=== PATIENT | female | born 1945 | race Caucasian/White ===

== ENCOUNTER 2016-08-25 12:07 | Emergency (ER) | payer OTHER ==
--- NOTE | 2016-08-25 13:03 | EDPHY ---
H & P Time Seen by Provider: 08/25/16 12:57 HPI/ROS: Chief complaint. Nausea, vomiting HPI. 71-year-old female presents emergency department with complaint of nausea for 2 weeks. Decreased appetite. She vomited once this morning and once 4 days ago. No diarrhea. No abdominal pain. Denies chest discomfort, shortness of breath, fever, urinary symptoms. No recent travel or known exposures. She is giving a steroid medication to her dog which says wash her hands after administering the medication. She has been washing her hands after administration but is concerned that this may be a cause. She has not had similar symptoms previously ROS Constitutional. no fever/chills, no weakness Eyes. no problems with vision ENT. no sore throat, no nasal drainage Cardiovascular. no chest pain Respiratory. no shortness of breath, no cough Abdominal. Nausea and vomiting . no problems urinating MS. no calf pain/swelling, no neck/back pain, no joint pain Skin. no rash Lymph. no swollen glands Neuro. no headache, no dizziness, no difficulty walking or with speech Past Medical/Surgical History: Depression and asthma Social History: , nonsmoker, no alcohol Smoking Status: Never smoked Physical Exam: General Appearance: Alert pleasant well-developed female mild distress vital signs are stable Eyes: Pupils equal and round no pallor or injection. ENT, Mouth: Mucous membranes are moist. Respiratory: There are no retractions, lungs are clear to auscultation. Cardiovascular: Regular rate and rhythm. Gastrointestinal: Abdomen is soft and nontender, no masses, bowel sounds normal. Neurological: Awake and alert, sensory and motor exams grossly normal. Skin: Warm and dry, no rashes. Musculoskeletal: Neck is supple nontender. Extremities symmetrical, full range of motion. Psychiatric: Patient is oriented X 3, there is no agitation. Constitutional: Initial Vital Signs Temperature (C) 36.9 C 08/25/16 12:11 Heart Rate 73 08/25/16 12:11 Respiratory Rate 14 08/25/16 12:11 Blood Pressure 129/66 H 08/25/16 12:11 O2 Sat (%) 96 08/25/16 12:11 O2 Delivery Mode Room Air Allergies/Adverse Reactions: Sulfa (Sulfonamide Antibiotics) Allergy (Unverified 08/25/16 12:09) Home Medications: Medication Instructions Recorded Aspirin 08/25/16 Clobetasol 0.05% 08/25/16 Clonazepam 08/25/16 Ondansetron Odt [Zofran Odt] 4 mg PO Q4PRN PRN #7 tab 08/25/16 Zoloft 50mg (*) 08/25/16 Medical Decision Making Procedures: IV normal saline. Zofran IV. ED Course/Re-evaluation: Re-evaluation 2:50 p.m.--patient feeling much better. She no longer has any nausea. She does have abdominal pain. She is taking oral fluids. The patient and I discussed laboratory evaluation, treatment plan, criteria for return importance of follow-up and further evaluation. She expresses understanding and agreement Differential Diagnosis: Chronic nausea with normal workup. This could be stress and anxiety, gastroenteritis. I considered appendicitis, diverticulitis, pancreatitis, hepatitis as well as urinary tract infection - Data Points Laboratory Results: Laboratory Results 08/25/16 12:22 08/25/16 12:22 08/25/16 08/25/16 08/25/16 14:10 12:22 12:22 WBC 5.36 10^3/uL 10^3/uL (3.80-9.50) RBC 4.80 10^6/uL 10^6/uL (4.18-5.33) Hgb 14.9 g/dL g/dL (12.6-16.3) Hct 43.8 % % (38.0-47.0) MCV 91.3 fL fL (81.5-99.8) MCH 31.0 pg pg (27.9-34.1) MCHC 34.0 g/dL g/dL (32.4-36.7) RDW 12.5 % % (11.5-15.2) Plt Count 210 10^3/uL 10^3/uL (150-400) MPV 9.7 fL fL (8.7-11.7) Neut % (Auto) 69.6 % % (39.3-74.2) Lymph % (Auto) 19.0 % % (15.0-45.0) Pepin % (Auto) 7.3 % % (4.5-13.0) Eos % (Auto) 3.0 % % (0.6-7.6) Baso % (Auto) 0.7 % % (0.3-1.7) Nucleat RBC Rel Count 0.0 % % (0.0-0.2) Absolute Neuts (auto) 3.73 10^3/uL 10^3/uL (1.70-6.50) Absolute Lymphs (auto) 1.02 10^3/uL 10^3/uL (1.00-3.00) Absolute Monos (auto) 0.39 10^3/uL 10^3/uL (0.30-0.80) Absolute Eos (auto) 0.16 10^3/uL 10^3/uL (0.03-0.40) Absolute Basos (auto) 0.04 10^3/uL 10^3/uL (0.02-0.10) Absolute Nucleated RBC 0.00 10^3/uL 10^3/uL (0-0.01) Immature Gran % 0.4 % % (0.0-1.1) Immature Gran # 0.02 10^3/uL 10^3/uL (0.00-0.10) Sodium 144 mEq/L mEq/L (134-144) Potassium 4.1 mEq/L mEq/L (3.5-5.2) Chloride 109 mEq/L mEq/L (97-110) Carbon Dioxide 24 mEq/l mEq/l (22-31) Anion Gap 11 mEq/L mEq/L (8-16) BUN 19 mg/dL mg/dL (7-23) Creatinine 0.9 mg/dL mg/dL (0.6-1.0) Estimated GFR > 60 Glucose 90 mg/dL mg/dL (70-100) Calcium 9.6 mg/dL mg/dL (8.5-10.4) Total Bilirubin 0.7 mg/dL mg/dL (0.1-1.4) Conjugated Bilirubin 0.3 mg/dL mg/dL (0.0-0.5) Unconjugated Bilirubin 0.4 mg/dL mg/dL (0.0-1.1) AST 22 IU/L IU/L (14-46) ALT 26 IU/L IU/L (9-52) Alkaline Phosphatase 70 IU/L IU/L (38-126) Total Protein 6.9 g/dL g/dL (6.3-8.2) Albumin 4.2 g/dL g/dL (3.5-5.0) Lipase 62.0 IU/L IU/L (23-300) Urine Color YELLOW Urine Appearance CLEAR Urine pH 6.0 (5.0-7.5) Ur Specific [place] 1.021 (1.002-1.030) Urine Protein NEGATIVE (NEGATIVE) Urine Ketones 1+ H (NEGATIVE) Urine Blood NEGATIVE (NEGATIVE) Urine Nitrate NEGATIVE (NEGATIVE) Urine Bilirubin NEGATIVE (NEGATIVE) Urine Urobilinogen NEGATIVE EU EU (0.2-1.0) Ur Leukocyte Esterase NEGATIVE (NEGATIVE) Urine RBC NONE SEEN /hpf /hpf (0-3) Urine WBC 1-3 /hpf /hpf (0-3) Ur Epithelial Cells NONE SEEN /lpf /lpf (NONE-1+) Urine Mucus 1+ /lpf /lpf (NONE-1+) Urine Glucose NEGATIVE (NEGATIVE) Medications Given: Discontinued Medications Sodium Chloride (Ns) 1,000 mls @ 0 mls/hr IV EDNOW ONE; Wide Open PRN Reason: Protocol Stop: 08/25/16 13:12 Last Admin: 08/25/16 13:18 Dose: 1,000 mls Ondansetron HCl (Zofran) 4 mg IVP EDNOW ONE Stop: 08/25/16 13:12 Last Admin: 08/25/16 13:18 Dose: 4 mg Departure - Departure Disposition: Home, Routine, Self-Care Clinical Impression: Nausea & vomiting Qualifiers: Vomiting type: unspecified Vomiting Intractability: non-intractable Qualified Code(s): R11.2 - Nausea with vomiting, unspecified Condition: Good Instructions: Acute Nausea and Vomiting (ED) Additional Instructions: Zofran every 4 hours as needed for nausea. While nauseated, take frequent, small sips fluids. Gradual diet advancement. Return for worsening symptoms. Keep follow-up appointment with Dr. Chen. Referrals: Radha Chen MD [Primary Care Provider] - As per Instructions Prescriptions: Ondansetron Odt [Zofran Odt] 4 mg PO Q4PRN PRN #7 tab PRN Reason: Nausea/Vomiting, Use 1st
[2016-08-25] MEDS ORDERED: NS 1,000 ML IV ONE (13:11)
[2016-08-25] MEDS ORDERED: ONDANSETRON 4 MG/2 ML VIAL IVP ONE (13:11)
[2016-08-25 13:17] LABS: % IMMATURE GRANULYOCYTES 0.4 % (0.0-1.1); ABSOLUTE IMMATURE GRANULOCYTES 0.02 10^3/uL (0.00-0.10); ADD DIFF? NO; ADD MORPH? NO; ADD SCAN? NO; ATYPICAL LYMPHOCYTE FLAG 0 (0-99); FRAGMENT RBC FLAG 0 (0-99); HEMATOCRIT 43.8 % (38.0-47.0); HEMOGLOBIN 14.9 g/dL (12.6-16.3); LEFT SHIFT FLG 0 (0-99); LIPEMIA HEMOLYSIS FLAG 90 (0-99); MEAN CELL VOLUME 91.3 fL (81.5-99.8); MEAN PLATELET VOLUME 9.7 fL (8.7-11.7); PLATELET CLUMPS FLAG 0 (0-99); PLATELET COUNT 210 10^3/uL (150-400); RED CELL DISTRIBUTION WIDTH 12.5 % (11.5-15.2)
[2016-08-25 13:24] LABS: ALANINE AMINOTRANSFERASE 26 IU/L (9-52); ALBUMIN 4.2 g/dL (3.5-5.0); ALKALINE PHOSPHATASE 70 IU/L (38-126); ANION GAP 11 mEq/L (8-16); ASPARTATE AMINOTRANSFERASE 22 IU/L (14-46); BILIRUBIN,TOTAL 0.7 mg/dL (0.1-1.4); BILIRUBIN-CONJUGATED 0.3 mg/dL (0.0-0.5); BILIRUBIN-UNCONJUGATED 0.4 mg/dL (0.0-1.1); CALCIUM 9.6 mg/dL (8.5-10.4); CARBON DIOXIDE 24 mEq/l (22-31); CHLORIDE 109 mEq/L (97-110); CREATININE 0.9 mg/dL (0.6-1.0); GLOMERULAR FILTRATION RATE > 60; GLUCOSE 90 mg/dL (70-100); POTASSIUM 4.1 mEq/L (3.5-5.2); SODIUM 144 mEq/L (134-144); TOTAL PROTEIN 6.9 g/dL (6.3-8.2)
[2016-08-25 14:28] LABS: COLOR YELLOW; LEUKOCYTE ESTERASE,URINE NEGATIVE (NEGATIVE); NITRITE,URINE NEGATIVE (NEGATIVE)
[2016-08-25 14:36] LABS: MUCUS 1+ /lpf (NONE-1+)
[2016-08-25 14:39] LABS: RBC,URINE NONE SEEN /hpf (0-3)
[2016-08-25 15:11] VITALS: BP 127/64; PULSE 71; RESP 18; TEMP 98.1; O2SAT 95
== END 2016-08-25 15:11 | disposition home or self-care (01) ==
DX: R11.2 Nausea with vomiting, unspecified (principal); E86.9 Volume depletion, unspecified; J45.909 Unspecified asthma, uncomplicated; Z79.82 Long term (current) use of aspirin
CPT/HCPCS: 96361; 96374; 99284; J2405

== ENCOUNTER → 2016-08-30 | Outpatient (CLI) | payer OTHER | LOC: CIMAGING 10:40 | PROVIDERS: ATTEND Family Medicine | DX: R11.2 Nausea with vomiting, unspecified (principal) | CPT/HCPCS: 74022-PO ==

== ENCOUNTER 2016-09-02 14:27 | Inpatient (IN) | payer OTHER ==
[2016-09-02] MEDS ORDERED: NS 1,000 ML IV ONE (17:20)
[2016-09-02 17:38] LABS: % IMMATURE GRANULYOCYTES 0.5 % (0.0-1.1); ABSOLUTE IMMATURE GRANULOCYTES 0.03 10^3/uL (0.00-0.10); ADD DIFF? NO; ADD MORPH? NO; ADD SCAN? NO; ATYPICAL LYMPHOCYTE FLAG 10 (0-99); FRAGMENT RBC FLAG 0 (0-99); HEMATOCRIT 46.2 % (38.0-47.0); HEMOGLOBIN 15.8 g/dL (12.6-16.3); LEFT SHIFT FLG 0 (0-99); LIPEMIA HEMOLYSIS FLAG 90 (0-99); MEAN CELL HEMOGLOBIN 30.9 pg (27.9-34.1); MEAN CELL HEMOGLOBIN CONCENTR. 34.2 g/dL (32.4-36.7); MEAN CELL VOLUME 90.4 fL (81.5-99.8); MEAN PLATELET VOLUME 9.5 fL (8.7-11.7); PLATELET CLUMPS FLAG 0 (0-99); PLATELET COUNT 229 10^3/uL (150-400); RED BLOOD CELL COUNT 5.11 10^6/uL (4.18-5.33); RED CELL DISTRIBUTION WIDTH 12.5 % (11.5-15.2)
[2016-09-02] MEDS ORDERED: IOPAMIDOL (ISOVUE-300) 100 ML BTL ONE (17:46)
[2016-09-02 18:02] LABS: ANION GAP 12 mEq/L (8-16); CALCIUM 9.5 mg/dL (8.5-10.4); CARBON DIOXIDE 24 mEq/l (22-31); CHLORIDE 104 mEq/L (97-110); CREATININE 0.9 mg/dL (0.6-1.0); GLOMERULAR FILTRATION RATE > 60; GLUCOSE 83 mg/dL (70-100); POTASSIUM 3.8 mEq/L (3.5-5.2); SODIUM 140 mEq/L (134-144)
[2016-09-02] MEDS ORDERED: ONDANSETRON 4 MG/2 ML VIAL IVP ONE (18:35)
--- NOTE | 2016-09-02 18:35 | EDPHY ---
H & P Time Seen by Provider: 09/02/16 17:12 HPI/ROS: CHIEF COMPLAINT: Nausea and abdominal pain HISTORY OF PRESENT ILLNESS: Patient was seen in our emergency department on August 25 last week and discharged after IV therapy in the emergency department. She continues to have nausea which is worse with oral intake. She had vomiting on Monday and has abdominal pain and burping with any oral intake. She has not had anything to eat or drink in the last 24 hours. No bowel movement. Patient's symptoms still remains severe. REVIEW OF SYSTEMS: Eye: no change in vision ENT: no sore throat Cardiac: no chest pain or syncope Pulmonary: no cough or SOB Abdomen: HPI Musculoskeletal: no back pain Skin: no rash Neuro: no headache Constitutional: no fever : no urinary symptoms A comprehensive 10 point review of systems is otherwise negative aside from elements mentioned in the history of present illness. PAST MEDICAL HISTORY: asthma, depression, breast reduction Social history: no alcohol General Appearance: Alert and conversant, cooperative. Eyes: No scleral icterus. ENT, Mouth: Normal mucous membranes. Respiratory: Normal respiratory effort, breath sounds equal, lungs are clear to auscultation. Cardiovascular: Regular rate and rhythm. Gastrointestinal: Abdomen is soft and non tender. No rebound or guarding, not distended, bowel sounds decreased. Neurological: Alert and oriented x3. Normally conversant. Face symmetric, normal movement and sensation in all extremities. Skin: Warm and dry, no rashes. Musculoskeletal: No peripheral edema and no joint swelling. Psychiatric: Not agitated. Emergency Department course/MDM: 1830: Patient has normal CT per Ajith Ellis. Plan for admission hospital for GI consultation further evaluation as the patient has persistent nausea and inability to tolerate oral despite outpatient treatment. Ondansetron 4 mg IV. Discussed with Ambar Nunes, will consult. Smoking Status: Never smoked Constitutional: Initial Vital Signs Temperature (C) 36.5 C 09/02/16 14:31 Heart Rate 88 09/02/16 14:31 Respiratory Rate 18 09/02/16 14:31 Blood Pressure 106/85 H 09/02/16 14:31 O2 Sat (%) 99 09/02/16 14:31 O2 Delivery Mode Room Air Allergies/Adverse Reactions: Sulfa (Sulfonamide Antibiotics) Allergy (Unverified 08/25/16 12:09) Home Medications: Medication Instructions Recorded Acetamn/Diphenhydramine 500/25 1 each PO HS PRN 09/02/16 [Tylenol PM (*)] Albuterol [Proventil Inhaler HFA 1 - 2 puffs IH Q4H PRN 09/02/16 (*)] Aspirin [Aspirin 81mg (*)] 81 mg PO DAILY 09/02/16 Calcium Carbonate [Oyster Shell 500 mg PO DAILY 09/02/16 Calcium 500 mg (*)] Cholecalciferol Vit D3 [Vitamin D3 1,000 units PO DAILY 09/02/16 (*)] Clobetasol 0.05% [Temovate 1 raymond TP BID PRN 09/02/16 Ointment] Docusate Sodium [Colace 100 MG (*)] 100 mg PO DAILY 09/02/16 Estradiol [Estrace Vaginal (*)] 1 gm VAG HS PRN 09/02/16 Sertraline HCl [Zoloft 100mg (*)] 100 mg PO DAILY 09/02/16 clonazePAM [Klonopin (*)] 0.25 mg PO HS PRN 09/02/16 Medical Decision Making - Diagnostics EKG Interpretation: 12-lead EKG interpreted by me; official reading is in trace master. My interpretation is sinus rhythm rate 70 no ischemic changes. Imaging Results: Imaging Impressions Abdomen CT 09/02/16 17:37 Impression: No source for symptoms identified. General information for patients regarding this examination can be found at [email or web address]. If you have questions or comments about this report, please contact me at (hospital) or [phone] (cell). Differential Diagnosis: Differential considered including but not limited to UTI, cardiac disease, depression, bowel obstruction, metabolic. - Data Points Laboratory Results: Laboratory Results 09/02/16 17:25 09/02/16 17:25 09/02/16 09/02/16 09/02/16 17:25 17:25 17:23 WBC 6.22 10^3/uL 10^3/uL (3.80-9.50) RBC 5.11 10^6/uL 10^6/uL (4.18-5.33) Hgb 15.8 g/dL g/dL (12.6-16.3) POC Hgb 16.0 gm/dL gm/dL (12.6-16.3) Hct 46.2 % % (38.0-47.0) POC Hct 47 % % (38-47) MCV 90.4 fL fL (81.5-99.8) MCH 30.9 pg pg (27.9-34.1) MCHC 34.2 g/dL g/dL (32.4-36.7) RDW 12.5 % % (11.5-15.2) Plt Count 229 10^3/uL 10^3/uL (150-400) MPV 9.5 fL fL (8.7-11.7) Neut % (Auto) 64.1 % % (39.3-74.2) Lymph % (Auto) 21.7 % % (15.0-45.0) [place] % (Auto) 8.8 % % (4.5-13.0) Eos % (Auto) 3.9 % % (0.6-7.6) Baso % (Auto) 1.0 % % (0.3-1.7) Nucleat RBC Rel Count 0.0 % % (0.0-0.2) Absolute Neuts (auto) 3.99 10^3/uL 10^3/uL (1.70-6.50) Absolute Lymphs (auto) 1.35 10^3/uL 10^3/uL (1.00-3.00) Absolute Monos (auto) 0.55 10^3/uL 10^3/uL (0.30-0.80) Absolute Eos (auto) 0.24 10^3/uL 10^3/uL (0.03-0.40) Absolute Basos (auto) 0.06 10^3/uL 10^3/uL (0.02-0.10) Absolute Nucleated RBC 0.00 10^3/uL 10^3/uL (0-0.01) Immature Gran % 0.5 % % (0.0-1.1) Immature Gran # 0.03 10^3/uL 10^3/uL (0.00-0.10) POC Sodium 141 mEq/L mEq/L (134-144) Sodium 140 mEq/L mEq/L (134-144) POC Potassium 3.6 mEq/L mEq/L (3.3-5.0) Potassium 3.8 mEq/L mEq/L (3.5-5.2) POC Chloride 102 mEq/L mEq/L (97-110) Chloride 104 mEq/L mEq/L (97-110) Carbon Dioxide 24 mEq/l mEq/l (22-31) Anion Gap 12 mEq/L mEq/L (8-16) POC BUN 11 mg/dL mg/dL (7-23) BUN 11 mg/dL mg/dL (7-23) Creatinine 0.9 mg/dL mg/dL (0.6-1.0) POC Creatinine 0.9 mg/dL mg/dL (0.6-1.0) Estimated GFR > 60 Glucose 83 mg/dL mg/dL (70-100) POC Glucose 87 mg/dL mg/dL (70-100) Calcium 9.5 mg/dL mg/dL (8.5-10.4) Medications Given: Discontinued Medications Sodium Chloride (Ns) 1,000 mls @ 0 mls/hr IV EDNOW ONE; Wide Open PRN Reason: Protocol Stop: 09/02/16 17:21 Last Admin: 09/02/16 17:36 Dose: 1,000 mls Ondansetron HCl (Zofran) 4 mg IVP EDNOW ONE Stop: 09/02/16 18:36 Last Admin: 09/02/16 18:42 Dose: 4 mg Point of Care Test Results: 09/02/16 17:23 POC Sodium 141 POC Potassium 3.6 POC Chloride 102 POC BUN 11 POC Creatinine 0.9 POC Glucose 87 Departure - Departure Disposition: [facility] Inpatient Acute Clinical Impression: Nausea Condition: Good
--- NOTE | 2016-09-02 18:48 | CPEKG ---
Heart Rate: 70 RR Interval: 857 P-R Interval: 140 QRSD Interval: 84 QT Interval: 408 QTC Interval: 441 P [place]: 55 QRS [place]: 49 T Wave [place]: 5 EKG Severity - NORMAL ECG - EKG Impression: SINUS RHYTHM Electronically Signed By: Subhash Ortiz 02-Sep-2016 18:49:53
[2016-09-02] MEDS ORDERED: ONDANSETRON DISINTEGRATING 4 MG TAB PO PRN (20:41)
[2016-09-02] MEDS ORDERED: ACETAMINOPHEN 325 MG TAB PO PRN (20:41)
[2016-09-02] MEDS ORDERED: oxyCODONE IR 5 MG TAB PO PRN (20:41)
[2016-09-02] MEDS ORDERED: HYDROmorphONE/DILAUDID 1 MG/ML SYR IVP PRN (20:41)
[2016-09-02] MEDS ORDERED: LORazepam 2 MG/ML INJ IVP PRN (20:41)
[2016-09-02] MEDS ORDERED: ONDANSETRON 4 MG/2 ML VIAL IVP PRN (20:41)
[2016-09-02] MEDS ORDERED: PROMETHAZINE HCL 25 MG/ML INJ IVP PRN (20:41)
[2016-09-02] MEDS ORDERED: CLOBETASOL 0.05% 15 GM OINT TUBE TP PRN (20:43)
[2016-09-02] MEDS ORDERED: ESTRADIOL 42.5 GM CRTUBE VG PRN (20:43)
[2016-09-02] MEDS ORDERED: ACETAMN/DIPHENHYDRAMINE 500/25MG TAB PO PRN (20:43)
[2016-09-02] MEDS ORDERED: ALBUTEROL 200 PUFFS/18 GM MDI IH PRN (20:43)
[2016-09-02] MEDS ORDERED: clonazePAM 0.5 MG TAB PO PRN (21:27)
[2016-09-02] MEDS ORDERED: POLYETHYLENE GLYCOL 3350 17 GM PKT PO PRN (23:09)
[2016-09-02] MEDS ORDERED: LACTULOSE 20 GM/30 ML UDCUP PO PRN (23:09)
[2016-09-02] MEDS ORDERED: BISACODYL 10 MG SUPP PR PRN (23:09)
[2016-09-02] MEDS ORDERED: MAGNESIUM HYDROXIDE 30 ML UDCUP PO PRN (23:09)
[2016-09-02 23:14] LABS: COLOR PALE YELLOW; LEUKOCYTE ESTERASE,URINE 1+ (NEGATIVE); NITRITE,URINE NEGATIVE (NEGATIVE)
--- NOTE | 2016-09-03 00:22 | GHP ---
[f rep st] HISTORY AND PHYSICAL DATE OF ADMISSION: 09/02/2016 CHIEF COMPLAINT: Nausea, vomiting. HISTORY: This is a 71-year-old female with past medical history that includes mild asthma and depre ssion, who presents with 3 weeks' of fairly persistent nausea and vomiting. The patient notes this has led to her to be hardly able to take anything by mouth. She has had no bowel movement for 10 da ys. She notes that the nausea and vomiting does not seem to have any clear trigger, although she do es vomit mostly when she is up walking but this also tends to follow when she has eaten breakfast. She has lost about 5 pounds in the last couple of weeks. She denies any abdominal pain. She has carey d no fevers or chills. She did take medication for constipation and this did not really lead to any improvement and no real significant bowel movement. She has never had similar symptoms in the past . PAST MEDICAL HISTORY: 1. Depression, well controlled. 2. Asthma. PAST SURGICAL HISTORY: 1. Breast reduction 20+ years ago. 2. Right shoulder surgery. SOCIAL HISTORY: Patient denies any tobacco use. She drinks alcohol occasionally. She is . FAMILY HISTORY: Mother is alive and well at age 94. Father was healthy as far she knows. Sister h as recently been diagnosed with an autoimmune condition. REVIEW OF SYSTEMS: A 10-point Review of Systems obtained, negative except as per HPI. HOME MEDICATIONS: 1. Klonopin. 2. Sertraline. 3. Estradiol vaginal cream. 4. Docusate. 5. Clobetasol cream. 6. Cholecalciferol. 7. Calcium carbonate. 8. Aspirin. 9. Albuterol. 10. Tylenol PM. ALLERGIES: Sulfa. PHYSICAL EXAM: VITAL SIGNS: BP 112/85, heart rate 76, respiratory rate 18, O2 sats 94% on room air . Temperature is 36.8. GENERAL APPEARANCE: This is a well-developed/well-nourished female. She i s awake and alert. She is in mild distress. HEENT: Eyes: Anicteric. Oropharynx clear. CARDIOVA SCULAR: Regular rate and rhythm. No murmurs, rubs, or gallops. PULMONARY: CTA bilaterally. Norm al work of breathing. ABDOMEN: Soft, bowel sounds are decreased. No rebound or guarding. EXTREMI TIES: No clubbing, cyanosis, or edema. SKIN: Warm dry well perfused. NEURO/PSYCH: Oriented, raymond ropriate, pleasant. CLINICAL DATA: Labs reviewed. White blood cell count of 6.2, hematocrit of 46.2, platelets of 229. Chemistry is unremarkable. She has had recent LFTs, which were unremarkable. Recent lipase of 62 . Abdomen/pelvic CT: Personally reviewed and interpreted, shows no acute abnormalities. EKG: Personally reviewed and interpreted, shows sinus rhythm without any ischemic changes. ASSESSMENT AND PLAN: This is a 71-year-old female, past medical history of depression and asthma pr esenting with several weeks of persistent nausea, vomiting, and inability to tolerate p.o. 1. Nausea, vomiting. This has been persistent and severe. Imaging is unremarkable. It is associa colt with decreased bowel sounds and constipation that she states has been present for at least 10 da ys. GI has been consulted and suspect she probably will need upper endoscopy for further evaluation . Considerations would include some sort of gastric outlet obstruction versus gastroparesis given h er description of her symptoms. We will keep n.p.o. after midnight and provide p.r.n. antiemetics a s needed. 2. Constipation. Per patient, no bowel movement in [address] scan did not show significant cons tipation, however. We will start bowel protocol. Again, GI has been consulted. 3. Anorexia. The patient notes approximately 5-pound weight loss and inability to tolerate p.o. in the setting of persistent nausea. We will continue IV fluids while she is n.p.o. and can workup he r nausea and vomiting further as per above. 4. Depression. Per patient, has been well controlled. She does appear euthymic. We will continue her sertraline. 5. Restless legs syndrome. The patient takes Klonopin p.r.n. at h.s. Will continue. 6. Disposition. Observation status. Suspect she will need less than 48-hour stay for evaluation a nd management of above. 7. Patient is new to my care. Old records reviewed, summarized as per HPI and Past Medical History . Care plan reviewed with ER physician, including plans for GI consultation. /[id number]/MODL
[2016-09-03 05:14] LABS: % IMMATURE GRANULYOCYTES 0.2 % (0.0-1.1); ABSOLUTE IMMATURE GRANULOCYTES 0.01 10^3/uL (0.00-0.10); ADD DIFF? NO; ADD MORPH? NO; ADD SCAN? NO; ATYPICAL LYMPHOCYTE FLAG 10 (0-99); FRAGMENT RBC FLAG 0 (0-99); HEMATOCRIT 41.1 % (38.0-47.0); HEMOGLOBIN 13.7 g/dL (12.6-16.3); LEFT SHIFT FLG 0 (0-99); LIPEMIA HEMOLYSIS FLAG 80 (0-99); MEAN CELL HEMOGLOBIN 30.6 pg (27.9-34.1); MEAN CELL HEMOGLOBIN CONCENTR. 33.3 g/dL (32.4-36.7); MEAN CELL VOLUME 91.9 fL (81.5-99.8); MEAN PLATELET VOLUME 9.7 fL (8.7-11.7); PLATELET CLUMPS FLAG 20 (0-99); PLATELET COUNT 201 10^3/uL (150-400); RED BLOOD CELL COUNT 4.47 10^6/uL (4.18-5.33); RED CELL DISTRIBUTION WIDTH 12.5 % (11.5-15.2)
[2016-09-03 05:40] LABS: ANION GAP 10 mEq/L (8-16); CALCIUM 9.1 mg/dL (8.5-10.4); CARBON DIOXIDE 23 mEq/l (22-31); CHLORIDE 110 mEq/L (97-110); CREATININE 1.1 mg/dL (0.6-1.0); GLOMERULAR FILTRATION RATE 49; GLUCOSE 79 mg/dL (70-100); POTASSIUM 4.8 mEq/L (3.5-5.2); SODIUM 143 mEq/L (134-144)
--- NOTE | 2016-09-03 09:32 | PDANEPAE ---
ANE History of Present Illness emesis ANE Past Medical History - Cardiovascular History Hx Hypertension: No Hx Arrhythmias: No Hx Chest Pain: No Hx Coronary Artery / Peripheral Vascular Disease: No Hx CHF / Valvular Disease: No Hx Palpitations: No - Pulmonary History Hx Asthma/Reactive Airway Disease: Yes Hx Oxygen in Use at Home: No Hx Sleep Apnea: No Sleep Apnea Screening Result - Last Documented: Negative - Endocrine History Hx Diabetes: No - Renal History Hx Renal Disorders: No - Liver History Hx Hepatic Disorders: No ANE Review of Systems - Exercise capacity METS (RN): 4 METS ANE Patient History - Allergies Allergies/Adverse Reactions: Sulfa (Sulfonamide Antibiotics) Allergy (Unverified 08/25/16 12:09) - Home Medications Home Medications: Acetamn/Diphenhydramine 500/25 [Tylenol PM (*)] 1 each PO HS PRN 09/02/16 [Last Taken Unknown] Albuterol [Proventil Inhaler HFA (*)] 1 - 2 puffs IH Q4H PRN 09/02/16 [Last Taken 09/01/16] Aspirin [Aspirin 81mg (*)] 81 mg PO DAILY 09/02/16 [Last Taken 08/31/16] Calcium Carbonate [Oyster Shell Calcium 500 mg (*)] 500 mg PO DAILY 09/02/16 [ Last Taken 09/01/16] Cholecalciferol Vit D3 [Vitamin D3 (*)] 1,000 units PO DAILY 09/02/16 [Last Taken 09/01/16] Clobetasol 0.05% [Temovate Ointment] 1 raymond TP BID PRN 09/02/16 [Last Taken Unknown] Docusate Sodium [Colace 100 MG (*)] 100 mg PO DAILY 09/02/16 [Last Taken ] Estradiol [Estrace Vaginal (*)] 1 gm VAG HS PRN 09/02/16 [Last Taken Unknown] Sertraline HCl [Zoloft 100mg (*)] 100 mg PO DAILY 09/02/16 [Last Taken 08/31/16] clonazePAM [Klonopin (*)] 0.25 mg PO HS PRN 09/02/16 [Last Taken Unknown] - NPO status NPO Since - Liquids (Date): 09/03/16 NPO Since - Liquids (Time): 04:00 NPO Since - Solids (Date): 09/02/16 NPO Since - Solids (Time): 17:00 - Anes Hx Anes Hx: no prior problems - Smoking Hx Smoking Status: Never smoked ANE Labs/Vital Signs - Labs Result Diagrams: 09/03/16 04:47 09/03/16 04:47 - Vital Signs Blood Pressure: 102/69 Heart Rate: 67 Respiratory Rate: 16 O2 Sat (%): 95 Height: 157.48 cm Weight: 60.328 kg ANE Physical Exam - Airway Mallampati Score: Class 2 Mouth exam: normal dental/mouth exam - Pulmonary Pulmonary: no respiratory distress - Cardiovascular Cardiovascular: regular rate and rhythym - ASA Status ASA Status: II ANE Anesthesia Plan Anesthesia Plan: GA with mask
[2016-09-03] MEDS ORDERED: PROPOFOL/EMULSION 500 MG/50 ML BOTTLE IV ONE (09:34)
[2016-09-03] MEDS ORDERED: MIDAZOLAM 2 MG/2 ML VIAL ONE (09:34)
[2016-09-03] MEDS ORDERED: LIDOCAINE 2% 5 ML SDV ONE (09:34)
--- NOTE | 2016-09-03 09:56 | POSTANESTH ---
Post Anesthetic Evaluation Cardiovascular Status: Normal, Stable Respiratory Status: Normal, Stable Level of Consciousness/Mental Status: Can Participate in Eval Pain Control: Adequate, Prn Tx Ordered Nausea/Vomiting Control: Adequate, Prn Tx Ordered Complications Possibly Related to Anesthesia: None Noted
--- NOTE | 2016-09-03 10:02 | POSTOPPROG ---
Post Op Note Date of Operation: 09/03/16 Surgeon: Justice Villalta Anesthesia: IV Sedation Pre-op Diagnosis: nausea Post-op Diagnosis: gastritis Indication: nausea Procedure: EGD with bx Findings: gastritis Inf/Abcess present in the surg proc area at time of surgery?: No EBL: Minimal Specimen(s): gastritis, celiac sprue
--- NOTE | 2016-09-03 10:04 | PDGENHP ---
History & Physical Chief Complaint: nausea History of Present Illness: 71 year old female presents for evaluation of nausea x 3 weeks. Intermitent vomiting. + constipation Pertinent Past, Social, Family History: PMHx: anxiety Relevant Physical Exam: HEENT: anicteric. CV: RRR + s1s2. Lungs: CTAB. Abd: soft, nt, + BS. Cardiorespiratory Assessment: ASA 2. Mall: 2
--- NOTE | 2016-09-03 12:48 | GPN ---
[f rep st] PROCEDURE NOTE DATE OF PROCEDURE: 09/03/2016 PROCEDURE: Esophagogastroduodenoscopy with biopsy. INDICATION: The patient is a 71-year-old female who presents for evaluation of nausea and vomiting. CONSENT: Risks, benefits, and alternatives of the procedure were discussed in great detail of the patient. Risks of infection, bleeding, perforation, and sedation were discussed. All questions answered, and informed consent was obtained. MEDICATIONS: Propofol. Please see Anesthesia records for details. ESTIMATED BLOOD LOSS: Insignificant. ESOPHAGOGASTROSCOPY EXAMINATION: The Olympus upper endoscope was inserted into the mouth and advanced to the esophagus. The proximal, mid, and distal esophagus were normal in appearance. The stomach was entered and closely examined, including retroflexed views of the angularis, cardia and fundus. A small hiatal hernia was noted on retroflexion. The mucosa of the antrum and the body of the stomach was erythematous in a patchy distribution, and biopsies were taken. The duodenal bulb and second portion of the duodenum were normal in appearance. Biopsies were taken to rule out celiac sprue. IMPRESSION: 1. Small hiatal hernia. 2. Gastritis, status post biopsy. 3. Biopsy taken to rule out celiac sprue. 4. No obvious cause of her symptoms seen. Will await biopsy results. Would consider PPI therapy as well as a trial of Carafate. RECOMMENDATIONS: 1. Follow up on biopsy results. 2. Carafate and PPI therapy. 3. Restart diet. /[id number]/MODL MTDD
[2016-09-03] MEDS: SUCRALFATE 1 GM/10 ML UDCUP PO SCH ×3 (12:55→21:53)
[2016-09-03] MEDS: DOCUSATE SODIUM 100 MG CAP PO SCH (13:03)
[2016-09-03] MEDS: ASPIRIN 81 MG CHEWABLE TAB PO SCH (13:03)
[2016-09-03] MEDS: ENOXAPARIN 40 MG/0.4 ML SYR SC SCH (13:03)
[2016-09-03] MEDS: SENNOSIDES/DOCUSATE SODIUM TAB PO SCH ×2 (13:04→21:58)
[2016-09-03] MEDS: SERTRALINE HCL 100 MG TAB PO SCH (13:04)
--- NOTE | 2016-09-03 14:29 | GCON ---
[f rep st] CONSULTATION DATE OF CONSULTATION: 09/03/2016 DATE OF CONSULTATION: Isa Andrade MD REASON FOR CONSULTATION: Nausea. HISTORY OF PRESENT ILLNESS: The patient is a 71-year-old female with a history of depression, asthma, who presents to [facility] with complaints of nausea and vomiting. The patient states that for the last 3 weeks she has had persistent nausea, which occurs throughout the day. This occurs on a daily basis and is exacerbated by any oral intake. She feels her symptoms are worse with solid foods. She does have complaints of intermittent vomiting. She has lost approximately 5 pounds in the last several weeks. She also has complaints of constipation and has multiple days without a bowel movement. She denies any abdominal pain, dysphagia, odynophagia, or acid reflux. I am being asked by Dr. Andrade to evaluate the patient in consultation regarding her significant nausea. PAST MEDICAL HISTORY: 1. Depression. 2. Asthma. PAST SURGICAL HISTORY: 1. Breast reduction. 2. Right shoulder surgery. MEDICATIONS: Klonopin, sertraline, Estradiol, docusate, clobetasol, calcium carbonate, aspirin, Tylenol, albuterol. ALLERGIES: Sulfa. SOCIAL HISTORY: No significant tobacco use. Social alcohol. FAMILY HISTORY: No history of colon cancer. REVIEW OF SYSTEMS: A 14-point comprehensive review of systems is as per pertinent positives and negatives in HPI. PHYSICAL EXAM: VITAL SIGNS: Blood pressure 102/69, pulse is 67, respiratory rate 16, temperature 36.7. GENERAL: Awake, alert, oriented x3, in no distress. HEENT: Anicteric sclerae. Moist mucosa. NECK: No JVD. CARDIOVASCULAR: Regular rate and rhythm. Positive S1, S2. No gallops appreciated. LUNGS: Clear to auscultation bilaterally. No wheezes, rales, rhonchi. ABDOMEN: Soft, nontender, nondistended. Positive bowel sounds. No guarding. No rebound. EXTREMITIES: No clubbing, cyanosis, or edema. NEUROLOGIC: 2 through 12 grossly intact. PSYCH: Normal affect. SKIN: Nonicteric warm. MUSCULOSKELETAL: No obvious joint effusions. LABORATORY DATA: Blood work: WBC is 5.53, hemoglobin 13.7, hematocrit 41.1, platelets 201. Sodium 142, chloride 110, bicarb 22, BUN 12, creatinine 1.1. CT scan 09/02/16- no evidence of bowel obstruction. ASSESSMENT AND PLAN: 1. Nausea-with vomiting. Three weeks history. Etiology? Peptic ulcer disease versus multifactorial versus med induced versus other? She has had inability to tolerate significant oral intake. I would recommend to proceed with upper endoscopy to rule out ulcer disease versus other? The risks, benefits, and alternatives of the procedure were discussed in great detail with the patient. Due to her asthma with inhaler use, she is at increased risk of sedation, and will recommend anesthesiology support. 2. Asthma. 3. Depression. Thank you very much for this consultation. /[id number]/MODL MTDD
--- NOTE | 2016-09-03 15:50 | HOSPPROG ---
Hospitalist Progress Note Assessment/Plan: * nausea vomiting * uncertain cause * EGD with gastritis only * there were times where she did not have flatus or bowel movements for almost a week * wonder if there is component of gastroparesis - will empirically try Reglan today * also will check H pylori breath test tomorrow morning * consider brain imaging * will also try to get GI pathogen panel * depression * asthma Subjective: nausea vomiting not so bad this afternoon. No abdominal pain Objective: Vital Signs Temp Pulse Resp BP Pulse Ox 36.7 C 74 18 118/73 97 09/03/16 10:37 09/03/16 12:11 09/03/16 12:11 09/03/16 12:11 09/03/16 12:11 Laboratory Results 09/03/16 04:47 09/03/16 04:47 09/02/16 09/03/16 09/04/16 05:59 05:59 05:59 Intake Total 1000 Output Total 300 Balance 700 EGD results noted - Physical Exam Constitutional: no apparent distress, appears nourished, not in pain Eyes: anicteric sclera, EOMI Ears, Nose, Mouth, Throat: moist mucous membranes, hearing normal Cardiovascular: regular rate and rhythym, no murmur, rub, or gallop Respiratory: no respiratory distress, no rales or rhonchi, clear to auscultation Gastrointestinal: normoactive bowel sounds, soft, non-tender abdomen, no palpable masses Skin: warm Neurologic: AAOx3 Psychiatric: interacting appropriately, not anxious, not encephalopathic, thought process linear ICD10 Worksheet Patient Problems: Problems Problem Status Onset Nausea Acute
[2016-09-03] MEDS: METOCLOPRAMIDE 10 MG/2 ML VIAL IVP SCH ×2 (16:50→21:50)
[2016-09-03] MEDS: NS 1,000 ML IV SCH (20:53)
[2016-09-03] MEDS ORDERED: PANTOPRAZOLE SODIUM 40 MG TAB PO SCH (21:00)
[2016-09-04] MEDS: SUCRALFATE 1 GM/10 ML UDCUP PO SCH (06:38)
[2016-09-04] MEDS: NS 1,000 ML IV SCH (06:38)
[2016-09-04 10:02] VITALS: BP 126/68; PULSE 74; RESP 16; TEMP 97.9; O2SAT 98
[2016-09-04] MEDS: SERTRALINE HCL 100 MG TAB PO SCH (10:04)
[2016-09-04] MEDS: ASPIRIN 81 MG CHEWABLE TAB PO SCH (10:04)
[2016-09-04] MEDS: DOCUSATE SODIUM 100 MG CAP PO SCH (10:04)
[2016-09-04] MEDS: SENNOSIDES/DOCUSATE SODIUM TAB PO SCH (10:04)
[2016-09-04] MEDS: METOCLOPRAMIDE 10 MG/2 ML VIAL IVP SCH (10:04)
[2016-09-04] MEDS: ENOXAPARIN 40 MG/0.4 ML SYR SC SCH (10:05)
--- NOTE | 2016-09-04 16:27 | GDS ---
[f rep st] DISCHARGE SUMMARY DISCHARGE DIAGNOSES: 1. Nausea, vomiting of uncertain etiology. 2. Mild gastritis. HISTORY: This is a 71-year-old female, who presented with 3 weeks of nausea and vomiting. She is n ot having any abdominal pain. HOSPITAL COURSE: The patient was admitted. An EGD was done. It showed some mild gastritis. She a lso had a CT scan, which was negative. She is not having any abdominal pain, or tenderness, or elev ation of her LFTs, which would suggest gallbladder pathology. She did not improve with Reglan. She is getting H pylori breath test today. She is wanting to go home and continue workup as outpatient . She was discharged home with a prescription for Protonix to see if that might help. She is instr ucted to follow up with her primary care doctor this week and with Gastroenterology. /[id number]/MODL
--- NOTE | 2016-09-04 17:58 | SOAPPROG ---
SOAP Progress Note Assessment/Plan: Assessment: Plan: 09/04/16 17:55 A/P 1. Nausea- with vomiting. S/p EGD with no obvious cause. Feeling better than yesterday. Recommend to await biopsies for H. pylori. Also recommend trial of PPI versus Carafate. I did discuss that she needs to f/u in our office. She is anxious to go home today. Subjective: cc: Nausea Feeling better Objective: Vital Signs Temp Pulse Resp BP Pulse Ox 36.6 C 74 16 126/68 H 98 09/04/16 10:01 09/04/16 10:01 09/04/16 10:01 09/04/16 10:01 09/04/16 10:01 09/03/16 09/04/16 09/05/16 05:59 05:59 05:59 Intake Total 1386 Balance 1386 Physical Exam - Physical Exam General Appearance: alert, no apparent distress EENT: No scleral icterus (R), No scleral icterus (L) Respiratory: lungs clear, normal breath sounds Cardiac/Chest: regular rate, rhythm Abdomen: non-tender, soft, No distended, No guarding, No rebound Skin: normal color Neuro/Psych: normal mood/affect, oriented x 3, No abnormal coil maker II-XII ICD10 Worksheet Patient Problems: Problems Problem Status Onset Nausea Acute
== END 2016-09-04 11:27 | disposition home or self-care (01) | DRG 392 ==
LOC: F1N 20:04 → OBSVTOIN 09-03 16:08
PROVIDERS: ADMIT Internal Medicine; ATTEND Internal Medicine
DX: K29.70 Gastritis, unspecified, without bleeding (principal); J45.909 Unspecified asthma, uncomplicated; F32.9 Major depressive disorder, single episode, unspecified; K59.00 Constipation, unspecified; R63.0 Anorexia; G25.81 Restless legs syndrome; K46.9 Unspecified abdominal hernia without obstruction or gangrene
CPT/HCPCS: 82947-QW; 96374; G0378; J2250; J2405; J2704; J2765; Q9967

== ENCOUNTER 2016-09-15 10:49 | Emergency (ER) | payer OTHER ==
[2016-09-15 11:02] VITALS: RESP 18; TEMP 98.4
[2016-09-15] MEDS ORDERED: NS 1,000 ML IV ONE (11:03)
[2016-09-15] MEDS ORDERED: ONDANSETRON 4 MG/2 ML VIAL IVP ONE (11:03)
--- NOTE | 2016-09-15 11:10 | EDPHY ---
H & P Time Seen by Provider: 09/15/16 11:09 HPI/ROS: 71-year-old female with history of asthma, depression, gastritis presents for her 3rd ER visit over the last 2 months for intractable nausea and vomiting. She was admiited at [facility] September 02, discharged with diagnosis of mild gastritis. She has had a CT abdomen that was unremarkable, EGD which showed gastritis mild , right upper quadrant ultrasound with a few gallbladder polyps otherwise normal. Her blood work to date has been within normal limits. She also had a negative H pylori breath test. Review of systems As per [facility] General no fever no chills no weakness HEENT no eye pain no eye discharge. No eye redness, no sore throat Respiratory no cough, no shortness of breath Cardiac no chest pain, no peripheral edema GI no abdominal pain, no diarrhea, no constipation, positive nausea positive vomiting no flank pain, no hematuria, no dysuria Musculoskeletal no myalgias, no joint pain Heme no easy bruising, no easy bleeding Endo no polyuria, no polydipsia Skin no rashes, no pruritus Neuro no syncope, no dizziness, no headaches Psych is no suicidal ideation, no homicidal ideation Past Medical/Surgical History: Asthma Depression Social History: Denies alcohol or drug use Smoking Status: Never smoked Physical Exam: 71-year-old female alert oriented appears slightly pale, no acute distress nontoxic appearance afebrile HEENT atraumatic normocephalic, extraocular muscles intact, anicteric Oropharynx negative for erythema negative exudate, tolerating her own secretions Neck supple no meningismus Lungs clear to auscultation bilaterally Heart regular rate and rhythm without murmur rub or gallop Abdomen nondistended normoactive bowel sounds soft nontender Back no CVA tenderness, no step-offs, no spinal tenderness Extremities no cyanosis clubbing or edema Neuro alert and oriented, no focal deficits Constitutional: Initial Vital Signs Temperature (C) 36.9 C 09/15/16 11:00 Heart Rate 80 09/15/16 11:00 Respiratory Rate 18 09/15/16 11:00 Blood Pressure 153/80 H 09/15/16 11:00 O2 Sat (%) 99 09/15/16 11:00 O2 Delivery Mode Room Air Allergies/Adverse Reactions: Sulfa (Sulfonamide Antibiotics) Allergy (Intermediate, Verified 09/15/16 11:00) Other-Enter Comments Home Medications: Medication Instructions Recorded Acetamn/Diphenhydramine 500/25 1 each PO HS PRN 09/02/16 [Tylenol PM (*)] Albuterol [Proventil Inhaler HFA 1 - 2 puffs IH Q4H PRN 09/02/16 (*)] Aspirin [Aspirin 81mg (*)] 81 mg PO DAILY 09/02/16 Calcium Carbonate [Oyster Shell 500 mg PO DAILY 09/02/16 Calcium 500 mg (*)] Cholecalciferol Vit D3 [Vitamin D3 1,000 units PO DAILY 09/02/16 (*)] Clobetasol 0.05% [Temovate 1 raymond TP BID PRN 09/02/16 Ointment] Docusate Sodium [Colace 100 MG (*)] 100 mg PO DAILY 09/02/16 Estradiol [Estrace Vaginal (*)] 1 gm VAG HS PRN 09/02/16 Sertraline HCl [Zoloft 100mg (*)] 100 mg PO DAILY 09/02/16 clonazePAM [Klonopin (*)] 0.25 mg PO HS PRN 09/02/16 Pantoprazole Sodium [Protonix] 40 mg PO DAILY #30 tablet. 09/04/16 Medical Decision Making - Diagnostics Imaging Results: Imaging Impressions Head CT 09/15/16 12:13 Impression: Normal. Results called and discussed with Yesenia Mcgill MD at 09/15/2016 12:41. ED Course/Re-evaluation: Patient seen and evaluated for nausea and vomiting. See HPI Differential diagnosis considered Metabolic abnormality, toxicologic manifestation, gastritis, pancreatitis, cholecystitis Gastroparesis, CRITICAL CARE PARAMEDIC origin Labs CBC, CMP, lipase all within normal limits Lactate negative Patient given IV normal saline 1 L, ondansetron 4 mg IV push, Reglan 10 mg IV push, diphenhydramine 25 mg IV push Marked relief of nausea CT brain negative Labs, imaging, physical exam do not support any of the considerations of the differential diagnosis Impression Intractable nausea and vomiting unknown etiology Plan Home Continue current medicine regimen Follow-up PCP - Data Points Laboratory Results: Laboratory Results 09/15/16 11:00 09/15/16 11:00 09/15/16 09/15/16 09/15/16 11:30 11:00 11:00 WBC 7.23 10^3/uL 10^3/uL (3.80-9.50) RBC 4.81 10^6/uL 10^6/uL (4.18-5.33) Hgb 14.7 g/dL g/dL (12.6-16.3) Hct 42.5 % % (38.0-47.0) MCV 88.4 fL fL (81.5-99.8) MCH 30.6 pg pg (27.9-34.1) MCHC 34.6 g/dL g/dL (32.4-36.7) RDW 12.1 % % (11.5-15.2) Plt Count 226 10^3/uL 10^3/uL (150-400) MPV 9.3 fL fL (8.7-11.7) Neut % (Auto) 79.8 % H % (39.3-74.2) Lymph % (Auto) 10.2 % L % (15.0-45.0) [place] % (Auto) 5.8 % % (4.5-13.0) Eos % (Auto) 3.3 % % (0.6-7.6) Baso % (Auto) 0.6 % % (0.3-1.7) Nucleat RBC Rel Count 0.0 % % (0.0-0.2) Absolute Neuts (auto) 5.77 10^3/uL 10^3/uL (1.70-6.50) Absolute Lymphs (auto) 0.74 10^3/uL L 10^3/uL (1.00-3.00) Absolute Monos (auto) 0.42 10^3/uL 10^3/uL (0.30-0.80) Absolute Eos (auto) 0.24 10^3/uL 10^3/uL (0.03-0.40) Absolute Basos (auto) 0.04 10^3/uL 10^3/uL (0.02-0.10) Absolute Nucleated RBC 0.00 10^3/uL 10^3/uL (0-0.01) Immature Gran % 0.3 % % (0.0-1.1) Immature Gran # 0.02 10^3/uL 10^3/uL (0.00-0.10) ESR 8 MM/HR MM/HR (0-30) VBG Lactic Acid 1.2 mmol/L mmol/L (0.7-2.1) Sodium 140 mEq/L mEq/L (134-144) Potassium 4.5 mEq/L mEq/L (3.5-5.2) Chloride 104 mEq/L mEq/L (97-110) Carbon Dioxide 24 mEq/l mEq/l (22-31) Anion Gap 12 mEq/L mEq/L (8-16) BUN 12 mg/dL mg/dL (7-23) Creatinine 0.9 mg/dL mg/dL (0.6-1.0) Estimated GFR > 60 Glucose 103 mg/dL H mg/dL (70-100) Calcium 9.5 mg/dL mg/dL (8.5-10.4) Total Bilirubin 0.9 mg/dL mg/dL (0.1-1.4) AST 22 IU/L IU/L (14-46) ALT 25 IU/L IU/L (9-52) Alkaline Phosphatase 65 IU/L IU/L (38-126) Total Protein 6.5 g/dL g/dL (6.3-8.2) Albumin 3.9 g/dL g/dL (3.5-5.0) Lipase 65.0 IU/L IU/L (23-300) Medications Given: Discontinued Medications Diphenhydramine HCl (Benadryl Injection) 25 mg IVP EDNOW ONE Stop: 09/15/16 12:16 Last Admin: 09/15/16 12:19 Dose: 25 mg Sodium Chloride (Ns) 1,000 mls @ 0 mls/hr IV ONCE ONE PRN Reason: Wide Open Stop: 09/15/16 11:04 Last Admin: 09/15/16 11:11 Dose: 1,000 mls Metoclopramide HCl (Reglan Injection) 10 mg IVP EDNOW ONE Stop: 09/15/16 12:15 Last Admin: 09/15/16 12:19 Dose: 10 mg Ondansetron HCl (Zofran) 4 mg IVP EDNOW ONE Stop: 09/15/16 11:04 Last Admin: 09/15/16 11:12 Dose: 4 mg Departure - Departure Disposition: Home, Routine, Self-Care Clinical Impression: Intractable nausea and vomiting Condition: Good Instructions: Acute Nausea and Vomiting (ED) Referrals: Radha Chen MD [Primary Care Provider] - As per Instructions
[2016-09-15 11:29] LABS: % IMMATURE GRANULYOCYTES 0.3 % (0.0-1.1); ABSOLUTE IMMATURE GRANULOCYTES 0.02 10^3/uL (0.00-0.10); ADD DIFF? NO; ADD MORPH? NO; ADD SCAN? NO; ATYPICAL LYMPHOCYTE FLAG 10 (0-99); FRAGMENT RBC FLAG 0 (0-99); HEMATOCRIT 42.5 % (38.0-47.0); HEMOGLOBIN 14.7 g/dL (12.6-16.3); LEFT SHIFT FLG 0 (0-99); LIPEMIA HEMOLYSIS FLAG 90 (0-99); MEAN CELL HEMOGLOBIN 30.6 pg (27.9-34.1); MEAN CELL HEMOGLOBIN CONCENTR. 34.6 g/dL (32.4-36.7); MEAN CELL VOLUME 88.4 fL (81.5-99.8); MEAN PLATELET VOLUME 9.3 fL (8.7-11.7); PLATELET CLUMPS FLAG 30 (0-99); PLATELET COUNT 226 10^3/uL (150-400); RED BLOOD CELL COUNT 4.81 10^6/uL (4.18-5.33); RED CELL DISTRIBUTION WIDTH 12.1 % (11.5-15.2)
[2016-09-15 11:45] LABS: ALANINE AMINOTRANSFERASE 25 IU/L (9-52); ALBUMIN 3.9 g/dL (3.5-5.0); ALKALINE PHOSPHATASE 65 IU/L (38-126); ANION GAP 12 mEq/L (8-16); ASPARTATE AMINOTRANSFERASE 22 IU/L (14-46); BILIRUBIN,TOTAL 0.9 mg/dL (0.1-1.4); CALCIUM 9.5 mg/dL (8.5-10.4); CARBON DIOXIDE 24 mEq/l (22-31); CHLORIDE 104 mEq/L (97-110); CREATININE 0.9 mg/dL (0.6-1.0); GLOMERULAR FILTRATION RATE > 60; GLUCOSE 103 mg/dL (70-100); POTASSIUM 4.5 mEq/L (3.5-5.2); SEDIMENTATION RATE 8 MM/HR (0-30); SODIUM 140 mEq/L (134-144); TOTAL PROTEIN 6.5 g/dL (6.3-8.2)
[2016-09-15] MEDS ORDERED: METOCLOPRAMIDE 10 MG/2 ML VIAL IVP ONE (12:14)
[2016-09-15 13:22] VITALS: BP 115/78; PULSE 82; O2SAT 97
== END 2016-09-15 13:21 | disposition home or self-care (01) ==
LOC: CED 10:49
DX: R11.2 Nausea with vomiting, unspecified (principal); J45.909 Unspecified asthma, uncomplicated; Z79.82 Long term (current) use of aspirin
CPT/HCPCS: 70450; 96361; 96374; 96375; 99285; J1200; J2405; J2765; 76705-PO; 80053-PO; 83605-PO; 83690-PO; 85025-PO; 85652-PO

== ENCOUNTER → 2016-09-15 | Outpatient (CLI) | payer OTHER | LOC: CIMAGING 10:08 | PROVIDERS: ATTEND Physician Assistant | DX: R11.0 Nausea (principal); R10.9 Unspecified abdominal pain | CPT/HCPCS: 76705-PO ==

== ENCOUNTER 2016-09-19 08:58 | Emergency (ER) | payer OTHER ==
[2016-09-19 09:03] VITALS: O2SAT 98
[2016-09-19] MEDS ORDERED: METOCLOPRAMIDE 10 MG/2 ML VIAL IVP ONE (09:23)
[2016-09-19] MEDS ORDERED: LORazepam 2 MG/ML INJ IVP PRN (09:23)
[2016-09-19] MEDS ORDERED: ONDANSETRON 4 MG/2 ML VIAL IVP ONE (09:23)
[2016-09-19] MEDS ORDERED: ONDANSETRON 4 MG/2 ML VIAL IVP PRN (09:23)
[2016-09-19] MEDS ORDERED: NS 1,000 ML IV ONE (09:23)
[2016-09-19] MEDS ORDERED: PANTOPRAZOLE SODIUM 40 MG in NS 100 ML IV ONE (09:25)
[2016-09-19 09:31] LABS: % IMMATURE GRANULYOCYTES 0.1 % (0.0-1.1); ABSOLUTE IMMATURE GRANULOCYTES 0.01 10^3/uL (0.00-0.10); ADD DIFF? NO; ADD MORPH? NO; ADD SCAN? NO; ATYPICAL LYMPHOCYTE FLAG 0 (0-99); FRAGMENT RBC FLAG 0 (0-99); HEMATOCRIT 45.1 % (38.0-47.0); HEMOGLOBIN 15.7 g/dL (12.6-16.3); LEFT SHIFT FLG 0 (0-99); LIPEMIA HEMOLYSIS FLAG 90 (0-99); MEAN CELL HEMOGLOBIN 30.8 pg (27.9-34.1); MEAN CELL HEMOGLOBIN CONCENTR. 34.8 g/dL (32.4-36.7); MEAN CELL VOLUME 88.6 fL (81.5-99.8); MEAN PLATELET VOLUME 9.4 fL (8.7-11.7); PLATELET CLUMPS FLAG 0 (0-99); PLATELET COUNT 251 10^3/uL (150-400); RED BLOOD CELL COUNT 5.09 10^6/uL (4.18-5.33); RED CELL DISTRIBUTION WIDTH 12.1 % (11.5-15.2)
[2016-09-19 09:46] LABS: ALANINE AMINOTRANSFERASE 28 IU/L (9-52); ALBUMIN 4.7 g/dL (3.5-5.0); ALKALINE PHOSPHATASE 75 IU/L (38-126); ANION GAP 18 mEq/L (8-16); ASPARTATE AMINOTRANSFERASE 24 IU/L (14-46); BILIRUBIN,TOTAL 1.1 mg/dL (0.1-1.4); BILIRUBIN-CONJUGATED 0.3 mg/dL (0.0-0.5); BILIRUBIN-UNCONJUGATED 0.8 mg/dL (0.0-1.1); CALCIUM 10.1 mg/dL (8.5-10.4); CARBON DIOXIDE 20 mEq/l (22-31); CHLORIDE 101 mEq/L (97-110); CREATININE 0.9 mg/dL (0.6-1.0); GLOMERULAR FILTRATION RATE > 60; GLUCOSE 112 mg/dL (70-100); POTASSIUM 3.8 mEq/L (3.5-5.2); SODIUM 139 mEq/L (134-144); TOTAL PROTEIN 7.7 g/dL (6.3-8.2)
[2016-09-19] MEDS ORDERED: IOPAMIDOL (ISOVUE-300) 100 ML BTL ONE (09:57)
--- NOTE | 2016-09-19 09:59 | EDPHY ---
H & P Smoking Status: Never smoked Time Seen by Provider: 09/19/16 09:56 HPI/ROS: HPI: Ms. Fan is a 71 yrs, female who presents with Chief Complaint: Nausea and vomiting Location: Abdomen Quality: Nausea and vomiting Duration: 6 weeks Signs and Symptoms: Positive nausea, positive vomiting greater than 10 times per day, denies hemoptysis, denies blood in stool, denies abdominal pain, denies constipation, denies diarrhea, denies urinary symptoms, denies fever Timing: Worse today Severity: 11/15 Context: Patient reports that she has had 6 weeks now of nausea and vomiting greater than 10 times per day not associated with abdominal pain. She was seen in this ED on 09/03/2016 at which time the patient was admitted in EGD was done showing some mild gastritis. At that time she had a CT scan which was negative this was reviewed. She was discharged home with Protonix the patient states she is unable to take due to continue nausea and vomiting. She was seen by Dr. Harper's PA which is a GI specialist recently and is scheduled to have a HIDA scan outpatient next week. Patient is not taking her Compazine or Reglan as directed as "it makes me feel funny." Patient reports decreased appetite but no dysphagia. Denies regular marijuana use or any marijuana use at all. Modifying Factors: Did not call primary care provider follow up with GI as recommended Comment: ROS: Eyes: No blurred vision Respiratory: No shortness of breath, no cough Cardiovascular: No chest pain Gastrointestinal: + nausea, + vomiting no diarrhea Genitourinary: No dysuria Extremities: No myalgias Neurologic: No weakness, no numbness Skin: No rashes Hematologic: No bruising, no bleeding MEDICAL/SURGICAL HISTORY: Generally healthy. Reports no abdominal surgeries. (Otilia Medrano) Physical Exam: CONSTITUTIONAL: Anxious white elderly female, holding an emesis basin but not actively retching, accompanied by , awake and alert, moderate distress distress HEENT: Atraumatic and normocephalic, PERRL, EOMI. Tympanic membranes clear. Oropharynx clear, no exudate and moist pink mucosa. Airway patent. No lymphadenopathy. No meningismus. Cardiovascular: Normal S1/S2, tachycardia, regular rhythm, without murmur rub or gallop. PULMONARY/CHEST: Symmetrical and nontender. Clear to auscultation bilaterally Good air movement. No accessory muscle usage. ABDOMEN: Soft, nondistended, mild generalized nonfocal tenderness, no rebound, no guarding, no peritoneal signs, no masses or organomegaly. No CVAT. Bowel sounds heard. EXTREMITIES: 2/2 pulses, no deformities, no clubbing, no cyanosis or edema. NEUROLOGICAL: no focal neuro deficits. GCS 15. SKIN: Warm and dry, no erythema. no rash. Good capillary refill. (Otilia Medrano) Constitutional: Initial Vital Signs Temperature (C) 36.9 C 09/19/16 09:01 Heart Rate 100 09/19/16 09:01 Respiratory Rate 20 09/19/16 09:01 Blood Pressure 106/79 09/19/16 09:01 O2 Sat (%) 98 09/19/16 09:01 O2 Delivery Mode Room Air Allergies/Adverse Reactions: Sulfa (Sulfonamide Antibiotics) Allergy (Intermediate, Verified 09/20/16 12:30) Other-Enter Comments Home Medications: Medication Instructions Recorded Acetamn/Diphenhydramine 500/25 1 each PO HS PRN 09/20/16 [Tylenol PM (*)] Albuterol [Proventil Inhaler HFA 1 - 2 puffs IH Q4H PRN 09/20/16 (*)] Aspirin [Aspirin 81mg (*)] 81 mg PO DAILY 09/20/16 Calcium Carbonate [Oyster Shell 500 mg PO DAILY 09/20/16 Calcium 500 mg (*)] Cholecalciferol Vit D3 [Vitamin D3 1,000 units PO DAILY 09/20/16 (*)] Clobetasol Propionate/Emoll 1 raymond TP DAILY PRN 09/20/16 [Clobetasol Emollient 0.05% Crm] Docusate Sodium [Colace 100 MG (*)] 100 mg PO DAILY 09/20/16 Estradiol [Estrace Vaginal (*)] 1 raymond VG HS PRN 09/20/16 Ondansetron Odt [Zofran Odt 4 mg 4 mg PO Q4HRS PRN 09/20/16 (*)] Pantoprazole Sodium [Protonix 40mg 40 mg PO DAILY 09/20/16 (*)] Promethazine HCl [Phenadoz] 25 mg RC Q6-8PRN PRN 09/20/16 Sertraline HCl [Zoloft 100mg (*)] 100 mg PO DAILY 09/20/16 clonazePAM [Klonopin (*)] 0.25 mg PO HS PRN 09/20/16 Medical Decision Making ED Course/Re-evaluation: EKG, labs, urinalysis, IV fluids, IV medications, CT abdominal pelvis scan with contrast 940: Patient given 1 L normal saline, IV Ativan, IV Reglan, IV Protonix, IV Zofran 1040: Reassessed the patient states she feels better no nausea or vomiting wants to try a p.o. trial of liquid. Lactic acidosis 2.6 noted. Afebrile no systemic signs. CT scan shows no acute intra-abdominal pathology Offered admission to patient but she refused, passed p.o. trial requests antinausea Phenergan suppositories and wants to follow up outpatient as planned with GI which is he is reasonable No signs of acute kidney injury, electrolyte imbalance, leukocytosis, pancreatitis, cholecystitis, colitis (Otilia Medrano) Differential Diagnosis: Abdominal pain including but not limited to appendicitis, cholecystitis, gastritis and urinary tract infection. (Otilia Medrano) Other Provider: The patient wasevaluatedand managed by themidlevel provider. My co- signature indicates that Steph reviewed this chart and I agree with the findings and plan of care asdocumented. I am the secondary supervising physician. 71 year old with persistant nausea and vomiting. Labs suggest dehydration as patient has anion gap of 18, slightly low bicarbonate, and lactic acid of 2.6. Received fluid resucitation as well as anti-emetics. Recommended admission to hospital for ongoing care, however patient declined. Taking pos at time of discharge. No evidence of infection. Will dc with close followup. Patient understands need for close follow up and that she can return for worsening symptoms, persistant vomiting, other concerns. (Tami Hall) - Data Points Laboratory Results: Laboratory Results 09/19/16 09:19 09/19/16 09:19 Medications Given: Discontinued Medications Sodium Chloride (Ns) 1,000 mls @ 0 mls/hr IV EDNOW ONE; Wide Open PRN Reason: Protocol Stop: 09/19/16 09:24 Last Admin: 09/19/16 09:37 Dose: 1,000 mls Pantoprazole Sodium 40 mg/ (Sodium Chloride) 100 mls @ 200 mls/hr IV EDNOW ONE Stop: 09/19/16 09:54 Last Admin: 09/19/16 09:38 Dose: 100 mls Lorazepam (Ativan Injection) 1 mg IVP Q2H PRN PRN Reason: Anxiety, Unable to Take PO Stop: 09/19/16 13:24 Last Admin: 09/19/16 09:37 Dose: 1 mg Metoclopramide HCl (Reglan Injection) 10 mg IVP EDNOW ONE Stop: 09/19/16 09:24 Last Admin: 09/19/16 09:41 Dose: 10 mg Ondansetron HCl (Zofran) 4 mg IVP EDNOW ONE Stop: 09/19/16 09:24 Last Admin: 09/19/16 09:41 Dose: 4 mg Departure - Departure Disposition: Home, Routine, Self-Care Clinical Impression: Non-intractable cyclical vomiting with nausea Condition: Fair Instructions: Acute Nausea and Vomiting (ED) Additional Instructions: Follow up without fail with your GI specialist. Return to ED if you have persistant nausea or vomiting. Referrals: Patient,NotPresent [Primary Care Provider] - As per Instructions Mattie Harper, PAC [Physician [employer]] - 2-3 days, call for appt.
[2016-09-19 11:52] VITALS: BP 135/45; PULSE 85; RESP 16; TEMP 97.7
[2016-09-20] MEDS ORDERED: PANTOPRAZOLE SODIUM 40 MG in NS 100 ML IV SCH (09:00)
== END 2016-09-19 11:51 | disposition home or self-care (01) ==
DX: G43.A0 Cyclical vomiting, in migraine, not intractable (principal); E86.9 Volume depletion, unspecified; Z79.82 Long term (current) use of aspirin
CPT/HCPCS: 74177; 96365; 96375; 99285; J2060; J2405; J2765; Q9967

== ENCOUNTER 2016-09-20 12:27 | Inpatient (IN) | payer OTHER ==
[2016-09-20] MEDS ORDERED: NS 1,000 ML IV ONE (13:10)
[2016-09-20] MEDS ORDERED: PROMETHAZINE HCL 25 MG/ML INJ IVP ONE (13:10)
--- NOTE | 2016-09-20 13:15 | EDPHY ---
H & P Stated Complaint: 3rd visit for n/v needs hida scan andxrays but can't make it till then Time Seen by Provider: 09/20/16 12:58 HPI/ROS: CHIEF COMPLAINT: Vomiting HISTORY OF PRESENT ILLNESS: The patient is a 71-year-old female who comes to the emergency department complaining of 6 weeks nausea vomiting and inability keep food down. She states that she has lost 10 lb. She was seen here yesterday for the same and has been seen multiple times in our ER another emergency department. She was admitted on September 03 and had a EGD done as well as a CT scan that was negative. She is discharged with mild gastritis and nausea vomiting uncertain etiology. She was then seen by GI of the [facility] and they recommended a HIDA scan and GI follow-through. She has been unable to complete these test because she has to be without anti nausea medicine before taking them. She was seen here in the emergency department yesterday and had a negative CT scan and unremarkable lab work. She was then seen by Dr. Chen in her office this morning. Dr. Chen called and recommended she come here and be admitted to have these these tests completed and further GI consultation. She has not had a fever. No diarrhea. No chest pain or shortness of breath. REVIEW OF SYSTEMS: Constitutional: denies: chills, fever, recent illness, recent injury EENTM: denies: blurred vision, double vision, nose congestion Respiratory: denies: cough, shortness of breath Cardiac: denies: chest pain, irregular heart rate, lightheadedness, palpitations Gastrointestinal/Abdominal: See HPI Genitourinary: denies: dysuria, frequency, hematuria, pain Musculoskeletal: denies: joint pain, muscle pain Skin: denies: lesions, rash, jaundice, bruising Neurological: denies: headache, numbness, paresthesia, tingling, dizziness, weakness Hematologic/Lymphatic: denies: blood clots, easy bleeding, easy bruising Immunologic/allergic: denies: HIV/AIDS, transplant EXAM: GENERAL: Well-appearing, well-nourished and in no acute distress. HEAD: Atraumatic, normocephalic. EYES: Pupils equal round and reactive to light, extraocular movements intact, sclera anicteric, conjunctiva are normal. ENT: TMs normal, nares patent, oropharynx clear without exudates. Moist mucous membranes. NECK: Normal range of motion, supple without lymphadenopathy or JVD. LUNGS: Breath sounds clear to auscultation bilaterally and equal. No wheezes rales or rhonchi. HEART: Regular rate and rhythm without murmurs, rubs or gallops. ABDOMEN: Soft, nontender, normoactive bowel sounds. No guarding, no rebound. No masses appreciated. BACK: No CVA tenderness, no spinal tenderness, step-offs or deformities EXTREMITIES: Normal range of motion, no pitting or edema. No clubbing or cyanosis. NEUROLOGICAL: Cranial nerves II through XII grossly intact. Normal speech, normal gait. 5/5 strength, normal movement in all extremities, normal sensation PSYCH: Normal mood, normal affect. SKIN: Warm, dry, normal turgor, no visible rashes or lesions. Source: Patient Exam Limitations: No limitations - Personal History Current Tetanus/Diphtheria Vaccine: Yes - Medical/Surgical History Hx Asthma: Yes Hx Chronic Respiratory Disease: No Hx Diabetes: No Hx Cardiac Disease: No Hx Renal Disease: No Hx Cirrhosis: No Hx Alcoholism: No Hx HIV/AIDS: No Hx Splenectomy or Spleen Trauma: No Other PMH: asthma, depression, BREAST REDUCTION SURGERY - Family History Significant Family History: No pertinent family hx - Social History Smoking Status: Never smoked Alcohol Use: Sober Drug Use: None Constitutional: Initial Vital Signs Temperature (C) 36.9 C 09/20/16 12:31 Heart Rate 88 09/20/16 12:31 Respiratory Rate 18 09/20/16 12:31 Blood Pressure 106/84 H 09/20/16 12:31 O2 Sat (%) 99 09/20/16 12:31 O2 Delivery Mode Room Air Allergies/Adverse Reactions: Sulfa (Sulfonamide Antibiotics) Allergy (Intermediate, Verified 09/20/16 12:30) Other-Enter Comments Home Medications: Medication Instructions Recorded Acetamn/Diphenhydramine 500/25 1 each PO HS PRN 09/20/16 [Tylenol PM (*)] Albuterol [Proventil Inhaler HFA 1 - 2 puffs IH Q4H PRN 09/20/16 (*)] Aspirin [Aspirin 81mg (*)] 81 mg PO DAILY 09/20/16 Calcium Carbonate [Oyster Shell 500 mg PO DAILY 09/20/16 Calcium 500 mg (*)] Cholecalciferol Vit D3 [Vitamin D3 1,000 units PO DAILY 09/20/16 (*)] Clobetasol Propionate/Emoll 1 raymond TP DAILY PRN 09/20/16 [Clobetasol Emollient 0.05% Crm] Docusate Sodium [Colace 100 MG (*)] 100 mg PO DAILY 09/20/16 Estradiol [Estrace Vaginal (*)] 1 raymond VG HS PRN 09/20/16 Ondansetron Odt [Zofran Odt 4 mg 4 mg PO Q4HRS PRN 09/20/16 (*)] Pantoprazole Sodium [Protonix 40mg 40 mg PO DAILY 09/20/16 (*)] Promethazine HCl [Phenadoz] 25 mg RC Q6-8PRN PRN 09/20/16 Sertraline HCl [Zoloft 100mg (*)] 100 mg PO DAILY 09/20/16 clonazePAM [Klonopin (*)] 0.25 mg PO HS PRN 09/20/16 Medical Decision Making ED Course/Re-evaluation: 1:45 p.m. the patient's lab work is unremarkable. I spoke with Rosa who accepted for Dr. Delarosa. The patient is failing home treatment again, keep down food or fluids and is losing weight. Abdominal exam is benign. Differential Diagnosis: Partial list of the Differential diagnosis considered include but were not limited to; gastritis, food poisoning, dehydration, cyclic vomiting, medication reaction and although unlikely based on the history and physical exam , I also considered head injury, seizure. - Data Points Laboratory Results: Laboratory Results 09/20/16 13:00 09/20/16 13:05 Medications Given: Discontinued Medications Aspirin (Aspirin) 81 mg PO DAILY CORTNEY Stop: 03/20/17 08:59 Last Admin: 09/21/16 11:34 Dose: Not Given Clonazepam (Klonopin) 0.5 mg PO ONCE ONE Stop: 09/20/16 18:31 Last Admin: 09/20/16 20:15 Dose: 0.5 mg Haloperidol Lactate (Haldol Injection) 2.5 mg IVP ONCE ONE Stop: 09/20/16 14:15 Last Admin: 09/20/16 14:40 Dose: 2.5 mg Sodium Chloride (Ns) 1,000 mls @ 0 mls/hr IV EDNOW ONE; Wide Open PRN Reason: Protocol Stop: 09/20/16 13:11 Last Admin: 09/20/16 13:17 Dose: 1,000 mls Potassium Chloride/Dextrose/Sod Cl (D5w 1/2 Ns W/ 20 Kcl/L) 1,000 mls @ 75 mls/ hr IV CONT CORTNEY Stop: 03/19/17 14:59 Last Admin: 09/21/16 07:01 Dose: 1,000 mls Pantoprazole Sodium (Protonix) 40 mg PO DAILY CORTNEY Stop: 03/20/17 08:59 Last Admin: 09/21/16 11:34 Dose: Not Given Promethazine HCl (Phenergan) 12.5 mg IVP EDNOW ONE Stop: 09/20/16 13:11 Last Admin: 09/20/16 13:17 Dose: 12.5 mg Promethazine HCl (Phenergan) 6.25 - 12.5 mg IVP Q6HRS PRN PRN Reason: Nausea/Vomiting, Use 2nd Stop: 03/19/17 14:53 Last Admin: 09/21/16 08:05 Dose: 12.5 mg Sertraline HCl (Zoloft) 100 mg PO DAILY CORTNEY Stop: 03/20/17 08:59 Last Admin: 09/21/16 11:34 Dose: Not Given Departure - Departure Disposition: [facility] Acute Clinical Impression: Vomiting Qualifiers: Vomiting type: unspecified Vomiting Intractability: intractable Nausea presence : with nausea Qualified Code(s): R11.2 - Nausea with vomiting, unspecified Condition: Fair
[2016-09-20 13:17] LABS: % IMMATURE GRANULYOCYTES 0.1 % (0.0-1.1); ABSOLUTE IMMATURE GRANULOCYTES 0.01 10^3/uL (0.00-0.10); ADD DIFF? NO; ADD MORPH? NO; ADD SCAN? NO; ATYPICAL LYMPHOCYTE FLAG 0 (0-99); FRAGMENT RBC FLAG 0 (0-99); HEMATOCRIT 42.2 % (38.0-47.0); HEMOGLOBIN 14.6 g/dL (12.6-16.3); LEFT SHIFT FLG 0 (0-99); LIPEMIA HEMOLYSIS FLAG 90 (0-99); MEAN CELL HEMOGLOBIN 30.7 pg (27.9-34.1); MEAN CELL HEMOGLOBIN CONCENTR. 34.6 g/dL (32.4-36.7); MEAN CELL VOLUME 88.8 fL (81.5-99.8); MEAN PLATELET VOLUME 9.4 fL (8.7-11.7); PLATELET CLUMPS FLAG 0 (0-99); PLATELET COUNT 235 10^3/uL (150-400); RED BLOOD CELL COUNT 4.75 10^6/uL (4.18-5.33); RED CELL DISTRIBUTION WIDTH 12.2 % (11.5-15.2)
[2016-09-20 13:25] LABS: ALANINE AMINOTRANSFERASE 17 IU/L (9-52); ALBUMIN 4.4 g/dL (3.5-5.0); ALKALINE PHOSPHATASE 72 IU/L (38-126); ANION GAP 17 mEq/L (8-16); ASPARTATE AMINOTRANSFERASE 26 IU/L (14-46); BILIRUBIN-CONJUGATED 0.4 mg/dL (0.0-0.5); BILIRUBIN-UNCONJUGATED 0.6 mg/dL (0.0-1.1); CALCIUM 9.4 mg/dL (8.5-10.4); CARBON DIOXIDE 20 mEq/l (22-31); CHLORIDE 103 mEq/L (97-110); CREATININE 0.9 mg/dL (0.6-1.0); GLOMERULAR FILTRATION RATE > 60; GLUCOSE 83 mg/dL (70-100); POTASSIUM 3.7 mEq/L (3.5-5.2); SODIUM 140 mEq/L (134-144)
[2016-09-20] MEDS ORDERED: HALOPERIDOL LACT 5 MG/ML INJ IVP ONE (14:14)
[2016-09-20] MEDS ORDERED: ONDANSETRON DISINTEGRATING 4 MG TAB PO PRN (14:54)
[2016-09-20] MEDS ORDERED: PROMETHAZINE HCL 25 MG/ML INJ IVP PRN (14:54)
[2016-09-20] MEDS ORDERED: ONDANSETRON 4 MG/2 ML VIAL IVP PRN (14:54)
[2016-09-20] MEDS ORDERED: ACETAMINOPHEN 325 MG TAB PO PRN (14:54)
[2016-09-20] MEDS ORDERED: ALBUTEROL 60 PUFFS/8 GM MDI IH PRN (14:55)
[2016-09-20] MEDS ORDERED: clonazePAM 0.5 MG TAB PO PRN (14:55)
[2016-09-20] MEDS ORDERED: ESTRADIOL 42.5 GM CRTUBE VG PRN (14:55)
--- NOTE | 2016-09-20 15:43 | GHP ---
[f rep st] HISTORY AND PHYSICAL DATE OF ADMISSION: 09/20/2016 CHIEF COMPLAINT: Nausea and vomiting. HISTORY OF PRESENT ILLNESS: This is a 71-year-old female, who presents now with 6 weeks' worth of n ausea and vomiting that has been fairly persistent. It started with some nausea about 6 weeks ago a nd then progressed to vomiting that seemed to occur when she was walking in the morning. She was ad mitted in late August and had an EGD, which showed some mild gastritis. She had an H pylori test whic h was negative. She has had an ultrasound of her gallbladder which was essentially negative. She h as also had CAT scans which were negative. Nausea and vomiting have been persistent since then. Evie ochoa was scheduled for a gastric emptying study today, but she was unable to complete it because of vom iting. She is also scheduled for a HIDA scan. She had a CT scan of her head, which was negative. She denies any neurological symptoms. No diarrhea. She does not have any abdominal pain. No fever s or chills. REVIEW OF SYSTEMS: A 10-point review of systems was obtained and, other than stated in the history of present illness, was negative. PAST MEDICAL HISTORY: 1. Depression. 2. Mild asthma. MEDICATIONS: Reviewed. SOCIAL HISTORY: No smoking or alcohol. She is . 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 FAMILY HISTORY: Mother is 94. PHYSICAL EXAM: VITAL SIGNS: Afebrile, blood pressure is 115/75, heart rate 76, oxygen saturation i s 98% on room air. GENERAL: The patient is well developed, in no apparent distress. HEENT: Nonic teric sclerae. Extraocular movements intact. Moist mucous membranes. NECK: Supple. No thyromega ly. LUNGS: Good effort. Clear to auscultation bilaterally. CARDIOVASCULAR: Regular rate and rhy thm. No murmurs or gallops. ABDOMEN: Positive bowel sounds. Soft. Mild right upper quadrant ten derness, which was not there on previous exams. EXTREMITIES: No clubbing, cyanosis, or edema. SKI N: Without rash. Warm, dry, intact. NEUROLOGIC: Alert and oriented x3. Moving all 4 extremities equally. PSYCH: Normal mood and affect. LABORATORY DATA: CBC is normal. ASSESSMENT: This is a 71-year-old female presenting with persistent nausea and vomiting for about 6 weeks. PLAN: Nausea and vomiting, still unclear etiology. I think evaluation of the gallbladder is indica colt, especially with now some mild right upper quadrant tenderness. We will get a HIDA scan. I thi nk we should probably still rule out intracranial causes and we will get an MRI of her brain. The n ext step would be a gastric emptying study. We will give IV fluids as well and antiemetics. /[id number]/MODL
[2016-09-20] MEDS: D5W 1/2 NS W/ 20 KCl/L 1,000 ML IV SCH (17:09)
[2016-09-20] MEDS ORDERED: clonazePAM 0.5 MG TAB PO ONE (18:30)
[2016-09-20] MEDS ORDERED: ALBUTEROL 200 PUFFS/18 GM MDI IH PRN (20:22)
[2016-09-21] MEDS: D5W 1/2 NS W/ 20 KCl/L 1,000 ML IV SCH (07:01)
[2016-09-21] MEDS ORDERED: SINCALIDE 5 MCG VIAL IJ ONE (08:28)
[2016-09-21] MEDS ORDERED: ASPIRIN 81 MG CHEWABLE TAB PO SCH (09:00)
[2016-09-21] MEDS ORDERED: PANTOPRAZOLE SODIUM 40 MG TAB PO SCH (09:00)
[2016-09-21] MEDS ORDERED: SERTRALINE HCL 100 MG TAB PO SCH (09:00)
[2016-09-21 15:27] VITALS: BP 118/68; PULSE 78; RESP 16; TEMP 98.4; O2SAT 95
--- NOTE | 2016-09-21 15:57 | GDS ---
[f rep st] DISCHARGE SUMMARY DISCHARGE DIAGNOSES: Intractable nausea and vomiting of uncertain etiology. HISTORY: This is a 71-year-old female who has had 6 weeks now of intractable nausea and vomiting. She has not had any abdominal pain. She has been admitted once before. She had an EGD that showed only some mild gastritis. She has had CT scans of her abdomen and pelvis which were negative. HOSPITAL COURSE: Patient was admitted and had a HIDA scan, which did show a slightly low EF, but wa s otherwise normal. She also had a MRI of her brain, which was negative for any intracranial lesion s. We are trying to get a gastric emptying study; although, she is unable to eat the eggs which the radiotracer is on. She was able to get appointment with Gastroenterology tomorrow. She is comfort able being discharged home today and will follow up with Gastroenterology tomorrow. /[id number]/MODL
[2016-09-21 16:14] LABS: HEMATOCRIT 38.3 % (38.0-47.0)
[2016-09-23 11:38] LABS: ARSENIC BLOOD <1 ng/mL (0-12); CADMIUM BLOOD 0.3 ng/mL (0.0-4.9); HMSB ETHNICITY White; HMSBR VENOUS/CAPILLARY Venous; LEAD BLOOD 1.4 mcg/dL (0.0-4.9); MERCURY BLOOD <1 ng/mL (0-9)
== END 2016-09-21 17:23 | disposition home or self-care (01) | DRG 392 ==
LOC: OBSVTOIN 14:54 → F1N 15:53
PROVIDERS: ADMIT Internal Medicine; ATTEND Internal Medicine
DX: R11.2 Nausea with vomiting, unspecified (principal); K82.8 Other specified diseases of gallbladder; J45.909 Unspecified asthma, uncomplicated; F32.9 Major depressive disorder, single episode, unspecified
CPT/HCPCS: 83018-90; 96365; 96374; A9537; J2060; J2405; J2550; J2765; Q9967

== ENCOUNTER 2016-09-26 08:00 | Day surgery (SDC) | payer OTHER ==
--- NOTE | 2016-09-26 06:35 | PDGENHP ---
History and Physical - Chief Complaint Intractable nausea - History of Present Illness 71yo referred from GI, Has had extensive workup for her GB, US neg, HIDA shows lowered EF. Has intractable nausea, some occasional RUQ pain. History Information - Allergies/Home Medication List Allergies/Adverse Reactions: Sulfa (Sulfonamide Antibiotics) Allergy (Intermediate, Verified 09/20/16 12:30) Other-Enter Comments Home Medications: Acetamn/Diphenhydramine 500/25 [Tylenol PM (*)] 1 each PO HS PRN 09/20/16 [Last Taken Unknown] Albuterol [Proventil Inhaler HFA (*)] 1 - 2 puffs IH Q4H PRN 09/20/16 [Last Taken 09/25/16 20:00] Aspirin [Aspirin 81mg (*)] 81 mg PO DAILY 09/20/16 [Last Taken 09/12/16] Calcium Carbonate [Oyster Shell Calcium 500 mg (*)] 500 mg PO DAILY 09/20/16 [ Last Taken 09/12/16] Cholecalciferol Vit D3 [Vitamin D3 (*)] 1,000 units PO DAILY 09/20/16 [Last Taken 09/12/16] Clobetasol Propionate/Emoll [Clobetasol Emollient 0.05% Crm] 1 raymond TP DAILY PRN 09/20/16 [Last Taken 08/29/16] Docusate Sodium [Colace 100 MG (*)] 100 mg PO DAILY 09/20/16 [Last Taken ] Estradiol [Estrace Vaginal (*)] 1 raymond VG HS PRN 09/20/16 [Last Taken 08/29/16] Promethazine HCl [Phenadoz] 25 mg RC Q6-8PRN PRN 09/20/16 [Last Taken 09/25/16] Sertraline HCl [Zoloft 100mg (*)] 100 mg PO DAILY 09/20/16 [Last Taken 09/12/16] clonazePAM [Klonopin (*)] 0.25 mg PO HS PRN 09/20/16 [Last Taken 09/25/16] Phenergan 12.5mg supp (*) 09/23/16 [Last Taken Unknown] Prevacid 09/23/16 [Last Taken 09/25/16] I have personally reviewed and updated: family history - Past Medical History no pertinent PMH - Surgical History Reports: no pertinent surgical hx - Social History Smoking Status: Never smoked Review of Systems ROS: 10pt was reviewed & negative except for what was stated in HPI & below Physical Exam Constitutional: no apparent distress, appears nourished, not in pain Eyes: PERRL, anicteric sclera, EOMI Ears, Nose, Mouth, Throat: moist mucous membranes, hearing normal, ears appear normal, no oral mucosal ulcers Cardiovascular: regular rate and rhythym, no murmur, rub, or gallop, No edema Respiratory: no respiratory distress, no rales or rhonchi, clear to auscultation Lab Data & Imaging Review Visualized and Interpreted imaging results: Yes Assessment & Plan Assessment: 71yo with reduced EF, intractable nausea Plan: Plan OR for lap mainor. RBA discussed.
--- NOTE | 2016-09-26 06:57 | PDANEPAE ---
ANE History of Present Illness n/v x6 weeks ANE Past Medical History - Cardiovascular History Hx Hypertension: No Hx Arrhythmias: No Hx Chest Pain: No Hx Coronary Artery / Peripheral Vascular Disease: No Hx CHF / Valvular Disease: No Hx Palpitations: No - Pulmonary History Hx COPD: No Hx Asthma/Reactive Airway Disease: Yes Hx Recent Upper Respiratory Infection: No Hx Oxygen in Use at Home: No Hx Sleep Apnea: No Sleep Apnea Screening Result - Last Documented: Negative - Neurologic History Hx Cerebrovascular Accident: No Hx Seizures: No Hx Dementia: No - Endocrine History Hx Diabetes: No - Renal History Hx Renal Disorders: No - Liver History Hx Hepatic Disorders: No - Neurological & Psychiatric Hx Hx Neurological and Psychiatric Disorders: No - Cancer History Hx Cancer: No - Congenital Disorder History Hx Congenital Disorders: No - GI History Hx Gastrointestinal Disorders: Yes Gastrointestinal History Comment: NAUSEA/VOMITING X PAST MONTH - Other Health History Other Health History: NEG - Chronic Pain History Chronic Pain: No - Surgical History Prior Surgeries: R SHOULDER IMPINGEMENT. BREAST REDUCTION ANE Review of Systems - Exercise capacity Exercise capacity: >=4 METS METS (RN): 4 METS - Systems Constitutional: Reports: malaise EENMT: Reports: no symptoms Cardiac: Reports: no symptoms Gastrointestinal: Reports: no symptoms Muscolosketal: Reports: no symptoms ANE Patient History - Allergies Allergies/Adverse Reactions: Sulfa (Sulfonamide Antibiotics) Allergy (Intermediate, Verified 09/20/16 12:30) Other-Enter Comments - Home Medications Home medications: home medication list seen and reviewed Home Medications: Acetamn/Diphenhydramine 500/25 [Tylenol PM (*)] 1 each PO HS PRN 09/20/16 [Last Taken Unknown] Albuterol [Proventil Inhaler HFA (*)] 1 - 2 puffs IH Q4H PRN 09/20/16 [Last Taken 09/25/16 20:00] Aspirin [Aspirin 81mg (*)] 81 mg PO DAILY 09/20/16 [Last Taken 09/12/16] Calcium Carbonate [Oyster Shell Calcium 500 mg (*)] 500 mg PO DAILY 09/20/16 [ Last Taken 09/12/16] Cholecalciferol Vit D3 [Vitamin D3 (*)] 1,000 units PO DAILY 09/20/16 [Last Taken 09/12/16] Clobetasol Propionate/Emoll [Clobetasol Emollient 0.05% Crm] 1 raymond TP DAILY PRN 09/20/16 [Last Taken 08/29/16] Docusate Sodium [Colace 100 MG (*)] 100 mg PO DAILY 09/20/16 [Last Taken ] Estradiol [Estrace Vaginal (*)] 1 raymond VG HS PRN 09/20/16 [Last Taken 08/29/16] Promethazine HCl [Phenadoz] 25 mg RC Q6-8PRN PRN 09/20/16 [Last Taken 09/25/16] Sertraline HCl [Zoloft 100mg (*)] 100 mg PO DAILY 09/20/16 [Last Taken 09/12/16] clonazePAM [Klonopin (*)] 0.25 mg PO HS PRN 09/20/16 [Last Taken 09/25/16] Phenergan 12.5mg supp (*) 09/23/16 [Last Taken Unknown] Prevacid 09/23/16 [Last Taken 09/25/16] - NPO status NPO Status: no food or drink >8 hours NPO Since - Liquids (Date): 09/25/16 NPO Since - Liquids (Time): 20:00 NPO Since - Solids (Date): 09/25/16 NPO Since - Solids (Time): 19:00 - Anes Hx Anes Hx: no prior problems - Smoking Hx Smoking Status: Never smoked - Alcohol Use Alcohol Use: None - Family Anes Hx Family Hx Anesthesia Complications: NEG ANE Labs/Vital Signs - Vital Signs Blood Pressure: 106/65 Heart Rate: 76 Respiratory Rate: 16 O2 Sat (%): 93 Height: 157.48 cm Weight: 54.885 kg ANE Physical Exam - Airway Neck exam: FROM Mallampati Score: Class 2 Mouth exam: normal dental/mouth exam - Pulmonary Pulmonary: no respiratory distress - Cardiovascular Cardiovascular: regular rate and rhythym - ASA Status ASA Status: II ANE Anesthesia Plan Anesthesia Plan: general endotracheal anesthesia
[~2016-09-26 08:00] MED LIST: BUPIVACAINE/EPI 0.25% 30 ML SDV ONE; DEXAMETHASONE 4 MG/ML VIAL ONE; GLYCOPYRROLATE 0.2 MG/1 ML VIAL ONE; KETOROLAC 30 MG/1 ML SDV ONE; LIDOCAINE 1% 2 ML INJ ID PRN; LIDOCAINE 2% 5 ML SDV ONE; LR 1,000 ML IV ONE; MIDAZOLAM 2 MG/2 ML VIAL IVP ONE; MIDAZOLAM 2 MG/2 ML VIAL ONE; ONDANSETRON 4 MG/2 ML VIAL ONE; PROPOFOL 200 MG/20 ML VIAL ONE; ROCURONIUM 50 MG/5 ML VIAL ONE; SUGAMMADEX SODIUM 200 MG/2 ML VIAL IVP ONE; ceFAZolin 2 GM/DEXTROSE 100 ML IV ONE; fentaNYL 100 MCG/2 ML INJ ONE
--- NOTE | 2016-09-26 08:17 | POSTOPPROG ---
Post Op Note Date of Operation: 09/26/16 Surgeon: Benedict Mesa Cloth Picker: [email or web address] Barajas Anesthesiologist: Coleman Anesthesia: GET(General Endotracheal) Pre-op Diagnosis: biliary dyskinesia Post-op Diagnosis: same Procedure: lap mainor Findings: critical view, essentially normal appearing GB Inf/Abcess present in the surg proc area at time of surgery?: No EBL: Minimal Specimen(s): GB
--- NOTE | 2016-09-26 08:27 | POSTANESTH ---
Post Anesthetic Evaluation Cardiovascular Status: Normal, Stable Respiratory Status: Normal, Stable Level of Consciousness/Mental Status: Mildly Sleepy, Arousable Pain Control: Adequate, Prn Tx Ordered Nausea/Vomiting Control: Adequate, Prn Tx Ordered Complications Possibly Related to Anesthesia: None Noted
[2016-09-26] MEDS ORDERED: ALBUTEROL 3 ML DEYVIAL IH PRN (08:32)
[2016-09-26] MEDS ORDERED: HYDROCODONE/APAP 5/325 TAB PO PRN (08:32)
[2016-09-26] MEDS ORDERED: fentaNYL 100 MCG/2 ML INJ IVP PRN ×2 (08:32)
[2016-09-26] MEDS ORDERED: HYDROmorphONE/DILAUDID 1 MG/ML SYR IVP PRN ×2 (08:32)
[2016-09-26] MEDS ORDERED: NALOXONE HCL 0.4 MG/ML INJ IVP PRN (08:32)
[2016-09-26] MEDS ORDERED: PROMETHAZINE HCL 25 MG/ML INJ IVP PRN (08:32)
[2016-09-26] MEDS ORDERED: ACETAMINOPHEN 500 MG TAB PO PRN (08:32)
[2016-09-26] MEDS ORDERED: OXYCODONE/APAP 5/325 TAB PO PRN (08:32)
[2016-09-26] MEDS ORDERED: ONDANSETRON 4 MG/2 ML VIAL IVP PRN (08:32)
[2016-09-26] MEDS ORDERED: fentaNYL 100 MCG/2 ML INJ ONE (08:35)
[2016-09-26 09:04] VITALS: PULSE 82; TEMP 97.9
[2016-09-26 09:36] VITALS: RESP 18
[2016-09-26 10:43] VITALS: BP 93/56; O2SAT 94
--- NOTE | 2016-09-26 10:59 | GOP ---
[f rep st] OPERATIVE REPORT DATE OF OPERATION: 09/26/2016 SURGEON: Benedict Mesa MD PREPRESS STRIPPER: Kaylin Morelos PA-C. ANESTHESIA: General endotracheal, provided by Dr. Cee. PREOPERATIVE DIAGNOSIS: Biliary dyskinesia. POSTOPERATIVE DIAGNOSIS: Biliary dyskinesia. PROCEDURE PERFORMED: Laparoscopic cholecystectomy. FINDINGS: Critical view obtained. Relatively normal-appearing gallbladder with minimal adhesions. SPECIMENS: Gallbladder. ESTIMATED BLOOD LOSS: 5 cc. DESCRIPTION OF PROCEDURE: The patient was greeted in the preoperative suite. Once again, risks, be nefits, and alternatives were discussed. Consent was then signed. She was then brought back to the operative suite, placed on the OR table in a supine position. After all anesthesia machines, inclu ding SCDs, were on and functioning, [facility] time-out was performed. Antibiotics w ere given on-call to the operating room. After successful induction of general anesthesia, the patrica ent's abdomen was widely prepped and draped in the typical sterile fashion. I commenced the procedu re by making a vertical inferior umbilical incision, through which I passed a Veress needle. I achi eved pneumoperitoneum to 15 mmHg, which was well tolerated by the patient, after which I used a 12 m m Visiport to enter the infraumbilical incision. I then placed 3 additional 5 mm ports, one in the subxiphoid, two in the right upper quadrant, all under direct visualization. I then grasped the gal lbladder and successfully retracted it over the liver edge. I dissected out the infundibulum using a combination of electrocautery and blunt dissection. I identified 2 structures going to the gallbl adder with no other structures at the cystic plate. I clipped them and divided them, first the francy ry, then the duct. I then took the gallbladder off the liver bed using electrocautery. It was harris naya with an EndoCatch bag. I then inspected my clips, which were in place and hemostatic. I irriga colt the right upper quadrant with 500 cc normal saline, noting clear effluent in the suction caniste r. I instilled local anesthesia into all port sites, which were then removed under direct visualiza tion. I then desufflated my pneumoperitoneum. I closed my inferior umbilical incision with an inte rrupted 0 Vicryl stitch, noting excellent fascial reapproximation. The skin was then closed with ru nning 4-0 Monocryl, over which Dermabond was placed. The patient was then extubated in the operativ e suite and taken to the postanesthesia unit in satisfactory condition. DRAINS: None. COUNTS: All counts reported as correct x2. /[id number]/MODL
== END 2016-09-26 10:49 | disposition home or self-care (01) ==
LOC: FSGY 08:00 → UNDODISOB 10:49
PROVIDERS: ATTEND Surgery
PROC: 0FT44ZZ Resection of Gallbladder, Percutaneous Endoscopic Approach (ICD-10-PCS; principal; 2016-09-26 07:15)
DX: K82.8 Other specified diseases of gallbladder (principal); Z88.2 Allergy status to sulfonamides
CPT/HCPCS: J0690; J1100; J1885; J2250; J2405; J2704; J3010

== ENCOUNTER 2016-10-16 12:19 | Inpatient (IN) | payer OTHER ==
[2016-10-16] MEDS ORDERED: ONDANSETRON 4 MG/2 ML VIAL IVP ONE (13:03)
[2016-10-16] MEDS ORDERED: NS 1,000 ML IV ONE (13:03)
[2016-10-16 13:16] LABS: % IMMATURE GRANULYOCYTES 0.1 % (0.0-1.1); ABSOLUTE IMMATURE GRANULOCYTES 0.01 10^3/uL (0.00-0.10); ADD DIFF? NO; ADD MORPH? NO; ADD SCAN? NO; ATYPICAL LYMPHOCYTE FLAG 0 (0-99); FRAGMENT RBC FLAG 0 (0-99); HEMATOCRIT 44.3 % (38.0-47.0); HEMOGLOBIN 15.1 g/dL (12.6-16.3); LEFT SHIFT FLG 0 (0-99); LIPEMIA HEMOLYSIS FLAG 90 (0-99); MEAN CELL HEMOGLOBIN 30.5 pg (27.9-34.1); MEAN CELL HEMOGLOBIN CONCENTR. 34.1 g/dL (32.4-36.7); MEAN CELL VOLUME 89.5 fL (81.5-99.8); MEAN PLATELET VOLUME 9.8 fL (8.7-11.7); PLATELET CLUMPS FLAG 0 (0-99); PLATELET COUNT 231 10^3/uL (150-400); RED BLOOD CELL COUNT 4.95 10^6/uL (4.18-5.33); RED CELL DISTRIBUTION WIDTH 12.6 % (11.5-15.2)
--- NOTE | 2016-10-16 13:16 | EDPHY ---
H & P Time Seen by Provider: 10/16/16 13:03 HPI/ROS: CHIEF COMPLAINT: Nausea and vomiting HISTORY OF PRESENT ILLNESS: Patient is had a long history of recurrent nausea and vomiting and most recently had a cholecystectomy by Dr. Benedict patel on 09/26 of this year. Her symptoms recurred the next day on September 27 she has had multiple episodes of nausea vomiting since including all night last night and all day today. Symptoms are severe, not associated with hematemesis or coffee-ground emesis or abdominal pain. Air associated with being dizzy when she stands up. A little bit of stool but no abdominal pain. REVIEW OF SYSTEMS: Eye: Which she describes as a typical ocular migraine for her today with seeing "shapes on the right side "of her face ENT: no sore throat Cardiac: no chest pain or syncope Pulmonary: no cough or SOB Abdomen: HPI Musculoskeletal: no back pain Skin: no rash Neuro: no headache Constitutional: no fever : no urinary symptoms A comprehensive 10 point review of systems is otherwise negative aside from elements mentioned in the history of present illness. PAST MEDICAL HISTORY: Ocular migraines, reflux, cholecystectomy, asthma, depression, breast reduction surgery. Social history: , no alcohol General Appearance: Alert and conversant, cooperative. Eyes: No scleral icterus. ENT, Mouth: Dry mucous membranes Respiratory: Normal respiratory effort, breath sounds equal, lungs are clear to auscultation. Cardiovascular: Regular rate and rhythm. Gastrointestinal: Abdomen is soft and non tender. No rebound or guarding, not distended. Neurological: Alert and oriented x3. Normally conversant. Face symmetric, normal movement and sensation in all extremities. Skin: Warm and dry, no rashes. Musculoskeletal: No peripheral edema and no joint swelling. Psychiatric: Not agitated. Appears frustrated Emergency Department course/MDM: Zofran 4 mg IV, Benadryl 50 mg IV. Labs to include electrolytes. Clearly requires readmission for intractable vomiting despite home Zofran and clinical dehydration. Smoking Status: Never smoked Constitutional: Initial Vital Signs Temperature (C) 36.4 C 10/16/16 12:21 Heart Rate 116 H 10/16/16 12:21 Respiratory Rate 16 10/16/16 12:21 Blood Pressure 113/79 10/16/16 12:21 O2 Sat (%) 98 10/16/16 12:21 O2 Delivery Mode Room Air Allergies/Adverse Reactions: Sulfa (Sulfonamide Antibiotics) Allergy (Intermediate, Verified 09/20/16 12:30) Other-Enter Comments Home Medications: Medication Instructions Recorded Acetamn/Diphenhydramine 500/25 1 each PO HS PRN 09/20/16 [Tylenol PM (*)] Albuterol [Proventil Inhaler HFA 1 - 2 puffs IH Q4H PRN 09/20/16 (*)] Aspirin [Aspirin 81mg (*)] 81 mg PO DAILY 09/20/16 Calcium Carbonate [Oyster Shell 500 mg PO DAILY 09/20/16 Calcium 500 mg (*)] Cholecalciferol Vit D3 [Vitamin D3 1,000 units PO DAILY 09/20/16 (*)] Clobetasol Propionate/Emoll 1 raymond TP DAILY PRN 09/20/16 [Clobetasol Emollient 0.05% Crm] Docusate Sodium [Colace 100 MG (*)] 100 mg PO DAILY 09/20/16 Estradiol [Estrace Vaginal (*)] 1 raymond VG HS PRN 09/20/16 Promethazine HCl [Phenadoz] 25 mg RC Q6-8PRN PRN 09/20/16 Sertraline HCl [Zoloft 100mg (*)] 100 mg PO DAILY 09/20/16 clonazePAM [Klonopin (*)] 0.25 mg PO HS PRN 09/20/16 Phenergan 12.5mg supp (*) 09/23/16 Prevacid 09/23/16 oxyCODONE/APAP 5/325 [Percocet 1 - 2 tab PO Q4H PRN #10 tab 09/26/16 5/325 (*)] Medical Decision Making Differential Diagnosis: Differential considered including but not limited to constipation, bowel obstruction, recurrent nausea vomiting, electrolyte disturbance, gastroenteritis. Consult/Admit Bed Type: [place] [id number] - Data Points Laboratory Results: Laboratory Results 10/16/16 13:01 10/16/16 13:01 10/16/16 10/16/16 13:01 13:01 WBC 6.95 10^3/uL 10^3/uL (3.80-9.50) RBC 4.95 10^6/uL 10^6/uL (4.18-5.33) Hgb 15.1 g/dL g/dL (12.6-16.3) Hct 44.3 % % (38.0-47.0) MCV 89.5 fL fL (81.5-99.8) MCH 30.5 pg pg (27.9-34.1) MCHC 34.1 g/dL g/dL (32.4-36.7) RDW 12.6 % % (11.5-15.2) Plt Count 231 10^3/uL 10^3/uL (150-400) MPV 9.8 fL fL (8.7-11.7) Neut % (Auto) 79.9 % H % (39.3-74.2) Lymph % (Auto) 10.9 % L % (15.0-45.0) [place] % (Auto) 7.3 % % (4.5-13.0) Eos % (Auto) 1.4 % % (0.6-7.6) Baso % (Auto) 0.4 % % (0.3-1.7) Nucleat RBC Rel Count 0.0 % % (0.0-0.2) Absolute Neuts (auto) 5.54 10^3/uL 10^3/uL (1.70-6.50) Absolute Lymphs (auto) 0.76 10^3/uL L 10^3/uL (1.00-3.00) Absolute Monos (auto) 0.51 10^3/uL 10^3/uL (0.30-0.80) Absolute Eos (auto) 0.10 10^3/uL 10^3/uL (0.03-0.40) Absolute Basos (auto) 0.03 10^3/uL 10^3/uL (0.02-0.10) Absolute Nucleated RBC 0.00 10^3/uL 10^3/uL (0-0.01) Immature Gran % 0.1 % % (0.0-1.1) Immature Gran # 0.01 10^3/uL 10^3/uL (0.00-0.10) Sodium 139 mEq/L mEq/L (134-144) Potassium 4.1 mEq/L mEq/L (3.5-5.2) Chloride 103 mEq/L mEq/L (97-110) Carbon Dioxide 19 mEq/l L mEq/l (22-31) Anion Gap 17 mEq/L H mEq/L (8-16) BUN 17 mg/dL mg/dL (7-23) Creatinine 0.9 mg/dL mg/dL (0.6-1.0) Estimated GFR > 60 Glucose 113 mg/dL H mg/dL (70-100) Calcium 9.9 mg/dL mg/dL (8.5-10.4) Total Bilirubin 1.2 mg/dL mg/dL (0.1-1.4) Conjugated Bilirubin 0.3 mg/dL mg/dL (0.0-0.5) Unconjugated Bilirubin 0.9 mg/dL mg/dL (0.0-1.1) AST 36 IU/L IU/L (14-46) ALT 31 IU/L IU/L (9-52) Alkaline Phosphatase 77 IU/L IU/L (38-126) Total Protein 7.2 g/dL g/dL (6.3-8.2) Albumin 4.5 g/dL g/dL (3.5-5.0) Lipase 53 IU/L IU/L (23-300) Medications Given: Discontinued Medications Diphenhydramine HCl (Benadryl Injection) 50 mg IVP EDNOW ONE Stop: 10/16/16 13:15 Last Admin: 10/16/16 13:21 Dose: 50 mg Sodium Chloride (Ns) 1,000 mls @ 0 mls/hr IV ONCE ONE PRN Reason: Wide Open Stop: 10/16/16 13:04 Last Admin: 10/16/16 13:08 Dose: 1,000 mls Ondansetron HCl (Zofran) 4 mg IVP EDNOW ONE Stop: 10/16/16 13:04 Last Admin: 10/16/16 13:08 Dose: 4 mg Departure - Departure Disposition: [facility] Inpatient Acute Clinical Impression: Dehydration Nausea with vomiting Qualifiers: Vomiting type: unspecified Vomiting Intractability: intractable Qualified Code( s): R11.2 - Nausea with vomiting, unspecified Condition: Good Referrals: Radha Chen MD [Primary Care Provider] - As per Instructions
[2016-10-16 13:36] LABS: ALANINE AMINOTRANSFERASE 31 IU/L (9-52); ALBUMIN 4.5 g/dL (3.5-5.0); ALKALINE PHOSPHATASE 77 IU/L (38-126); ANION GAP 17 mEq/L (8-16); ASPARTATE AMINOTRANSFERASE 36 IU/L (14-46); BILIRUBIN,TOTAL 1.2 mg/dL (0.1-1.4); BILIRUBIN-CONJUGATED 0.3 mg/dL (0.0-0.5); BILIRUBIN-UNCONJUGATED 0.9 mg/dL (0.0-1.1); CALCIUM 9.9 mg/dL (8.5-10.4); CARBON DIOXIDE 19 mEq/l (22-31); CHLORIDE 103 mEq/L (97-110); CREATININE 0.9 mg/dL (0.6-1.0); GLOMERULAR FILTRATION RATE > 60; GLUCOSE 113 mg/dL (70-100); POTASSIUM 4.1 mEq/L (3.5-5.2); SODIUM 139 mEq/L (134-144); TOTAL PROTEIN 7.2 g/dL (6.3-8.2)
[2016-10-16] MEDS ORDERED: ACETAMINOPHEN 325 MG TAB PO PRN (14:47)
[2016-10-16] MEDS ORDERED: ONDANSETRON 4 MG/2 ML VIAL IVP PRN (14:47)
--- NOTE | 2016-10-16 15:07 | GHP ---
[f rep st] HISTORY AND PHYSICAL DATE OF ADMISSION: 10/16/2016 CHIEF COMPLAINT: Nausea, vomiting and weakness. HISTORY OF PRESENT ILLNESS: This is a 71-year-old female who has been struggling with chronic nausea and vomiting since August of this year. It appears that she has been hospitalized 3 times for this pr oblem. She underwent an upper endoscopy on September 03, 2016, by Dr. Villalta, where she was found to have g astritis, a small hiatal hernia, and biopsies to rule out sprue. There were no obvious causes for he r symptoms. A HIDA scan was done on 09/21/2016, which showed gallbladder dyskinesia with a diminishe d ejection fraction of 19%. Subsequently, she underwent cholecystectomy by Dr. Mesa on 017. Other workup included a brain MRI done on 09/20/2016 and was read as normal, without signs of m ass. Since her surgery, she has been vomiting on a daily basis. She forces herself to eat. She has been taking oral Zofran with minimal improvement, but she is still having daily bouts of vomiting. Over t he past 2 days, she has been vomiting more frequently. She tells me she was up all night with vomiti ng, and this morning was so weak she could barely move. PAST MEDICAL HISTORY: 1. Depression. 2. Asthma. PAST SURGICAL HISTORY: Recent cholecystectomy. HOME MEDICATIONS: Reviewed. Refer to [facility] for details. ALLERGIES: Sulfa. SOCIAL HISTORY: She denies any alcohol, tobacco or illicit drug use. FAMILY HISTORY: Reviewed and noncontributory. REVIEW OF SYSTEMS: Comprehensive 10-point review of systems was done and is negative, except for as mentioned in the HPI. PHYSICAL EXAM: VITAL SIGNS: Blood pressure 117/84, pulse of 86, respiratory rate 16, O2 saturation 93% on room air. Temperature afebrile. GENERAL: No acute distress. HEAD: Normocephalic, atraumat ic. EYES: PERRLA. Sclerae anicteric. MOUTH: Dry oral mucosa. NECK: Supple. No lymphadenopathy . CARDIOVASCULAR: S1 and S2. No JVD. No lower extremity edema. PULMONARY: Lungs are clear. No wheezes, rales or rhonchi. ABDOMEN: Soft. Normoactive bowel sounds. No guarding or rebound tender ness. EXTREMITIES: No clubbing or cyanosis. NEURO: Cranial nerves 2 through 12 grossly intact. N o focal motor or sensory deficits. DIAGNOSTICS: WBC 6.9, hemoglobin 15.1, hematocrit 44.3, platelets 231. Sodium 139, potassium 4.1, c hloride 103, CO2 19, anion gap 17, BUN 17, creatinine 0.9, glucose 113. LFTs unremarkable. Brain MRI done 09/20/[address] done 09/19/2016 was reviewed. Op note from her upper endoscopy done by Dr. Villalta on 09/03/2016 was reviewed. Gastric mucosal biopsy done during her EGD showed chronic inflammation, described as mild, with no Helicobacter pylori orga nisms. Duodenal biopsies had no pathologic features. ASSESSMENT AND PLAN: This is a 71-year-old female presenting with acute on chronic nausea and vomiti ng with signs of lactic acidosis and weakness. PLAN: The patient will be admitted to the medical-surgical floor, where we will start IV hydration a nd treat her symptoms supportively with IV antiemetics. I will ask my colleagues to consult GI luis alfredo short if she is not improving. We will also obtain a.m. cortisol; however, adrenal insufficiency seems unlikely given her lack of electrolyte abnormalities and normal blood pressure. /[id number]/MODL
[2016-10-16] MEDS: D5W 1/2 NS W/ 20 KCl/L 1,000 ML IV SCH (15:38)
[2016-10-16] MEDS ORDERED: ACETAMN/DIPHENHYDRAMINE 500/25MG TAB PO PRN (16:45)
[2016-10-16] MEDS ORDERED: clonazePAM 0.5 MG TAB PO PRN (16:45)
[2016-10-16] MEDS ORDERED: ESTRADIOL 42.5 GM CRTUBE VG PRN ×2 (16:45→16:56)
[2016-10-16] MEDS ORDERED: CLOBETASOL 0.05% 15 GM CRTUBE TP PRN (16:45)
[2016-10-16] MEDS ORDERED: ALBUTEROL 60 PUFFS/8 GM MDI IH PRN (16:45)
[2016-10-16] MEDS ORDERED: ALBUTEROL 200 PUFFS/18 GM MDI IH PRN (16:53)
[2016-10-16] MEDS: PROMETHAZINE HCL 25 MG/ML INJ IVP PRN (17:39)
[2016-10-17] MEDS: D5W 1/2 NS W/ 20 KCl/L 1,000 ML IV SCH ×3 (00:12→16:42)
[2016-10-17 06:38] LABS: ANION GAP 8 mEq/L (8-16); CALCIUM 8.8 mg/dL (8.5-10.4); CARBON DIOXIDE 24 mEq/l (22-31); CHLORIDE 106 mEq/L (97-110); CREATININE 0.8 mg/dL (0.6-1.0); GLOMERULAR FILTRATION RATE > 60; GLUCOSE 107 mg/dL (70-100); POTASSIUM 4.2 mEq/L (3.5-5.2); SODIUM 138 mEq/L (134-144)
[2016-10-17 07:08] LABS: CORTISOL-AM 14.7 ug/dL (4.5-22.7)
[2016-10-17] MEDS: ASPIRIN 81 MG CHEWABLE TAB PO SCH (09:00)
[2016-10-17] MEDS: SERTRALINE HCL 100 MG TAB PO SCH (09:00)
[2016-10-17] MEDS: DOCUSATE SODIUM 100 MG CAP PO SCH (09:00)
[2016-10-17] MEDS: CALCIUM CARBONATE 500 MG TAB PO SCH (09:00)
[2016-10-17] MEDS: CHOLECALCIFEROL VIT D3 1,000 UNITS TAB PO SCH (09:00)
[2016-10-17] MEDS: PROMETHAZINE HCL 25 MG/ML INJ IVP PRN ×2 (12:27→20:35)
--- NOTE | 2016-10-17 13:42 | HOSPPROG ---
Hospitalist Progress Note Assessment/Plan: 71 y/o female s.p mainor with persistent chronic nausea and vomiting of unclear etiology -cortisol level normal, mri brain neg, egd reviewed plan: -consult gi and general surgery -trial reglan will change to inpatient status given that she continues to have nausea and vomiting and is not better Subjective: continues to have nausea. no appetite. not feeling better Objective: Vital Signs Temp Pulse Resp BP Pulse Ox 36.3 C 70 17 131/70 H 96 10/17/16 12:46 10/17/16 12:46 10/17/16 12:46 10/17/16 12:46 10/17/16 12:46 Laboratory Results 10/17/16 05:27 10/16/16 10/17/16 10/18/16 05:59 05:59 05:59 Intake Total 2906 Output Total 400 Balance 2506 gen nad cv rrr pulm clear abd soft hypoactive bowel sounds no guard or rebound ext no edema ICD10 Worksheet Patient Problems: Problems Problem Status Onset Nausea Acute Vomiting Acute Nausea with vomiting Acute Dehydration Acute
[2016-10-17] MEDS: METOCLOPRAMIDE 10 MG TAB PO SCH (15:25)
[2016-10-17] MEDS: METOCLOPRAMIDE 10 MG/2 ML VIAL IVP SCH (16:44)
--- NOTE | 2016-10-17 17:31 | GCON ---
[f rep st] CONSULTATION CHIEF COMPLAINT: A 71-year-old woman complained of nausea and constipation. HISTORY OF PRESENT ILLNESS: I have been asked to see this patient in consultation from Dr. Gonzalez for symptoms of nausea and constipation. This 71-year-old woman has been extensively worked up by gastr oenterology for symptoms of nausea. She has a history of depression and asthma. She had presented t [facility] with complaints of nausea, vomiting. She has had symptoms since last August . Symptoms seem to be getting worse. She started having previous problems with increased constipati on as well. She has been followed by Dr. Rosen as an outpatient. Has also been seen by Dr. Villalta. Evie ochoa has had a normal CT scan of the abdomen and pelvis. She has had a normal right upper quadrant ultr asound. She has had a normal upper endoscopy. She had a HIDA scan that showed an ejection fraction of 19%. She had a normal head CT. Normal MRI. It was felt as though her symptoms may have been rel ated to biliary dyskinesia. She did have cholecystectomy without improvement in her symptoms. She c ontinues to have problems with constipation with infrequent small bowel movements about once a week. She has been tried on fiber supplement in the past which did seem to help for a period of time. She has also recently tried MiraLAX which has not helped significantly. The patient presented to the em ergency department again with nausea, asked to see patient for further evaluation. PAST MEDICAL HISTORY: Remarkable for depression and asthma. PAST SURGICAL HISTORY: Remarkable for cholecystectomy. ALLERGIES: Sulfa. SOCIAL HISTORY: Nonsmoker. Nondrinker. FAMILY HISTORY: Negative. REVIEW OF SYSTEMS: Negative x10 systems other than mentioned in HPI. MEDICATIONS: Acetaminophen, albuterol, aspirin, calcium, vitamin D, Klonopin, Colace, Zofran, Phener fabian, Zoloft. PHYSICAL EXAM: VITAL SIGNS: 117/84, pulse 86, respiratory rate 16, 93% sat on room air. GENERAL: A very pleasant woman in no acute distress. Seeming somewhat uncomfortable. HEENT: Normocephalic, atraumatic. EOMI. NECK: Supple. No cervical adenopathy. No thyromegaly. Mucous membranes moist. LUNGS: Clear. CARDIAC: Normal S1, S2 without murmur. ABDOMEN: Benign, soft, nontender. EXTREM ITIES: Unremarkable without clubbing, cyanosis, edema. NEURO: Nonfocal. SKIN: Warm, dry, intact. PSYCH: Alert and oriented x3 with normal affect. MUSCULOSKELETAL: Normal range of motion without muscle tenderness. LABORATORY DATA: Hemoglobin 15.1, hematocrit 44.3. Serum chemistries: Serum sodium 138, potassium 4.2, chloride 106, CO2 24, BUN 11, creatinine 0.8, blood sugar 107. IMPRESSION: A 71-year-old woman with nausea and chronic constipation. Question whether constipation is contributing to symptoms. RECOMMENDATIONS: 1. Supportive care, IV fluids, IV antiemetics. Abdominal x-ray to evaluate for any significant obst ipation/constipation. 2. I would also recommend gastric emptying study to rule out significant gastroparesis. We will fol low with you. /[id number]/MODL
--- NOTE | 2016-10-17 18:55 | GCON ---
[f rep st] CONSULTATION DATE OF CONSULTATION: 10/17/2016 CHIEF COMPLAINT: Intractable nausea with vomiting. HISTORY OF PRESENT ILLNESS: This is a 71-year-old female admitted to the medicine service yesterday with chronic nausea and vomiting. She is well known to me, as I originally saw her in the clinic on the 23 of September for similar issues. At that point in time, however, she did have some right upper quadrant pain and it was the suspicion of her director commercial sales that an element of biliary dyskinesia and/or cholecystitis was contributing. At any rate, I took the patient to the operating room on the 26 of September where she underwent uneventful laparoscopic cholecystectomy. This was performed as an outpatient procedure and she subsequently went home. When I saw her for her postoperative visit on the 06 of October, she stated that she was feeling well. Oral intake had improved. Although she did still have some nausea, she was feeling better and the abdominal pain that she experienced previously had completely resolved. In addition, at the time her pathology did confirm chronic cholecystitis, so I do agree that more than likely she had some low level basal cholecystitis contributing. At any rate, she presented yesterday to the emergency department with nausea, vomiting, and weakness. At that point in time, she complained of worsening vomiting over the last 48 hours, stating that the night previous she was up all night vomiting and that she was so weak that she could barely move. Since her hospitalization and on my examination this afternoon, she complains of persistent nausea, although the vomiting appears to have improved somewhat. She denies having abdominal pain and is barely even able to open her eyes while being examined in her medical bed. Other than the weakness and the nausea, she has no complaints and does state that ever since I saw her for her postoperative visit on the she has been nauseated consistently and vomiting daily. She denies having any fevers or chills, and other than the nausea and vomiting she has no complaints. PAST MEDICAL HISTORY: Atypical chest pain, colonic polyps, depression, exercise -induced asthma, osteopenia, restless legs, and cholecystitis along with chronic nausea. PAST SURGICAL HISTORY: Breast reduction surgery, shoulder surgery, and cholecystectomy performed last month. ALLERGIES: Sulfa. CURRENT MEDICATIONS: Reviewed within [facility]. FAMILY HISTORY: Noncontributory. 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 PHYSICAL EXAM: VITAL SIGNS: Blood pressure 131/70, heart rate 70, respirations 17, and she is 96% on room air with a temperature of 36.3. CONSTITUTIONAL: She appears tired and disheveled in no apparent distress. HEENT: Eyes: Pupils are equal, round, and reactive to light and anicteric with normal extraocular movements. Ears, nose, mouth, throat: Dry mucous membranes. Normal hearing. CV: Regular rate and rhythm without any murmurs. RESPIRATORY: No rales, rhonchi, and she is otherwise clear. GI: She has normoactive bowel sounds. ABDOMEN: Soft, nondistended, nontender. Her laparoscopic cholecystectomy incision sites appear to be healing normally. SKIN : Warm. Normal color. No rashes. MUSCULOSKELETAL: She appears weak. She is nontender and has normal joint range of motion. NEUROLOGIC: She is alert and oriented x3. Her cranial nerves 2 through 12 appear intact. She is weak but denies having any numbness. Her weakness appears to be generalized and nonfocal. PSYCH: She is interacting appropriately. Again, she appears tired and less interactive than previous but she is not anxious. LYMPH/IMMUNOLOGIC: She has no appreciable lymphadenopathy in the cervical or groin region. LABORATORY DATA: White count normal at 6. No left shift. H and H stable at 15 and 44. Chemistries include a BMP and liver functions. Her liver function enzymes are completely within normal limits with a normal lipase at 53. IMAGING: Includes an abdominal x-ray, the images of which were personally reviewed by me which do show some mild prominence of the small bowel in the left upper quadrant but really is otherwise underwhelming without any intraabdominal free air or any other concerning findings. ASSESSMENT AND PLAN: 71-year-old female with chronic nausea with vomiting. On my examination and review of her chart today, I am reassured by her soft abdomen and her normal liver function tests. It is unclear to me how much of a role her gallbladder originally played in this although the pathology did reveal cholecystitis, so I do feel that it had some role. I have talked with her medicine physician, Dr. Gonzalez, and do feel that a trial of promotilics like Reglan would be at least beneficial to see if it has any benefit with her but I do not see any acute surgical needs at this time. I will continue to follow along with you. . /[id number]/MODL MTDD
[2016-10-18] MEDS: D5W 1/2 NS W/ 20 KCl/L 1,000 ML IV SCH ×3 (00:03→21:40)
[2016-10-18] MEDS: METOCLOPRAMIDE 10 MG/2 ML VIAL IVP SCH ×4 (00:03→18:27)
[2016-10-18] MEDS: PROMETHAZINE HCL 25 MG/ML INJ IVP PRN (08:57)
[2016-10-18] MEDS: SERTRALINE HCL 100 MG TAB PO SCH (13:38)
[2016-10-18] MEDS: DOCUSATE SODIUM 100 MG CAP PO SCH (13:38)
[2016-10-18] MEDS: ASPIRIN 81 MG CHEWABLE TAB PO SCH (13:39)
[2016-10-18] MEDS: CALCIUM CARBONATE 500 MG TAB PO SCH (13:39)
[2016-10-18] MEDS: CHOLECALCIFEROL VIT D3 1,000 UNITS TAB PO SCH (13:39)
--- NOTE | 2016-10-18 14:21 | SOAPPROG ---
SOAP Progress Note Assessment/Plan: Assessment: Patient still with nausea. S/p GES. Plan: Clear liquid diet Check GES Continue supportive care 10/18/16 14:19 Subjective: CC: N/V Had GES (gastric Emptying Study today) Still with some nausea, she thinks reglan may have helped this afternoon Objective: Vital Signs Temp Pulse Resp BP Pulse Ox 36.6 C 67 16 113/48 L 94 10/18/16 11:58 10/18/16 11:58 10/18/16 11:58 10/18/16 11:58 10/18/16 11:58 10/17/16 10/18/16 10/19/16 05:59 05:59 05:59 Intake Total 150 Output Total 1700 Balance -1550 Generic Name Dose Route Start Last Admin Trade Name Freq PRN Reason Stop Dose Admin Acetaminophen 650 mg 10/16/16 14:47 Tylenol PO 04/14/17 14:46 Q6 PRN Pain, Mild/Fever, Can Take PO Acetaminophen/Diphenhydramine HCl 1 each 10/16/16 16:45 Tylenol Pm PO 04/14/17 16:44 HS PRN Sleep/Insomnia Albuterol 2 puffs 10/16/16 16:53 Ventolin Hfa Inhaler IH 04/14/17 16:52 Q4H PRN Short of Breath/Dyspnea Aspirin 81 mg 10/17/16 09:00 10/18/16 13:39 Aspirin PO 04/15/17 08:59 Not Given DAILY CORTNEY Calcium Carbonate 500 mg 10/17/16 09:00 10/18/16 13:39 Oyster Shell Calcium PO 04/15/17 08:59 Not Given DAILY CORTNEY Cholecalciferol 1,000 units 10/17/16 09:00 10/18/16 13:39 Vitamin D PO 04/15/17 08:59 Not Given DAILY CORTNEY Clobetasol Propionate 1 raymond 10/16/16 16:45 Temovate Cream TP 04/14/17 16:44 DAILY PRN Rash Clonazepam 0.25 mg 10/16/16 16:45 10/16/16 18:34 Klonopin PO 04/14/17 16:44 0.25 mg HS PRN Administration restless leg syndrome Docusate Sodium 100 mg 10/17/16 09:00 10/18/16 13:38 Colace PO 04/15/17 08:59 100 mg DAILY CORTNEY Administration Estradiol 1 gm 10/16/16 16:56 Estrace Vaginal VG 04/14/17 16:55 WESA PRN Vaginal Atrophy Potassium Chloride/Dextrose/Sod Cl 1,000 mls @ 125 mls/hr 10/16/16 15:00 01/22 13:38 D5w 1/2 Ns W/ 20 Kcl/L IV 04/14/17 14:59 1,000 mls CONT CORTNEY Administration Metoclopramide HCl 10 mg 10/17/16 18:00 10/18/16 13:37 Reglan Injection IVP 04/15/17 17:59 10 mg Q6 CORTNEY Administration Ondansetron HCl 4 mg 10/16/16 14:47 10/17/16 09:33 Zofran IVP 04/14/17 14:46 4 mg Q4 PRN Administration Nausea/Vomiting, Can't Take PO Promethazine HCl 12.5 mg 10/16/16 14:47 10/18/16 08:57 Phenergan IVP 04/14/17 14:46 12.5 mg Q6 PRN Administration Nausea/Vomiting, Can't Take PO Sertraline HCl 100 mg 10/17/16 09:00 10/18/16 13:38 Zoloft PO 04/15/17 08:59 100 mg DAILY CORTNEY Administration Discontinued Medications Generic Name Dose Route Start Last Admin Trade Name Freq PRN Reason Stop Dose Admin Albuterol 2 puffs 10/16/16 16:45 Proventil Inhaler IH 04/14/17 16:44 Q4H PRN Short of Breath/Dyspnea Diphenhydramine HCl 50 mg 10/16/16 13:14 10/16/16 13:21 Benadryl Injection IVP 10/16/16 13:15 50 mg EDNOW ONE Administration Sodium Chloride 1,000 mls @ 0 mls/hr 10/16/16 13:03 10/16/16 13:08 Ns IV 10/16/16 13:04 1,000 mls ONCE ONE Administration Wide Open Metoclopramide HCl 10 mg 10/17/16 11:45 10/17/16 15:25 Reglan PO 04/15/17 11:44 Not Given QID CORTNEY Ondansetron HCl 4 mg 10/16/16 13:03 10/16/16 13:08 Zofran IVP 10/16/16 13:04 4 mg EDNOW ONE Administration Physical Exam - Physical Exam General Appearance: alert, no apparent distress Respiratory: lungs clear, normal breath sounds Cardiac/Chest: regular rate, rhythm Abdomen: normal bowel sounds, non-tender, soft Skin: normal color, warm/dry Extremities: non-tender Neuro/Psych: alert, normal mood/affect, oriented x 3 ICD10 Worksheet Patient Problems: Problems Problem Status Onset Dehydration Acute Nausea with vomiting Acute Nausea Acute Vomiting Acute
--- NOTE | 2016-10-18 14:40 | HOSPPROG ---
Hospitalist Progress Note Assessment/Plan: 71 y/o female s.p mainor with persistent chronic nausea and vomiting of unclear etiology seems to be improving with metoclopramide. Chest x-rays consistent with ileus -cortisol level normal, mri brain neg, egd reviewed - gastric emptying study is pending plan: -gi and general surgery consultations were reviewed and appreciated - continue reglan disposition: Will continue inpatient care given the patient is still very nauseous and not tolerating solids Subjective: continues to have nausea. She thinks she is somewhat better with metoclopramide. She denies any fevers or chills. She is passing flatus. She continues to be constipated. She is not eating. Objective: Vital Signs Temp Pulse Resp BP Pulse Ox 36.6 C 67 16 113/48 L 94 10/18/16 11:58 10/18/16 11:58 10/18/16 11:58 10/18/16 11:58 10/18/16 11:58 10/17/16 10/18/16 10/19/16 05:59 05:59 05:59 Intake Total 150 Output Total 1700 Balance -1550 - Physical Exam Constitutional: no apparent distress, appears nourished, not in pain Cardiovascular: regular rate and rhythym, no murmur, rub, or gallop Respiratory: no respiratory distress, no rales or rhonchi, clear to auscultation Gastrointestinal: normoactive bowel sounds, soft, non-tender abdomen, no palpable masses, No guarding, No rebound ICD10 Worksheet Patient Problems: Problems Problem Status Onset Nausea Acute Vomiting Acute Nausea with vomiting Acute Dehydration Acute
[2016-10-19] MEDS: METOCLOPRAMIDE 10 MG/2 ML VIAL IVP SCH ×2 (00:28→06:02)
[2016-10-19] MEDS: D5W 1/2 NS W/ 20 KCl/L 1,000 ML IV SCH (06:02)
[2016-10-19 07:56] VITALS: RESP 18; TEMP 98.4
[2016-10-19 09:04] VITALS: BP 113/70; PULSE 69; O2SAT 95
[2016-10-19] MEDS: PROMETHAZINE HCL 25 MG/ML INJ IVP PRN (09:15)
[2016-10-19] MEDS: CHOLECALCIFEROL VIT D3 1,000 UNITS TAB PO SCH (09:17)
[2016-10-19] MEDS: DOCUSATE SODIUM 100 MG CAP PO SCH (09:17)
[2016-10-19] MEDS: SERTRALINE HCL 100 MG TAB PO SCH (09:17)
[2016-10-19] MEDS: ASPIRIN 81 MG CHEWABLE TAB PO SCH (09:17)
[2016-10-19] MEDS: CALCIUM CARBONATE 500 MG TAB PO SCH (09:17)
--- NOTE | 2016-10-19 10:01 | SOAPPROG ---
SOAP Progress Note Assessment/Plan: Assessment: 71 year old women with persistent nausea symptoms since August. She has had extensive work up to exclude organic/pathologic causes for her symptoms. She has carey EGD with bx (no reflux, no evidence of eosinophilic gastroenteritis, no celiac disease), Negative RUQ U/S, Negative CT Scan of the Abdomen, Abnormal HIDA (with low EF but without pain), normal CT Scan of the head, normal MRI of the head. Normal calcium levels, normal TSH. No evidence of gastroparesis with Normal gastric emptying study. She does have a history of depression, has been on a stable dose of Zoloft (100 mg) for many years. 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 History of RLS takes Clonazepam infrequently. No specific organic, metabolic or pathologic disorders to explain symptoms of nausea. 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 Plan: 1. Continue supportive care with diet as tolerated 2. Antiemetics, Zofran, Phenergan, Compazine, PO or MT 3. Recommend follow up with her therapist to explore any other potential psychological causes and consider tapering off of Zoloft or down to a lower dose. If taper off of Zoloft may want to consider reintroducing another low dose antidepressant. 4. We have exhausted any GI evaluation. No additional recommendations at this time. Will sign off. Please call with further questions. 10/19/16 09:42 Subjective: CC: Nausea Still with nausea today. Extensive GI work up has been negative. Normal GES. Objective: Vital Signs Temp Pulse Resp BP Pulse Ox 36.9 C 69 18 113/70 95 10/19/16 07:54 10/19/16 09:03 10/19/16 09:03 10/19/16 09:03 10/19/16 09:03 10/18/16 10/19/16 10/20/16 05:59 05:59 05:59 Intake Total 844 918 6930 Output Total 1700 1100 Balance -1550 -264 1350 Generic Name Dose Route Start Last Admin Trade Name Freq PRN Reason Stop Dose Admin Acetaminophen 650 mg 10/16/16 14:47 Tylenol PO 04/14/17 14:46 Q6 PRN Pain, Mild/Fever, Can Take PO Acetaminophen/Diphenhydramine HCl 1 each 10/16/16 16:45 Tylenol Pm PO 04/14/17 16:44 HS PRN Sleep/Insomnia Albuterol 2 puffs 10/16/16 16:53 Ventolin Hfa Inhaler IH 04/14/17 16:52 Q4H PRN Short of Breath/Dyspnea Aspirin 81 mg 10/17/16 09:00 10/19/16 09:17 Aspirin PO 04/15/17 08:59 81 mg DAILY CORTNEY Administration Calcium Carbonate 500 mg 10/17/16 09:00 10/19/16 09:17 Oyster Shell Calcium PO 04/15/17 08:59 500 mg DAILY CORTNEY Administration Cholecalciferol 1,000 units 10/17/16 09:00 10/19/16 09:17 Vitamin D PO 04/15/17 08:59 1,000 units DAILY CORTNEY Administration Clobetasol Propionate 1 raymond 10/16/16 16:45 Temovate Cream TP 04/14/17 16:44 DAILY PRN Rash Clonazepam 0.25 mg 10/16/16 16:45 10/16/16 18:34 Klonopin PO 04/14/17 16:44 0.25 mg HS PRN Administration restless leg syndrome Docusate Sodium 100 mg 10/17/16 09:00 10/19/16 09:17 Colace PO 04/15/17 08:59 100 mg DAILY CORTNEY Administration Estradiol 1 gm 10/16/16 16:56 Estrace Vaginal VG 04/14/17 16:55 WESA PRN Vaginal Atrophy Potassium Chloride/Dextrose/Sod Cl 1,000 mls @ 125 mls/hr 10/16/16 15:00 06:02 D5w 1/2 Ns W/ 20 Kcl/L IV 04/14/17 14:59 1,000 mls CONT CORTNEY Administration Metoclopramide HCl 10 mg 10/17/16 18:00 10/19/16 06:02 Reglan Injection IVP 04/15/17 17:59 10 mg Q6 CORTNEY Administration Ondansetron HCl 4 mg 10/16/16 14:47 10/17/16 09:33 Zofran IVP 04/14/17 14:46 4 mg Q4 PRN Administration Nausea/Vomiting, Can't Take PO Promethazine HCl 12.5 mg 10/16/16 14:47 09/13/17 09:15 Phenergan IVP 04/14/17 14:46 12.5 mg Q6 PRN Administration Nausea/Vomiting, Can't Take PO Sertraline HCl 100 mg 10/17/16 09:00 10/19/16 09:17 Zoloft PO 04/15/17 08:59 100 mg DAILY CORTNEY Administration Discontinued Medications Generic Name Dose Route Start Last Admin Trade Name Javon PRN Reason Stop Dose Admin Albuterol 2 puffs 10/16/16 16:45 Proventil Inhaler IH 04/14/17 16:44 Q4H PRN Short of Breath/Dyspnea Diphenhydramine HCl 50 mg 10/16/16 13:14 10/16/16 13:21 Benadryl Injection IVP 10/16/16 13:15 50 mg EDNOW ONE Administration Sodium Chloride 1,000 mls @ 0 mls/hr 10/16/16 13:03 10/16/16 13:08 Ns IV 10/16/16 13:04 1,000 mls ONCE ONE Administration Wide Open Metoclopramide HCl 10 mg 10/17/16 11:45 10/17/16 15:25 Reglan PO 04/15/17 11:44 Not Given QID CORTNEY Ondansetron HCl 4 mg 10/16/16 13:03 10/16/16 13:08 Zofran IVP 10/16/16 13:04 4 mg EDNOW ONE Administration Physical Exam - Physical Exam General Appearance: alert, no apparent distress Respiratory: lungs clear, normal breath sounds Cardiac/Chest: regular rate, rhythm Abdomen: normal bowel sounds, non-tender, soft Skin: normal color, warm/dry Extremities: non-tender Neuro/Psych: alert, oriented x 3 ICD10 Worksheet Patient Problems: Problems Problem Status Onset Dehydration Acute Nausea with vomiting Acute Nausea Acute Vomiting Acute
--- NOTE | 2016-10-19 13:41 | GDS ---
[f rep st] DISCHARGE SUMMARY DISCHARGE DIAGNOSES: 1. Chronic nausea with improved vomiting of unclear etiology. 2. Resolved anion gap lactic acidosis. CONSULTANTS: 1. Lc Alan MD of GI [facility]. 2. Benedict Mesa MD, General Surgery. HOSPITAL COURSE: By problem: 1. Chronic nausea with improved vomiting: The patient was admitted to the hospital due to worsening acute on chronic nausea with vomiting. She was given IV metoclopramide with some relief. During th is hospital stay, we checked a.m. cortisol level that was within normal range. She also had a gastri c emptying study that did not reveal any gastroparesis. 2. On the day of discharge, she is tolerating some foods and is feeling better. She was cautioned o n the use of metoclopramide and its black box warning regarding tardive dyskinesias. The patient und erstands the risks and benefits of using this medication. GI and General surgery consultants were no t able to come up with an obvious cause for her problems either and think that her nausea and vomitin g are likely functional in etiology. It was recommended that we decrease the Zoloft to see if that h elps. PHYSICAL EXAM: VITAL SIGNS: On day of discharge, blood pressure 138/70, pulse of 69, respiratory ra te 18, O2 saturation 95% on room air. GENERAL: No acute distress. ABDOMEN: Soft, nontender, nondi stended. No guarding or rebound tenderness. Normoactive bowel sounds. EXTREMITIES: No clubbing or cyanosis. NEURO: Cranial nerves 2 through 12 grossly intact. No focal motor or sensory deficits. DISCHARGE MEDICATIONS: Please refer to discharge medication reconciliation in [facility] for details _ preliminary list. Medications that have been changed. 1. Zoloft was decreased from 100 mg daily to 50 mg daily. 2. Metoclopramide 5 mg p.o. four times daily p.r.n. nausea and vomiting was E prescribed to the gama crane. All other medications were continued at her usual home dosages. DISCHARGE INSTRUCTIONS: 1. The patient will be discharged from the hospital where she should follow up with her Primary Care Provider in the next week or so. 2. I recommended that she could possibly see a therapist to see if they have any recommendations on further helping her with her chronic nausea. /[id number]/MODL
--- NOTE | 2016-10-19 16:21 | ASDISCHSUM ---
Discharge Information Plan Status:Home with No Needs Medically Cleared to Leave:10/19/2016 Discharge Date:10/19/2016 01:05 PM CM D/C Disposition:Home, Routine, Self-Care ADT D/C Disposition:Home, Routine, Self-Care Projected Discharge Date:10/21/2016 12:00 AM Transportation at D/C:Family Discharge Delay Reason: Follow-Up Date:10/21/2016 12:00 AM Discharge Slot: Final Diagnosis: Placement Information Patient Contact Information Contact Name:LOUIS Relationship: Address:[address] City:[place] Alternate Phone: State/Zip Code:[place] [address] Email: Financial Information Financial Class: Primary Plan Desc:MEDICARE INPATIENT Primary Plan Number:[id number] Secondary Plan Desc:ALAN Quintero [facility] Secondary Plan Number:[id number] Assessment Information [facility] CM Progress Note CM Note CM Note Notes: Pt was admitted with chronic nausea/vomiting. She is s/p EGD with bx on 09/03/16 and cholecystectomy 09/26/16, with n/v since. Hx depression, currently on Zoloft. Pt is discharging home today with no CM needs. Date Signed: 10/19/2016 04:20 PM Electronically Signed By:SHORTY Pearce Intervention Information Intervention Type:*ROXANA-Signed Date of Service:10/17/2016 09:24 AM Patient Type:Observation Staff Member:Jayda Hyde Hours: Discipline: Severity: Comment: Intervention Type:*RACHELLE-Signed Date of Service:10/19/2016 12:41 PM Patient Type:Inpatient Staff Member:Jayda Hyde Hours: Discipline: Severity: Comment:
== END 2016-10-19 13:05 | disposition home or self-care (01) | DRG 392 ==
LOC: F1N 15:09 → OBSVTOIN 10-17 16:25
PROVIDERS: ADMIT Family Medicine; ATTEND Family Medicine
DX: K31.89 Other diseases of stomach and duodenum (principal); E87.2 Acidosis; F32.9 Major depressive disorder, single episode, unspecified; J45.909 Unspecified asthma, uncomplicated; Z90.49 Acquired absence of other specified parts of digestive tract; Z86.010 Personal history of colon polyps
CPT/HCPCS: 96374; A9541; G0378; J1200; J2405; J2550; J2765

== ENCOUNTER 2016-10-23 12:26 | Observation (INO) | payer OTHER ==
--- NOTE | 2016-10-23 14:17 | EDPHY ---
H & P Time Seen by Provider: 10/23/16 14:16 HPI/ROS: CHIEF COMPLAINT: Vomiting HISTORY OF PRESENT ILLNESS: The patient is a 71-year-old female with history of chronic nausea and vomiting of unknown etiology presents with persistent vomiting. The patient has had chronic nausea and vomiting since August. She had a cholecystectomy but has continued to have persistent emesis. The patient was was admitted 10/17-10/19 with the same complaints. During that time the patient had a gastric emptying study performed that did not reveal any gastroparesis. GI and General surgery were consulted and unable to find a cause for the nausea and vomiting. Last night, the patient was vomiting every 30 minutes. She is unable to keep down the Phenergan. She called the microelectronics engineer nurse asking for Phenergan suppositories, but was told to come to the ED. The patient has not been able to keep down anything for the past 24 hours. She states IV Phenergan and Reglan usually help. She denies lightheadedness or syncope. REVIEW OF SYSTEMS: A comprehensive 10 point review of systems is otherwise negative aside from elements mentioned in the history of present illness. Past Medical/Surgical History: Chronic nausea and vomiting of unknown etiology. Depression. Asthma. PSH: Cholecystectomy Social History: . No alcohol. Nonsmoker. Smoking Status: Never smoked Physical Exam: General Appearance: Alert, pale, appears uncomfortable Eyes: Pupils equal and round, no conjunctival pallor or injection ENT, Mouth: Mucous membranes moist Neck: Normal inspection Respiratory: Lungs are clear to auscultation Cardiovascular: Regular rate and rhythm Gastrointestinal: Abdomen is soft, epigastric tenderness Neurological: A&O, nonfocal exam Skin: Warm and dry, no rash Extremities: Nontender, no pedal edema Psychiatric: Mood and affect normal Constitutional: Initial Vital Signs Temperature (C) 36.7 C 10/23/16 12:29 Heart Rate 112 H 10/23/16 12:29 Respiratory Rate 18 10/23/16 12:29 Blood Pressure 118/77 10/23/16 12:29 O2 Sat (%) 97 10/23/16 12:29 O2 Delivery Mode Room Air Allergies/Adverse Reactions: Sulfa (Sulfonamide Antibiotics) Allergy (Intermediate, Verified 10/23/16 12:27) Other-Enter Comments Home Medications: Medication Instructions Recorded Acetamn/Diphenhydramine 500/25 1 each PO HS PRN 09/20/16 [Tylenol PM (*)] Albuterol [Proventil Inhaler HFA 1 - 2 puffs IH Q4H PRN 09/20/16 (*)] Aspirin [Aspirin 81mg (*)] 81 mg PO DAILY 09/20/16 Calcium Carbonate [Oyster Shell 500 mg PO DAILY 09/20/16 Calcium 500 mg (*)] Cholecalciferol Vit D3 [Vitamin D3 1,000 units PO DAILY 09/20/16 (*)] Clobetasol Propionate/Emoll 1 raymond TP DAILY PRN 09/20/16 [Clobetasol Emollient 0.05% Crm] Docusate Sodium [Colace 100 MG (*)] 100 mg PO DAILY 09/20/16 Estradiol [Estrace Vaginal (*)] 1 raymond VG WESA PRN 09/20/16 clonazePAM [Klonopin (*)] 0.25 mg PO HS PRN 09/20/16 Ondansetron Odt [Zofran Odt 4 mg 4 mg PO Q4 PRN 10/16/16 (*)] Promethazine HCl [Phenergan 25mg 25 mg PO Q6 PRN 10/16/16 (*)] Metoclopramide [Reglan 5 mg (*)] 5 mg PO ACHS #30 tab 10/19/16 Sertraline HCl [Zoloft 50mg (*)] 50 mg PO DAILY #30 tab 10/19/16 Medical Decision Making ED Course/Re-evaluation: The patient has a history of chronic nausea and vomiting of unknown etiology who presents with persistent emesis and dehydration. The patient was vomiting every 30 minutes last night. She was unable to keep down oral meds. The patient has dry heaves now. IV was established, patient is received IV fluids and Reglan. I ordered lab work including liver enzymes, lipase, and BMP. The patient has not been able to keep down any food or fluids. She feels weak and sore from persistent emesis. The pt and her ask for admission in order to control patient's emesis. I spoke to the hospitalist, Dr. Morton, who accepts the patient for admission. Differential Diagnosis: Differential diagnosis includes though it is not limited to appendicitis, cholecystitis, diverticulitis, pyelonephritis, bowel perforation, small bowel obstruction. - Data Points Laboratory Results: Laboratory Results 10/23/16 14:20 10/23/16 14:20 10/23/16 10/23/16 14:20 14:20 WBC 7.53 10^3/uL 10^3/uL (3.80-9.50) RBC 5.04 10^6/uL 10^6/uL (4.18-5.33) Hgb 15.3 g/dL g/dL (12.6-16.3) Hct 44.9 % % (38.0-47.0) MCV 89.1 fL fL (81.5-99.8) MCH 30.4 pg pg (27.9-34.1) MCHC 34.1 g/dL g/dL (32.4-36.7) RDW 12.7 % % (11.5-15.2) Plt Count 216 10^3/uL 10^3/uL (150-400) MPV 9.7 fL fL (8.7-11.7) Neut % (Auto) 83.1 % H % (39.3-74.2) Lymph % (Auto) 8.5 % L % (15.0-45.0) [place] % (Auto) 7.0 % % (4.5-13.0) Eos % (Auto) 0.5 % L % (0.6-7.6) Baso % (Auto) 0.4 % % (0.3-1.7) Nucleat RBC Rel Count 0.0 % % (0.0-0.2) Absolute Neuts (auto) 6.25 10^3/uL 10^3/uL (1.70-6.50) Absolute Lymphs (auto) 0.64 10^3/uL L 10^3/uL (1.00-3.00) Absolute Monos (auto) 0.53 10^3/uL 10^3/uL (0.30-0.80) Absolute Eos (auto) 0.04 10^3/uL 10^3/uL (0.03-0.40) Absolute Basos (auto) 0.03 10^3/uL 10^3/uL (0.02-0.10) Absolute Nucleated RBC 0.00 10^3/uL 10^3/uL (0-0.01) Immature Gran % 0.5 % % (0.0-1.1) Immature Gran # 0.04 10^3/uL 10^3/uL (0.00-0.10) Sodium 139 mEq/L mEq/L (134-144) Potassium 3.9 mEq/L mEq/L (3.5-5.2) Chloride 100 mEq/L mEq/L (97-110) Carbon Dioxide 19 mEq/l L mEq/l (22-31) Anion Gap 20 mEq/L H mEq/L (8-16) BUN 18 mg/dL mg/dL (7-23) Creatinine 0.9 mg/dL mg/dL (0.6-1.0) Estimated GFR > 60 Glucose 98 mg/dL mg/dL (70-100) Calcium 9.9 mg/dL mg/dL (8.5-10.4) Total Bilirubin 1.2 mg/dL mg/dL (0.1-1.4) Conjugated Bilirubin 0.4 mg/dL mg/dL (0.0-0.5) Unconjugated Bilirubin 0.8 mg/dL mg/dL (0.0-1.1) AST 23 IU/L IU/L (14-46) ALT 32 IU/L IU/L (9-52) Alkaline Phosphatase 73 IU/L IU/L (38-126) Total Protein 7.5 g/dL g/dL (6.3-8.2) Albumin 4.6 g/dL g/dL (3.5-5.0) Lipase 44 IU/L IU/L (23-300) Medications Given: Discontinued Medications Sodium Chloride (Ns) 1,000 mls @ 0 mls/hr IV EDNOW ONE; Wide Open PRN Reason: Protocol Stop: 10/23/16 14:27 Last Admin: 10/23/16 14:30 Dose: 1,000 mls Metoclopramide HCl (Reglan Injection) 10 mg IVP EDNOW ONE Stop: 10/23/16 14:27 Last Admin: 10/23/16 14:44 Dose: 10 mg Departure - Departure Disposition: [facility] Inpatient Acute Clinical Impression: Vomiting Qualifiers: Vomiting type: unspecified Vomiting Intractability: intractable Nausea presence : with nausea Qualified Code(s): R11.2 - Nausea with vomiting, unspecified Condition: Fair Report Scribed for: Ashley S Silvio Report Scribed by: Cindi Olguin Date of Report: 10/23/16 Time of Report: 14:17 Physician Review and Approval Statement: 10/23/16 14:17 Portions of this note were transcribed by a medical research associate. I personally performed the history, physical exam, and medical decision-making; and confirmed the accuracy of the information in the transcribed note.
[2016-10-23] MEDS ORDERED: NS 1,000 ML IV ONE (14:26)
[2016-10-23] MEDS ORDERED: METOCLOPRAMIDE 10 MG/2 ML VIAL IVP ONE (14:26)
[2016-10-23 14:33] LABS: % IMMATURE GRANULYOCYTES 0.5 % (0.0-1.1); ABSOLUTE IMMATURE GRANULOCYTES 0.04 10^3/uL (0.00-0.10); ADD DIFF? NO; ADD MORPH? NO; ADD SCAN? NO; ATYPICAL LYMPHOCYTE FLAG 0 (0-99); FRAGMENT RBC FLAG 0 (0-99); HEMATOCRIT 44.9 % (38.0-47.0); HEMOGLOBIN 15.3 g/dL (12.6-16.3); LEFT SHIFT FLG 0 (0-99); LIPEMIA HEMOLYSIS FLAG 90 (0-99); MEAN CELL HEMOGLOBIN 30.4 pg (27.9-34.1); MEAN CELL HEMOGLOBIN CONCENTR. 34.1 g/dL (32.4-36.7); MEAN CELL VOLUME 89.1 fL (81.5-99.8); MEAN PLATELET VOLUME 9.7 fL (8.7-11.7); PLATELET CLUMPS FLAG 0 (0-99); PLATELET COUNT 216 10^3/uL (150-400); RED BLOOD CELL COUNT 5.04 10^6/uL (4.18-5.33); RED CELL DISTRIBUTION WIDTH 12.7 % (11.5-15.2)
[2016-10-23 14:47] LABS: ALANINE AMINOTRANSFERASE 32 IU/L (9-52); ALBUMIN 4.6 g/dL (3.5-5.0); ALKALINE PHOSPHATASE 73 IU/L (38-126); ANION GAP 20 mEq/L (8-16); ASPARTATE AMINOTRANSFERASE 23 IU/L (14-46); BILIRUBIN,TOTAL 1.2 mg/dL (0.1-1.4); BILIRUBIN-CONJUGATED 0.4 mg/dL (0.0-0.5); BILIRUBIN-UNCONJUGATED 0.8 mg/dL (0.0-1.1); CALCIUM 9.9 mg/dL (8.5-10.4); CARBON DIOXIDE 19 mEq/l (22-31); CHLORIDE 100 mEq/L (97-110); CREATININE 0.9 mg/dL (0.6-1.0); GLOMERULAR FILTRATION RATE > 60; GLUCOSE 98 mg/dL (70-100); POTASSIUM 3.9 mEq/L (3.5-5.2); SODIUM 139 mEq/L (134-144); TOTAL PROTEIN 7.5 g/dL (6.3-8.2)
[2016-10-23] MEDS ORDERED: PANTOPRAZOLE SODIUM 40 MG in NS 100 ML IV ONE (14:48)
[2016-10-23] MEDS ORDERED: PROMETHAZINE HCL 25 MG/ML INJ IVP ONE (14:52)
--- NOTE | 2016-10-23 15:13 | PDGENHP ---
History and Physical - Chief Complaint Acute nausea and vomiting - History of Present Illness PCP: Dr. Chen Primary GI: Dr. Duggan HPI: 71 yo F p/w acute nausea and vomiting characterized as non-bloody emesis and dry heaving w/ onset 4 days ago, duration constant, associated w/ oliguria and inability to tolerate oral intake. The N/V are exacerbated by PO intake, and patient has been unable to tolerate any oral Rx, with the exception of PRN zofran which has been ineffective. Patient has been unable to see any medical providers since discharge on 10/19/16. She is feeling very weak. She reports that the symptoms have been present and pervasive since August 2016. History Information - Allergies/Home Medication List Allergies/Adverse Reactions: Sulfa (Sulfonamide Antibiotics) Allergy (Intermediate, Verified 10/23/16 12:27) Other-Enter Comments Home Medications: Acetamn/Diphenhydramine 500/25 [Tylenol PM (*)] 1 each PO HS PRN 09/20/16 [Last Taken 10/02/16] Albuterol [Proventil Inhaler HFA (*)] 1 - 2 puffs IH Q4H PRN 09/20/16 [Last Taken 09/25/16 20:00] Aspirin [Aspirin 81mg (*)] 81 mg PO DAILY 09/20/16 [Last Taken 09/12/16] Calcium Carbonate [Oyster Shell Calcium 500 mg (*)] 500 mg PO DAILY 09/20/16 [ Last Taken 10/02/16] Cholecalciferol Vit D3 [Vitamin D3 (*)] 1,000 units PO DAILY 09/20/16 [Last Taken 10/02/16] Clobetasol Propionate/Emoll [Clobetasol Emollient 0.05% Crm] 1 raymond TP DAILY PRN 09/20/16 [Last Taken 08/29/16] Docusate Sodium [Colace 100 MG (*)] 100 mg PO DAILY 09/20/16 [Last Taken ] Estradiol [Estrace Vaginal (*)] 1 raymond VG WESA PRN 09/20/16 [Last Taken 08/29/16] clonazePAM [Klonopin (*)] 0.25 mg PO HS PRN 09/20/16 [Last Taken 09/25/16] Ondansetron Odt [Zofran Odt 4 mg (*)] 4 mg PO Q4 PRN 10/16/16 [Last Taken Unknown] Promethazine HCl [Phenergan 25mg (*)] 25 mg PO Q6 PRN 10/16/16 [Last Taken Unknown] I have personally reviewed and updated: family history, medical history, social history, surgical history - Past Medical History Additional medical history: Chronic nausea and vomiting, suspected functional bowel disorder. Depression. Asthma - Surgical History Additional surgical history: CCY by Dr. Mesa on 09/26/16. R shoulder surgery. 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 [employer] Review of Systems Review of Systems: ROS: 10pt was reviewed & negative except for what was stated in HPI & below Gastrointestinal: Reports: vomitting, nausea Physical Exam Physical Exam: Temp Pulse Resp BP Pulse Ox 36.7 C 74 19 123/80 H 100 10/23/16 12:29 10/23/16 15:05 10/23/16 15:05 10/23/16 15:05 10/23/16 15:05 Constitutional: not in pain, chronically ill appearing, uncomfortable, other ( tremulous) Eyes: PERRL, anicteric sclera, EOMI Ears, Nose, Mouth, Throat: moist mucous membranes, hearing normal, ears appear normal, no oral mucosal ulcers Cardiovascular: regular rate and rhythym, no murmur, rub, or gallop, No irregularly irregular, No edema Respiratory: no respiratory distress, no rales or rhonchi, clear to auscultation Gastrointestinal: normoactive bowel sounds, soft, non-tender abdomen, no palpable masses, No guarding, No distension Genitourinary: no bladder fullness, no bladder tenderness Skin: warm, normal color, no rashes or abrasions, no fluctuance, no induration, No mottled Neurologic: AAOx3, sensation intact bilaterally, No weakness (motor 5/5 bilat LE ) Psychiatric: not encephalopathic, thought process linear, anxious, No agitated Lab Data & Imaging Review 10/23/16 14:20 10/23/16 14:20 WBC 7.53 10^3/uL (3.80-9.50) 10/23/16 14:20 RBC 5.04 10^6/uL (4.18-5.33) 10/23/16 14:20 Hgb 15.3 g/dL (12.6-16.3) 10/23/16 14:20 Hct 44.9 % (38.0-47.0) 10/23/16 14:20 MCV 89.1 fL (81.5-99.8) 10/23/16 14:20 MCH 30.4 pg (27.9-34.1) 10/23/16 14:20 MCHC 34.1 g/dL (32.4-36.7) 10/23/16 14:20 RDW 12.7 % (11.5-15.2) 10/23/16 14:20 Plt Count 216 10^3/uL (150-400) 10/23/16 14:20 MPV 9.7 fL (8.7-11.7) 10/23/16 14:20 Neut % (Auto) 83.1 % (39.3-74.2) H 10/23/16 14:20 Lymph % (Auto) 8.5 % (15.0-45.0) L 10/23/16 14:20 [place] % (Auto) 7.0 % (4.5-13.0) 10/23/16 14:20 Eos % (Auto) 0.5 % (0.6-7.6) L 10/23/16 14:20 Baso % (Auto) 0.4 % (0.3-1.7) 10/23/16 14:20 Nucleat RBC Rel Count 0.0 % (0.0-0.2) 10/23/16 14:20 Absolute Neuts (auto) 6.25 10^3/uL (1.70-6.50) 10/23/16 14:20 Absolute Lymphs (auto) 0.64 10^3/uL (1.00-3.00) L 10/23/16 14:20 Absolute Monos (auto) 0.53 10^3/uL (0.30-0.80) 10/23/16 14:20 Absolute Eos (auto) 0.04 10^3/uL (0.03-0.40) 10/23/16 14:20 Absolute Basos (auto) 0.03 10^3/uL (0.02-0.10) 10/23/16 14:20 Absolute Nucleated RBC 0.00 10^3/uL (0-0.01) 10/23/16 14:20 Immature Gran % 0.5 % (0.0-1.1) 10/23/16 14:20 Immature Gran # 0.04 10^3/uL (0.00-0.10) 10/23/16 14:20 Sodium 139 mEq/L (134-144) 10/23/16 14:20 Potassium 3.9 mEq/L (3.5-5.2) 10/23/16 14:20 Chloride 100 mEq/L (97-110) 10/23/16 14:20 Carbon Dioxide 19 mEq/l (22-31) L 10/23/16 14:20 Anion Gap 20 mEq/L (8-16) H 10/23/16 14:20 BUN 18 mg/dL (7-23) 10/23/16 14:20 Creatinine 0.9 mg/dL (0.6-1.0) 10/23/16 14:20 Estimated GFR > 60 10/23/16 14:20 Glucose 98 mg/dL (70-100) 10/23/16 14:20 Calcium 9.9 mg/dL (8.5-10.4) 10/23/16 14:20 Total Bilirubin 1.2 mg/dL (0.1-1.4) 10/23/16 14:20 Conjugated Bilirubin 0.4 mg/dL (0.0-0.5) 10/23/16 14:20 Unconjugated Bilirubin 0.8 mg/dL (0.0-1.1) 10/23/16 14:20 AST 23 IU/L (14-46) 10/23/16 14:20 ALT 32 IU/L (9-52) 10/23/16 14:20 Alkaline Phosphatase 73 IU/L (38-126) 10/23/16 14:20 Total Protein 7.5 g/dL (6.3-8.2) 10/23/16 14:20 Albumin 4.6 g/dL (3.5-5.0) 10/23/16 14:20 Lipase 44 IU/L (23-300) 10/23/16 14:20 Assessment & Plan Assessment: 71 yo F p/w acute on chronic nausea and vomiting in the setting of suspected functional bowel disorder Plan: 1. Nausea and vomiting. Acute on chronic, unable to tolerate oral intake, further w/u indicated to r/o significant electrolyte disturbance - reviewed outside records including DC Summary by Dr. Gonzalez on 10/19/16 and progress note by Dr. Alan 10/19/16, indicate normal EGD, normal CT, normal MRI , normal emptying study, normal cortisol level, tolerating PO on 10/19/16 when discharged, suspect this is a functional bowel disorder and recommend supportive care - high risk of electrolyte abnl with poor PO intake x 4 days, check CMP - unable to tolerate PO, supportive care w/ IVF and IV anti-emetics - introduce zyprexa, as patient is off her zoloft (due to inability to shawna PO) and gauge effect - monitor UOP, advance diet from clears tomorrow AM if hungry 2. Depression. Has been unable to shawna Zoloft, will reintroduce 50mg when able Diet. Clears PPx. High risk, hep SC Code. Full Dispo. ADD 10/24/16, pending improvement/stability of above. Discussed with Dr. Anguiano, we both agree that patient is unable to tolerate PO intake at this time and is unsafe to DC home, requiring electrolyte eval and tx.
[2016-10-23] MEDS ORDERED: METOCLOPRAMIDE 10 MG TAB PO PRN (15:19)
[2016-10-23] MEDS ORDERED: ACETAMINOPHEN 325 MG TAB PO PRN (15:19)
[2016-10-23] MEDS ORDERED: PROMETHAZINE HCL 25 MG TAB PO PRN (15:19)
[2016-10-23] MEDS ORDERED: PROMETHAZINE HCL 25 MG/ML INJ IVP PRN (15:19)
[2016-10-23] MEDS ORDERED: ONDANSETRON DISINTEGRATING 4 MG TAB PO PRN (15:19)
[2016-10-23] MEDS ORDERED: METOCLOPRAMIDE 10 MG/2 ML VIAL IVP PRN (15:19)
[2016-10-23] MEDS ORDERED: ONDANSETRON 4 MG/2 ML VIAL IVP PRN (15:19)
[2016-10-23] MEDS ORDERED: PROCHLORPERAZINE MALEATE 25 MG SUPPR PR PRN (15:23)
[2016-10-23] MEDS ORDERED: PROCHLORPERAZINE MALEATE 10 MG TAB PO PRN (15:23)
[2016-10-23] MEDS ORDERED: OLANZapine DISINTEGR 5 MG TAB PO SCH ×2 (15:30→21:00)
[2016-10-23] MEDS: NS 1,000 ML IV SCH ×2 (16:12→22:24)
[2016-10-23] MEDS ORDERED: OLANZapine DISINTEGR 5 MG TAB PO ONE (17:45)
[2016-10-23] MEDS: OLANZapine DISINTEGR 5 MG TAB PO ONE ×2 (18:01→18:16)
[2016-10-23] MEDS ORDERED: ACETAMN/DIPHENHYDRAMINE 500/25MG TAB PO PRN (19:39)
[2016-10-23] MEDS ORDERED: CLOBETASOL 0.05% 15 GM CRTUBE TP PRN (19:39)
[2016-10-23] MEDS ORDERED: clonazePAM 0.5 MG TAB PO PRN (19:39)
[2016-10-23] MEDS ORDERED: ALBUTEROL 60 PUFFS/8 GM MDI IH PRN (19:39)
[2016-10-23] MEDS ORDERED: ALBUTEROL 200 PUFFS/18 GM MDI IH PRN (20:30)
[2016-10-23] MEDS: HEPARIN 5,000 UNIT/0.5 ML SYR SC SCH (21:23)
[2016-10-23 23:22] VITALS: RESP 16
[2016-10-23 23:47] LABS: COLOR YELLOW; LEUKOCYTE ESTERASE,URINE 1+ (NEGATIVE); NITRITE,URINE NEGATIVE (NEGATIVE)
[2016-10-23 23:56] LABS: MUCUS 1+ /lpf (NONE-1+); WBC,URINE 25-50 /hpf (0-3)
[2016-10-24] MEDS: NS 1,000 ML IV SCH (05:03)
[2016-10-24] MEDS: HEPARIN 5,000 UNIT/0.5 ML SYR SC SCH (05:03)
[2016-10-24 05:26] LABS: % IMMATURE GRANULYOCYTES 0.2 % (0.0-1.1); ABSOLUTE IMMATURE GRANULOCYTES 0.01 10^3/uL (0.00-0.10); ADD DIFF? NO; ADD MORPH? NO; ADD SCAN? NO; ATYPICAL LYMPHOCYTE FLAG 10 (0-99); FRAGMENT RBC FLAG 0 (0-99); HEMATOCRIT 33.7 % (38.0-47.0); HEMOGLOBIN 11.2 g/dL (12.6-16.3); LEFT SHIFT FLG 0 (0-99); LIPEMIA HEMOLYSIS FLAG 80 (0-99); MEAN CELL HEMOGLOBIN 30.5 pg (27.9-34.1); MEAN CELL HEMOGLOBIN CONCENTR. 33.2 g/dL (32.4-36.7); MEAN CELL VOLUME 91.8 fL (81.5-99.8); PLATELET CLUMPS FLAG 0 (0-99); PLATELET COUNT 154 10^3/uL (150-400); RED BLOOD CELL COUNT 3.67 10^6/uL (4.18-5.33); RED CELL DISTRIBUTION WIDTH 12.6 % (11.5-15.2)
[2016-10-24 05:33] LABS: ALANINE AMINOTRANSFERASE 27 IU/L (9-52); ALBUMIN 2.7 g/dL (3.5-5.0); ALKALINE PHOSPHATASE 43 IU/L (38-126); ANION GAP 10 mEq/L (8-16); ASPARTATE AMINOTRANSFERASE 15 IU/L (14-46); BILIRUBIN,TOTAL 0.8 mg/dL (0.1-1.4); CALCIUM 8.4 mg/dL (8.5-10.4); CARBON DIOXIDE 20 mEq/l (22-31); CHLORIDE 110 mEq/L (97-110); CREATININE 0.7 mg/dL (0.6-1.0); GLOMERULAR FILTRATION RATE > 60; GLUCOSE 56 mg/dL (70-100); MAGNESIUM 1.9 mg/dL (1.6-2.3); POTASSIUM 3.7 mEq/L (3.5-5.2); SODIUM 140 mEq/L (134-144); TOTAL PROTEIN 4.9 g/dL (6.3-8.2)
[2016-10-24] MEDS ORDERED: D50W 25 GM/50 ML SYR IVP PRN (06:11)
[2016-10-24] MEDS ORDERED: D5W NS 1,000 ML IV SCH (06:15)
[2016-10-24] MEDS ORDERED: D10W 250 ML PRN HYPOGLYCEMIA IV (06:30)
[2016-10-24 07:31] VITALS: BP 115/50; PULSE 62; TEMP 98.5; O2SAT 94
[2016-10-24] MEDS ORDERED: SERTRALINE HCL 50 MG TAB PO SCH (09:00)
[2016-10-24] MEDS ORDERED: ASPIRIN 81 MG CHEWABLE TAB PO SCH (09:00)
[2016-10-24] MEDS ORDERED: CALCIUM CARBONATE 500 MG TAB PO SCH (09:00)
[2016-10-24] MEDS ORDERED: DOCUSATE SODIUM 100 MG CAP PO SCH (09:00)
[2016-10-24] MEDS ORDERED: CHOLECALCIFEROL VIT D3 1,000 UNITS TAB PO SCH (09:00)
--- NOTE | 2016-10-24 11:15 | ASMTCMCOM ---
CM Note CM Note Notes: Met with patient to review discharge POC when she is medically stable for dc. Previous independent at home with her who provides good support. She denies need for any home health services at this time. CM to follow should needs ena. Date Signed: 10/24/2016 11:15 AM Electronically Signed By:Josie Bernardo RN
--- NOTE | 2016-10-24 12:15 | PDDCSUM ---
Discharge Summary Discharge Summary: DISCHARGE SUMMARY FOLLOW-UP ITEMS: Refer to psychiatrist/therapist DATE OF ADMISSION: 10/23/2016 DATE OF DISCHARGE: 10/24/2016 DISCHARGE DIAGNOSES: 1. Functional bowel disorder with chronic nausea and vomiting 2. Acute metabolic acidosis CONSULTATIONS: None PROCEDURES / IMAGING: None CHIEF COMPLAINT: Acute nausea and vomiting SUBJECTIVE: Patient is feeling well at time of discharge, she is tolerating oral liquids and is attempting a light diet, she is not vomiting PHYSICAL EXAM ON DISCHARGE: Systolic blood pressure 110, heart rate 60, afebrile overnight, satting well on room air, abdomen is soft nontender nondistended, bowel sounds present, pain level 0/10 LABS ON DISCHARGE: Serum bicarb 20, liver panel unremarkable HOSPITAL COURSE BY PROBLEM: 1. Functional bowel disorder with chronic nausea and vomiting. Patient has undergone an extensive workup in the past for chronic nausea and vomiting persisting for the past several months. She presented to [facility] with acute worsening and inability to tolerate oral intake. This resulted in metabolic acidosis. The patient had been unable to tolerate her oral antiemetics at home. She received supportive care with IV fluids, as needed nausea medications. These were administered intravenously. We also introduced orally disintegrating Zyprexa, given that it may provide her with some anti depressive affect in the setting of her not being able to consistently take her Zoloft secondary to nausea and vomiting. She received substantial benefit from taking 2 doses of 5 mg Zyprexa, and her nausea has abated. The patient is tolerating oral liquids at this time and I have advised her to slowly introduce solid foods, beginning with a bland diet. Extensive counseling was provided to the patient and her regarding the diagnosis of functional bowel disorder and recommend strategy of symptomatic supportive care. I recommended that the patient attempted to take in antiemetic medication when she is feeling well, prior to her nausea escalating, and this could consist of Compazine 10 mg. Once her condition worsens and she requires antiemetic non orally, she can either use orally disintegrating Zyprexa or Phenergan suppository. I have also recommended that she establish with a local psychiatrist she can begin weaning down her Zoloft, as some of her nausea may be a medication side effect. Also strongly recommended that the patient establish care with a therapist, as the emotional stress of this diagnosis can be overwhelming. The patient and her demonstrates good insight into the situation and currently not seeking further diagnostic workup. They will contact [facility] this week an attempt to be seen by the 1st available provider, so they are able to continue to discuss symptom management and oral tolerance of solids and liquids with a provider, hopefully on a weekly basis, while patient also begins working with her primary care provider and receives outpatient psychiatry and therapy referrals. 2. Acute metabolic acidosis. Anion gap, secondary to vomiting, receive supportive care with IV fluids, normalized at discharge. DISCHARGE MEDICATIONS: Please see official discharge medication reconciliation sheet in chart , Zyprexa 5 mg twice daily as needed, Phenergan 25 mg suppository twice daily as needed, Compazine 10 mg as needed. DISCHARGE INSTRUCTIONS: Please contact [facility] for immediate outpatient appointment, then follow up with primary care provider next week as scheduled.
--- NOTE | 2016-10-24 16:56 | ASDISCHSUM ---
Discharge Information Plan Status:Home with No Needs Medically Cleared to Leave: Discharge Date:10/24/2016 01:08 PM CM D/C Disposition:Home, Routine, Self-Care ADT D/C Disposition:Home, Routine, Self-Care Projected Discharge Date:10/24/2016 01:08 PM Transportation at D/C:Family Discharge Delay Reason: Follow-Up Date:10/24/2016 01:08 PM Discharge Slot: Final Diagnosis: Placement Information Patient Contact Information Contact Name:LOUIS Relationship: Address:[address] City:[place] Alternate Phone: [facility]/Zip Code:[place] [address] Email: Financial Information Financial Class: Primary Plan Desc:MEDICARE OUTPATIENT Primary Plan Number:[id number] Secondary Plan Desc:[facility] Secondary Plan Number:[id number] Assessment Information [facility] CM Progress Note CM Note CM Note Notes: Met with patient to review discharge POC when she is medically stable for dc. Previous independent at home with her who provides good support. She denies need for any home health services at this time. CM to follow should needs ena. Date Signed: 10/24/2016 11:15 AM Electronically Signed By:Josie Bernardo RN Intervention Information Intervention Type:*ROXANA-Signed Date of Service:10/24/2016 09:03 AM Patient Type:Observation Staff Member:Jayda Hyde Hours: Discipline: Severity: Comment:
== END 2016-10-24 13:08 | disposition home or self-care (01) ==
LOC: F3E 15:18
PROVIDERS: ADMIT Internal Medicine; ATTEND Internal Medicine
DX: K59.9 Functional intestinal disorder, unspecified (principal); E87.2 Acidosis
CPT/HCPCS: 97161; G0378; G8978; G8979; J2550; J2765; 96374

== ENCOUNTER 2016-11-11 17:41 | Emergency (ER) | payer OTHER ==
[2016-11-11 17:53] VITALS: RESP 16
--- NOTE | 2016-11-11 19:48 | EDPHY ---
H & P Stated Complaint: NAUSEA AND VOMITING, SENT BY ADAM BROWN HPI/ROS: CHIEF COMPLAINT: Nausea and vomited HISTORY OF PRESENT ILLNESS: The patient is a 71 y/o female with a history of a gallbladder removal in September complaining of persistent nausea and vomiting. After the gallbladder surgery she experienced some relief of symptoms but after a few weeks the nausea and vomiting returned. She has been seen several times for dehydration and nausea. Today she was able to get in touch with her GI doctor, Dr. Borden, who directed her to come in today. She reports confusion, diffuse weakness, and stability issues which have worsened over the past two weeks. She denies headache, incontinence, wide based gait, or other associated factors. She last vomited yesterday and was able to keep down a small amount of water and some grapes today. No fever. REVIEW OF SYSTEMS: A ten point review of systems was performed and is negative with the exception of the items mentioned in the HPI. 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 Vital signs reviewed. Heart rate 110 at triage. Eyes: Pupils equal and round, no conjunctival injection, no discharge. Anicteric. ENT, Mouth: Mucous membranes are moist, no oropharyngeal erythema or edema. Neck: No lymphadenopathy, supple. Respiratory: Lungs are clear to auscultation; no wheezes, rales, or rhonchi. Cardiovascular: Tachycardic; no murmur, rub, or gallop. Gastrointestinal: Abdomen is soft and nontender, no masses or organomegaly, bowel sounds normal. Skin: Warm and dry, no rashes on exposed skin, normal color. Back: Nontender to palpation over the thoracolumbar spine. No CVAT. Extremities: No lower extremity edema, no calf tenderness or swelling. Neurological: Alert and oriented. Moving all four extremities easily and equally. Slow, slightly broad based gait. Serial sevens times two. Cranial nerves II through XII are examined and are intact (visual acuity not tested). Strength is 5 over 5 bilaterally with testing of all major motor groups. Sensation is intact to light touch over all 4 extremities. Uhzczc-[id number]-etym is performed accurately. She is able to ambulate independently. Psychiatric: Flat affect. - Personal History Current Tetanus/Diphtheria Vaccine: Yes Tetanus Vaccine Date: < 10 YEARS - Medical/Surgical History Hx Asthma: Yes Hx Chronic Respiratory Disease: No Hx Diabetes: No Hx Cardiac Disease: No Hx Renal Disease: No Hx Cirrhosis: No Hx Alcoholism: No Hx HIV/AIDS: No Hx Splenectomy or Spleen Trauma: No Other PMH: GERD, mainor 2017, asthma, depression, BREAST REDUCTION SURGERY, right shoulder surgery 2011 - Social History Smoking Status: Never smoked Constitutional: Initial Vital Signs Temperature (C) 37 C 11/11/16 17:50 Heart Rate 110 H 11/11/16 17:50 Respiratory Rate 16 11/11/16 17:50 Blood Pressure 103/70 11/11/16 17:50 O2 Sat (%) 97 11/11/16 17:50 O2 Delivery Mode Room Air Allergies/Adverse Reactions: Sulfa (Sulfonamide Antibiotics) Allergy (Intermediate, Verified 11/11/16 17:53) Other-Enter Comments Home Medications: Medication Instructions Recorded Acetamn/Diphenhydramine 500/25 1 each PO HS PRN 09/20/16 [Tylenol PM (*)] Albuterol [Proventil Inhaler HFA 1 - 2 puffs IH Q4H PRN 09/20/16 (*)] Aspirin [Aspirin 81mg (*)] 81 mg PO DAILY 09/20/16 Calcium Carbonate [Oyster Shell 500 mg PO DAILY 09/20/16 Calcium 500 mg (*)] Cholecalciferol Vit D3 [Vitamin D3 1,000 units PO DAILY 09/20/16 (*)] Clobetasol Propionate/Emoll 1 raymond TP DAILY PRN 09/20/16 [Clobetasol Emollient 0.05% Crm] Docusate Sodium [Colace 100 MG (*)] 100 mg PO DAILY 09/20/16 Estradiol [Estrace Vaginal (*)] 1 raymond VG WESA PRN 09/20/16 clonazePAM [Klonopin (*)] 0.25 mg PO HS PRN 09/20/16 Ondansetron Odt [Zofran Odt 4 mg 4 mg PO Q4 PRN 10/16/16 (*)] Sertraline HCl [Zoloft 50mg (*)] 50 mg PO DAILY #30 tab 10/19/16 OLANZapine DISINTEGR [ZyPREXA 5 mg PO BID PRN #60 tab 09/18/17 ZYDIS (*)] Prochlorperazine Maleate 10 mg PO Q6HRS PRN #40 tab 10/24/16 [Compazine 10mg (*)] Promethazine HCl [Phenergan 25 mg RC BID PRN #60 suppr 10/24/16 Rectal] Medical Decision Making Procedures: MDM: The patient is a 71 y/o female complaining of persistent nausea and vomiting. This has been the case since mid summer. She had her gallbladder removed in September and experienced some relief of her symptoms. Her symptoms returned and are currently accompanied by some confusion, per her , and diffuse weakness. She got in touch with her GI specialist regarding her symptoms and was directed to come in today (likely because she reported confusion). She has not vomited today. Labs were obtained and show notes show normal electrolytes with the exception of slightly low chloride. She received 1 L normal saline and Zofran 4 mg. She felt better after this. She has a normal neurologic exam. She does not appear confused at the time of my evaluation. Normal mini mental status examination. She is able to ambulate. I do not suspect stroke. Nothing to suggest NPH (she reports balance issues that seem to be worsening). No meningeal signs or suggestion of infection. No urinary symptoms. I do not think that she is currently confused and do not find evidence of an infection (which might cause confusion). As she is not currently vomiting I feel that she can safely return home. Her GI doctor and her surgeon are aware of her continued pain and vomiting. I do not recommend any testing tonight (such as MRCP). She has been evaluated for this problem. Reportedly Dr. Duggan plans some additional testing. She will call his office on Monday to learn more about this and make arrangements for whatever evaluations he has in mind. She knows that she can return to the emergency department at any time if she is having difficulty at home. - Data Points Laboratory Results: Laboratory Results 11/11/16 20:30 11/11/16 20:30 Medications Given: Discontinued Medications Sodium Chloride (Ns) 1,000 mls @ 0 mls/hr IV EDNOW ONE; Wide Open PRN Reason: Protocol Stop: 11/11/16 20:20 Last Admin: 11/11/16 20:30 Dose: 1,000 mls Promethazine HCl (Phenergan) 12.5 mg IVP EDNOW ONE Stop: 11/11/16 20:20 Last Admin: 11/11/16 20:30 Dose: 12.5 mg Departure - Departure Disposition: Home, Routine, Self-Care Clinical Impression: Hypochloremia Vomiting Qualifiers: Vomiting type: unspecified Vomiting Intractability: non-intractable Nausea presence: with nausea Qualified Code(s): R11.2 - Nausea with vomiting, unspecified Condition: Good Instructions: Acute Nausea and Vomiting (ED) Additional Instructions: As you know, the cause of your vomiting remains unclear. Your sodium and potassium were normal tonight. Her chloride is slightly low, likely due to volume depletion. You received a L of fluid in the emergency department. I recommend that we see how things go tomorrow in terms of eating and drinking. If you develop intractable vomiting you will need to return to the emergency department. Referrals: Radha Chen MD [Primary Care Provider] - As per Instructions Rebel Duggan MD [Medical Doctor] - As per Instructions Report Scribed for: Lesia Kearns Report Scribed by: Corinna Armendariz Date of Report: 11/11/16 Time of Report: 20:21 Physician Review and Approval Statement: 11/17/16 15:25 Portions of this chart were entered by a medical office supervisor. I personally performed the HPI, PE, MDM. I have reviewed the chart and agree with the documentation.
[2016-11-11] MEDS ORDERED: PROMETHAZINE HCL 25 MG/ML INJ IVP ONE (20:19)
[2016-11-11] MEDS ORDERED: NS 1,000 ML IV ONE (20:19)
[2016-11-11 20:37] LABS: % IMMATURE GRANULYOCYTES 0.3 % (0.0-1.1); ABSOLUTE IMMATURE GRANULOCYTES 0.02 10^3/uL (0.00-0.10); ADD DIFF? NO; ADD MORPH? NO; ADD SCAN? NO; ATYPICAL LYMPHOCYTE FLAG 10 (0-99); FRAGMENT RBC FLAG 0 (0-99); HEMATOCRIT 41.5 % (38.0-47.0); HEMOGLOBIN 14.3 g/dL (12.6-16.3); LEFT SHIFT FLG 0 (0-99); LIPEMIA HEMOLYSIS FLAG 90 (0-99); MEAN CELL HEMOGLOBIN 30.5 pg (27.9-34.1); MEAN CELL HEMOGLOBIN CONCENTR. 34.5 g/dL (32.4-36.7); MEAN CELL VOLUME 88.5 fL (81.5-99.8); MEAN PLATELET VOLUME 9.2 fL (8.7-11.7); PLATELET CLUMPS FLAG 0 (0-99); PLATELET COUNT 218 10^3/uL (150-400); RED BLOOD CELL COUNT 4.69 10^6/uL (4.18-5.33); RED CELL DISTRIBUTION WIDTH 13.1 % (11.5-15.2)
[2016-11-11 21:01] LABS: ANION GAP 16 mEq/L (8-16); CALCIUM 9.9 mg/dL (8.5-10.4); CARBON DIOXIDE 18 mEq/l (22-31); CHLORIDE 101 mEq/L (97-110); CREATININE 0.7 mg/dL (0.6-1.0); GLOMERULAR FILTRATION RATE > 60; GLUCOSE 109 mg/dL (70-100); POTASSIUM 4.2 mEq/L (3.5-5.2); SODIUM 135 mEq/L (134-144)
[2016-11-11 22:00] VITALS: BP 103/74; PULSE 74; TEMP 97.5; O2SAT 95
== END 2016-11-11 22:10 | disposition home or self-care (01) ==
DX: E87.8 Other disorders of electrolyte and fluid balance, not elsewhere classified (principal); J45.909 Unspecified asthma, uncomplicated; E86.9 Volume depletion, unspecified; Z79.82 Long term (current) use of aspirin
CPT/HCPCS: 96361; 96374; 99284; J2550

== ENCOUNTER 2016-11-19 19:56 | Observation (INO) | payer OTHER ==
--- NOTE | 2016-11-19 20:10 | EDPHY ---
H & P Stated Complaint: PAIN TO THE LEFT RIB AREA WITH SOME NAUSEA . HPI/ROS: HPI CHIEF COMPLAINT: Nausea and chest pain HISTORY OF PRESENT ILLNESS: This patient is 71-year-old female poor historian, she presents emergency room by private vehicle with left-sided chest discomfort. She is very hard time describing her symptoms. However she reports to me that she has had left-sided chest discomfort for approximately 4 hours. It is now better since arriving to the emergency room. However she does report left-sided pleuritic pain. Worse when she takes a deep breath in. She has associated nausea with this but out vomiting. She denies any significant abdominal pain. She denies shortness of breath at this time. She states that she was lying on the couch when this started she went to go to bed however discomfort got great. She thinks it has been present for 4 hours now much improved. She denies having history of DVT or PE. Denies history of stroke or VT. Of note she has a very poor historian has a great deal difficulty describing her symptoms. 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 Exam Constitutional triage nursing summary reviewed, vital signs reviewed, awake/ alert. Vital signs noted tachycardia and blood pressure. Eyes normal conjunctivae and sclera, EOMI, PERRLA. HENT normal inspection, atraumatic, moist mucus membranes, no epistaxis, neck supple/ no meningismus, no raccoon eyes. Respiratory clear to auscultation bilaterally, normal breath sounds, no respiratory distress, no wheezing. Cardiovascular rate normal, regular rhythm, no murmur, no edema, distal pulses normal. Gastrointestinal soft, non-tender, no rebound, no guarding, normal bowel sounds, no distension, no pulsatile mass. Genitourinary no CVA tenderness. Musculoskeletal no midline vertebral tenderness, full range of motion, no calf swelling, no tenderness of extremities, no meningismus, good pulses, neurovascularly intact. Skin pink, warm, & dry, no rash, skin atraumatic. Neurologic awake, alert and oriented x 3, AAOx3, moves all 4 extremities equally, motor intact, sensory intact, CN II-XII intact, normal cerebellar, normal vision, normal speech. Psychiatric normal mood/affect. Heme/Lymph/Immune no lymphadenopathy. Differential diagnosis includes but is not limited to: ACS, atypical chest pain , pneumothorax, pneumonia, pulmonary embolism, aortic dissection, congestive heart failure, tumor, musculoskeletal pain, esophageal pain, GERD, peptic ulcer disease, pancreatitis Medical Decision Making: Plan for this patient IV establishment full teletypesetter monitor obtain EKG, blood work, chest x-ray to rule out pneumothorax. Will out acute coronary syndrome. Re-evaluation: EKG interpretation by me on record in [employer] system. Impression time of EKG 2011: This EKG is sinus tach [address] depression seen in V4 V5 and V6. T-wave abnormalities inferior leads to 3 AVF. This is new when I compare to her old EKG dated 09/02/2016. ED x-ray chest one view reviewed by myself. Left-sided costophrenic angle infiltrate versus mass. 2105: Patient's D-dimer is positive. 3+. Will obtain a CT angiogram chest rule out pulmonary embolism. Risk factors include immobility, positive D-dimer , tachycardia. Pulse ox at triage was 91%. Does have left-sided pleuritic pain. 2211: This patient CT scan was called me with pulmonary embolism. Bilateral. No heart strain visualized on the CT scan. D-dimer was elevated. Troponin negative. EKG noted to be sinus tach. Some ischemic changes lateral leads. No ST elevation. I have updated the patient that she has a pulmonary embolism she will need to be admitted. 1 milligram/kilogram of Lovenox as been ordered. She agrees for hospital admission and understands why. Spoke with the hospitalist service Dr. Bautista who accepts this patient. Plan will be admission to PCU. Source: Patient - Personal History Current Tetanus/Diphtheria Vaccine: Yes Current Tetanus Diphtheria and Acellular Pertussis (TDAP): Yes Tetanus Vaccine Date: < 10 YEARS - Medical/Surgical History Hx Asthma: Yes Hx Chronic Respiratory Disease: No Hx Diabetes: No Hx Cardiac Disease: No Hx Renal Disease: No Hx Cirrhosis: No Hx Alcoholism: No Hx HIV/AIDS: No Hx Splenectomy or Spleen Trauma: No Other PMH: CHOLECTOMY 10/23. GERD, mainor 2016, asthma, depression, BREAST REDUCTION SURGERY, right shoulder surgery 2011 - Social History Smoking Status: Never smoked Constitutional: Initial Vital Signs Temperature (C) 36.5 C 11/19/16 19:57 Heart Rate 112 H 11/19/16 19:57 Respiratory Rate 18 11/19/16 19:57 Blood Pressure 95/46 L 11/19/16 19:57 O2 Sat (%) 96 11/19/16 19:57 O2 Delivery Mode Room Air O2 (L/minute) 2 Allergies/Adverse Reactions: Sulfa (Sulfonamide Antibiotics) Allergy (Intermediate, Verified 11/11/16 17:53) Other-Enter Comments Home Medications: Medication Instructions Recorded Acetamn/Diphenhydramine 500/25 1 each PO HS PRN 09/20/16 [Tylenol PM (*)] Calcium Carbonate [Oyster Shell 500 mg PO DAILY 09/20/16 Calcium 500 mg (*)] Cholecalciferol Vit D3 [Vitamin D3 1,000 units PO DAILY 09/20/16 (*)] Docusate Sodium [Colace 100 MG (*)] 100 mg PO DAILY 09/20/16 Albuterol [Proventil Inhaler HFA 1 - 2 puffs IH Q4H PRN 11/19/16 (*)] OLANZapine DISINTEGR [ZyPREXA 5 mg PO BID 11/19/16 ZYDIS (*)] Sertraline HCl [Zoloft 50mg (*)] 25 mg PO DAILY 11/19/16 Rivaroxaban [Xarelto 15mg (*)] 15 mg PO BIDMEAL #42 tab 11/20/16 Medical Decision Making - Data Points Laboratory Results: Laboratory Results 11/19/16 20:13 11/19/16 20:13 Medications Given: Discontinued Medications Aspirin Buffered (Aspirin Ec) 325 mg PO EDNOW ONE Stop: 11/19/16 20:21 Last Admin: 11/19/16 20:42 Dose: 325 mg Cholecalciferol (Vitamin D) 1,000 units PO DAILY [facility] Stop: 05/19/17 08:59 Last Admin: 11/20/16 09:03 Dose: 1,000 units Enoxaparin Sodium (Lovenox) 60 mg SC EDNOW ONE Stop: 11/19/16 22:01 Last Admin: 11/19/16 22:33 Dose: 60 mg Sodium Chloride (Ns) 1,000 mls @ 0 mls/hr IV EDNOW ONE; Wide Open PRN Reason: Protocol Stop: 11/19/16 20:13 Last Admin: 11/19/16 20:40 Dose: 1,000 mls Olanzapine (Zyprexa Zydis) 5 mg PO BID [facility] Stop: 05/19/17 08:59 Last Admin: 11/20/16 09:03 Dose: 5 mg Ondansetron HCl (Zofran) 4 mg IVP EDNOW ONE Stop: 11/19/16 20:13 Last Admin: 11/19/16 22:51 Dose: Not Given Rivaroxaban (Xarelto) 15 mg PO BIDMEAL [facility] Stop: 05/19/17 07:59 Last Admin: 11/20/16 09:01 Dose: 15 mg Sertraline HCl (Zoloft) 25 mg PO DAILY [facility] Stop: 05/19/17 08:59 Last Admin: 11/20/16 09:02 Dose: 25 mg Departure - Departure Disposition: [facility] Clinical Impression: Pulmonary embolus Qualifiers: Pulmonary embolism type: other Chronicity: acute Acute cor pulmonale presence: without acute cor pulmonale Qualified Code(s): I26.99 - Other pulmonary embolism without acute cor pulmonale Condition: Fair
[2016-11-19] MEDS ORDERED: NS 1,000 ML IV ONE (20:12)
[2016-11-19] MEDS ORDERED: ONDANSETRON 4 MG/2 ML VIAL IVP ONE (20:12)
--- NOTE | 2016-11-19 20:14 | CPEKG ---
Heart Rate: 106 RR Interval: 566 P-R Interval: 116 QRSD Interval: 82 QT Interval: 328 QTC Interval: 436 P [place]: 43 QRS [place]: 51 T Wave [place]: -27 EKG Severity - BORDERLINE ECG - EKG Impression: SINUS TACHYCARDIA EKG Impression: BORDERLINE T ABNORMALITIES, INFERIOR LEADS Preliminary Awaiting MD Review
[2016-11-19] MEDS ORDERED: ASPIRIN EC 325 MG TAB PO ONE (20:20)
[2016-11-19 20:24] LABS: % IMMATURE GRANULYOCYTES 0.4 % (0.0-1.1); ABSOLUTE IMMATURE GRANULOCYTES 0.04 10^3/uL (0.00-0.10); ADD DIFF? NO; ADD MORPH? NO; ADD SCAN? NO; ATYPICAL LYMPHOCYTE FLAG 10 (0-99); FRAGMENT RBC FLAG 0 (0-99); HEMATOCRIT 35.2 % (38.0-47.0); HEMOGLOBIN 12.2 g/dL (12.6-16.3); LEFT SHIFT FLG 0 (0-99); LIPEMIA HEMOLYSIS FLAG 90 (0-99); MEAN CELL HEMOGLOBIN 31.1 pg (27.9-34.1); MEAN CELL HEMOGLOBIN CONCENTR. 34.7 g/dL (32.4-36.7); MEAN CELL VOLUME 89.8 fL (81.5-99.8); MEAN PLATELET VOLUME 9.1 fL (8.7-11.7); PLATELET CLUMPS FLAG 0 (0-99); PLATELET COUNT 232 10^3/uL (150-400); RED BLOOD CELL COUNT 3.92 10^6/uL (4.18-5.33); RED CELL DISTRIBUTION WIDTH 12.9 % (11.5-15.2)
[2016-11-19 20:30] LABS: APTT 31.6 SEC (23.0-38.0); INR 1.3 (0.83-1.16); PROTIME(PATIENT) 16.2 SEC (12.0-15.0)
[2016-11-19 20:34] LABS: ALANINE AMINOTRANSFERASE 26 IU/L (9-52); ALBUMIN 3.2 g/dL (3.5-5.0); ALKALINE PHOSPHATASE 69 IU/L (38-126); ANION GAP 9 mEq/L (8-16); ASPARTATE AMINOTRANSFERASE 18 IU/L (14-46); BILIRUBIN,TOTAL 0.6 mg/dL (0.1-1.4); BILIRUBIN-CONJUGATED 0.2 mg/dL (0.0-0.5); BILIRUBIN-UNCONJUGATED 0.4 mg/dL (0.0-1.1); CALCIUM 9.1 mg/dL (8.5-10.4); CARBON DIOXIDE 26 mEq/l (22-31); CHLORIDE 96 mEq/L (97-110); CREATININE 0.7 mg/dL (0.6-1.0); GLOMERULAR FILTRATION RATE > 60; GLUCOSE 127 mg/dL (70-100); POTASSIUM 3.6 mEq/L (3.5-5.2); SODIUM 131 mEq/L (134-144); TOTAL PROTEIN 6.1 g/dL (6.3-8.2)
[2016-11-19 20:46] LABS: TROPONIN I < 0.012 ng/mL (0.000-0.034)
[2016-11-19 21:05] LABS: CREATINE KINASE-MB FRACTION < 0.22 ng/mL (0.00-3.19)
[2016-11-19] MEDS ORDERED: IOPAMIDOL (ISOVUE 370) 100 ML BTL IV ONE (21:08)
[2016-11-19] MEDS ORDERED: ENOXAPARIN 60 MG/0.6 ML SYR SC ONE (22:00)
[2016-11-19] MEDS ORDERED: oxyCODONE IR 5 MG TAB PO PRN (22:24)
[2016-11-19] MEDS ORDERED: ACETAMINOPHEN 325 MG TAB PO PRN (22:24)
[2016-11-19] MEDS ORDERED: ONDANSETRON 4 MG/2 ML VIAL IVP PRN (22:24)
[2016-11-19] MEDS ORDERED: ONDANSETRON DISINTEGRATING 4 MG TAB PO PRN (22:24)
--- NOTE | 2016-11-19 23:52 | PDGENHP ---
History and Physical - Chief Complaint Chest pain - History of Present Illness 71 yo F w/ long hx of GI complaints presents with L sided chest pain and found to have new PE. Patient explains that she first began to feel poorly in August. She has been experiencing daily abdominal pain, nausea, and vomiting. She had some relief after a cholecystectomy in September but her symptoms soon returned. Then, on the day of admission, she noticed fatigue, shortness of breath, and L sided chest wall pain. At this point she decided to go the ED. At the time of my evaluation patient was asymptomatic aside from ongoing fatigue. She denies recent surgery, immobilization, trauma, or prior hx of clotting or bleeding. Of note, she mentioned that her sister was diagnosed with some form of vasculitis around the same age. History Information - Allergies/Home Medication List Allergies/Adverse Reactions: Sulfa (Sulfonamide Antibiotics) Allergy (Intermediate, Verified 11/11/16 17:53) Other-Enter Comments Home Medications: Acetamn/Diphenhydramine 500/25 [Tylenol PM (*)] 1 each PO HS PRN 09/20/16 [Last Taken 10/02/16] Calcium Carbonate [Oyster Shell Calcium 500 mg (*)] 500 mg PO DAILY 09/20/16 [ Last Taken 11/19/16] Cholecalciferol Vit D3 [Vitamin D3 (*)] 1,000 units PO DAILY 09/20/16 [Last Taken 11/19/16] Docusate Sodium [Colace 100 MG (*)] 100 mg PO DAILY 09/20/16 [Last Taken ] Albuterol [Proventil Inhaler HFA (*)] 1 - 2 puffs IH Q4H PRN 11/19/16 [Last Taken Unknown] Aspirin EC [Aspirin EC 81 mg (*)] 81 mg PO DAILY 11/19/16 [Last Taken 11/19/16] OLANZapine DISINTEGR [ZyPREXA ZYDIS (*)] 5 mg PO BID 11/19/16 [Last Taken ] Sertraline HCl [Zoloft 50mg (*)] 25 mg PO DAILY 11/19/16 [Last Taken 11/19/16] I have personally reviewed and updated: family history, medical history - Past Medical History Additional medical history: Chronic nausea and vomiting, suspected functional bowel disorder. Depression. Asthma - Surgical History Additional surgical history: CCY by Dr. Mesa on 09/26/16. R shoulder surgery. 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 [employer] Review of Systems Review of Systems: ROS: 10pt was reviewed & negative except for what was stated in HPI & below Physical Exam Physical Exam: Temp Pulse Resp BP Pulse Ox 36.8 C 103 H 16 106/63 94 11/19/16 23:00 11/19/16 23:00 11/19/16 23:00 11/19/16 23:00 11/19/16 23:00 O2 (L/minute) 2 Constitutional: no apparent distress, appears nourished Eyes: PERRL, EOMI Ears, Nose, Mouth, Throat: moist mucous membranes, no oral mucosal ulcers Cardiovascular: regular rate and rhythym, no murmur, rub, or gallop Respiratory: no respiratory distress, no rales or rhonchi Gastrointestinal: normoactive bowel sounds, soft, non-tender abdomen Skin: warm, normal color Musculoskeletal: full muscle strength, no muscle tenderness Neurologic: AAOx3, CN II-XII Intact Psychiatric: interacting appropriately, flat affect Lab Data & Imaging Review 11/19/16 20:13 11/19/16 20:13 WBC 9.79 10^3/uL (3.80-9.50) H 11/19/16 20:13 RBC 3.92 10^6/uL (4.18-5.33) L 11/19/16 20:13 Hgb 12.2 g/dL (12.6-16.3) L 11/19/16 20:13 Hct 35.2 % (38.0-47.0) L 11/19/16 20:13 MCV 89.8 fL (81.5-99.8) 11/19/16 20:13 MCH 31.1 pg (27.9-34.1) 11/19/16 20:13 MCHC 34.7 g/dL (32.4-36.7) 11/19/16 20:13 RDW 12.9 % (11.5-15.2) 11/19/16 20:13 Plt Count 232 10^3/uL (150-400) 11/19/16 20:13 MPV 9.1 fL (8.7-11.7) 11/19/16 20:13 Neut % (Auto) 73.9 % (39.3-74.2) 11/19/16 20:13 Lymph % (Auto) 9.1 % (15.0-45.0) L 11/19/16 20:13 Edmonson % (Auto) 8.6 % (4.5-13.0) 11/19/16 20:13 Eos % (Auto) 7.7 % (0.6-7.6) H 11/19/16 20:13 Baso % (Auto) 0.3 % (0.3-1.7) 11/19/16 20: Nucleat RBC Rel Count 0.0 % (0.0-0.2) 11/19/16 20:13 Absolute Neuts (auto) 7.24 10^3/uL (1.70-6.50) H 11/19/16 20:13 Absolute Lymphs (auto) 0.89 10^3/uL (1.00-3.00) L 11/19/16 20:13 Absolute Monos (auto) 0.84 10^3/uL (0.30-0.80) H 11/19/16 20:13 Absolute Eos (auto) 0.75 10^3/uL (0.03-0.40) H 11/19/16 20:13 Absolute Basos (auto) 0.03 10^3/uL (0.02-0.10) 11/19/16 20: Absolute Nucleated RBC 0.00 10^3/uL (0-0.01) 11/19/16 20:13 Immature Gran % 0.4 % (0.0-1.1) 11/19/16 20:13 Immature Gran # 0.04 10^3/uL (0.00-0.10) 11/19/16 20:13 PT 16.2 SEC (12.0-15.0) H 11/19/16 20:13 INR 1.30 (0.83-1.16) H 11/19/16 20:13 APTT 31.6 SEC (23.0-38.0) 11/19/16 20:13 D-Dimer 3.85 ug/mLFEU (0.00-0.50) H 11/19/16 20:13 Sodium 131 mEq/L (134-144) L 11/19/16 20:13 Potassium 3.6 mEq/L (3.5-5.2) 11/19/16 20:13 Chloride 96 mEq/L (97-110) L 11/19/16 20:13 Carbon Dioxide 26 mEq/l (22-31) 11/19/16 20:13 Anion Gap 9 mEq/L (8-16) 11/19/16 20:13 BUN 16 mg/dL (7-23) 11/19/16 20:13 Creatinine 0.7 mg/dL (0.6-1.0) 11/19/16 20:13 Estimated GFR > 60 11/19/16 20:13 Glucose 127 mg/dL (70-100) H 11/19/16 20:13 Calcium 9.1 mg/dL (8.5-10.4) 11/19/16 20:13 Magnesium 2.0 mg/dL (1.6-2.3) 11/19/16 20:13 Total Bilirubin 0.6 mg/dL (0.1-1.4) 11/19/16 20:13 Conjugated Bilirubin 0.2 mg/dL (0.0-0.5) 11/19/16 20:13 Unconjugated Bilirubin 0.4 mg/dL (0.0-1.1) 11/19/16 20:13 AST 18 IU/L (14-46) 11/19/16 20:13 ALT 26 IU/L (9-52) 11/19/16 20:13 Alkaline Phosphatase 69 IU/L (38-126) 11/19/16 20:13 Creatine Kinase 39 IU/L (0-156) 11/19/16 20:13 CK-MB (CK-2) Fraction < 0.22 ng/mL (0.00-3.19) 11/19/16 20:13 Troponin I < 0.012 ng/mL (0.000-0.034) 11/19/16 20:13 NT-Pro-B Natriuret Pep 188 pg/mL (0-125) H 11/19/16 20:13 Total Protein 6.1 g/dL (6.3-8.2) L 11/19/16 20:13 Albumin 3.2 g/dL (3.5-5.0) L 11/19/16 20:13 Lipase 37 IU/L (23-300) 11/19/16 20:13 Imaging Review: CTPE notable for bilateral PE most extensive in LLL with associated infarct. Visualized and Interpreted EKG results: Yes EKG Interpretation: Positive for: normal sinsus rhythm Assessment & Plan Assessment: 71 yo F w/ recent admission for GI complaints presents with acute onset chest wall pain found to have seemingly unprovoked PE. Plan: 1. Pulmonary embolism - Seemingly unprovoked with no signs of clinically significant R heart strain. PESI 136 (Very high risk) for HR, BP<100, and mild hypoxia, although this is likely over representing severity due to low/normal baseline BP. Patient has no prior clotting history. She does state that her sister was diagnosed with vasculitis at a similar age. - S/p Lovenox 1 mg/kg x1 in ED - Patient has Medicare with [employer] ES1 prescription coverage: rivaroxaban preferred - Rivaroxaban 15 mg PO BID x21 days followed by 20 mg qD for at least 3 months 2. AHRF - 2/2 above, mild with 88% sat on RA documented in the ED. - Wean O2 as able 3. Chronic abdominal complaints - Suspected functional bowel syndrome during recent admit. Query wether this could be related to systemic thrombotic tendency and possible mesenteric ischemia. In this case would be covered by same treatment as above regardless. 4. Depression - On sertraline and Zyprexa as outpatient. Diet - Regular Code - Full Ppx - Therapeutic AC Dispo - Admit to observation status
[2016-11-20 04:05] LABS: % IMMATURE GRANULYOCYTES 0.4 % (0.0-1.1); ABSOLUTE IMMATURE GRANULOCYTES 0.03 10^3/uL (0.00-0.10); ADD DIFF? NO; ADD MORPH? NO; ADD SCAN? NO; ATYPICAL LYMPHOCYTE FLAG 10 (0-99); FRAGMENT RBC FLAG 0 (0-99); HEMOGLOBIN 10.7 g/dL (12.6-16.3); LEFT SHIFT FLG 10 (0-99); LIPEMIA HEMOLYSIS FLAG 90 (0-99); MEAN CELL HEMOGLOBIN 30.9 pg (27.9-34.1); MEAN CELL HEMOGLOBIN CONCENTR. 34.5 g/dL (32.4-36.7); MEAN CELL VOLUME 89.6 fL (81.5-99.8); MEAN PLATELET VOLUME 9.3 fL (8.7-11.7); PLATELET CLUMPS FLAG 0 (0-99); PLATELET COUNT 203 10^3/uL (150-400); RED BLOOD CELL COUNT 3.46 10^6/uL (4.18-5.33); RED CELL DISTRIBUTION WIDTH 12.9 % (11.5-15.2)
[2016-11-20 04:28] LABS: ANION GAP 9 mEq/L (8-16); CALCIUM 8.6 mg/dL (8.5-10.4); CARBON DIOXIDE 24 mEq/l (22-31); CHLORIDE 103 mEq/L (97-110); CREATININE 0.6 mg/dL (0.6-1.0); GLOMERULAR FILTRATION RATE > 60; GLUCOSE 96 mg/dL (70-100); POTASSIUM 3.7 mEq/L (3.5-5.2); SODIUM 136 mEq/L (134-144)
[2016-11-20] MEDS ORDERED: RIVAROXABAN 15 MG TAB PO SCH (08:00)
[2016-11-20 08:31] VITALS: TEMP 97.5
--- NOTE | 2016-11-20 08:34 | HOSPPROG ---
Hospitalist Progress Note Assessment/Plan: #Acute PE: negative cancer screen. Stable on RA. No e/o RH strain. Xarelto. FU with PCP #Acute chest pain: PRN advil for brief time. Advised to stop ASA and take Pepcid #Depression #Functional bowel syndrome DC today: with home PT and walker Subjective: tired Objective: Vital Signs Temp Pulse Resp BP Pulse Ox 36.4 C 79 16 105/58 L 99 11/20/16 08:00 11/20/16 08:00 11/20/16 08:00 11/20/16 08:00 11/20/16 08:00 Laboratory Results 11/20/16 03:41 11/20/16 03:41 11/19/16 11/20/16 11/21/16 05:59 05:59 05:59 Intake Total 1300 Balance 1300 PT 16.2 SEC (12.0-15.0) H 11/19/16 20:13 INR 1.30 (0.83-1.16) H 11/19/16 20:13 - Physical Exam Constitutional: other (tired) Eyes: PERRL Ears, Nose, Mouth, Throat: moist mucous membranes, oral thrush Cardiovascular: regular rate and rhythym, no murmur, rub, or gallop, No edema Respiratory: no respiratory distress, no rales or rhonchi Gastrointestinal: normoactive bowel sounds, soft, non-tender abdomen Genitourinary: no bladder fullness Skin: warm Musculoskeletal: full muscle strength Neurologic: AAOx3, CN II-XII Intact Psychiatric: depressed, flat affect ICD10 Worksheet Patient Problems: Problems Problem Status Onset Dehydration Acute Nausea Acute Nausea with vomiting Acute Pulmonary embolus Acute Vomiting Acute
--- NOTE | 2016-11-20 08:36 | HOSPPROG ---
Hospitalist Progress Note Objective: Vital Signs Temp Pulse Resp BP Pulse Ox 36.4 C 79 16 105/58 L 99 11/20/16 08:00 11/20/16 08:00 11/20/16 08:00 11/20/16 08:00 11/20/16 08:00 Laboratory Results 11/20/16 03:41 11/20/16 03:41 11/19/16 11/20/16 11/21/16 05:59 05:59 05:59 Intake Total 1300 Balance 1300 PT 16.2 SEC (12.0-15.0) H 11/19/16 20:13 INR 1.30 (0.83-1.16) H 11/19/16 20:13 ICD10 Worksheet Patient Problems: Problems Problem Status Onset Pulmonary embolus Acute Dehydration Acute Nausea Acute Nausea with vomiting Acute Vomiting Acute
[2016-11-20] MEDS ORDERED: CHOLECALCIFEROL VIT D3 1,000 UNITS TAB PO SCH (09:00)
[2016-11-20] MEDS ORDERED: OLANZapine DISINTEGR 5 MG TAB PO SCH (09:00)
[2016-11-20] MEDS ORDERED: SERTRALINE HCL 50 MG TAB PO SCH (09:00)
[2016-11-20 12:19] VITALS: BP 102/44; PULSE 88; RESP 20
[2016-11-20 13:52] VITALS: O2SAT 92
--- NOTE | 2016-11-20 13:55 | ASMTCMCOM ---
CM Note CM Note Notes: 71 year old female came to [facility] with nausea, vomitting, dehydration, chest pain. Found to have a PE. She has a hx of bowel disorder, depression and asthma. Patient is OBS status and given a SCHMIDT letter which her , DENISE signed for her. PT recommending HC at this time. Date Signed: 11/20/2016 01:54 PM Electronically Signed By:Mayelin Barnard LCSW
--- NOTE | 2016-11-20 14:06 | PDIAF ---
- Diagnosis Diagnosis: pulmonary embolism Code Status: Full Code - Medication Management Discharge Medications: Medications to Continue on Transfer Acetamn/Diphenhydramine 500/25 [Tylenol PM (*)] 1 each PO HS PRN 09/20/16 [Last Taken 10/02/16] Calcium Carbonate [Oyster Shell Calcium 500 mg (*)] 500 mg PO DAILY 09/20/16 [ Last Taken 11/19/16] Cholecalciferol Vit D3 [Vitamin D3 (*)] 1,000 units PO DAILY 09/20/16 [Last Taken 11/19/16] Docusate Sodium [Colace 100 MG (*)] 100 mg PO DAILY 09/20/16 [Last Taken ] Albuterol [Proventil Inhaler HFA (*)] 1 - 2 puffs IH Q4H PRN 11/19/16 [Last Taken Unknown] OLANZapine DISINTEGR [ZyPREXA ZYDIS (*)] 5 mg PO BID 11/19/16 [Last Taken ] Sertraline HCl [Zoloft 50mg (*)] 25 mg PO DAILY 11/19/16 [Last Taken 11/19/16] Rivaroxaban [Xarelto 15mg (*)] 15 mg PO BIDMEAL #42 tab 11/20/16 [Last Taken Unknown] Discharge Medications: Refer to the Discharge Home Medication list for PRN reason. - Orders Services needed: Home Care, Master Supplier Engineer, Physical Therapy Home Care Face to Face: I certify that this patient was under my care and that I had the required [id number] encounter meeting the encounter requirements on the discharge day. My findings support the fact that the patient is homebound as defined in Home Care Face to Face Continued: CMS Chapter 7 Medicare Benefits Manual 30.1.1 , The condition of the patient is such that there exists a normal inability to leave home and consequently, leaving home would require a considerable and taxing effort. Diet Recommendation: no restrictions on diet Diet Texture: Regular Texture Diet - Follow Up Care Current Providers and Referrals: Radha Chen MD [Primary Care Provider] - 3-5 days (Follow up to ensure proper cancer screening completed. Check hypercoaguable screening tests)
--- NOTE | 2016-11-20 14:39 | GDS ---
[f rep st] DISCHARGE SUMMARY DISCHARGE DIAGNOSES: 1. New bilateral pulmonary embolism. 2. Acute pleuritic chest pain. 3. Chronic nausea/vomiting. 4. Functional bowel syndrome. 5. Depression. HISTORY OF PRESENT ILLNESS: A 71-year-old female with history of GI complaints. Thought to be functional bowel syndrome and depression, presenting with left-sided chest pain. CT revealed bilateral pulmonary embolism. She had been feeling poorly since August, was having some abdominal pain and nausea/ vomiting. Some of these symptoms improved after a cholecystectomy in September. Day of admission, she noticed fatigue, sudden shortness of breath, and left- sided chest wall pain, especially with deep inspiration. She denies any recent surgery, immobilization, trauma, or any history of clots in the family, however said her sister may have some sort of vasculitis. 1.New pulmonary embolism: Appears to be unprovoked. There is no evidence of right heart strain given negative troponin and minimally elevated BNP. She has been stable on room air here. Blood pressure stable. She has had a recent colonoscopy and mammogram that were negative. Her last Pap smear was negative. I recommend that she follows up with her primary care physician this week. Hypercoagulable workup. Start Xarelto 50 mg b.i.d. for 3 weeks, then transition to 20 mg daily. I provided a prescription for the 3 weeks and will need to get the 2nd from her primary care physician. 2. Acute chest pain: Pleuritic, secondary to clot. Recommend p.r.n. NSAIDs for a few days. Take with food and acid-destiny. I did advise she and her on the risk of gastric ulcers or bleeding while on both. 3. Depression: She is on sertraline and Zyprexa. In the past, she was recommended to see a therapist. I did have an extensive conversation with her and her about this again today. 4. Functional bowel syndrome: She has had a thorough evaluation in the past, including EGD, HIDA scan, and CT imaging. She was followed with GI of the [facility], who, at last admission, did not recommend further evaluation. They did recommend seeing a therapist. 5. Normocytic anemia: H/ H remained stable. 6. Hypovolemic hyponatremia: Actually improved with IV fluids. Per , she is not eating and drinking much at home. Encouraged this. Now normalized. 7. Fatigue: I suspect this is to due to her underlying depression. Follow up with her PCP for a referral to a therapist. DISPOSITION: Patient is stable for home discharge with with PT, walker. FOLLOWUP: 1. PCP, Dr. Chen, for referral for block mechanic and therapist. 2. Hypercoagulable workup for clot. 2. Obtain a therapist. She was given return precautions to the hospital. MEDICATIONS: New medication: Xarelto 50 mg b.i.d. for 3 weeks. She will need to obtain 20 mg thereafter from her PCP. Hold ASA Time spent on DC: 60 min counseling patient and on FU plan, Xarelto and coordinating DC. /[id number]/MODL MTDD
--- NOTE | 2016-11-20 14:44 | ASMTCMCOM ---
CM Note CM Note Notes: Patient has been discharged home with PT and RUG MEASURER. Patient would like to use [facility] at home. [facility] sent referral and left message. Date Signed: 11/20/2016 02:43 PM Electronically Signed By:Mayelin Barnard LCSW
--- NOTE | 2016-11-20 16:55 | ASDISCHSUM ---
Discharge Information Plan Status:Home with Home Health Medically Cleared to Leave:11/21/2016 Discharge Date:11/20/2016 03:52 PM CM D/C Disposition:Home Health Service ADT D/C Disposition:Home, Routine, Self-Care Projected Discharge Date:11/21/2016 11:00 AM Transportation at D/C:Family Discharge Delay Reason: Follow-Up Date:11/21/2016 11:00 AM Discharge Slot:1 - 8:01 am - 12:00 noon Final Diagnosis:PE Placement Information Referral Type:*Home Health Care Services Referral ID:[id number] Provider Name:[facility] Care Address 1[address] [facility] [address] Address 2: City:[place] Selection Factors: State:[place] Patient Contact Information Contact Name:LOUIS Relationship: Address:[address] City:[place] Alternate Phone: State/Zip Code:[place] [address] Email: Financial Information Financial Class: Primary Plan Desc:MEDICARE OUTPATIENT Primary Plan Number:[id number] Secondary Plan Desc:Romi Quintero [facility] Secondary Plan Number:[id number] Assessment Information [facility] CM Progress Note CM Note CM Note Notes: 71 [facility], vomitting, dehydration, chest pain. Found to have a PE. She has a hx of bowel disorder, depression and asthma. Patient is OBS status and given a SCHMIDT letter which her , DENISE signed for her. PT recommending HC at this time. Date Signed: 11/20/2016 01:54 PM Electronically Signed By:Mayelin Barnard LCSW [facility] CM Progress Note CM Note CM Note Notes: Patient has been discharged home with PT and SHIP KEEPER. Patient would like to use [facility] at home. [facility] sent referral and left message. Date Signed: 11/20/2016 02:43 PM Electronically Signed By:Mayelin Barnard LCSW Intervention Information Intervention Type:*SCHMIDT-Signed Date of Service:11/20/2016 01:54 PM Patient Type:Observation Staff Member:NGUYỄN Barnard Judith Hours:0.25 Discipline:Pastry Supervisor Severity: Comment:
== END 2016-11-20 15:52 | disposition home or self-care (01) ==
LOC: F2W 22:46
PROVIDERS: ADMIT Student in an Organized Health Care Education/Training Program; ATTEND Internal Medicine
DX: I26.99 Other pulmonary embolism without acute cor pulmonale (principal); J96.01 Acute respiratory failure with hypoxia; R07.81 Pleurodynia; R11.2 Nausea with vomiting, unspecified; K59.9 Functional intestinal disorder, unspecified; F32.9 Major depressive disorder, single episode, unspecified; D64.9 Anemia, unspecified; E87.1 Hypo-osmolality and hyponatremia; R53.83 Other fatigue
CPT/HCPCS: 71010; 71275; 93005; 97161; G0378; G8978; G8979; J1650; J2405; Q9967

== ENCOUNTER → 2017-02-09 | Outpatient (CLI) | payer OTHER | LOC: FIMAGING 09:16 | PROVIDERS: ATTEND Family Medicine | DX: R90.82 White matter disease, unspecified (principal); R41.840 Attention and concentration deficit; G21.19 Other drug induced secondary parkinsonism ==

== ENCOUNTER → 2017-02-18 | Outpatient (CLI) | payer OTHER ==
[~2017-02-18] MED LIST changes: -BUPIVACAINE/EPI 0.25% 30 ML SDV ONE; -DEXAMETHASONE 4 MG/ML VIAL ONE; +GADOBUTROL 10 ML VIAL IVP ONE; -GLYCOPYRROLATE 0.2 MG/1 ML VIAL ONE; -KETOROLAC 30 MG/1 ML SDV ONE; -LIDOCAINE 1% 2 ML INJ ID PRN; -LIDOCAINE 2% 5 ML SDV ONE; -LR 1,000 ML IV ONE; -MIDAZOLAM 2 MG/2 ML VIAL IVP ONE; -MIDAZOLAM 2 MG/2 ML VIAL ONE; -ONDANSETRON 4 MG/2 ML VIAL ONE; -PROPOFOL 200 MG/20 ML VIAL ONE; -ROCURONIUM 50 MG/5 ML VIAL ONE; -SUGAMMADEX SODIUM 200 MG/2 ML VIAL IVP ONE; -ceFAZolin 2 GM/DEXTROSE 100 ML IV ONE; -fentaNYL 100 MCG/2 ML INJ ONE
== END ==
LOC: FIMAGING 09:20
PROVIDERS: ATTEND Psychiatry & Neurology Neurology
DX: G37.9 Demyelinating disease of central nervous system, unspecified (principal)
CPT/HCPCS: 70552; A9585

== ENCOUNTER → 2017-02-21 | Outpatient (CLI) | payer OTHER | LOC: FIMAGING 12:58 | PROVIDERS: ATTEND Internal Medicine | DX: R26.9 Unspecified abnormalities of gait and mobility (principal); R29.810 Facial weakness; I63.9 Cerebral infarction, unspecified; G37.9 Demyelinating disease of central nervous system, unspecified ==

== ENCOUNTER → 2017-03-15 | Outpatient (CLI) | payer OTHER ==
[~2017-03-15] MED LIST changes: -GADOBUTROL 10 ML VIAL IVP ONE; +LIDOCAINE 1% 300 MG/30 ML SDV ONE
[2017-03-15 10:15] LABS: INR 1.12 (0.83-1.16); PROTIME(PATIENT) 14.6 SEC (12.0-15.0)
== END ==
LOC: FIMAGING 08:20
PROVIDERS: ATTEND Psychiatry & Neurology Neurology
PROC: 009U3ZX Drainage of Spinal Canal, Percutaneous Approach, Diagnostic (ICD-10-PCS; principal; 2017-03-15)
DX: G37.9 Demyelinating disease of central nervous system, unspecified (principal)
CPT/HCPCS: 82784-90; 83916-90; 85060-90; 88184-90; 88185-91

== ENCOUNTER → 2017-03-20 | Outpatient (CLI) | payer OTHER | LOC: BHFA 14:45 | PROVIDERS: ATTEND Internal Medicine | DX: I63.9 Cerebral infarction, unspecified (principal) ==

== ENCOUNTER 2017-04-05 10:57 | Inpatient (IN) | payer OTHER ==
--- NOTE | 2017-04-05 11:53 | EDPHY ---
HPI/HX/ROS/PE/MDM Narrative: CHIEF COMPLAINT: "I guess I'm dehydrated." HPI: This patient is a 72 year old female with recent diagnosis of an unknown demyelinating disease complaining of dehydration and dysphagia. In August 2016, the patient developed frequent nausea and vomiting, These symptoms were temporarily relieved following a cholecystectomy, but returned. In December, she developed difficulty walking, slurred speech, facial droop, and handwriting difficulty. Evaluation for stroke and cancer were negative. She is followed by Dr. Ochoa, neurologist, for her demyelinating disease, diagnosed by MRI. She has undergone physical, occupational, and speech therapy due to her neurologic deficits. She has had difficulty swallowing, which has worsened over the last month. Her therapists are concerned regarding the possibility of aspiration, but the patients states they are unable to obtain a swallow test until May. She presents for evaluation of her dysphagia and possible dehydration as she has not been able to eat or drink much due to this. No fever , abdominal pain, diarrhea, chest pain, difficulty breathing, or other associated symptoms. HPI obtained partially from patient's at bedside. REVIEW OF SYSTEMS: Aside from elements discussed in the HPI, a comprehensive 10-point review of systems was reviewed and is negative. 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 Ochoa, neurologist). GERD. Asthma. Depression. Functional bowel disorder. Cholecystectomy. Orthopedic surgery. SOCIAL HISTORY: . at bedside. Lives in [place]. Retired. PHYSICAL EXAM: General:Patient is alert, in no acute distress. ENT:Eyes are normal to inspection. ENT inspection normal. Neck: Normal inspection. Full range of motion. Respiratory:No respiratory distress. Breath sounds normal bilaterally. Cardiovascular: Regular rate and rhythm. Strong peripheral pulses. Normal cap refill. Abdomen:The abdomen is nontender to palpation. Skin: Normal color. No rash. Warm and dry. Extremities: Normal appearance. Full range of motion. Neuro: Oriented x3. Normal motor function. Normal sensory function. ED Course: This 72 year old female with history of unknown demyelinating disease presents due to difficulty swallowing and outpatient occupational therapist concern for aspiration. Plan to consult with Dr. Ochoa, neurologist. Plan for admission. IV established. Plan to administer 1L IV NS. 12:[address] Ochoa. He concurs with the plan for admission and will consult. 12:32 Spoke with hospitalist service. Dr. Kingsley accepts admission for dysphagia , failure to thrive. MDM: This patient presents with chronic demyelination disorder, now apparently causing dysphagia and concern for aspiration. She is unable to maintain adequate PO intake and requires admission for medical management, swallow study and further workup. I see no signs of CVA, sepsis, hyponatremia, renal failure or bowel obstruction. - Data Points Medications Given: Discontinued Medications Clonazepam (Klonopin) 0.5 mg PO EDNOW ONE Stop: 04/05/17 13:06 Last Admin: 04/05/17 13:09 Dose: 0.5 mg Sodium Chloride (Ns) 1,000 mls @ 0 mls/hr IV ONCE ONE PRN Reason: Wide Open Stop: 04/05/17 12:28 Last Admin: 04/05/17 12:30 Dose: 1,000 mls General Time Seen by Provider: 04/05/17 11:30 Initial Vital Signs: Initial Vital Signs Temperature (C) 36.8 C 04/05/17 11:02 Heart Rate 99 04/05/17 11:02 Respiratory Rate 18 04/05/17 11:02 Blood Pressure 112/76 04/05/17 11:02 O2 Sat (%) 96 04/05/17 11:02 O2 Delivery Mode Room Air Allergies/Adverse Reactions: Sulfa (Sulfonamide Antibiotics) Allergy (Intermediate, Verified 04/05/17 11:01) Other-Enter Comments Home Medications: Medication Instructions Recorded Pantoprazole Sodium [Protonix 40mg 40 mg PO DAILY@14 03/08/17 (*)] Ondansetron HCl 8 mg PO BID PRN 04/04/17 Albuterol [Proventil Inhaler HFA 1 - 2 puffs IH DAILY PRN 04/05/17 (*)] Docusate Sodium [Colace 100 MG (*)] 100 mg PO DAILY 04/05/17 Herbals/Supplements -Info Only 1 ea PO DAILY 04/05/17 Rivaroxaban [Xarelto 10mg (*)] 20 mg PO HS 04/05/17 Sertraline HCl [Zoloft 100mg (*)] 100 mg PO DAILY@14 04/05/17 clonazePAM [Klonopin (*)] 0.5 mg PO TID PRN 04/05/17 Departure - Departure Disposition: [facility] Clinical Impression: Failure to thrive in adult Dysphagia Qualifiers: Dysphagia type: unspecified Qualified Code(s): R13.10 - Dysphagia, unspecified Condition: Fair Report Scribed for: Ajith Chapman Report Scribed by: Madisyn Castaneda Date of Report: 04/05/17 Time of Report: 12:20 Physician Review and Approval Statement: Portions of this note were transcribed by an ED scribe. I personally performed the history, physical exam, and medical decision making; and confirm the accuracy of the information in the transcribed note.
[2017-04-05] MEDS ORDERED: NS 1,000 ML IV ONE (12:27)
[2017-04-05] MEDS ORDERED: clonazePAM 0.5 MG TAB PO ONE (13:05)
[2017-04-05] MEDS ORDERED: ONDANSETRON HCL 8 MG PO PRN (14:50)
[2017-04-05] MEDS ORDERED: ALBUTEROL 60 PUFFS/8 GM MDI IH PRN (14:50)
[2017-04-05 16:16] LABS: PLATELET COUNT 219 10^3/uL (150-400)
[2017-04-05] MEDS: NS 1,000 ML IV SCH (17:01)
--- NOTE | 2017-04-05 17:21 | GHP ---
[f rep st] HISTORY AND PHYSICAL DATE OF ADMISSION: 04/05/2017 CHIEF COMPLAINT: Weight loss and failure to thrive. HISTORY OF PRESENT ILLNESS: The patient is a 72-year-old female, who was recently diagnosed with a demyelinating disease and does not have a clear-cut etiology. At this time, she has been seeing Dr. Vikas Ochoa in the outpatient setting. The plan is for her to get a lumbar tap on Monday to rule out possible Whipple's disease. Per her , she has been having more difficulties with speech, balance, swallowing, memory. In addition, she has been having ongoing double vision. Her initial symptoms started last year in September where she had persistent nausea and vomiting. Subsequently, she had her gallbladder taken out and then this past October, she was admitted and treated for dehydration. At that time, she was diagnosed with bilateral PEs. Her brought her in today because she has lost approximately 20 pounds over the past 3 months. She is having more difficulty with swallowing. This occurs with swallowing water and regular food. She seems to do better with milkshakes. She has coughing with swallowing. Also, she has been having significant postnasal drip and she feels this is impacting her swallowing. She denies any fevers, chills, chest pain, or shortness of breath during my interview. Her bowel movements are infrequent, but appear to be normal. She denies any nausea or vomiting during my evaluation. Her appetite has been poor. PAST MEDICAL HISTORY: 1. Bilateral PEs diagnosed in November 2016. 2. Chronic nausea and vomiting. 3. Functional bowel syndrome. 4. Depression. 5. Asthma. PAST SURGICAL HISTORY: 1. Cholecystectomy. 2. Right shoulder surgery. 3. Breast reduction. SOCIAL HISTORY: She does not smoke. She does not drink alcohol. 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 She has been for 48 years. She has 2 sons. FAMILY HISTORY: Her mother is 94 and healthy. Her father of complications from an arterial clot and had diabetes at age 93. She has multiple family members who have autoimmune disease. Her sister has vasculitis and her brother has Sjogren's syndrome. MEDICATIONS: Include albuterol inhaler 1-2 puffs daily p.r.n., Klonopin 0.5 mg three times daily p.r.n., Xarelto 20 mg p.o. daily at bedtime, Protonix 40 mg daily at 1400, herbal supplements 1 tab daily, docusate sodium 100 mg daily, Zoloft 100 mg daily, and Zofran 8 mg p.o. twice daily p.r.n. ALLERGIES: To sulfa. She describes this as more being hallucinogenic reaction and not actually hives. REVIEW OF SYSTEMS: A 10-point review of system was performed and was negative other than pertinent positives in HPI and past medical history. PHYSICAL EXAM: GENERAL: The patient is a 72-year-old female who appears to be somewhat frail and somewhat withdrawn. VITAL SIGNS: Blood pressure is 113/76, heart rate is 80, respiratory rate is 16, O2 saturation on room air 93%, temperature 36.9 Celsius. EYES: Pupils are equal reactive. She has positive nystagmus that is stronger when she looks right and downward. Her EOMs are intact. No conjunctival injection noted. ENT: Normal ears. Hearing is intact. Normal lips. Oral airway is dry. NECK: Trachea is midline. CARDIOVASCULAR: She is in a regular rate and rhythm. No murmurs, rubs, or gallops noted. CHEST: Lungs normal respiratory effort without wheezing, rales , rhonchi. ABDOMEN: Soft, nontender. SKIN: No rashes, ulcer. MUSCULOSKELETAL: Not evaluated. It was difficult for her to get up. She has equal upper and lower extremity strength. NEUROLOGIC: Her smile is symmetrical. Tongue is midline. No pronator drift is noted. She is alert and oriented to person, place, time, and situation. PSYCHIATRIC: She appears to be somewhat depressed, but she has normal judgment and insight. LABORATORY DATA: Reviewed. A CBC shows a white blood cell count of 4.54, hemoglobin 15.3, hematocrit of 46, platelet count of 219. Chemistry shows a sodium of 141, potassium 3.8, chloride of 108, glucose is 124, AST is 18, ALT is 25, alkaline phosphatase is 59. TSH is pending. I reviewed the patient's care with Dr. Joaquin Chapman. ASSESSMENT/PLAN: 1. Swallowing difficulties that are impacting her overall health. I will ask Speech Therapy to come and evaluate her cognitively as well as her swallowing ability. For now, we will place her on a dysphasia diet. 2. Failure to thrive with significant weight loss. Will ask for the dietitian to come see her and figure out how to increase her caloric intake. 3. Recent diagnosis of demyelinating disease. I have asked for Neurology to come and further evaluate her. The plan is for her to get a lumbar tap on Monday. Please note that her anticoagulation will need to be held this Monday. 4. Bilateral pulmonary emboli. Resumed Xarelto. 5. Depression. Zoloft. 6. Asthma. No signs or symptoms of any type of asthma exacerbation. 7. Deep venous thrombosis prophylaxis on Xarelto. CODE STATUS: Do not resuscitate. LENGTH OF STAY: She will be placed in observation status. This can be re- evaluated if needed depending on her response to the therapies. /[id number]/MODL MTDD
[2017-04-05] MEDS: FLUTICASONE NASAL 120 SPRAYS/16 GM MDI EACHNARE SCH (18:27)
[2017-04-05] MEDS ORDERED: RIVAROXABAN 20 MG TAB PO SCH (21:00)
[2017-04-06] MEDS: ONDANSETRON 4 MG/2 ML VIAL IVP PRN (04:09)
[2017-04-06] MEDS: NS 1,000 ML IV SCH (08:13)
[2017-04-06] MEDS: DOCUSATE SODIUM 100 MG CAP PO SCH (08:21)
[2017-04-06] MEDS: ONDANSETRON DISINTEGRATING 4 MG TAB PO PRN (08:21)
[2017-04-06] MEDS: FLUTICASONE NASAL 120 SPRAYS/16 GM MDI EACHNARE SCH (08:21)
[2017-04-06] MEDS ORDERED: Herbals/Supplements -Info Only PO SCH (09:00)
--- NOTE | 2017-04-06 10:53 | NEUROPROG ---
Assessment: Today's visit was spent mainly in counseling and coordination of care. We visited for 40 mins today. Patient is currently under observation status and is followed in our clinic. Ms. Fan is a patient of Dr. Ochoa followed for slow progressive decline in neurologic dysfunction. She experienced ataxia, gait imbalance, binocular diplopia, nystagmus, facial weakness and is now having difficulty swallowing. Her MRI brain wow has shown speckled areas of T2 hyperintensity with enhancement in the cerebellum and leo. Her exam today does indeed show the above noted findings with the addition of ataxic dysarthria. I have reviewed the case extensively in the records, as well as discussed directly with Dr. Ochoa. Her symptoms mainly localize to the posterior fossa. Her imaging is very unique and, together with her symptoms, is concerning for chronic lymphocytic infiltrate with pontine perivascular enhancement and response to steroids (CLIPPERS). She's had blood work and CSF sampling as an outpatient which have been normal. The plan is for her to have [employer] evaluation for her dysphagia. I will also round out her lab workup by adding XIMENA/RYANNE, SSA, ANCA, SHAHNAZ, SPEP, B2 microglobulin and LDH. Differential other than CLIPPERS included autoimmunity, vasculitis, infiltration such as sarcoid, but my main other differential is lymphoma. I have discussed the case with neurosurgery as well regarding cerebellar biopsy - I think at this point given her unremarkable outpatient workup and ongoing decline this is warranted for definitive diagnosis. Neurosurgery will review MRI and determine if biopsy would be yielding. If so, will hold her anticoagulant starting tomorrow and plan for biopsy on Monday. After biopsy we can start empiric steroids. Plan was discussed with patient and . Objective: Vital Signs Temp Pulse Resp BP Pulse Ox 36.4 C 85 18 127/64 H 93 04/06/17 08:00 04/06/17 08:00 04/06/17 08:00 04/06/17 08:00 04/06/17 08:00 04/05/17 04/06/17 04/07/17 05:59 05:59 05:59 Intake Total 2350 Output Total 200 Balance 2150 Allergies/Adverse Reactions: Sulfa (Sulfonamide Antibiotics) Allergy (Intermediate, Verified 04/05/17 11:01) Other-Enter Comments
[2017-04-06] MEDS ORDERED: DIAZEPAM 5 MG TAB PO ONE ×2 (11:38→14:30)
--- NOTE | 2017-04-06 11:44 | ASMTCASEMG ---
Living Arrangements What is your living Answers: With Spouse arrangement? Who do you live with? Type Of Residence What kind of residence do Answers: House you live in? Discharge Plan Comments Coordination Status Comments Notes: Pts case discussed in morning rounds. Pt is a 72 y/o female admitted for failure to thrive and dysphagia. Therapies have been ordered and awaiting recommendations. Needs are TBD at this time. CM available for changes. Plan: TBD Date Signed: 04/06/2017 11:44 AM Electronically Signed By:CIPRIANO Arguelles
--- NOTE | 2017-04-06 13:38 | GCON ---
[f rep st] CONSULTATION NEUROSURGICAL CONSULTATION. DATE OF CONSULTATION: 04/06/2017 REASON FOR CONSULTATION: Possible brain biopsy. HISTORY OF PRESENT ILLNESS: The patient is a 72-year-old female who has been followed as an outpatient by Dr. Ochoa for a myriad of symptoms including ataxia, gait disturbances, binocular diplopia, nystagmus, facial weakness, and dysphagia. She has persistent progressive nausea, vomiting, and had a cholecystectomy several months ago. Thereafter, she developed a pulmonary emboli for which she had been on Xarelto. She had an MRI of her brain in February, which showed multiple cerebral and perivascular lesions. She was felt to have chronic lymphocytic infiltrate with pontine perivascular enhancement and response to steroids (clippers). Over the course of the last 6 weeks, she has had this progressive ataxia, dysphagia, nausea, and weakness. She was admitted by Medicine for failure to thrive. Neurology has been following the patient and requested a neurosurgical consultation for consideration of a brain biopsy. The patient currently denies any headaches. She does complain of nausea with occasional episodes of emesis. She does describe difficulties with speech, dizziness, ongoing diplopia and difficulty with memory loss. PAST MEDICAL HISTORY: 1. Bilateral pulmonary emboli. 2. Chronic nausea and vomiting. 3. Functional bowel syndrome. 4. Depression. 5. Asthma. PAST SURGICAL HISTORY: 1. Cholecystectomy. 2. Right shoulder surgery. 3. Breast reduction. MEDICATIONS: Prior to admission are albuterol, Klonopin, Xarelto, Protonix, herbal supplements, docusate, Zoloft, and Zofran. ALLERGIES: Sulfa. FAMILY HISTORY: Patient has no family history of brain lesions. SOCIAL HISTORY: Patient is with grown children. She denies smoking, drinking, or drug use. REVIEW OF SYSTEMS: Negative with the exception of a 20 pound weight loss over the course of the last several months. PHYSICAL EXAM: GENERAL: The patient is a 72-year-old female lying in bed in no apparent distress. HEAD/EYES/EARS/NOSE/THROAT: Negative to drainage. EXTREMITIES: [place], warm and dry. NEUROLOGIC: Patient is awake, alert, oriented x4. Pupils equal, round, reactive to light. Extraocular motions are intact. There is no evidence of facial droop. Tongue and uvula are midline. Her motor strength is physiologic at 5/5 in her arms and legs. Her sensation is grossly intact to light touch in her arms and legs. Deep tendon reflexes are 3+ out of 4 in the bilateral biceps, triceps, brachioradialis, 4+ out of 4 in the bilateral patellar and 3+ out of 4 in the bilateral Achilles. There is a negative Otis's, but there is 4-5 beats of clonus bilaterally. DIAGNOSTIC STUDIES: An MRI of the brain from February shows multiple petechial cerebral and cerebellar lesions on the FLAIR sequence with slight postcontrast enhancement. There is no evidence of hydrocephalus. IMPRESSION: This is a 72-year-old female with progressive ataxia, dizziness, weakness, difficulty with swallowing and speech difficulty. Neurology feels that this patient likely has chronic lymphocytic infiltrate with pontine perivascular enhancement in response to steroids. She is currently neurologically stable. PLAN: All the above discussed in detail. This patient was seen and examined with Dr. Dany meyer. At this in point time, we can certainly consider a biopsy of the brain. We would like to get a new MRI of the brain with and without contrast to determine if there has been any change or progression of these lesions given her progressive neurological decline over the course of the last several weeks. Depending on the results of this MRI, we can plan a possible biopsy on Monday. We will consider holding her Xarelto depending on what the MRI of the brain looks like. Please call with any neurological changes. We did order some Valium for her to take prior to her arrival in the hospital. /[id number]/MODL MTDD
[2017-04-06] MEDS: SERTRALINE HCL 100 MG TAB PO SCH (14:34)
[2017-04-06] MEDS: ACETAMINOPHEN 325 MG TAB PO PRN (14:34)
[2017-04-06] MEDS: PANTOPRAZOLE SODIUM 40 MG TAB PO SCH (14:35)
[2017-04-06] MEDS ORDERED: GADOBUTROL 10 ML VIAL IVP ONE (14:38)
--- NOTE | 2017-04-06 16:28 | HOSPPROG ---
Hospitalist Progress Note Assessment/Plan: 72 yo F w h/o PE and progressive neurologic illness neuro: increased number of lesions on MR reasonable to do brain biopsy as inpatient xarelto held pe: 4 months ago xarelto on hold for bx weight loss: reasonably attributed to progressive neurolgic illness proph: scd's risk: high dispo: inpt Subjective: case d/w neurosurgeryPA. MR w increased number of lesions (images reviewed/interp by me)_ Objective: Vital Signs Temp Pulse Resp BP Pulse Ox 36.6 C 89 14 126/59 H 91 L 04/06/17 13:34 04/06/17 13:34 04/06/17 13:34 04/06/17 13:34 04/06/17 13:34 04/05/17 04/06/17 04/07/17 05:59 05:59 05:59 Intake Total 2350 Output Total 200 Balance 2150 - Physical Exam Constitutional: no apparent distress, other (flat affect) Eyes: PERRL, anicteric sclera Ears, Nose, Mouth, Throat: moist mucous membranes, hearing normal Cardiovascular: regular rate and rhythym, no murmur, rub, or gallop Respiratory: no respiratory distress, no rales or rhonchi Gastrointestinal: normoactive bowel sounds, soft, non-tender abdomen Genitourinary: no bladder fullness, No quinones in urethra Skin: warm, normal color Musculoskeletal: No full muscle strength Neurologic: No AAOx3 ICD10 Worksheet Patient Problems: Problems Problem Status Onset Dysphagia Acute Failure to thrive in adult Acute Dehydration Acute Nausea Acute Nausea with vomiting Acute Pulmonary embolus Acute Vomiting Acute
--- NOTE | 2017-04-06 17:01 | PDMN ---
Medical Necessity Medical necessity: Change to IP, as of 04/06/17, per MD; los >2 mn for ongoing management of progressive neurologic illness w/ataxia, dizziness, weakness difficulty swallowing/speech & significant weight loss; admit for further monitoring/workup, Neuro consult, brain biopsy, IVFs, Dietary consult & therapies; hx PEs on AC, demyelinating disease, chronic N/V; per progress note & order 04/06/17
--- NOTE | 2017-04-06 17:22 | SOAPPROG ---
Downtime Inpatient MD Late Entry SOAP Note: Patient underwent a new brain MRI which shows progression of her multiple intracranial lesions. I spoke with Dr Stauffer of Medicine and Dr Waters of Neurology and it is felt that brain biopsy is indicated as the next step in her work-up. She has had her Xarelto held as of yesterday. We will get her scheduled for a brain biopsy in the next few days when we feel it is safe from a bleeding standpoint.
[2017-04-07] MEDS: ONDANSETRON DISINTEGRATING 4 MG TAB PO PRN ×2 (01:23→07:52)
[2017-04-07] MEDS: ONDANSETRON 4 MG/2 ML VIAL IVP PRN (06:17)
[2017-04-07] MEDS: DOCUSATE SODIUM 100 MG CAP PO SCH (07:52)
--- NOTE | 2017-04-07 08:39 | NEUROPROG ---
Assessment: Today's visit was spent mainly in counseling and coordination of care. Pt changed to inpatient status. Pt has consulted with neurosurgery for brain biopsy, which is planned to happen likely on Monday - Eliquis being held until after her biopsy. She underwent repeat MRI brain wow yesterday, which has revealed new lesions in the left occipital cortex/juxtacortical region and right frontal cortex/ juxtacortical region - these lesions demonstrate restricted diffusion. Restricted diffusion is not known to occur in CLIPPERS. Also noting dynamic changes in enhancement of her prior lesions. The pontine lesions don't seem to enhance anymore. 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 Other considerations include vasculitis. Pattern not typical of sarcoid. Autoimmune disease can present with an array of findings, but I am less suspicious of this. She does have a history of DVT, but her outpatient TTE showed no PFO. Plan today will be to obtain CTA head to assess for any vascular caliber change , which may further narrow our differential. If we do see changes, it would likely point to intravascular lymphoma or vasculitis. Will also plan on getting CT chest/abdomen/pelvis with contrast to assess for any occult tumor which may be more amenable to biopsy. Discussed with radiology - they will use a reduced contrast protocol - she has preserved renal function and is being hydrated with IVF. Will still likely need to get brain biopsy for definitive diagnosis, but the above may add some further information, especially if path would come back equivocal. SURGICAL ASSISTANT CERTIFIED has evaluated with video swallow - she is on mechanical diet and nectar thick liquids. Radiology to use thicker barium oral contrast for CT abd/pelvis. Her exam is unchanged. Plan was discussed with patient and . Case discussed with Dr. Stauffer. 40 mins in direct patient care activities on the floor. Objective: Vital Signs Temp Pulse Resp BP Pulse Ox 36.8 C 78 16 117/70 90 L 04/07/17 04:00 04/07/17 07:34 04/07/17 07:34 04/07/17 07:34 04/07/17 07:34 04/06/17 04/07/17 04/08/17 05:59 05:59 05:59 Intake Total 2340 Output Total 1350 300 Balance 990 -300 Allergies/Adverse Reactions: Sulfa (Sulfonamide Antibiotics) Allergy (Intermediate, Verified 04/05/17 11:01) Other-Enter Comments
--- NOTE | 2017-04-07 08:52 | NEUSURGPN ---
Assessment/Plan: A: 72 yo F with progressive neurological decline and brain lesions seen on MRI Plan: -New MRI completed yesterday shows progression -Neurology and IM following -Holding xarelto in anticipation of brain biopsy, scheduled now for Monday -Dr. Saenz discussed the procedure with pt and her yesterday and they wish to proceed -Pt d/w Dr Saenz -Call NS with any questions/concerns Subjective: Pt resting in bed. States she remembers discussion with Dr Saenz yesterday. Objective: AAOx3 (with exception of day - thought today was monday) NAD VSS MAEx4 Motor 5/5 BUE/BLE +LT Urinary Catheter in Place: No - Physician Discussed Patient with : Dany Neurosurgery Physical Exam - Vitals, I&O, Labs I and O 04/06/17 04/07/17 04/08/17 05:59 05:59 05:59 Intake Total 2340 Output Total 1350 300 Balance 990 -300 Weight 49.6 kg Intake: Oral (ml) 640 IV Infused (ml) 1700 Ns 1,000 ml @ 75 mls/hr 1700 IV CONT CORTNEY Rx#: [id number] Output: Urine (ml) 1350 300 Bedside Commode 300 Toilet 1350 Other: Intake Quantity Yes Sufficient Number of Voids Bedside Commode 1 Toilet 3 Vital Signs Temp Pulse Resp BP Pulse Ox 36.8 C 78 16 117/70 90 L 04/07/17 04:00 04/07/17 07:34 04/07/17 07:34 04/07/17 07:34 04/07/17 07:34 ICD10 Worksheet Patient Problems: Problems Problem Status Onset Dysphagia Acute Failure to thrive in adult Acute Dehydration Acute Nausea Acute Nausea with vomiting Acute Pulmonary embolus Acute Vomiting Acute
[2017-04-07] MEDS ORDERED: PROMETHAZINE HCL 25 MG/ML INJ IVP PRN (10:02)
[2017-04-07] MEDS ORDERED: IOPAMIDOL (ISOVUE 370) 100 ML BTL IV ONE (10:45)
--- NOTE | 2017-04-07 13:56 | ASMTCMCOM ---
CM Note CM Note Notes: Pts case discussed in tx rounds. PT is recommending home w/ 24hr supervision and outpatient rehab. Awaiting recommendation from OT. CM met w/ pt for dispo planning. CM provided list of non skilled HC. CM available for changes. Plan: Home independent w/ supervision and outpatient rehab Date Signed: 04/07/2017 01:55 PM Electronically Signed By:CIPRIANO Arguelles
--- NOTE | 2017-04-07 15:22 | HOSPPROG ---
Hospitalist Progress Note Assessment/Plan: 72 yo F w h/o PE and progressive neurologic illness ? stroke: neg imaging concern for seizures eeg ordered neuro: increased number of lesions on MR reasonable to do brain biopsy as inpatient xarelto held expanded serologic workup sent pe: 4 months ago xarelto on hold for bx weight loss: reasonably attributed to progressive neurolgic illness proph: scd's risk: high dispo: inpt 45 minutes crit care Subjective: stroke alert called for unresponsiveness this AM. more alert now. case d.w dr gregorio and juvenal as well as [facility] neurologist Objective: Vital Signs Temp Pulse Resp BP Pulse Ox 37.0 C 85 16 131/77 H 92 04/07/17 11:39 04/07/17 11:39 04/07/17 11:39 04/07/17 11:39 04/07/17 11:39 04/06/17 04/07/17 04/08/17 05:59 05:59 05:59 Intake Total 2340 Output Total 1350 500 Balance 990 -500 - Physical Exam Constitutional: no apparent distress, appears nourished Eyes: PERRL Ears, Nose, Mouth, Throat: moist mucous membranes, hearing normal Cardiovascular: regular rate and rhythym, no murmur, rub, or gallop Respiratory: no respiratory distress, no rales or rhonchi Gastrointestinal: normoactive bowel sounds, soft, non-tender abdomen Genitourinary: no bladder fullness, No quinones in urethra Skin: warm, normal color Musculoskeletal: full muscle strength, no muscle tenderness Neurologic: other (more alert now) ICD10 Worksheet Patient Problems: Problems Problem Status Onset Dysphagia Acute Failure to thrive in adult Acute Dehydration Acute Nausea Acute Nausea with vomiting Acute Pulmonary embolus Acute Vomiting Acute
[2017-04-07] MEDS: FLUTICASONE NASAL 120 SPRAYS/16 GM MDI EACHNARE SCH (16:09)
[2017-04-07] MEDS: SERTRALINE HCL 100 MG TAB PO SCH (16:30)
[2017-04-07] MEDS: PANTOPRAZOLE SODIUM 40 MG TAB PO SCH (16:30)
[2017-04-07] MEDS ORDERED: IOPAMIDOL (ISOVUE-300) 100 ML BTL ONE (16:45)
[2017-04-07] MEDS: NS 1,000 ML IV SCH (20:54)
[2017-04-07] MEDS: clonazePAM 0.5 MG TAB PO PRN (20:54)
[2017-04-08] MEDS: DOCUSATE SODIUM 100 MG CAP PO SCH (10:14)
--- NOTE | 2017-04-08 10:14 | SOAPPROG ---
SOAP Progress Note Assessment/Plan: Assessment/Plan: A: 72 yo F with progressive neurological decline and brain lesions seen on MRI. Possible seizure yesterday. Plan: -New MRI completed shows progression -Neurology and IM following. EEG completed - no report. -Holding xarelto in anticipation of brain biopsy, scheduled now for Monday at 1345 -Dr. Saenz discussed the procedure with pt and her and they wish to proceed with right sided open stereotactic brain biopsy -Pt d/w Dr Bacon today -Call NS with any questions/concerns Subjective: Pt resting in bed, present. Feeling OK today, no new neuro deficits Objective: AAOx3 NAD VSS MAEx4 difficulty with rapid movement of right thumb/index finger Motor 5/5 BUE/BLE +LT PERRLA, speech clear Objective: Vital Signs Temp Pulse Resp BP Pulse Ox 36.9 C 74 11 L 119/62 92 04/08/17 07:50 04/08/17 07:50 04/08/17 07:50 04/08/17 07:50 04/08/17 07:50 Laboratory Results 04/08/17 04:05 04/08/17 04:05 04/07/17 04/08/17 04/09/17 05:59 05:59 05:59 Intake Total 2340 1654 Output Total 1350 1525 Balance 990 129 ICD10 Worksheet Patient Problems: Problems Problem Status Onset Dysphagia Acute Failure to thrive in adult Acute Dehydration Acute Nausea Acute Nausea with vomiting Acute Pulmonary embolus Acute Vomiting Acute
[2017-04-08] MEDS: FLUTICASONE NASAL 120 SPRAYS/16 GM MDI EACHNARE SCH (10:15)
[2017-04-08] MEDS: NS 1,000 ML IV SCH (10:19)
[2017-04-08] MEDS: ACETAMINOPHEN 325 MG TAB PO PRN ×2 (10:22→21:37)
--- NOTE | 2017-04-08 12:13 | ASMTCMCOM ---
CM Note CM Note Notes: Pt to have brain bx Monday for new lesions. Stroke alert was called yesterday for unresponsiveness. Neuro following. Pt to transfer to [address] [place] [address] will continue to follow for d/c needs. Date Signed: 04/08/2017 12:12 PM Electronically Signed By:SHORTY Pearce
--- NOTE | 2017-04-08 12:56 | HOSPPROG ---
Hospitalist Progress Note Assessment/Plan: * Brain lesions - progressive -brain biopsy Monday -lymphoma vs vasculitis vs autoimmune * Possible seizure -EEG pending * PE - 4 months ago -holding Xarelto for biopsy * Dysphagia -nectar thick liquids Subjective: No new complaints Objective: Vital Signs Temp Pulse Resp BP Pulse Ox 36.9 C 74 11 L 119/62 92 04/08/17 07:50 04/08/17 07:50 04/08/17 07:50 04/08/17 07:50 04/08/17 07:50 Laboratory Results 04/08/17 04:05 04/08/17 04:05 04/07/17 04/08/17 04/09/17 05:59 05:59 05:59 Intake Total 2340 1654 Output Total 1350 1525 Balance 990 129 case d/w Dr. Garnett regarding needed studies on brain biopsy CT chest/abd/pelvis - no malignancy - Physical Exam Constitutional: no apparent distress, appears nourished, not in pain Cardiovascular: regular rate and rhythym, no murmur, rub, or gallop Respiratory: no respiratory distress, no rales or rhonchi, clear to auscultation Gastrointestinal: normoactive bowel sounds, soft, non-tender abdomen, no palpable masses Skin: no rashes or abrasions, no fluctuance, no induration Musculoskeletal: No full muscle strength Neurologic: AAOx3, sensation intact bilaterally Psychiatric: interacting appropriately, not anxious, not encephalopathic, thought process linear ICD10 Worksheet Patient Problems: Problems Problem Status Onset Dysphagia Acute Failure to thrive in adult Acute Dehydration Acute Nausea Acute Nausea with vomiting Acute Pulmonary embolus Acute Vomiting Acute
--- NOTE | 2017-04-08 13:06 | NEUROPROG ---
Assessment: Patient was not in room during rounds. No charges rendered today. Will plan on seeing patient tomorrow on rounds. CT chest/abd/pelv did not reveal any malignancy. CTA head didn't show any vascular caliber changes. Patient had an event yesterday of brief impaired awareness without any motoric activity - EEG done - no epileptiform activity. Plan will be to continue with planned brain biopsy on Monday with attention to our differential of lymphoma/neoplasm, vasculitis, autoimmunity. Objective: Vital Signs Temp Pulse Resp BP Pulse Ox 36.9 C 74 11 L 119/62 92 04/08/17 07:50 04/08/17 07:50 04/08/17 07:50 04/08/17 07:50 04/08/17 07:50 Laboratory Results 04/08/17 04:05 04/08/17 04:05 04/07/17 04/08/17 04/09/17 05:59 05:59 05:59 Intake Total 2340 1654 Output Total 1350 1525 Balance 990 129 Allergies/Adverse Reactions: Sulfa (Sulfonamide Antibiotics) Allergy (Intermediate, Verified 04/05/17 11:01) Other-Enter Comments
--- NOTE | 2017-04-08 13:12 | CPEEG ---
[f rep st] ELECTROENCEPHALOGRAM DATE OF STUDY: 04/07/2017 INTRODUCTION: This is a multichannel EEG using the standard international 10- 20 system of disc electrode placement. A single EKG channel is monitored for the duration of the study. This study was undertaken for evaluation of a spell of impaired awareness. No pertinent medications to report. The duration of the recording is 26 minutes. DESCRIPTION OF RECORDING: In the maximum alert state, the patient achieves a symmetric and continuously variable posterior dominant rhythm of 8-10 hertz alpha activity. The patient had her eyes closed during the entirety of this study. The majority of the study was contaminated by frontal myogenic artifact. No sleep cycling was observed. No activating measures were undertaken. The EKG demonstrated normal sinus rhythm. INTERPRETATION: 1. This is an unremarkable EEG, capturing likely periods of waxing and waning drowsiness given the variable frequency of background activity. CLINICAL CORRELATION: No focal or lateralizing epileptiform discharges or electrographic seizures captured. /[id number]/MODL MTDD
[2017-04-08] MEDS: SERTRALINE HCL 100 MG TAB PO SCH (14:01)
[2017-04-08] MEDS: PANTOPRAZOLE SODIUM 40 MG TAB PO SCH (14:01)
[2017-04-08] MEDS ORDERED: BISACODYL 10 MG SUPP PR PRN (16:03)
[2017-04-08] MEDS ORDERED: LACTULOSE 20 GM/30 ML UDCUP PO PRN (16:03)
[2017-04-08] MEDS ORDERED: POLYETHYLENE GLYCOL 3350 17 GM PKT PO PRN (16:03)
[2017-04-08] MEDS ORDERED: MAGNESIUM HYDROXIDE 30 ML UDCUP PO PRN (16:03)
[2017-04-08] MEDS: SENNOSIDES/DOCUSATE SODIUM TAB PO SCH (20:27)
[2017-04-09] MEDS: NS 1,000 ML IV SCH ×2 (00:29→13:38)
[2017-04-09] MEDS: ONDANSETRON 4 MG/2 ML VIAL IVP PRN (08:15)
[2017-04-09] MEDS: SENNOSIDES/DOCUSATE SODIUM TAB PO SCH ×2 (09:44→20:39)
[2017-04-09] MEDS: FLUTICASONE NASAL 120 SPRAYS/16 GM MDI EACHNARE SCH (09:51)
--- NOTE | 2017-04-09 12:26 | NEUROPROG ---
Assessment: Today's visit was spent primarily in counseling and coordination of care. We visited for 25 mins in dndg-et-noph time. Patient scheduled for brain biopsy tomorrow. Noninvasive testing has been unyielding for a specific etiology of her neurologic decline and abnormal MRI. She did have a stroke alert called on 04/07 as the RN found her to have poor axial tone, ataxia, dysarthria and confusion. However, this is basically her baseline in terms of her progressive deficits, with most referable to the posterior fossa lesions. EEG was done and was unremarkable. She has no new complaints today. Patient and family eager for biopsy. On focused exam she is disoriented to date/time, but not place, self, family. She has poor attention. She does endorse diplopia with right lateral gaze - no ocular motility defect present today. Primary gaze centered. Multidirectional nystagmus with eye movements. Subtle right nasolabial fold flattening. She has an ataxic/scanning dysarthria. She has full power in the limbs, but appendicular ataxia. She has trouble maintaining postural tone when trying to sit upright in bed. Plan on going ahead with brain biopsy tomorrow. Path will take time to return. Discussed having her followup with Dr. Ochoa after discharge to review path findings and to initiate diagnosis specific treatment. Will sign off. Recall PRN. Objective: Vital Signs Temp Pulse Resp BP Pulse Ox 36.7 C 76 16 117/67 93 04/09/17 07:25 04/09/17 11:49 04/09/17 11:49 04/09/17 11:49 04/09/17 11:49 Laboratory Results 04/08/17 04:05 04/08/17 04:05 04/08/17 04/09/17 04/10/17 05:59 05:59 05:59 Intake Total 1654 1876 Output Total 1525 395 800 Balance 129 1481 -800 Allergies/Adverse Reactions: Sulfa (Sulfonamide Antibiotics) Allergy (Intermediate, Verified 04/05/17 11:01) Other-Enter Comments
--- NOTE | 2017-04-09 13:06 | HOSPPROG ---
Hospitalist Progress Note Assessment/Plan: 72y female with weight loss and FTT. First encounter, chart reviewed. * Brain lesions - progressive -brain biopsy Monday -lymphoma vs vasculitis vs autoimmune * Possible seizure -EEG pending * PE - 4 months ago -holding Xarelto for biopsy * Dysphagia -nectar thick liquids *Dispo -unclear Subjective: Up in bathroom. Feels ok. Objective: Vital Signs Temp Pulse Resp BP Pulse Ox 36.7 C 76 16 117/67 93 04/09/17 07:25 04/09/17 11:49 04/09/17 11:49 04/09/17 11:49 04/09/17 11:49 Laboratory Results 04/08/17 04:05 04/08/17 04:05 04/08/17 04/09/17 04/10/17 05:59 05:59 05:59 Intake Total 1654 1876 Output Total 1525 395 800 Balance 129 1481 -800 - Physical Exam Constitutional: appears nourished, not in pain, chronically ill appearing Eyes: PERRL, anicteric sclera, EOMI Ears, Nose, Mouth, Throat: moist mucous membranes, hearing normal, ears appear normal Cardiovascular: No JVD, No tachycardia, No edema Respiratory: no respiratory distress, no rales or rhonchi, reduced air movement Gastrointestinal: normoactive bowel sounds, No tenderness, No ascites Skin: warm, normal color, No mottled Musculoskeletal: normal joint ROM, no joint effusions, generalized weakness Neurologic: AAOx3 Psychiatric: interacting appropriately, not anxious, not encephalopathic ICD10 Worksheet Patient Problems: Problems Problem Status Onset Nausea Acute Vomiting Acute Nausea with vomiting Acute Dehydration Acute Pulmonary embolus Acute Failure to thrive in adult Acute Dysphagia Acute
[2017-04-09] MEDS: SERTRALINE HCL 100 MG TAB PO SCH (14:18)
[2017-04-09] MEDS: PANTOPRAZOLE SODIUM 40 MG TAB PO SCH (14:18)
[2017-04-09] MEDS: clonazePAM 0.5 MG TAB PO PRN (20:39)
[2017-04-10] MEDS ORDERED: ceFAZolin 2 GM/SWFI 2 GM/20 ML SYR IVP ONE ×2 (06:00→12:30)
[2017-04-10] MEDS: ONDANSETRON 4 MG/2 ML VIAL IVP PRN (08:21)
--- NOTE | 2017-04-10 08:41 | NEUSURGPN ---
Assessment/Plan: Assessment: 72 yo F with progressive neurological decline and brain lesions seen on MRI. Possible seizure. Scheduled for right sided brain biopsy today at 1330 Plan: -Stealth MRI to be done prior to surgery today, patient needs fiducials -Neurology and IM following. EEG completed -unremarkable -Holding xarelto -NPO -Dr. Saenz discussed the procedure with patient, she wishes to proceed with right sided open stereotactic brain biopsy today -Risks/benefits were discussed with patient. She understands risks of stroke, paralysis, coma , need for any additional surgery and non-diagnostic tissue -Patient will go to ICU after biopsy today -Patient was seen by Dr Saenz this am as well -Please call neurosurgery with any questions/concerns Subjective: No new events Objective: AAOx3 MAEx4 Motor 5/5 BUE/BLE +LT PERRLA, speech clear Neuro Check Frequency: per routine Urinary Catheter in Place: No - Physician Discussed Patient with Dr.: Saenz Patient Seen by Dr.: Saenz Neurosurgery Physical Exam - Vitals, I&O, Labs I and O 04/09/17 04/10/17 04/11/17 05:59 05:59 05:59 Intake Total 1876 1350 Output Total 395 2500 Balance 1481 -1150 Weight 50.5 kg 50.2 kg Intake: Oral (ml) 220 350 IV Infused (ml) 1656 1000 Ns 1,000 ml @ 75 mls/hr 1656 1000 IV CONT CORTNEY Rx#: [id number] Output: Urine (ml) 395 2500 Catheter 395 2500 Other: Intake Quantity No: needs encourage to drink more Yes Sufficient Number of Voids Catheter 1 Number of Stools Catheter 1 Vital Signs Temp Pulse Resp BP Pulse Ox 36.5 C 78 17 130/79 H 91 L 04/10/17 07:31 04/10/17 07:31 04/10/17 07:31 04/10/17 07:31 04/10/17 07:31 Laboratory Results 04/08/17 04:05 04/08/17 04:05 ICD10 Worksheet Patient Problems: Problems Problem Status Onset Dysphagia Acute Failure to thrive in adult Acute Dehydration Acute Nausea Acute Nausea with vomiting Acute Pulmonary embolus Acute Vomiting Acute
[2017-04-10] MEDS ORDERED: GADOBUTROL 10 ML VIAL IVP ONE (09:29)
[2017-04-10] MEDS ORDERED: BACITRACIN ZINC 14.2 GM OINTTUBE TP ONE (10:05)
[2017-04-10] MEDS ORDERED: BUPIVACAINE 0.25% 30 ML SDV ONE (10:05)
[2017-04-10] MEDS ORDERED: HYDROGEN PEROXIDE 236 ML BOTTLE TP ONE (10:06)
[2017-04-10] MEDS ORDERED: POVIDONE-IODINE 30 GM OINTTUBE TP ONE (10:06)
[2017-04-10] MEDS ORDERED: AVITENE POWDER 1 GM JAR TP ONE (10:06)
[2017-04-10] MEDS ORDERED: THROMBIN (BOVINE) 20,000 UNIT VIAL TP ONE (10:06)
[2017-04-10] MEDS ORDERED: GENTAMICIN SULFATE 80 MG/2 ML VIAL ONE (10:06)
[2017-04-10] MEDS ORDERED: MANNITOL 20% 100 GM/500 ML BAG IV ONE (10:06)
[2017-04-10] MEDS ORDERED: LR 1,000 ML IV ONE (10:15)
--- NOTE | 2017-04-10 10:38 | ASMTCMCOM ---
CM Note CM Note Notes: Pt needs are TBD, pt to have brain biopsy today. Latest therapy recs: OT inpatient rehab PT home w 24/hr supervision vs. outpatient [facility] vs. inpatient rehab CM to follow pt progress after brain biopsy for d/c planning. Date Signed: 04/10/2017 10:37 AM Electronically Signed By:SHORTY Schmidt
--- NOTE | 2017-04-10 11:55 | PDANEPAE ---
ANE Past Medical History - Cardiovascular History Hx Hypertension: No Hx Arrhythmias: No Hx Chest Pain: No Hx Coronary Artery / Peripheral Vascular Disease: No Hx CHF / Valvular Disease: No Hx Palpitations: No - Pulmonary History Hx COPD: No Hx Asthma/Reactive Airway Disease: Yes Hx Recent Upper Respiratory Infection: No Hx Oxygen in Use at Home: No Hx Sleep Apnea: No Sleep Apnea Screening Result - Last Documented: Negative - Neurologic History Hx Cerebrovascular Accident: No Hx Seizures: No Hx Dementia: No - Endocrine History Hx Diabetes: No - Renal History Hx Renal Disorders: No - Liver History Hx Hepatic Disorders: No - Neurological & Psychiatric Hx Hx Neurological and Psychiatric Disorders: No - Cancer History Hx Cancer: No - Congenital Disorder History Hx Congenital Disorders: No - GI History Hx Gastrointestinal Disorders: Yes Gastrointestinal History Comment: NAUSEA/VOMITING X PAST MONTH - Other Health History Other Health History: NEG - Chronic Pain History Chronic Pain: No - Surgical History Prior Surgeries: R SHOULDER IMPINGEMENT. BREAST REDUCTION ANE Review of Systems Review of Systems: - Exercise capacity Exercise capacity: limited by disability ANE Patient History - Allergies Allergies/Adverse Reactions: Sulfa (Sulfonamide Antibiotics) Allergy (Intermediate, Verified 04/05/17 11:01) Other-Enter Comments - Home Medications Home Medications: Pantoprazole Sodium [Protonix 40mg (*)] 40 mg PO DAILY@14 03/08/17 [Last Taken 04/04/17] Ondansetron HCl 8 mg PO BID PRN 04/04/17 [Last Taken 04/05/17] Albuterol [Proventil Inhaler HFA (*)] 1 - 2 puffs IH DAILY PRN 04/05/17 [Last Taken Unknown] Docusate Sodium [Colace 100 MG (*)] 100 mg PO DAILY 04/05/17 [Last Taken Unknown ] Herbals/Supplements -Info Only 1 ea PO DAILY 04/05/17 [Last Taken Unknown] Rivaroxaban [Xarelto 10mg (*)] 20 mg PO HS 04/05/17 [Last Taken 04/04/17] Sertraline HCl [Zoloft 100mg (*)] 100 mg PO DAILY@14 04/05/17 [Last Taken ] clonazePAM [Klonopin (*)] 0.5 mg PO TID PRN 04/05/17 [Last Taken Unknown] - NPO status NPO Since - Liquids (Date): 04/10/17 NPO Since - Liquids (Time): 00:00 NPO Since - Solids (Date): 04/10/17 NPO Since - Solids (Time): 00:00 - Anes Hx Anes Hx: no prior problems - Smoking Hx Smoking Status: Never smoked - Family Anes Hx Family Hx Anesthesia Complications: NEG ANE Labs/Vital Signs - Labs Result Diagrams: 04/08/17 04:05 04/08/17 04:05 - Vital Signs Blood Pressure: 127/71 Heart Rate: 79 Respiratory Rate: 18 O2 Sat (%): 98 Height: 157.48 cm Weight: 50.2 kg ANE Physical Exam - Airway Neck exam: FROM Mouth exam: normal dental/mouth exam - Pulmonary Pulmonary: no respiratory distress, no rales or rhonchi, clear to auscultation - Cardiovascular Cardiovascular: regular rate and rhythym, no murmur, rub, or gallop, systolic murmur - ASA Status ASA Status: III ANE Anesthesia Plan Anesthesia Plan: general endotracheal anesthesia
[2017-04-10] MEDS ORDERED: ceFAZolin 2 GM/DEXTROSE 100 ML IV ONE (12:18)
[2017-04-10] MEDS ORDERED: PROPOFOL 200 MG/20 ML VIAL ONE (12:25)
[2017-04-10] MEDS ORDERED: fentaNYL 100 MCG/2 ML INJ ONE (12:25)
[2017-04-10] MEDS ORDERED: ONDANSETRON 4 MG/2 ML VIAL ONE (12:47)
[2017-04-10] MEDS ORDERED: SUGAMMADEX SODIUM 200 MG/2 ML VIAL IVP ONE (12:47)
[2017-04-10] MEDS ORDERED: LIDOCAINE 2% 5 ML SDV ONE (12:48)
[2017-04-10] MEDS ORDERED: ROCURONIUM 50 MG/5 ML VIAL ONE (12:48)
--- NOTE | 2017-04-10 13:21 | HOSPPROG ---
Hospitalist Progress Note Assessment/Plan: 72y female with weight loss and FTT. * Brain lesions - progressive -brain biopsy today -lymphoma vs vasculitis vs autoimmune * Possible seizure -EEG pending * PE - 4 months ago -holding Xarelto for biopsy * Dysphagia -nectar thick liquids *Dispo -unclear, transfer to ICU post op Subjective: Waiting surgery. Objective: Vital Signs Temp Pulse Resp BP Pulse Ox 36.6 C 79 18 127/71 H 98 04/10/17 09:01 04/10/17 11:54 04/10/17 11:54 04/10/17 11:54 04/10/17 11:54 Laboratory Results 04/08/17 04:05 04/08/17 04:05 04/09/17 04/10/17 04/11/17 05:59 05:59 05:59 Intake Total 1876 1350 Output Total 395 2500 Balance 1481 -1150 - Physical Exam Constitutional: not in pain, chronically ill appearing Eyes: PERRL, anicteric sclera Ears, Nose, Mouth, Throat: moist mucous membranes, hearing normal Cardiovascular: No JVD, No edema Respiratory: no respiratory distress, reduced air movement Gastrointestinal: No tenderness, No ascites Skin: warm, normal color Musculoskeletal: no joint effusions, generalized weakness Neurologic: AAOx3 Psychiatric: interacting appropriately, not encephalopathic, anxious ICD10 Worksheet Patient Problems: Problems Problem Status Onset Nausea Acute Vomiting Acute Nausea with vomiting Acute Dehydration Acute Pulmonary embolus Acute Failure to thrive in adult Acute Dysphagia Acute
[2017-04-10] MEDS ORDERED: ONDANSETRON 4 MG/2 ML VIAL IVP PRN (14:05)
[2017-04-10] MEDS ORDERED: NALOXONE HCL 0.4 MG/ML INJ IVP PRN (14:05)
[2017-04-10] MEDS ORDERED: DEXAMETHASONE 4 MG/ML VIAL IVP PRN (14:05)
[2017-04-10] MEDS ORDERED: LR 500 ML IV PRN (14:05)
[2017-04-10] MEDS ORDERED: LABETALOL HCL 5 MG/ML 20 ML MDV IVP PRN (14:05)
[2017-04-10] MEDS ORDERED: fentaNYL 100 MCG/2 ML INJ IVP PRN (14:05)
[2017-04-10] MEDS ORDERED: ENALAPRILAT DIHYDRATE 1.25 MG/ML VIAL IVP PRN (14:05)
[2017-04-10] MEDS ORDERED: PROMETHAZINE HCL 25 MG/ML INJ IVP PRN (14:05)
--- NOTE | 2017-04-10 14:44 | POSTANESTH ---
Post Anesthetic Evaluation Cardiovascular Status: Normal, Stable, Similar to Pre-Op Cond Respiratory Status: Normal, Stable, Similar to Pre-op Cond. Level of Consciousness/Mental Status: Can Participate in Eval, Moderately Sleepy Pain Control: Adequate, Prn Tx Ordered Nausea/Vomiting Control: Adequate, Prn Tx Ordered Complications Possibly Related to Anesthesia: None Noted
--- NOTE | 2017-04-10 14:44 | SOAPPROG ---
SOAP Progress Note Assessment/Plan: Post Op Visit S: Awake and alert. Follows commands. NAD O: AFVSS/PERRLA no droop CN 2-12 grossly intact +lt touch ИВАН x 4 CDI DSD A/P: 72 yo female that is s/p right occipital brain biopsy -orders in place -call with any questions or concerns -pt understands and agrees -q 2 hr neuro checks -SDU -SBP less than 130 04/10/17 14:40 Objective: Vital Signs Temp Pulse Resp BP Pulse Ox 36.6 C 79 18 127/71 H 98 04/10/17 09:01 04/10/17 11:54 04/10/17 11:54 04/10/17 11:54 04/10/17 11:54 Laboratory Results 04/08/17 04:05 04/08/17 04:05 04/09/17 04/10/17 04/11/17 05:59 05:59 05:59 Intake Total 1876 1350 Output Total 395 2500 Balance 1481 -1150 ICD10 Worksheet Patient Problems: Problems Problem Status Onset Dysphagia Acute Failure to thrive in adult Acute Dehydration Acute Nausea Acute Nausea with vomiting Acute Pulmonary embolus Acute Vomiting Acute
[2017-04-10] MEDS ORDERED: niCARdipine/NACL 200 ML IV PRN (14:52)
--- NOTE | 2017-04-10 15:05 | GOP ---
[f rep st] OPERATIVE REPORT DATE OF OPERATION: 04/10/2017 SURGEON: Jani Saenz MD SMEARER: Maxi Able PA-C. ANESTHESIA: General. PREOPERATIVE DIAGNOSIS: Rapidly progressive neurological disorder of unknown etiology. POSTOPERATIVE DIAGNOSIS: Rapidly progressive neurological disorder of unknown etiology. PROCEDURE PERFORMED: 1. Right-sided parietal craniotomy with exploration and open brain biopsy. 2. Use of intraoperative 3D Stealth Navigation. FINDINGS: per imaging SPECIMENS: Right-sided parietal brain tissue was sent to Pathology for permanent analysis, as well as cultures for infectious workup. ESTIMATED BLOOD LOSS: 30 mL. INDICATIONS: The patient is a 72-year-old woman who unfortunately presented to the hospital with a rapidly progressive neurological disorder. She had an outpatient workup including inpatient workup, both of which have been negative. I discussed the case with both the neurologist and the medical services, and given her onset and finding on her MRI scan, they opted for an open surgical biopsy of the lesions. The patient had several lesions to pick from; however, some of them were noted to be in eloquent portions of the brain including the motor strips. I reviewed the case with my partners, and the left-sided parietal lesions and parietal lobule were opted for the core biopsy so we could obtain a cubic centimeter of tissue for further workup and evaluation. She presents now for that surgical intervention. DESCRIPTION OF PROCEDURE: The patient was brought to the operating theater and underwent general endotracheal anesthesia without complications. She had Venodynes, PALMER hose, and appropriate lines placed by Anesthesia. Her head was placed in a Ernandez garsia device and she was turned to the left side to expose the right side of her scalp and parietal lobe. The patient's scalp was then merged with the 3D Stealth navigation system. Using 3D Stealth navigation system, we picked the lesion that would respond best to a biopsy for diagnostic purposes. This was marked on the right side of her scalp and the incision marked in a vertical incision just off the midline. The incision was then prepped and draped in the usual sterile surgical fashion. A time-out was completed per protocol. The patient received antibiotics within 1 hour of incision. The incision was infiltrated with Marcaine with epinephrine and taken down with the scalpel blade. Using monopolar, the incision was taken down through subcutaneous tissues to the level the pericranium. The tissue was reflected medial laterally and held open with a Weitlaner. Allison clips were applied to the soft tissues for hemostasis. We again confirmed the location of the lesion using the 3D Stealth navigation system. The international banker drill was utilized to make a small bur hole medially just close to the superior sagittal sinus. We then stripped the dura from the underside of the calvarium. The footplate was utilized to turn a small right parietal craniotomy bone flap, which was then passed off the field. We coagulated the dura in a cruciate manner with a bipolar and opened it with the 11 blade. We opened the leaflets of the dura and held them open with 4-0 Nurolon sutures. We again confirmed the location of the lesion with the 3D Stealth navigation system. Using microsurgical technique with the bipolars and a Higdon #1 and gentle suctioning, we then took out an approximately 1 cubic cm piece of brain tissue, incorporating the lesion. We confirmed that the lesion was located within the tissue biopsy. We also cultured the tissues and sent it to Microbiology for further analysis and then obtained hemostasis with the bipolar. The dural leaflets were then closed with 4-0 Nurolon sutures. The bone flap was secured to the overlying calvarium with the plating system. The wound was irrigated copiously with gentamicin irrigation and closed in multiple layers using Vicryl sutures for the deep layers and a running Monocryl stitch for the skin. The patient's wounds were dressed sterilely. She was then taken out of the Ernandez garsia device, which she has awakened, extubated and taken to the recovery room in stable condition. There were no complications. COMPLICATION: None. /[id number]/MODL MTDD
[2017-04-10] MEDS: NS W/ 20 KCl/L 1,000 ML IV SCH (15:44)
[2017-04-10] MEDS: FLUTICASONE NASAL 120 SPRAYS/16 GM MDI EACHNARE SCH (15:44)
[2017-04-10] MEDS: SENNOSIDES/DOCUSATE SODIUM TAB PO SCH ×2 (15:45→20:24)
[2017-04-10] MEDS: SERTRALINE HCL 100 MG TAB PO SCH (15:55)
[2017-04-10] MEDS: PANTOPRAZOLE SODIUM 40 MG TAB PO SCH (15:55)
[2017-04-10] MEDS: clonazePAM 0.5 MG TAB PO PRN (20:24)
[2017-04-11] MEDS: NS W/ 20 KCl/L 1,000 ML IV SCH (00:23)
[2017-04-11 05:42] LABS: PLATELET COUNT 139 10^3/uL (150-400)
[2017-04-11] MEDS: ONDANSETRON 4 MG/2 ML VIAL IVP PRN (07:27)
--- NOTE | 2017-04-11 07:38 | NEUSURGPN ---
Date of Surgery: 04/10/17 Post Op Day: 1 Assessment/Plan: Assessment: 72 yo female that is s/p right occipital brain biopsy POD #1 Plan: -s/p brain biopsy-dressing in place. Pt with some incisional pain-mild -PT/OT/ST pending today -orders in place -call with any questions or concerns -pt understands and agrees -q 4 hr neuro checks -SDU status at this time and ok from NS to transfer-I placed orders for transfer and RN will check with IM to see they agree -SBP less than 130 -d/w Dr Saenz -pt understands and agrees 04/10/17 14:40 Subjective: Awake and alert. NAD. Pt with some mild incisional pain. No carey/neck/chest/ abd or gu complaints. No f/c/n/v/d Objective: AAO x 3, PERRLA/EOMI with 2-3 beats of right lateral nystagmus/1-2 beats of upward gaze nystagmus no facial droop CN 2-12 grossly intact +lt touch 5/5 BUE/BLE = CDI-dressing in place Neuro Check Frequency: q4 hrs Urinary Catheter in Place: No - Physician Discussed Patient with : Dany Neurosurgery Physical Exam - Vitals, I&O, Labs I and O 04/10/17 04/11/17 04/12/17 05:59 05:59 05:59 Intake Total 1350 2414 232 Output Total 2500 1245 300 Balance -1150 1169 -68 Weight 50.2 kg 53.2 kg Intake: Oral (ml) 350 155 IV Intake (ml) 1000 IV Infused (ml) 1000 1259 232 NS W/ 20 KCl/L 1,000 ml @ 1259 182 100 mls/hr IV CONT CORTNEY Rx#:[id number] Ns 1,000 ml @ 75 mls/hr 1000 IV CONT CORTNEY Rx#: [id number] ceFAZolin 1 GM/DEXTROSE 50 50 ml @ 200 mls/hr IV Q8H CORTNEY Rx#:[id number] Output: Urine (ml) 2500 1225 300 Catheter 2500 1225 300 Estimated Blood Loss (ml) 20 Other: Intake Quantity Yes Sufficient Number of Stools Catheter 0 Microbiology 04/10/17 13:59 Gram Stain - Final Brain - Eswab Vital Signs Temp Pulse Resp BP Pulse Ox 36.9 C 64 13 111/67 94 04/11/17 04:00 04/11/17 04:00 04/11/17 04:00 04/11/17 04:00 04/11/17 04:00 Laboratory Results 04/11/17 05:20 04/11/17 05:20 ICD10 Worksheet Patient Problems: Problems Problem Status Onset Dysphagia Acute Failure to thrive in adult Acute Dehydration Acute Nausea Acute Nausea with vomiting Acute Pulmonary embolus Acute Vomiting Acute
[2017-04-11] MEDS: ACETAMINOPHEN 325 MG TAB PO PRN ×2 (08:36→14:31)
[2017-04-11] MEDS: SENNOSIDES/DOCUSATE SODIUM TAB PO SCH ×2 (08:36→22:15)
[2017-04-11] MEDS: FLUTICASONE NASAL 120 SPRAYS/16 GM MDI EACHNARE SCH ×2 (09:15→16:21)
--- NOTE | 2017-04-11 10:52 | HOSPPROG ---
Hospitalist Progress Note Assessment/Plan: 72y female with progressive neurologic illness (ataxia, dysarthria, dysphagia, cognitive deficits), weight loss and FTT. Brain biopsy yesterday. * Brain lesions - progressive, lymphoma on differential -s/p open brain biopsy 04/10, pathology pending -neurosurgery following -CT chest/abd/pelvis neg -XIMENA neg, vasculitis w/u neg, SPEP neg, outpt CSF studies neg * Possible seizure - may have been her baseline neurodeficits -EEG unremarkable per neurology * PE - diagnosed 11/2016, b/l distal main pulmonary arteries -xarelto held for brain biopsy -discussed timing of resuming xarelto with neurosurgery, ok to restart 04/15 ( 5 days post-op) * Dysphagia -speech following -nectar thick liquids *Dispo -ADD uncertain, cont inpt, transfer to med/surg today Subjective: Pt doing well post-op in ICU. Awake, alert. Pain fairly well controlled. Reports mild headache. No CP, SOB, abdominal pain, N/V. Objective: Vital Signs Temp Pulse Resp BP Pulse Ox 36.4 C 73 18 115/66 98 04/11/17 07:36 04/11/17 07:36 04/11/17 07:36 04/11/17 07:36 04/11/17 07:36 Microbiology 04/10/17 13:59 Gram Stain - Final Brain - Eswab Laboratory Results 04/11/17 05:20 04/11/17 05:20 04/10/17 04/11/17 04/12/17 05:59 05:59 05:59 Intake Total 1350 2414 232 Output Total 2500 1245 500 Balance -1150 1169 -268 - Physical Exam Constitutional: no apparent distress Eyes: PERRL Ears, Nose, Mouth, Throat: moist mucous membranes Cardiovascular: regular rate and rhythym Respiratory: no respiratory distress Gastrointestinal: normoactive bowel sounds, soft, non-tender abdomen Skin: warm Musculoskeletal: generalized weakness Neurologic: AAOx3 ICD10 Worksheet Patient Problems: Problems Problem Status Onset Dysphagia Acute Failure to thrive in adult Acute Dehydration Acute Nausea Acute Nausea with vomiting Acute Pulmonary embolus Acute Vomiting Acute
[2017-04-11] MEDS: SERTRALINE HCL 100 MG TAB PO SCH (13:33)
[2017-04-11] MEDS: PANTOPRAZOLE SODIUM 40 MG TAB PO SCH (13:33)
[2017-04-11 14:27] VITALS: RESP 16
[2017-04-12] MEDS: clonazePAM 0.5 MG TAB PO PRN ×2 (00:11→22:21)
--- NOTE | 2017-04-12 07:35 | SOAPPROG ---
SOAP Progress Note Assessment/Plan: Assessment/Plan: A: 72 yo F who presented with progressive neurological decline and brain lesions seen on MRI. POD #2 sp brain biopsy. Neuro stable, await path results Plan: -Pt/Ot/St -Q4 neuro checks -follow cultures - no growth so far. AFB smear neg, AFB cult Pending -full anticoagulation can start /10 -Call NS with any questions/concerns Neuro: AAOx3 NAD VSS MAEx4 Motor 5/5 BUE/BLE +LT PERRLA, speech clear 04/12/17 07:35 Subjective: asleep, wakes easily and is comfortable. denies new numbness tingling or weakness Objective: Vital Signs Temp Pulse Resp BP Pulse Ox 36.9 C 82 16 124/60 H 92 04/11/17 23:30 04/11/17 23:30 04/11/17 23:30 04/11/17 23:30 04/11/17 23:30 Microbiology 04/10/17 13:59 Gram Stain - Final Brain - Eswab 04/10/17 14:07 Mycobacterial Smear (MARY GRACE) - Final Brain - Tissue Laboratory Results 04/12/17 06:12 04/11/17 05:20 04/11/17 04/12/17 04/13/17 05:59 05:59 05:59 Intake Total 2414 912 Output Total 1245 1000 Balance 1169 -88 Incision: CDI. Telfa removed ICD10 Worksheet Patient Problems: Problems Problem Status Onset Dysphagia Acute Failure to thrive in adult Acute Dehydration Acute Nausea Acute Nausea with vomiting Acute Pulmonary embolus Acute Vomiting Acute
[2017-04-12] MEDS: FLUTICASONE NASAL 120 SPRAYS/16 GM MDI EACHNARE SCH (09:03)
[2017-04-12] MEDS: SENNOSIDES/DOCUSATE SODIUM TAB PO SCH ×2 (09:04→21:52)
--- NOTE | 2017-04-12 09:15 | ASMTCMCOM ---
CM Note CM Note Notes: Therapies rec inpatient rehab, order input yesterday. Spoke w pt husb (pt was sleeping), he is very interested in a d/c to [facility] inpatient rehab. CM to follow. Date Signed: 04/12/2017 09:14 AM Electronically Signed By:SHORTY Schmidt
[2017-04-12] MEDS: NS 1,000 ML IV SCH (12:00)
--- NOTE | 2017-04-12 13:49 | HOSPPROG ---
Hospitalist Progress Note Assessment/Plan: 72y female with progressive neurologic illness (ataxia, dysarthria, dysphagia, cognitive deficits), weight loss and FTT. Reviewed her care yesterday w Dr Anne Marie Maldonado who evaluated her. * Brain lesions - progressive, lymphoma on differential -s/p open brain biopsy 04/10, pathology pending -neurosurgery following -CT chest/abd/pelvis neg -XIMENA neg, vasculitis w/u neg, SPEP neg, outpt CSF studies neg * Possible seizure - may have been her baseline neuro deficits -EEG unremarkable per neurology * PE - diagnosed 11/2016, b/l distal main pulmonary arteries -xarelto held for brain biopsy -discussed timing of resuming xarelto with neurosurgery, ok to restart 04/15 ( 5 days post-op) * Dysphagia -speech following -nectar thick liquids *moderate malnutrition evidence by 28 pound weight loss over 3 months period -very poor intake during her hospital stay -will get a calorie count * somnolence -patient had been drowsy all morning -she had a CT of the head that showed mild hemorrhage in the right occipital area where biopsy was performed without mass effect -she appears back to her baseline when I admitted her *Plan: awaiting biopsy results, needs a calorie count, not eating much. Add IV fluids since she is not drinking much. Subjective: Luba has no complaints, not hungry and not drinking much. Objective: Vital Signs Temp Pulse Resp BP Pulse Ox 37.1 C 84 16 123/74 H 94 04/12/17 08:00 04/12/17 08:00 04/12/17 08:00 04/12/17 08:00 04/12/17 08:00 Microbiology 04/10/17 13:59 Gram Stain - Final Brain - Eswab 04/10/17 14:07 Mycobacterial Smear (MARY GRACE) - Final Brain - Tissue Laboratory Results 04/12/17 06:12 04/11/17 05:20 04/11/17 04/12/17 04/13/17 05:59 05:59 05:59 Intake Total 2414 912 Output Total 1245 1000 Balance 1169 -88 - Physical Exam Constitutional: not in pain, chronically ill appearing, other (thin) Eyes: PERRL Ears, Nose, Mouth, Throat: hearing normal Cardiovascular: regular rate and rhythym Respiratory: no respiratory distress Skin: warm Musculoskeletal: generalized weakness Neurologic: AAOx3, other (slow to answer questions, pauses before she responds) Psychiatric: interacting appropriately ICD10 Worksheet Patient Problems: Problems Problem Status Onset Dysphagia Acute Failure to thrive in adult Acute Dehydration Acute Nausea Acute Nausea with vomiting Acute Pulmonary embolus Acute Vomiting Acute
[2017-04-12] MEDS ORDERED: D5W NS 1,000 ML IV SCH (15:45)
[2017-04-12] MEDS: SERTRALINE HCL 100 MG TAB PO SCH (16:42)
[2017-04-12] MEDS: ACETAMINOPHEN 325 MG TAB PO PRN (16:42)
[2017-04-12] MEDS: PANTOPRAZOLE SODIUM 40 MG TAB PO SCH (16:42)
--- NOTE | 2017-04-13 07:27 | NEUSURGPN ---
Date of Surgery: 04/10/17 Post Op Day: 3 Assessment/Plan: Assessment: 72 yo female that is s/p right occipital brain biopsy POD #3 Plan: -s/p brain biopsy-dressing removed -CT reviewed that show post op changes-no mass effect -PT/OT/ST-CPM -orders in place -call with any questions or concerns -pt understands and agrees -SBP less than 130-140 -d/w Dr Saenz and ok to sign off with follow up in 2 weeks for a recheck -pt understands and agrees -pending rehab placement Subjective: Awake and alert. NAD. No carey/neck/chest/abd or gu complaints. No f/c/n/v/d. Objective: AAOx3 NAD VSS MAEx4 Motor 5/5 BUE/BLE +LT PERRLA, speech clear Neuro Check Frequency: per routine Urinary Catheter in Place: No - Physician Discussed Patient with : Dany Patient Seen by : Dany Neurosurgery Physical Exam - Vitals, I&O, Labs I and O 04/12/17 04/13/17 04/14/17 05:59 05:59 05:59 Intake Total 912 250 Output Total 1000 Balance -88 250 Weight 53.2 kg 50.2 kg 49.8 kg Intake: Oral (ml) 680 250 IV Infused (ml) 232 NS W/ 20 KCl/L 1,000 ml @ 182 100 mls/hr IV CONT CORTNEY Rx#:[id number] ceFAZolin 1 GM/DEXTROSE 50 50 ml @ 200 mls/hr IV Q8H CORTNEY Rx#:[id number] Output: Urine (ml) 1000 Bedpan 500 Catheter 300 Toilet 200 Other: Intake Quantity Yes No: 24 hr calorie count assessment Sufficient Number of Voids Bedpan 2 Catheter 3 Incontinence 1 3 Toilet 1 3 Number of Stools Incontinence 1 Toilet 1 Microbiology 04/10/17 13:59 Gram Stain - Final Brain - Eswab Vital Signs Temp Pulse Resp BP Pulse Ox 36.7 C 65 16 103/63 91 L 04/12/17 23:51 04/12/17 23:51 04/12/17 23:51 04/12/17 23:51 04/12/17 23:51 Laboratory Results 04/12/17 06:12 04/11/17 05:20 ICD10 Worksheet Patient Problems: Problems Problem Status Onset Dysphagia Acute Failure to thrive in adult Acute Dehydration Acute Nausea Acute Nausea with vomiting Acute Pulmonary embolus Acute Vomiting Acute
[2017-04-13 08:04] VITALS: BP 126/76; PULSE 68; TEMP 98; O2SAT 96
[2017-04-13] MEDS: SENNOSIDES/DOCUSATE SODIUM TAB PO SCH (08:49)
[2017-04-13] MEDS: FLUTICASONE NASAL 120 SPRAYS/16 GM MDI EACHNARE SCH (08:55)
--- NOTE | 2017-04-13 11:38 | HOSPPROG ---
Hospitalist Progress Note Assessment/Plan: 72y female with progressive neurologic illness (ataxia, dysarthria, dysphagia, cognitive deficits), weight loss and FTT. Reviewed her care yesterday w Dr Anne Marie Maldonado who evaluated her. * Brain lesions - progressive, lymphoma on differential -s/p open brain biopsy 04/10, pathology pending -neurosurgery following -CT chest/abd/pelvis neg -XIMENA neg, vasculitis w/u neg, SPEP neg, outpt CSF studies neg * Possible seizure - may have been her baseline neuro deficits -EEG unremarkable per neurology * PE - diagnosed 11/2016, b/l distal main pulmonary arteries -xarelto held for brain biopsy -discussed timing of resuming xarelto with neurosurgery, ok to restart 04/15 or 04/16 (5 days post-op) * Dysphagia -speech following -nectar thick liquids *moderate malnutrition evidence by 28 pound weight loss over 3 months period -eating better today * somnolence -patient had been drowsy all morning -she had a CT of the head that showed mild hemorrhage in the right occipital area where biopsy was performed without mass effect -she appears back to her baseline when I admitted her *Plan: awaiting biopsy results, sisters have asked for IV steroids to be given for treatment of the brain lesion. Explained to them that we need to know biopsy results. Giving steroids without knowing exactly why can "muddy" the picture. CM spoke with IP rehab and if she needs IV steroids; they can be given there. Family really wants answers of her diagnosis and have given them as much info as I know at this time. I offered them options to to go another hospital for further evaluation. They have an appt at [facility] next week for other opinions. For now, Luba is stable for discharge and will have her transferred to IP rehab. The is in agreement with this. Reviewed with the family to be sure Xarelto is held and restarted on 04/16. Nursing staff to also make IP rehab staff aware of this. Subjective: Luba said she is feeling better, appetite is better today. Objective: Vital Signs Temp Pulse Resp BP Pulse Ox 36.7 C 68 16 126/76 H 96 04/13/17 08:00 04/13/17 08:00 04/13/17 08:00 04/13/17 08:00 03/08/18 08:00 Microbiology 04/10/17 13:59 Gram Stain - Final Brain - Eswab Laboratory Results 04/12/17 06:12 04/11/17 05:20 04/12/17 04/13/17 04/14/17 05:59 05:59 05:59 Intake Total 912 250 Output Total 1000 1 Balance -88 250 -1 - Physical Exam Constitutional: no apparent distress Eyes: PERRL Ears, Nose, Mouth, Throat: hearing normal Respiratory: no respiratory distress Skin: warm Musculoskeletal: generalized weakness Neurologic: other (more interactive today, smiling. ) Psychiatric: interacting appropriately ICD10 Worksheet Patient Problems: Problems Problem Status Onset Dehydration Acute Dysphagia Acute Failure to thrive in adult Acute Nausea Acute Nausea with vomiting Acute Pulmonary embolus Acute Vomiting Acute
--- NOTE | 2017-04-13 12:06 | PDIAF ---
- Diagnosis Diagnosis: brain lesions, FTT Code Status: Do Not Resuscitate - Medication Management Discharge Medications: Medications to Continue on Transfer Pantoprazole Sodium [Protonix 40mg (*)] 40 mg PO DAILY@14 03/08/17 [Last Taken 04/04/17] Ondansetron HCl 8 mg PO BID PRN 04/04/17 [Last Taken 04/05/17] Albuterol [Proventil Inhaler HFA (*)] 1 - 2 puffs IH DAILY PRN 04/05/17 [Last Taken Unknown] Docusate Sodium [Colace 100 MG (*)] 100 mg PO DAILY 04/05/17 [Last Taken Unknown ] Herbals/Supplements -Info Only 1 ea PO DAILY 04/05/17 [Last Taken Unknown] Rivaroxaban [Xarelto 10mg (*)] 20 mg PO HS 04/05/17 [Last Taken 04/04/17] Sertraline HCl [Zoloft 100mg (*)] 100 mg PO DAILY@14 04/05/17 [Last Taken ] clonazePAM [Klonopin (*)] 0.5 mg PO TID PRN 04/05/17 [Last Taken Unknown] Fluticasone Nasal [Flonase Nasal [place]] 2 sprays EACHNARE DAILY mdi 04/13/17 [ Last Taken Unknown] Polyethylene Glycol 3350 [Miralax 17 gm (*)] 17 gm PO DAILY PRN pkt 04/13/17 [ Last Taken Unknown] Sennosides/Docusate Sodium [Senokot-S] 1 - 2 tab PO BID tab 04/13/17 [Last Taken Unknown] Discharge Medications: Refer to the Discharge Home Medication list for PRN reason. - Orders Services needed: Physical Therapy, Occupational Therapy, Speech Language Pathologist Diet Recommendation: no restrictions on diet Diet Texture: Dysphagia 2 - Mechanically Altered - Chopped, Ground, [place] Thick Liquids, Meds Whole w/Liquids, Meds Whole in Puree Additional: START XARELTO IN 04/16, DO NOT GIVE TILL THEN DUE TO RECENT BRAIN BIOPSY. RECOMMENDING A CALORIE COUNT. NO showering until POD #4. Follow up with Dr Saenz in 2-3 weeks for a recheck. No baths or swimming. Call with any questions or concerns - Follow Up Care Current Providers and Referrals: Radha Chen MD [Primary Care Provider] - As per Instructions Jani Saenz MD [Medical Doctor] - (follow up in 2-3 weeks) Vikas Ochoa MD [Medical Doctor] -
--- NOTE | 2017-04-13 13:19 | GDS ---
[f rep st] DISCHARGE SUMMARY DISCHARGE DIAGNOSES: 1. Brain lesions, progressive. 2. Possible seizure. 3. Pulmonary embolism diagnosed in 2017, bilateral, distal to the main pulmonary arteries. 4. Dysphagia. 5. Moderate malnutrition, evidenced by 28-pound weight loss over 3 months. 6. Somnolence. CONSULTATION: 1. Dr. Garnett. 2. Dr. Saenz. HISTORY: Briefly, Cecile Fan is a 72-year-old female who was brought to the emergency room with weight loss and failure to thrive. She was recently diagnosed with a demyelinating disease and does not have any type of clear-cut etiology. She has been losing weight and having trouble taking in adequate intake. She had a video swallow performed because of difficulty with swallowing. This showed moderate pharyngeal dysphagia with mild vestibular penetration aspiration, producing a cough reflex with thin liquids. Her diet has been since modified. In addition, a brain MRI was performed, which showed diffuse bilateral micronodular-enhancing lesions throughout, especially involving the brainstem, bilateral cerebellar hemispheres, and bilateral basal ganglia, suspicious for diffuse metastatic disease, with inflammatory etiologies less likely. She was seen and evaluated by Dr. Saenz, and on April 10 she had a brain biopsy performed using 3D Stealth navigation. She tolerated this well but then had some postop confusion and sleepiness. Subsequently, a CT scan was performed on 04/12/2017. She had a mild hemorrhage in the right occipital biopsy area without mass effect. I spoke today with Neurosurgery. They are okay for her to restart her Xarelto on 04/15 or 04/16. Today she will be transferred to inpatient rehabilitation. I have updated Dr. Vikas Ochoa, her neurologist, on the transfer of patient. HOSPITAL COURSE PER PROBLEM: 1. Brain lesions. This is progressive. Lymphoma is on the differential. She is status post open biopsy on 04/10. The pathology is pending. CT of the chest, abdomen, pelvis are all negative. Her XIMENA is negative. Vasculitis workup is negative, and SPEP is negative. 2. Possible seizures. EEG was unremarkable per Neurology. 3. Pulmonary embolism. This was diagnosed in November 2016. She will restart her Xarelto on 04/16. 4. Dysphagia. She is on nectar-thick liquids. 5. Moderate malnutrition. She is starting to eat better today. This has progressed over the last 3 months. 6. Somnolence, resolved. DISCHARGE CONDITION: Stable. Blood pressure is 126/76, heart rate is 68, respiratory rate is 16, O2 sats on room air 96%, temperature is 36.7 Celsius. MEDICATIONS AT DISCHARGE: Please see the EMR. DISCHARGE INSTRUCTIONS: 1. Dr. Ochoa will follow up with her in the outpatient setting. 2. To not shower for a few more days and follow up with Dr. Saenz for followup. 3. If she develops any type of worsening neurologic symptoms, return to the ER. Greater than 30 minutes talking with the patient, her sisters, and . /[id number]/MODL MTDD
[2017-04-13] MEDS: SERTRALINE HCL 100 MG TAB PO SCH (13:40)
[2017-04-13] MEDS: PANTOPRAZOLE SODIUM 40 MG TAB PO SCH (13:40)
--- NOTE | 2017-04-13 14:09 | ASMTCMCOM ---
CM Note CM Note Notes: Pt medically stable for d/c to [facility] inpatient rehab. Pt husb wants to transport, he is provided report # to call when he arrives for assistance and informed they can make no stops. Orders to be obtained via [email or web address]. LISA Castillo called report. Date Signed: 04/13/2017 02:09 PM Electronically Signed By:SHORTY Schmidt
--- NOTE | 2017-04-13 14:10 | ASDISCHSUM ---
Discharge Information Plan Status:Inpatient Rehab Medically Cleared to Leave: Discharge Date: D/C Disposition:[facility] D/C Disposition:[facility] Projected Discharge Date:04/14/2017 11:00 AM Transportation at D/C:Family Discharge Delay Reason: Follow-Up Date:04/14/2017 11:00 AM Discharge Slot: Final Diagnosis: Placement Information Referral Type:Rehabilitation Hospital Referral ID:[id number] Provider Name:[facility] Address 1:[address] Phone Number: Address 2: Fax Number: [facility]:[place] Selection Factors: State:[place] Patient Contact Information Contact Name:LOUIS Relationship: Address:[address] City:[place] Alternate Phone: State/Zip Code:[place] [address] Email: Financial Information Financial Class:Medicare Primary Plan Desc:MEDICARE INPATIENT Primary Plan Number:[id number] Secondary Plan Desc:ALAN Quintero [facility] Secondary Plan Number:[id number] Assessment Information [facility] Initial CM Assessment Living Arrangements What is your living Answers: With Spouse arrangement? Who do you live with? Type Of Residence What kind of residence do Answers: House you live in? Discharge Plan Comments Coordination Status Comments Notes: Pts case discussed in morning rounds. Pt is a 72 y/o female admitted for failure to thrive and dysphagia. Therapies have been ordered and awaiting recommendations. Needs are TBD at this time. CM available for changes. Plan: TBD Date Signed: 04/06/2017 11:44 AM Electronically Signed By:CIPRIANO Arguelles [facility] CM Progress Note CM Note CM Note Notes: Pts case discussed in tx rounds. PT is recommending home w/ 24hr supervision and outpatient rehab. Awaiting recommendation from OT. CM met w/ pt for dispo planning. CM provided list of non skilled HC. CM available for changes. Plan: Home independent w/ supervision and outpatient rehab Date Signed: 04/07/2017 01:55 PM Electronically Signed By:CIPRIANO Arguelles [facility] CM Progress Note CM Note CM Note Notes: Pt to have brain bx Monday for new lesions. Stroke alert was called yesterday for unresponsiveness. Neuro following. Pt to transfer to [facility] CM will continue to follow for d/c needs. Date Signed: 04/08/2017 12:12 PM Electronically Signed By:SHORTY Pearce [facility] CM Progress Note CM Note CM Note Notes: Pt needs are TBD, pt to have brain biopsy today. Latest therapy recs: OT inpatient rehab PT home w 24/hr supervision vs. outpatient [facility] vs. inpatient rehab CM to follow pt progress after brain biopsy for d/c planning. Date Signed: 04/10/2017 10:37 AM Electronically Signed By:SHORTY Schmidt [facility] CM Progress Note CM Note CM Note Notes: Therapies rec inpatient rehab, order input yesterday. Spoke w pt danny (pt was sleeping), he is very interested in a d/c to [facility] inpatient rehab. CM to follow. Date Signed: 04/12/2017 09:14 AM Electronically Signed By:SHORTY Schmidt [facility] CM Progress Note CM Note CM Note Notes: Pt medically stable for d/c to [facility] inpatient rehab. Pt danny wants to transport, he is provided report # to call when he arrives for assistance and informed they can make no stops. Orders to be obtained via [employer]. LISA Martínezidi called report. Date Signed: 04/13/2017 02:09 PM Electronically Signed By:SHORTY Scmhidt Intervention Information Intervention Type:*SCHMIDT-Signed Date of Service:04/06/2017 10:31 AM Patient Type:Observation Staff Member:Jayda Hyde Hours: Discipline: Severity: Comment:
[2017-04-13] MEDS: ACETAMINOPHEN 325 MG TAB PO PRN (14:26)
== END 2017-04-13 14:11 | DRG 26 ==
LOC: F2W 16:33 → OBSVTOIN 04-06 16:30 → F3N 04-08 13:05 → F2N 04-10 13:42 → F3N 04-11 14:15
PROVIDERS: ADMIT Internal Medicine; ATTEND Internal Medicine
DX: G93.9 Disorder of brain, unspecified (principal); E44.0 Moderate protein-calorie malnutrition; G37.9 Demyelinating disease of central nervous system, unspecified; R62.7 Adult failure to thrive; R56.9 Unspecified convulsions; R13.10 Dysphagia, unspecified; Z86.711 Personal history of pulmonary embolism; Z66 Do not resuscitate
CPT/HCPCS: 82164-90; 82232-90; 83516-90; 83520-90; 86235-90; 88323-90; 88342; 92507-GN; 92523-GN; 92526-GN; 92610-GN; 92611-GN; 97116-GP; 97161-GP; 97166-GO; 97168-GO; 97530-GO; 97530-GP; 97535-GO; A9585; C1713; G0378; G8978-GP-CJ; G8978-GP-CK; G8979-GP-CI; G8987-GO-CK; G8988-GO-CI; G8996-GN-CJ; G8997-GN-CI; G8997-GN-CJ; G8998-GN-CJ; G9165-GN-CJ; G9166-GN-CJ; G9167-GN-CJ; J0171; J0690; J1580; J2270; J2405; J2550; J2704; J3010; Q9967

== ENCOUNTER 2017-04-13 14:34 | Inpatient (IN) | payer OTHER ==
[2017-04-13] MEDS ORDERED: MAGNESIUM HYDROXIDE 30 ML UDCUP PO PRN (15:31)
[2017-04-13] MEDS ORDERED: ACETAMINOPHEN 325 MG TAB PO PRN (15:31)
[2017-04-13] MEDS ORDERED: MAG HYDROX/AL HYDROX/SIMETH 30 ML UDCUP PO PRN (15:31)
[2017-04-13] MEDS ORDERED: POLYETHYLENE GLYCOL 3350 17 GM PKT PO PRN (15:40)
[2017-04-13] MEDS ORDERED: ALBUTEROL 60 PUFFS/8 GM MDI IH PRN (15:40)
--- NOTE | 2017-04-13 15:48 | PDOREHIP ---
Admission [facility] - Admission - 3 Day Assessment Period Admission Date/Day 1: 04/13/17 Day 2: 04/14/17 Day 3: 04/15/17 - Active Diagnoses Comorbidities and Co-existing Conditions at Admission: [id number]. None of the Above - Skin Conditions # Stage 1 Pressure Ulcers-Admission: 0 # Stage 2 Pressure Ulcers-Admission: 0 # Stage 3 Pressure Ulcers-Admission: 0 # Stage 4 Pressure Ulcers-Admission: 0 # Unstageable Pressure Ulcers (Non-remove Dress)-Admission: 0 # Unstageable Pressure Ulcers (Slough/Eschar)-Admission: 0 # Unstageable Pressure Ulcers (Deep Tissue Injury)-Admission: 0
[2017-04-13] MEDS ORDERED: ONDANSETRON DISINTEGRATING 4 MG TAB PO PRN (15:49)
[2017-04-13] MEDS ORDERED: ALBUTEROL 200 PUFFS/18 GM MDI IH PRN (16:00)
--- NOTE | 2017-04-13 17:34 | GHP ---
[f rep st] HISTORY AND PHYSICAL DATE OF ADMISSION: 04/13/2017 TIME OF EVALUATION: 1603. REFERRING FACILITY: [facility]. REFERRING PHYSICIAN: Dr. Saenz IMPAIRMENT GROUP: 2.9, other brain. DATE OF ONSET: 04/05/2017. POST ADMISSION PHYSICIAN EVALUATION AND REHABILITATION TREATMENT PLAN CONSULTING PHYSICIAN: Neurology, Dr. Garnett. ETIOLOGIC DIAGNOSIS: CLIPPERS disease. REHAB DIAGNOSIS: Ataxia, diplopia, dysphagia. 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 The , who was present today and assisted with the history stated that her symptoms initially began as nausea and vomiting back in August of 2016, and she subsequently underwent cholecystectomy on September 25, 2016, with moderate intermittent decrease in nausea and vomiting. However, her symptoms worsened in December when she developed worsening dysarthria, ataxia, dysmetria, dysphagia, and diplopia. Just prior to discharge, she was ambulating in her house using an FWW and short distances in the community, taking walks with her , but also using the FWW. She has been receiving outpatient occupational therapy, speech therapy, and physical therapy at [facility], which she states has really helped with her gait quality. However, she does note declining upper and lower extremity strength, which she states is secondary to long periods of sitting. On her recent hospital admission at [facility], she underwent a lumbar puncture which initially was negative, negative vasculitis workup. A brain biopsy was performed on 04/10 and the pathology report is pending. Once the results of the brain biopsy are known, then Neurology may consider IV steroids to treat CLIPPERS syndrome. LABORATORY STUDIES: From 04/14, hemoglobin 12.9, hematocrit 35.4, white count 6.84. from 04/11, sodium 139, potassium 4.5, BUN 10, creatinine 0.7. She had a head CT on 04/12/2016 which showed a mild hemorrhage in the right occipital biopsy bed without mass effect, diffuse cerebral atrophy with periventricular and subcortical low attenuation consistent with chronic microvascular ischemic gliosis. MRI of the brain performed on 04/10/2017 showed diffuse 1 to 2 mm enhancing lesions throughout the bilateral cerebral hemispheres extending into the brainstem and bilateral cerebellar hemispheres. There was also involvement with the bilateral basal ganglia and cerebral hemispheres. Hyperintense lesions were noted in the brainstem and bilateral cerebellar hemispheres and thalami. No hemorrhage or mass effect. The cerebellar tonsils were normal. The impression was diffuse bilateral micronodular enhancing lesions throughout, especially involving the brainstem, bilateral cerebellar hemispheres and bilateral basal ganglia suspicious for diffuse metastatic disease with inflammatory infectious etiologies less likely. CT angiogram of the head and neck showed no acute findings. PRECAUTIONS: She is a fall risk. Aspiration precautions. ACTIVE COMORBIDITIES: Depression, dysphagia. PAST MEDICAL HISTORY: Depression. Asthma. Possible irritable bowel syndrome. PAST SURGICAL HISTORY: Breast reduction. Right shoulder surgery. Cholecystectomy. ADMISSION MEDICATIONS: 1. Protonix 40 mg daily. 2. Ondansetron HCl 8 mg b.i.d. p.r.n. 3. Proventil inhaler 1 to 2 puffs daily. 4. Colace 100 mg daily. 5. Herbal/supplements, unspecified. 6. Sertraline HCl 100 mg daily. 7. Klonopin 0.5 mg p.o. t.i.d. p.r.n. anxiety. 8. Flonase nasal spray 2 puffs each nostril daily. 9. Senokot S 1-2 tablets p.o. b.i.d. Pre-hospital medications include the above plus rivaroxaban 20 mg p.o. q.h.s., which is due to be restarted on 04/16/2017. ALLERGIES: She is allergic to sulfa. REVIEW OF SYSTEMS: HEENT: Reports dizziness. Rates current dizziness as being present 50% of the time. She reports numbness in her tongue and mandibular region. GI: Reports dysphagia. Noted to be on dysphagia 2 diet. Currently reports mild nausea. No recent vomiting. Reports continent of bowels. Denies constipation. : Denies hematuria, dysuria or flank pain. NEUROLOGIC: Reports mild right upper extremity weakness. Reports diplopia, both eyes. reports dysmetria noted when she is using feeding utensils. SKIN: Denies skin breakdown. MUSCULOSKELETAL: Denies upper or lower extremity joint pain. 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 Lives with . Previously very active in hobbies which include quilting. Enjoys exercise. Has supportive family. FAMILY HISTORY: Possible history of autoimmune disease with sisters. PHYSICAL EXAM: GENERAL: WDWN, pleasant female, appears in moderate distress, sitting in a wheelchair, which she states is secondary to dizziness and feeling fatigued. VITALS: Pending. HEENT: Extraocular muscles are intact. Tracks across all visual calderon. No nystagmus. Oral mucosa moist. Good dentition. NECK: Supple. No JVD. CARDIOVASCULAR: Regular rate and rhythm. No murmurs, rubs, or gallops. No lower extremity edema. No right or left calf tenderness. PULMONARY: Lungs clear to auscultation. ABDOMEN: Soft, nontender, nondistended. Normoactive bowel sounds all 4 quadrants. No rebound, guarding, or tenderness. NEUROLOGIC: The patient reports diplopia. Cranial nerves 2-12 intact with the exception of numbness reported in the lower jaw and tongue. Otherwise, sensation to light touch is intact both upper and lower extremities. Motor testing revealed grossly normal strength of both upper and lower extremities with the exception of mild weakness of the right anterior and lateral deltoid and biceps. Reflexes were normal and symmetric in the upper and lower extremities. Negative Evans's test. No ankle clonus. Negative Lhermitte's test. SKIN: Warm all 4 extremities. CURRENT LEVEL OF FUNCTION: Eating: She is on a dysphagia type 2 diet, nectar thick liquids. Upright with all oral intake, [id number] dysphagia. Grooming min assist. Bathing mid assist with verbal cuing. Dressing: Seated with SBA to min assist for lower body, upper body min assist with verbal cuing. Toileting required assistance. She was continent of bowel and bladder. Bed mobility min to mod assist with verbal cuing. The patient was noted to be impulsive, requiring cues to pace herself. Transfers min to mod assist with verbal cuing. Ambulation: She ambulated 60 feet with moderate to maximum assist using verbal cues with the FWW. High stepping gait pattern, festinating. Communication: Moderate impairment in attention, executive, memory, and function. Cognition: Slow processing and delay in response. Safety precautions: Falls due to inattention. Dysphagia precautions. Upper extremity range of motion and strength impaired. Upper extremity coordination left greater than right with right upper extremity weakness. IMPRESSION: A very pleasant 72-year-old female with tentative diagnosis of CLIPPERS disease, pending brain biopsy. If brain biopsy consistent with CLIPPERS disease, then Neurology most likely to start steroid treatment. She has diplopia, dysphagia, ataxia, dysarthria, and impaired mobility secondary to dizziness. She has general upper extremity weakness and deconditioning secondary to long periods of sitting. Patient will require close medical management by rehab MT secondary to risk for changes in neurological function, pain management, risk for dysphagia and risk for aspiration. The patient requires dietary consultation due to poor intake secondary to nausea. The patient will require intensive physical therapy, occupational therapy, and speech language pathology to maximize patient's functional independence and safety to allow to return home. She has risks for the following medical/ clinical complications: Aspiration, infection, dysphagia, seizure risk, nutrition, skin issues, and deep venous thrombosis/pulmonary embolus. She will also require pain control. She will benefit from physical therapy, occupational therapy, speech and language pathology for 60 minutes per day 5 to 7 days per week. Estimated length of stay is 10-14 days. PLAN: 1. 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 Awaiting brain biopsy results. If brain biopsy confirms CLIPPERS disease, then will work closely with Neurology to institute recommended steroid therapy. 2. Diplopia. Will ask Occupational Therapy to help manage with eye patch or some type of corrective lenses. 3. Dysphagia. The patient is currently on a dysphagia type 2 diet. Discussed case with Speech Therapy, who is planning on seeing patient tomorrow for full evaluation and recommendations. 4. Dizziness. Begin meclizine 25 mg b.i.d. 5. Nausea. Continue Zofran 8 mg p.o. b.i.d. p.r.n. 6. GERD. Continue Protonix. 7. Asthma. Continue Proventil inhaler 1 to 2 puffs daily p.r.n. shortness of breath. 8. Depression. Continue Zoloft 100 mg p.o. daily. 9. Ataxia. Physical and occupational therapy consult to work on upper and lower extremity strength respectively. Physical and Occupational Therapy may work in concert to address trunk strength to improve seating and standing posture as well as quality of gait. Occupational Therapy to make recommendations for assistive devices to make ADLs proficient. Address right upper extremity weakness. /[id number]/MODL MTDD
[2017-04-13] MEDS: MECLIZINE HCL 25 MG TAB PO SCH (20:39)
[2017-04-13] MEDS: SENNOSIDES/DOCUSATE SODIUM TAB PO SCH (20:39)
[2017-04-14] MEDS: MECLIZINE HCL 25 MG TAB PO SCH ×2 (08:25→20:08)
[2017-04-14] MEDS: SENNOSIDES/DOCUSATE SODIUM TAB PO SCH ×2 (08:25→20:08)
[2017-04-14 09:27] LABS: PLATELET COUNT 192 10^3/uL (150-400)
--- NOTE | 2017-04-14 11:51 | SOAPPROG ---
SOAP Progress Note Assessment/Plan: Assessment: IMPRESSION: A very pleasant 72-year-old female with tentative diagnosis of CLIPPERS disease, pending brain biopsy. If brain biopsy consistent with CLIPPERS disease, then Neurology most likely to start steroid treatment. She has diplopia, dysphagia, ataxia, dysarthria, and impaired mobility secondary to dizziness. She has general upper extremity weakness and deconditioning secondary to long periods of sitting. Patient will require close medical management by rehab MT secondary to risk for changes in neurological function, pain management, risk for dysphagia and risk for aspiration. The patient requires dietary consultation due to poor intake secondary to nausea. The patient will require intensive physical therapy, occupational therapy, and speech language pathology to maximize patient's functional independence and safety to allow to return home. She has risks for the following medical/ clinical complications: Aspiration, infection, dysphagia, seizure risk, nutrition, skin issues, and deep venous thrombosis/pulmonary embolus. She will also require pain control. She will benefit from physical therapy, occupational therapy, speech and language pathology for 60 minutes per day 5 to 7 days per week. Estimated length of stay is 10-14 days. PLAN: 1. 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 Awaiting brain biopsy results. If brain biopsy confirms CLIPPERS disease, then will work closely with Neurology to institute recommended steroid therapy. 2. Diplopia. Occupational therapy has placed an occlusion on the right lens of her glasses to address diplopia. 3. Dysphagia. The patient is currently on a dysphagia type 2 diet. Her speech therapist has indicated that she may need to be on a more restricted diet. An updated swallowing study is most likely needed. Will place order for this. 4. Dizziness. Begin meclizine 25 mg b.i.d. If this is not helpful then will increase meclizine to 50 mg twice daily. 5. Nausea. Continue Zofran 8 mg p.o. b.i.d. p.r.n. 6. GERD. Continue Protonix. 7. Asthma. Continue Proventil inhaler 1 to 2 puffs daily p.r.n. shortness of breath. 8. Depression. Continue Zoloft 100 mg p.o. daily. Patient currently denies feeling depressed. She does not wish for her Zoloft dosage to be increased. 9. Ataxia. Physical and occupational therapy consult to work on upper and lower extremity strength respectively. Physical and Occupational Therapy may work in concert to address trunk strength to improve seating and standing posture as well as quality of gait. Occupational Therapy to make recommendations for assistive devices to make ADLs proficient. Address right upper extremity weakness. 04/14/17 11:52 Subjective: She reports that she vomited up this morning. She is having intermittent dizziness but it is not as severe as noted yesterday. She reports that she is fatigued from her 1st physical therapy session earlier this morning. She currently denies being depressed. In the team meeting this morning, nursing reported that she responded affirmative to the question about wanting to end her life. She does not have a plan regarding this. She currently denies feeling depressed. Objective: Vital Signs Temp Pulse Resp BP Pulse Ox 36.8 C 79 16 129/73 H 94 04/14/17 06:46 04/14/17 06:46 04/14/17 06:46 04/14/17 06:46 04/14/17 06:46 Laboratory Results 04/14/17 06:10 04/14/17 06:10 04/13/17 04/14/17 04/15/17 05:59 05:59 05:59 Intake Total 420 Output Total 150 Balance 270 Physical Exam - Physical Exam General Appearance: WD/WN, alert, other (Depressed affect,) Respiratory: lungs clear, normal breath sounds Cardiac/Chest: regular rate, rhythm, No edema Abdomen: normal bowel sounds, non-tender, soft Extremities: No swelling, No Angeles's sign Neuro/Psych: motor weakness (Mild right upper extremity weakness. Gait evaluation not performed at this time.), speech abnormalities (Mild dysarthria) ICD10 Worksheet Patient Problems: Problems Problem Status Onset Dehydration Acute Dysphagia Acute Failure to thrive in adult Acute Nausea Acute Nausea with vomiting Acute Pulmonary embolus Acute Vomiting Acute
[2017-04-14] MEDS: PANTOPRAZOLE SODIUM 40 MG TAB PO SCH (13:42)
[2017-04-14] MEDS: SERTRALINE HCL 100 MG TAB PO SCH (13:42)
[2017-04-14] MEDS: clonazePAM 0.5 MG TAB PO PRN (21:20)
[2017-04-15] MEDS: SENNOSIDES/DOCUSATE SODIUM TAB PO SCH ×2 (07:48→19:35)
[2017-04-15] MEDS: MECLIZINE HCL 25 MG TAB PO SCH ×2 (07:48→19:28)
--- NOTE | 2017-04-15 09:41 | SOAPPROG ---
SOAP Progress Note Assessment/Plan: Assessment/Plan Ms. Fan is a 72-year-old female with tentative diagnosis of CLIPPERS disease , pending brain biopsy. If brain biopsy consistent with CLIPPERS disease, then Neurology most likely to start steroid treatment. She has diplopia, dysphagia, ataxia, dysarthria, and impaired mobility secondary to dizziness. She has general upper extremity weakness and deconditioning secondary to long periods of sitting. Patient will require close medical management by rehab MT secondary to risk for changes in neurological function, pain management, risk for dysphagia and risk for aspiration. The patient requires dietary consultation due to poor intake secondary to nausea. The patient will require intensive physical therapy, occupational therapy, and speech language pathology to maximize patient's functional independence and safety to allow to return home. She has risks for the following medical/clinical complications: Aspiration, infection, dysphagia, seizure risk, nutrition, skin issues, and deep venous thrombosis/pulmonary embolus. She will also require pain control. She will benefit from physical therapy, occupational therapy, speech and language pathology for 60 minutes per day 5 to 7 days per week. Estimated length of stay is 10-14 days. PLAN: 1. 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 Awaiting brain biopsy results. If brain biopsy confirms CLIPPERS disease, then will work closely with Neurology to institute recommended steroid therapy. 2. Diplopia. Occupational therapy has placed an occlusion on the right lens of her glasses to address diplopia. 3. Dysphagia. The patient is currently on a dysphagia type 2 diet. Her speech therapist has indicated that she may need to be on a more restricted diet. An updated swallowing study is most likely needed. Will place order for this. 4. Dizziness. Begin meclizine 25 mg b.i.d. If this is not helpful then will increase meclizine to 50 mg twice daily. 5. Nausea. Continue Zofran 8 mg p.o. b.i.d. p.r.n. 6. GERD. Continue Protonix. 7. Asthma. Continue Proventil inhaler 1 to 2 puffs daily p.r.n. shortness of breath. 8. Depression. Continue Zoloft 100 mg p.o. daily. Patient currently denies feeling depressed. She does not wish for her Zoloft dosage to be increased. 9. Ataxia. Physical and occupational therapy consult to work on upper and lower extremity strength respectively. Physical and Occupational Therapy may work in concert to address trunk strength to improve seating and standing posture as well as quality of gait. Occupational Therapy to make recommendations for assistive devices to make ADLs proficient. Address right upper extremity weakness. Today's Updates: Pt code status changed to DNR per patient request - Able to demonstrated ability to understand information regarding code status change. Placed order for VFSS for tomorrow - hopeful for an upgrade to his diet. Also adding prn Flonase 04/15/17 09:37 Subjective: Feeling pretty good this morning.She brought up wanting to change her code status - Had a good conversation regarding the difference between full code and DNR status. Pt was able to demonstrate good understanding of this decision. She also is hopeful that her swallow will be improved - hard to maintain a good appetite with current diet. NO new neurologic changes. no fevers/chills Objective: Vital Signs Temp Pulse Resp BP Pulse Ox 36.4 C 74 12 124/60 H 91 L 04/15/17 06:41 04/15/17 06:41 04/15/17 06:41 04/15/17 06:41 04/15/17 06:41 Laboratory Results 04/14/17 06:10 04/14/17 06:10 04/14/17 04/15/17 04/16/17 05:59 05:59 06:59 Intake Total 420 120 60 Output Total 150 400 Balance 270 -280 60 Physical Exam - Physical Exam General Appearance: alert, no apparent distress Respiratory: lungs clear, normal breath sounds Cardiac/Chest: regular rate, rhythm Abdomen: non-tender, soft Neuro/Psych: alert, other (slow to answer although all answers are appropriate and accurate. ) ICD10 Worksheet Patient Problems: Problems Problem Status Onset Dehydration Acute Dysphagia Acute Failure to thrive in adult Acute Nausea Acute Nausea with vomiting Acute Pulmonary embolus Acute Vomiting Acute
[2017-04-15] MEDS ORDERED: FLUTICASONE NASAL 120 SPRAYS/16 GM MDI EACHNARE PRN (09:52)
[2017-04-15] MEDS: SERTRALINE HCL 100 MG TAB PO SCH (13:02)
[2017-04-15] MEDS: PANTOPRAZOLE SODIUM 40 MG TAB PO SCH (13:02)
[2017-04-16] MEDS: clonazePAM 0.5 MG TAB PO PRN (03:40)
[2017-04-16] MEDS: MECLIZINE HCL 25 MG TAB PO SCH ×2 (08:10→19:23)
[2017-04-16] MEDS: RIVAROXABAN 20 MG TAB PO SCH (08:10)
[2017-04-16] MEDS: SENNOSIDES/DOCUSATE SODIUM TAB PO SCH ×2 (08:10→19:22)
--- NOTE | 2017-04-16 10:14 | SOAPPROG ---
SOAP Progress Note Assessment/Plan: Assessment/Plan Ms. Fan is a 72-year-old female with tentative diagnosis of CLIPPERS disease , pending brain biopsy. If brain biopsy consistent with CLIPPERS disease, then Neurology most likely to start steroid treatment. She has diplopia, dysphagia, ataxia, dysarthria, and impaired mobility secondary to dizziness. She has general upper extremity weakness and deconditioning secondary to long periods of sitting. Patient will require close medical management by rehab MT secondary to risk for changes in neurological function, pain management, risk for dysphagia and risk for aspiration. The patient requires dietary consultation due to poor intake secondary to nausea. The patient will require intensive physical therapy, occupational therapy, and speech language pathology to maximize patient's functional independence and safety to allow to return home. She has risks for the following medical/clinical complications: Aspiration, infection, dysphagia, seizure risk, nutrition, skin issues, and deep venous thrombosis/pulmonary embolus. She will also require pain control. She will benefit from physical therapy, occupational therapy, speech and language pathology for 60 minutes per day 5 to 7 days per week. Estimated length of stay is 10-14 days. PLAN: 1. 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 Awaiting brain biopsy results. If brain biopsy confirms CLIPPERS disease, then will work closely with Neurology to institute recommended steroid therapy. 2. Diplopia. Occupational therapy has placed an occlusion on the right lens of her glasses to address diplopia. 3. Dysphagia. The patient is currently on a dysphagia type 2 diet. Her speech therapist has indicated that she may need to be on a more restricted diet. An updated swallowing study is most likely needed. Will place order for this. 4. Dizziness. Begin meclizine 25 mg b.i.d. If this is not helpful then will increase meclizine to 50 mg twice daily. 5. Nausea. Continue Zofran 8 mg p.o. b.i.d. p.r.n. 6. GERD. Continue Protonix. 7. Asthma. Continue Proventil inhaler 1 to 2 puffs daily p.r.n. shortness of breath. 8. Depression. Continue Zoloft 100 mg p.o. daily. Patient currently denies feeling depressed. She does not wish for her Zoloft dosage to be increased. 9. Ataxia. Physical and occupational therapy consult to work on upper and lower extremity strength respectively. Physical and Occupational Therapy may work in concert to address trunk strength to improve seating and standing posture as well as quality of gait. Occupational Therapy to make recommendations for assistive devices to make ADLs proficient. Address right upper extremity weakness. Today's Updates: Pt will go for new Swallow study today at noon - no episodes of chocking or other yesterday. Awaiting biopsy results to determine course of treatment - Pt reporting benefit with recently added meclizine. 04/16/17 10:11 Subjective: Feeling pretty good - really hopeful that the [facility] swallow test today demonstrates good results since she is wanting to be able to improve her dietary selection. No new pain, no fevers/chills, no new neurologic concerns Objective: Vital Signs Temp Pulse Resp BP Pulse Ox 36.7 C 79 18 95/58 L 96 04/16/17 08:00 04/16/17 08:00 04/16/17 08:00 04/16/17 08:00 04/16/17 08:00 Laboratory Results 04/14/17 06:10 04/14/17 06:10 04/15/17 04/16/17 04/17/17 04:59 05:59 05:59 Intake Total Output Total Balance Physical Exam - Physical Exam General Appearance: alert Respiratory: lungs clear, normal breath sounds Cardiac/Chest: regular rate, rhythm Abdomen: normal bowel sounds, non-tender Skin: warm/dry Neuro/Psych: alert, normal mood/affect ICD10 Worksheet Patient Problems: Problems Problem Status Onset Dehydration Acute Dysphagia Acute Failure to thrive in adult Acute Nausea Acute Nausea with vomiting Acute Pulmonary embolus Acute Vomiting Acute
[2017-04-16] MEDS: SERTRALINE HCL 100 MG TAB PO SCH (14:01)
[2017-04-16] MEDS: PANTOPRAZOLE SODIUM 40 MG TAB PO SCH (14:01)
[2017-04-17] MEDS: SENNOSIDES/DOCUSATE SODIUM TAB PO SCH ×2 (08:21→20:21)
[2017-04-17] MEDS: MECLIZINE HCL 25 MG TAB PO SCH ×2 (08:21→20:14)
[2017-04-17] MEDS: RIVAROXABAN 20 MG TAB PO SCH (08:21)
--- NOTE | 2017-04-17 13:18 | SOAPPROG ---
SOAP Progress Note Assessment/Plan: Assessment: PER REHAB ROUNDS THIS MORNING: NURSING: SHE HAD 1 EPISODE OF URINARY INCONTINENCE YESTERDAY. SHE SLEPT THROUGH THE NIGHT. HER BLOOD PRESSURES ARE RUNNING A LITTLE LOW. CASE MANAGEMENT-SHE LIVES IN [place] WITH HER . SHE HAS BEEN TAKING ZOLOFT 100 MG FOR DEPRESSION SINCE 2017 AND HAS A LOCAL PRIVATE THERAPIES FOR THIS. DIETARY-CALORIE COUNT 325 CALORIES, 20 G PROTEIN PER MEAL WHICH IS 75% OF DAILY ALLOWABLE. SHE IS DENYING PROTEIN SHAKE SUPPLEMENTS. SPEECH THERAPY-SEE BELOW. SHE IS ON WATER PROTOCOL WITH TSP AMOUNTS. OCCUPATIONAL THERAPY- TOILETING WITH VERBAL CUES. FRONT WHEELED WALKER SHORT DISTANCES. LOWER BODY DRESSING WITH CUES INDEPENDENT WITH UPPER BODY DRESSING WITH SETUP. PHYSICAL THERAPY-BED MOBILITY STANDBY ASSIST, TRANSFERS MIN ASSIST TO CONTACT GUARD ASSIST. WITH WALKING SHE COULD LOOKS PARKINSONIAN". RELIES ON UPPER EXTREMITIES FOR BALANCE. STANDING BALANCE IS WITH TRUNK LIST AND NEEDS VERBAL CUING TO SELF-CORRECT. TOTAL AMBULATION DISTANCE 120 FT. PATIENT HAS NOT BEEN REPORTING DIZZINESS TO PHYSICAL THERAPY. IMPRESSION: A very pleasant 72-year-old female with tentative diagnosis of CLIPPERS disease, pending brain biopsy. If brain biopsy consistent with CLIPPERS disease, then Neurology most likely to start steroid treatment. She has diplopia, dysphagia, ataxia, dysarthria, and impaired mobility secondary to dizziness. She has general upper extremity weakness and deconditioning secondary to long periods of sitting. Patient will require close medical management by rehab MT secondary to risk for changes in neurological function, pain management, risk for dysphagia and risk for aspiration. The patient requires dietary consultation due to poor intake secondary to nausea. The patient will require intensive physical therapy, occupational therapy, and speech language pathology to maximize patient's functional independence and safety to allow to return home. She has risks for the following medical/ clinical complications: Aspiration, infection, dysphagia, seizure risk, nutrition, skin issues, and deep venous thrombosis/pulmonary embolus. She will also require pain control. She will benefit from physical therapy, occupational therapy, speech and language pathology for 60 minutes per day 5 to 7 days per week. Estimated length of stay is 10-14 days. PLAN: 1. 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 Awaiting brain biopsy results. If brain biopsy confirms CLIPPERS disease, then will work closely with Neurology to institute recommended steroid therapy. 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 DR. EMANUEL MAY WANT TO CONSIDER SINEMET FOR THIS. 2. Diplopia. Occupational therapy has placed an occlusion on the right lens of her glasses to address diplopia. 3. Dysphagia. PER SPEECH THERAPY IN ROUNDS THIS MORNING: SHE HAD A REPEAT VIDEO SWALLOWING STUDY OVER THE WEEKEND AND ASPIRATED WITH NECTAR THICK IN A CUP BUT WAS SAFE WITH NECTAR THICK TSP AMOUNTS. THEREFORE SHE HAS BEEN PLACED ON A DYSPHAGIA LEVEL 3 DIET. SHE CAN HAVE MAGIC ICE CREAM. SHE CAN TAKE HER PILLS WITH PUREES. HER PHYSICAL THERAPIST IS WORKING WITH STRATEGIES TO BE SAFE , RUSS SWALLOW TECHNIQUES. 4. Dizziness. CONTINUE meclizine 25 mg b.i.d. If this is not helpful then will increase meclizine to 50 mg twice daily. 5. Nausea. Continue Zofran 8 mg p.o. b.i.d. p.r.n. 6. GERD. Continue Protonix. 7. Asthma. Continue Proventil inhaler 1 to 2 puffs daily p.r.n. shortness of breath. 8. Depression. Continue Zoloft 100 mg p.o. daily. Patient currently denies feeling depressed. She does not wish for her Zoloft dosage to be increased. 9. Ataxia. Physical and occupational therapy consult to work on upper and lower extremity strength respectively. Physical and Occupational Therapy may work in concert to address trunk strength to improve seating and standing posture as well as quality of gait. Occupational Therapy to make recommendations for assistive devices to make ADLs proficient. Address right upper extremity weakness. 04/14/17 11:52 04/17/17 13:19 Subjective: SHE REPORTS YESTERDAY WAS SOMEWHAT OF A DIFFICULT DAY FOR HER. SHE REPORTS SHE DID NOT FEEL WELL. SHE FELT VERY FATIGUED. SHE REPORTS THAT HER APPETITE IS GOOD. Objective: Vital Signs Temp Pulse Resp BP Pulse Ox 36.6 C 93 20 100/62 97 04/17/17 08:00 04/17/17 08:00 04/17/17 08:00 04/17/17 08:00 04/17/17 08:00 Laboratory Results 04/14/17 06:10 04/14/17 06:10 04/16/17 04/17/17 04/18/17 05:59 05:59 05:59 Intake Total 50 300 Output Total 500 300 Balance -450 0 Physical Exam - Physical Exam General Appearance: WD/WN, alert Respiratory: lungs clear, normal breath sounds Abdomen: non-tender, soft Skin: other (SCALP INCISION IS HEALING WELL) Neuro/Psych: alert, oriented x 3, motor weakness (MILD WEAKNESS RIGHT UPPER EXTREMITY.), cognition abnormalities, depressed affect (MILD DYSARTHRIA.) ICD10 Worksheet Patient Problems: Problems Problem Status Onset Dehydration Acute Dysphagia Acute Failure to thrive in adult Acute Nausea Acute Nausea with vomiting Acute Pulmonary embolus Acute Vomiting Acute
[2017-04-17] MEDS: SERTRALINE HCL 100 MG TAB PO SCH (13:59)
[2017-04-17] MEDS: PANTOPRAZOLE SODIUM 40 MG TAB PO SCH (13:59)
[2017-04-18] MEDS: RIVAROXABAN 20 MG TAB PO SCH (07:58)
[2017-04-18] MEDS: MECLIZINE HCL 25 MG TAB PO SCH ×2 (07:58→20:00)
[2017-04-18] MEDS: SENNOSIDES/DOCUSATE SODIUM TAB PO SCH ×2 (07:58→20:00)
--- NOTE | 2017-04-18 12:07 | NEUROPROG ---
Assessment: The patient's preliminary brain biopsy results are not showing evidence of malignancy or lymphoma, just some nonspecific inflammation that is apparently not very prominent. Final results are pending review at pathology. However, I spoke to the fellow in neuroimmunology at , Dr. Reyes who will be seeing the patient Monday, and she also feels that CLIPPERS syndrome may be the diagnosis and saw no downside to starting steroids. I presented this to the patient and her Sister. She would like to try. I will start daily IV Solumedrol 1000mg. We can see how she does and adjust plans accordingly but still needs to have the appointment on Monday and continue rehab. Subjective: Pt is reporting feeling a little better and certainly some variation in ability to do her rehab. Objective: Vital Signs Temp Pulse Resp BP Pulse Ox 37.0 C 76 15 93/36 L 90 L 04/18/17 08:00 04/18/17 08:00 04/18/17 08:00 04/18/17 08:00 04/18/17 08:00 Laboratory Results 04/14/17 06:10 04/14/17 06:10 04/17/17 04/18/17 04/19/17 05:59 05:59 05:59 Intake Total 50 380 Output Total 500 400 Balance -450 -20 Allergies/Adverse Reactions: Sulfa (Sulfonamide Antibiotics) Allergy (Intermediate, Verified 04/05/17 11:01) Other-Enter Comments
[2017-04-18] MEDS: SERTRALINE HCL 100 MG TAB PO SCH (15:06)
[2017-04-18] MEDS: PANTOPRAZOLE SODIUM 40 MG TAB PO SCH (15:06)
[2017-04-18] MEDS: methylPREDNISolone SOD SUCC 1 GM in D5W 100 ML IV SCH (15:07)
--- NOTE | 2017-04-18 15:13 | SOAPPROG ---
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 Neurology is initiating methylprednisolone 1 g IV q.day. * Ambulating 120 ft with front wheeled walker. Independent with upper body dressing, cues for lower body dressing. Transfers minimal assist to contact guard assist. Continue PT and OT. * Observe for improvement. * Discussed adverse effects of high-dose steroids including insomnia, dorothy, and long-term risk for osteoporosis. She denies history of bipolar disorder or osteoporosis. * Follow up with Dr. Reyes at [facility] neuroimmunology on 04/21/2017. 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 * Observe for improvement with high-dose corticosteroids. * Dysphagia * Continue MARINATOR. * Observe for signs or symptoms of dehydration. * Diplopia. Continue OT and alternate taping of eyeglasses. * Dizziness. CONTINUE meclizine 25 mg b.i.d. If this is not helpful then will increase meclizine to 50 mg twice daily. * Nausea. Continue Zofran 8 mg p.o. b.i.d. p.r.n. * GERD. Continue Protonix. * Asthma. Continue Proventil inhaler 1 to 2 puffs daily p.r.n. shortness of breath. * Depression. Continue Zoloft 100 mg p.o. daily. Patient currently denies feeling depressed. She does not wish for her Zoloft dosage to be increased. 04/18/17 15:07 Subjective: No complaints today. Not in pain. No cough or dyspnea. She does not feel thirsty. Reports that things are going well with therapies. Objective: Vital Signs Temp Pulse Resp BP Pulse Ox 37.0 C 76 15 93/36 L 90 L 04/18/17 08:00 04/18/17 08:00 04/18/17 08:00 04/18/17 08:00 04/18/17 08:00 Laboratory Results 04/14/17 06:10 04/14/17 06:10 04/17/17 04/18/17 04/19/17 05:59 05:59 05:59 Intake Total 50 380 Output Total 500 400 325 Balance -450 -20 -325 Physical Exam - Physical Exam General Appearance: WD/WN, alert, no apparent distress Respiratory: normal breath sounds, No crackles, No rhonchi, No wheezing Cardiac/Chest: regular rate, rhythm, No edema, No diastolic murmur, No systolic murmur Skin: normal color, warm/dry Extremities: normal range of motion Neuro/Psych: alert, normal mood/affect, oriented x 3, other (Bradykinesia, hypophonia ), No motor weakness ICD10 Worksheet Patient Problems: Problems Problem Status Onset Dehydration Acute Dysphagia Acute Failure to thrive in adult Acute Nausea Acute Nausea with vomiting Acute Pulmonary embolus Acute Vomiting Acute
[2017-04-18] MEDS: clonazePAM 0.5 MG TAB PO PRN (20:01)
[2017-04-19] MEDS: SENNOSIDES/DOCUSATE SODIUM TAB PO SCH ×2 (09:10→20:21)
[2017-04-19] MEDS: MECLIZINE HCL 25 MG TAB PO SCH ×2 (09:10→20:21)
[2017-04-19] MEDS: RIVAROXABAN 20 MG TAB PO SCH (09:10)
[2017-04-19] MEDS: methylPREDNISolone SOD SUCC 1 GM in D5W 100 ML IV SCH (09:10)
--- NOTE | 2017-04-19 09:36 | SOAPPROG ---
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 Neurology initiated methylprednisolone 1 g IV q.day on 04/18/2017. * Ambulating 120 ft with front wheeled walker. Independent with upper body dressing, cues for lower body dressing. Transfers minimal assist to contact guard assist. Continue PT and OT. * Observe for improvement. * Discussed adverse effects of high-dose steroids including insomnia, dorothy, and long-term risk for osteoporosis. She denies history of bipolar disorder or osteoporosis. * Follow up with Dr. Reyes at [facility] neuroimmunology on 04/21/2017. 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 * Observe for improvement with high-dose corticosteroids. * Dysphagia * Continue TELEPHONE INSTALLER. * Observe for signs or symptoms of dehydration. * Diplopia. Continue OT and alternate taping of eyeglasses. * Dizziness. Continue meclizine 25 mg b.i.d. If this is not helpful then will increase meclizine to 50 mg twice daily. * Nausea. Continue Zofran 8 mg p.o. b.i.d. p.r.n. * GERD. Continue Protonix. * Asthma. Continue Proventil inhaler 1 to 2 puffs daily p.r.n. shortness of breath. * Depression. Continue Zoloft 100 mg p.o. daily. Patient currently denies feeling depressed. She does not wish for her Zoloft dosage to be increased. Anticipate discharge home with family. They have a long-term care insurance policy. She will need a front wheeled walker, wheelchair, shower seat, grab bars. She will have home PT OT and TELEPHONE INSTALLER. Tentative discharge date of 05/08/2017. 04/19/17 12:24 Subjective: CLIPPERS syndrome on high-dose IV methylprednisolone 1 g q.day: No complaints this morning. Slept well after taking clonazepam. Has not noticed any improvement after initial dose of IV methylprednisolone. Objective: Vital Signs Temp Pulse Resp BP Pulse Ox 36.5 C 81 16 116/62 91 L 04/18/17 19:29 04/18/17 19:29 04/18/17 19:29 04/18/17 19:29 04/18/17 19:29 Laboratory Results 04/14/17 06:10 04/14/17 06:10 04/18/17 04/19/17 04/20/17 05:59 05:59 05:59 Intake Total 380 108 Output Total 400 550 Balance -20 -442 Physical Exam - Physical Exam General Appearance: WD/WN, alert, no apparent distress Respiratory: normal breath sounds, No crackles, No rhonchi, No wheezing Cardiac/Chest: regular rate, rhythm, edema (Trace bilateral pretibial), No diastolic murmur, No systolic murmur Skin: normal color, warm/dry Neuro/Psych: alert, normal mood/affect, oriented x 3, other (Bradykinesia) ICD10 Worksheet Patient Problems: Problems Problem Status Onset Dehydration Acute Dysphagia Acute Failure to thrive in adult Acute Nausea Acute Nausea with vomiting Acute Pulmonary embolus Acute Vomiting Acute
[2017-04-19] MEDS: SERTRALINE HCL 100 MG TAB PO SCH (15:02)
[2017-04-19] MEDS: PANTOPRAZOLE SODIUM 40 MG TAB PO SCH (15:02)
[2017-04-19] MEDS: clonazePAM 0.5 MG TAB PO PRN (20:21)
[2017-04-20] MEDS: RIVAROXABAN 20 MG TAB PO SCH (08:51)
[2017-04-20] MEDS: MECLIZINE HCL 25 MG TAB PO SCH ×2 (08:51→20:26)
[2017-04-20] MEDS: SENNOSIDES/DOCUSATE SODIUM TAB PO SCH ×2 (08:51→20:27)
[2017-04-20] MEDS: methylPREDNISolone SOD SUCC 1 GM in D5W 100 ML IV SCH (09:07)
--- NOTE | 2017-04-20 11:41 | SOAPPROG ---
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 Neurology initiated methylprednisolone 1 g IV q.day on 04/18/2017. * Ambulating 120 ft with front wheeled walker. Independent with upper body dressing, cues for lower body dressing. Transfers minimal assist to contact guard assist. Continue PT and OT. * Observe for improvement. * Discussed adverse effects of high-dose steroids including insomnia, dorothy, and long-term risk for osteoporosis. She denies history of bipolar disorder or osteoporosis. * Follow up with Dr. Reyes at [facility] neuroimmunology on 04/21/2017. 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 * Observe for improvement with high-dose corticosteroids. * Dysphagia * Continue MENTAL HEALTH ASSISTANT. * She is likely not keeping up adequately with hydration. Will check weight and orthostatic vital signs today, 04/20/2017, and initiate IV normal saline 1000 cc at 150 cc an hour. * Diplopia. Continue OT and alternate taping of eyeglasses. * Dizziness. Continue meclizine 25 mg b.i.d. If this is not helpful then will increase meclizine to 50 mg twice daily. * Nausea. Continue Zofran 8 mg p.o. b.i.d. p.r.n. * GERD. Continue Protonix. * Asthma. Continue Proventil inhaler 1 to 2 puffs daily p.r.n. shortness of breath. * Depression. Continue Zoloft 100 mg p.o. daily. Patient currently denies feeling depressed. She does not wish for her Zoloft dosage to be increased. Anticipate discharge home with family. They have a long-term care insurance policy. She will need a front wheeled walker, wheelchair, shower seat, grab bars. She will have home PT OT and MENTAL HEALTH ASSISTANT. Tentative discharge date of 05/08/2017. 04/20/17 11:42 Subjective: She is not sure if she seeing any benefit from the high-dose IV steroids. thinks that she seems brighter and that her voice has improved. She feels a little bit thirsty. She reports that she is very hesitant to take fluids with her meals because she is afraid that she will cough. Denies orthostatic symptoms. Objective: Vital Signs Temp Pulse Resp BP Pulse Ox 36.6 C 72 18 92/56 L 97 03/15/18 08:00 04/20/17 08:00 04/20/17 08:00 04/20/17 08:00 04/20/17 08:00 Laboratory Results 04/14/17 06:10 04/14/17 06:10 04/19/17 04/20/17 04/21/17 05:59 05:59 05:59 Intake Total 108 400 150 Output Total 550 100 Balance -442 300 150 Physical Exam - Physical Exam General Appearance: WD/WN, alert, no apparent distress EENT: other (Use membranes mildly dry) Respiratory: normal breath sounds, No crackles, No rhonchi, No wheezing Cardiac/Chest: regular rate, rhythm, No edema, No JVD, No diastolic murmur, No systolic murmur Skin: normal color, warm/dry Neuro/Psych: alert, normal mood/affect, oriented x 3, other (Bradykinetic, hypophonia improving.) ICD10 Worksheet Patient Problems: Problems Problem Status Onset Dehydration Acute Dysphagia Acute Failure to thrive in adult Acute Nausea Acute Nausea with vomiting Acute Pulmonary embolus Acute Vomiting Acute
[2017-04-20] MEDS ORDERED: NS 1,000 ML IV SCH (11:45)
[2017-04-20] MEDS: PANTOPRAZOLE SODIUM 40 MG TAB PO SCH (14:46)
[2017-04-20] MEDS: SERTRALINE HCL 100 MG TAB PO SCH (14:46)
[2017-04-20] MEDS: clonazePAM 0.5 MG TAB PO PRN (20:26)
[2017-04-21] MEDS ORDERED: methylPREDNISolone SOD SUCC 1 GM in D5W 100 ML IV SCH ×2 (05:00→15:49)
[2017-04-21] MEDS: SENNOSIDES/DOCUSATE SODIUM TAB PO SCH ×2 (05:33→20:38)
[2017-04-21] MEDS: RIVAROXABAN 20 MG TAB PO SCH (05:33)
[2017-04-21] MEDS: MECLIZINE HCL 25 MG TAB PO SCH ×2 (05:33→20:38)
[2017-04-21] MEDS: SERTRALINE HCL 100 MG TAB PO SCH (15:15)
[2017-04-21] MEDS: PANTOPRAZOLE SODIUM 40 MG TAB PO SCH (15:15)
[2017-04-21] MEDS: clonazePAM 0.5 MG TAB PO PRN (20:38)
--- NOTE | 2017-04-21 21:39 | SOAPPROG ---
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 Neurology initiated methylprednisolone 1 g IV q.day on 04/18/2017. * Ambulating 120 ft with front wheeled walker. Independent with upper body dressing, cues for lower body dressing. Transfers minimal assist to contact guard assist. Continue PT and OT. * Observe for improvement. * Discussed adverse effects of high-dose steroids including insomnia, dorothy, and long-term risk for osteoporosis. She denies history of bipolar disorder or osteoporosis. * Saw Dr. Reyes at [facility] neuroimmunology on 04/21/2017. Need to clarify new medication orderes. 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 * Observe for improvement with high-dose corticosteroids. * Dysphagia * Continue EDGE STAINER MACHINE. * She is likely not keeping up adequately with hydration. Will check weight and orthostatic vital signs today, 04/20/2017, and initiate IV normal saline 1000 cc at 150 cc an hour. * Diplopia. Continue OT and alternate taping of eyeglasses. * Dizziness. Continue meclizine 25 mg b.i.d. If this is not helpful then will increase meclizine to 50 mg twice daily. * Nausea. Continue Zofran 8 mg p.o. b.i.d. p.r.n. * GERD. Continue Protonix. * Asthma. Continue Proventil inhaler 1 to 2 puffs daily p.r.n. shortness of breath. * Depression. Continue Zoloft 100 mg p.o. daily. Patient currently denies feeling depressed. She does not wish for her Zoloft dosage to be increased. Anticipate discharge home with family. They have a long-term care insurance policy. She will need a front wheeled walker, wheelchair, shower seat, grab bars. She will have home PT OT and EDGE STAINER MACHINE. Tentative discharge date of 05/08/2017. 04/20/17 11:42 04/21/17 21:37 Subjective: No compllaints. Returned from Neuroimunology appointment in [place]. She says she is to continue IV steroid for a few more days then switch to PO. Objective: Vital Signs Temp Pulse Resp BP Pulse Ox 36.4 C 77 16 97/62 L 95 04/21/17 20:00 04/21/17 20:00 04/21/17 20:00 04/21/17 20:00 04/21/17 20:00 Laboratory Results 04/14/17 06:10 04/14/17 06:10 04/20/17 04/21/17 04/22/17 05:59 05:59 05:59 Intake Total 400 940 236 Output Total 100 600 600 Balance 300 340 -364 Physical Exam - Physical Exam General Appearance: WD/WN, alert, no apparent distress Respiratory: normal breath sounds Skin: normal color, warm/dry Extremities: No pedal edema Neuro/Psych: alert, normal mood/affect, oriented x 3 ICD10 Worksheet Patient Problems: Problems Problem Status Onset Dehydration Acute Dysphagia Acute Failure to thrive in adult Acute Nausea Acute Nausea with vomiting Acute Pulmonary embolus Acute Vomiting Acute
[2017-04-22] MEDS: RIVAROXABAN 20 MG TAB PO SCH (08:44)
[2017-04-22] MEDS: MECLIZINE HCL 25 MG TAB PO SCH ×2 (08:44→20:15)
[2017-04-22] MEDS: SENNOSIDES/DOCUSATE SODIUM TAB PO SCH (08:44)
--- NOTE | 2017-04-22 14:22 | SOAPPROG ---
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 Neurology initiated methylprednisolone 1 g IV q.day on 04/18/2017. * Ambulating 120 ft with front wheeled walker. Independent with upper body dressing, cues for lower body dressing. Transfers minimal assist to contact guard assist. Continue PT and OT. * Observe for improvement. * Discussed adverse effects of high-dose steroids including insomnia, dorothy, and long-term risk for osteoporosis. She denies history of bipolar disorder or osteoporosis. * Saw Dr. Reyes at [facility] neuroimmunology on 04/21/2017. Need to clarify new medication orders. At patient and hysbands request, Dr Ochoa was contacted to clarify meds before monday morning 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 * Observe for improvement with high-dose corticosteroids. * Dysphagia * Continue GRINDING AND POLISHING LABORER. * She is likely not keeping up adequately with hydration. Will check weight and orthostatic vital signs today, 04/20/2017, and initiate IV normal saline 1000 cc at 150 cc an hour. * Diplopia. Continue OT and alternate taping of eyeglasses. * Dizziness. Continue meclizine 25 mg b.i.d. If this is not helpful then will increase meclizine to 50 mg twice daily. * Nausea. Continue Zofran 8 mg p.o. b.i.d. p.r.n. * GERD. Continue Protonix. * Asthma. Continue Proventil inhaler 1 to 2 puffs daily p.r.n. shortness of breath. * Depression. Continue Zoloft 100 mg p.o. daily. Patient currently denies feeling depressed. She does not wish for her Zoloft dosage to be increased. Anticipate discharge home with family. They have a long-term care insurance policy. She will need a front wheeled walker, wheelchair, shower seat, grab bars. She will have home PT OT and GRINDING AND POLISHING LABORER. Tentative discharge date of 05/08/2017. Subjective: No new problems or C/O's. No Pain. No F/C/CP/SOB/N/V/D/C Plan: Cont rehab treatment plan 04/22/17 14:20 Objective: Vital Signs Temp Pulse Resp BP Pulse Ox 36.9 C 69 15 111/68 95 04/22/17 06:42 04/22/17 06:42 04/22/17 06:42 04/22/17 06:42 04/22/17 06:42 Laboratory Results 04/14/17 06:10 04/14/17 06:10 04/21/17 04/22/17 04/23/17 05:59 05:59 05:59 Intake Total 940 296 150 Output Total 600 900 300 Balance 340 -604 -150 Physical Exam - Physical Exam General Appearance: alert, no apparent distress Respiratory: lungs clear Cardiac/Chest: regular rate, rhythm Abdomen: normal bowel sounds, soft Skin: normal color, warm/dry Extremities: No pedal edema, No calf tenderness Neuro/Psych: alert, normal mood/affect, abnormal gait, motor weakness, sensory deficit, other (No acute changes) ICD10 Worksheet Patient Problems: Problems Problem Status Onset Dehydration Acute Dysphagia Acute Failure to thrive in adult Acute Nausea Acute Nausea with vomiting Acute Pulmonary embolus Acute Vomiting Acute
[2017-04-22] MEDS: SERTRALINE HCL 100 MG TAB PO SCH (14:31)
[2017-04-22] MEDS: PANTOPRAZOLE SODIUM 40 MG TAB PO SCH (14:31)
[2017-04-22] MEDS ORDERED: predniSONE 20 MG TAB PO SCH (15:45)
[2017-04-22] MEDS: SENNOSIDES/DOCUSATE SODIUM TAB PO PRN (20:15)
[2017-04-22] MEDS: clonazePAM 0.5 MG TAB PO PRN (20:18)
[2017-04-23] MEDS: predniSONE 20 MG TAB PO SCH (09:25)
[2017-04-23] MEDS: RIVAROXABAN 20 MG TAB PO SCH (09:25)
[2017-04-23] MEDS: MECLIZINE HCL 25 MG TAB PO SCH ×2 (09:25→19:41)
--- NOTE | 2017-04-23 12:05 | SOAPPROG ---
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 Neurology initiated methylprednisolone 1 g IV q.day on 04/18/2017. Switched to PO Prednisone 04/22/17. * At patient and husbands request, Dr Ochoa was contacted on 04/22/17 to clarify steroid dosing, he initiated transition form IV methylprednisolone to PO Prednisone * Ambulating 120 ft with front wheeled walker. Independent with upper body dressing, cues for lower body dressing. Transfers minimal assist to contact guard assist. Continue PT and OT. * Saw Dr. Reyes at [facility] neuroimmunology on 04/21/2017. 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 * Observe for improvement with high-dose corticosteroids. * Dysphagia * Continue MOVING PICTURE OPERATOR. * She is likely not keeping up adequately with hydration. Will check weight and orthostatic vital signs today, 04/20/2017, and initiate IV normal saline 1000 cc at 150 cc an hour. * Diplopia. Continue OT and alternate taping of eyeglasses. * Dizziness. Continue meclizine 25 mg b.i.d. If this is not helpful then will increase meclizine to 50 mg twice daily. * Nausea. Continue Zofran 8 mg p.o. b.i.d. p.r.n. * GERD. Continue Protonix. * Asthma. Continue Proventil inhaler 1 to 2 puffs daily p.r.n. shortness of breath. * Depression. Continue Zoloft 100 mg p.o. daily. Patient currently denies feeling depressed. She does not wish for her Zoloft dosage to be increased. Anticipate discharge home with family. They have a long-term care insurance policy. She will need a front wheeled walker, wheelchair, shower seat, grab bars. She will have home PT OT and MOVING PICTURE OPERATOR. Tentative discharge date of 05/08/2017. Subjective: No new problems or C/O's. No Pain. No F/C/CP/SOB/N/V/D/C Plan: Cont rehab treatment plan 04/23/17 12:01 Objective: Vital Signs Temp Pulse Resp BP Pulse Ox 36.7 C 64 14 93/57 L 94 04/23/17 07:56 04/23/17 07:56 04/23/17 07:56 04/23/17 07:56 04/23/17 07:56 Laboratory Results 04/14/17 06:10 04/14/17 06:10 04/22/17 04/23/17 04/24/17 05:59 05:59 05:59 Intake Total 296 270 Output Total 900 600 Balance -604 -330 Physical Exam - Physical Exam General Appearance: alert, no apparent distress Neck: supple Respiratory: lungs clear Cardiac/Chest: regular rate, rhythm Skin: normal color, warm/dry Extremities: No pedal edema, No calf tenderness Neuro/Psych: alert, normal mood/affect, oriented x 3, motor weakness, sensory deficit, cognition abnormalities, other (No acute changes) ICD10 Worksheet Patient Problems: Problems Problem Status Onset Dehydration Acute Dysphagia Acute Failure to thrive in adult Acute Nausea Acute Nausea with vomiting Acute Pulmonary embolus Acute Vomiting Acute
[2017-04-23] MEDS: PANTOPRAZOLE SODIUM 40 MG TAB PO SCH (14:59)
[2017-04-23] MEDS: SERTRALINE HCL 100 MG TAB PO SCH (14:59)
[2017-04-23] MEDS: clonazePAM 0.5 MG TAB PO PRN (19:41)
[2017-04-23] MEDS ORDERED: ACETYLCYSTEINE 20% IH/PO 4 ML VIAL IH ONE (20:00)
[2017-04-24] MEDS: RIVAROXABAN 20 MG TAB PO SCH (09:21)
[2017-04-24] MEDS: predniSONE 20 MG TAB PO SCH (09:21)
[2017-04-24] MEDS: MECLIZINE HCL 25 MG TAB PO SCH ×2 (09:21→21:01)
[2017-04-24] MEDS: SENNOSIDES/DOCUSATE SODIUM TAB PO PRN (09:26)
[2017-04-24] MEDS ORDERED: DIAZEPAM 5 MG TAB PO ONE ×2 (11:14→15:00)
--- NOTE | 2017-04-24 11:23 | NEUROPROG ---
Assessment: 25 minutes of total unit time today. I have reviewed the neurology consult and will be following the recommendations to order cervical and thoracic spinal MRI scans with and without contrast and then perhaps repeat brain MRI in another couple of weeks. We will continue the 60mg daily of prednisone. Many labs pending that were obtained at the [facility] after their consult. I discussed her parkinsonism with Dr. Nair, and I agree that we might see if some Sinemet could help. Subjective: Pt is reporting that she is feeling a little better. Therapist notes slightly improved ataxia. She is otherwise eating and not gaining weight yet, but I am not sure about her caloric intake Objective: Vital Signs Temp Pulse Resp BP Pulse Ox 36.9 C 63 14 109/75 95 04/24/17 06:29 04/24/17 06:29 04/24/17 06:29 04/24/17 06:29 04/24/17 06:29 Laboratory Results 04/14/17 06:10 04/14/17 06:10 04/23/17 04/24/17 04/25/17 05:59 05:59 05:59 Intake Total 270 798 250 Output Total 600 1500 Balance -330 -702 250 Allergies/Adverse Reactions: Sulfa (Sulfonamide Antibiotics) Allergy (Intermediate, Verified 04/05/17 11:01) Other-Enter Comments
--- NOTE | 2017-04-24 13:46 | SOAPPROG ---
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 Neurology initiated methylprednisolone 1 g IV q.day on 04/18/2017. Trans distant to 60 mg of prednisone q.day starting 04/23/2017. * Initial FIM 70 on 04/17/2017; improved to 78 as of 04/24/2017. Standby assist for bed mobility. Contact guard assist to min assist for transfers with a front wheeled walker ambulated 90 ft with a front wheeled walker and minimal assist. Parkinsonian gait noted by therapy staff. Dresses lower body with SBA. Continue PT and OT. * MRI C-spine and T-spine today, 04/24/2017, per orders of neuro immunology at [facility]. 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 * Trial of Sinemet starting 04/24/2017. * Dysphagia * Continue CORNER BLOCK CUTTER. Swallowing downgraded; on honey thick liquids 1 tsp at a time, with one-to-one supervision, and water protocol. * She is likely not keeping up adequately with hydration. Repeat hydration with IV normal saline 1000 cc overnight starting 04/24/2017. * Depression, with likely overly of adjustment disorder with depressed mood. * Agrees to increasing sertraline from 100 mg QD to 150 mg q.day, to begin 2017. * Continue supportive environment; counseling per WEAVING TEACHER. * Consider psychiatry consult. * Diplopia. Continue OT and alternate taping of eyeglasses. * Dizziness. Continue meclizine 25 mg b.i.d. If this is not helpful then will increase meclizine to 50 mg twice daily. * Nausea. Continue Zofran 8 mg p.o. b.i.d. p.r.n. * GERD. Continue Protonix. * Asthma. Continue Proventil inhaler 1 to 2 puffs daily p.r.n. shortness of breath. Had trial of N-acetylcysteine inhaler over the weekend for thickened secretions and she wishes to continue this. Attended staffing, 15 min. Discussed with case management, nursing, pharmacy, dietitian, PT, OT, CORNER BLOCK CUTTER. Anticipate discharge home with family. They have a long-term care insurance policy. She will need a front wheeled walker, wheelchair, shower seat, grab bars. She will have home PT OT and CORNER BLOCK CUTTER. Tentative discharge date of 05/08/2017. Next follow up with Neuroimmunology, Dr. Reyes, at the [facility], on 05/12/2017. Brain MRI prior to followup. 04/24/17 14:00 Subjective: Nurse's note depression and passive suicidal ideation. Patient reports that she just wants to get better and see her grandchildren bed sleeping well with clonazepam. Not in pain. No cough or dyspnea. Objective: Vital Signs Temp Pulse Resp BP Pulse Ox 36.9 C 63 14 109/75 95 04/24/17 06:29 04/24/17 06:29 04/24/17 06:29 04/24/17 06:29 04/24/17 06:29 Laboratory Results 04/14/17 06:10 04/14/17 06:10 04/23/17 04/24/17 04/25/17 05:59 05:59 05:59 Intake Total 270 798 610 Output Total 600 1500 650 Balance -330 -702 -40 - Time Spent With Patient Time Spent With Patient: Greater than 35 min floor time today, including more than 50% of time in coordination of care during staffing meeting and discussing case with neurologist Dr. Ochoa, and counseling patient. Physical Exam - Physical Exam General Appearance: WD/WN, alert, no apparent distress Respiratory: normal breath sounds, crackles, rhonchi, wheezing Cardiac/Chest: regular rate, rhythm, No edema, No JVD, No diastolic murmur, No systolic murmur Skin: normal color, warm/dry Neuro/Psych: alert, normal mood/affect, oriented x 3, other (Bradykinetic, hypophonic.) ICD10 Worksheet Patient Problems: Problems Problem Status Onset Dehydration Acute Dysphagia Acute Failure to thrive in adult Acute Nausea Acute Nausea with vomiting Acute Pulmonary embolus Acute Vomiting Acute
[2017-04-24] MEDS: SERTRALINE HCL 100 MG TAB PO SCH (14:31)
[2017-04-24] MEDS: PANTOPRAZOLE SODIUM 40 MG TAB PO SCH (14:32)
[2017-04-24] MEDS ORDERED: GADOBUTROL 10 ML VIAL IVP ONE (15:03)
[2017-04-24] MEDS: CARBIDOPA/LEVODOPA 25 MG/100 MG TAB PO SCH ×2 (18:30→21:02)
[2017-04-24] MEDS ORDERED: NS 1,000 ML IV SCH (21:00)
[2017-04-24] MEDS: clonazePAM 0.5 MG TAB PO PRN (21:02)
[2017-04-24] MEDS: ACETYLCYSTEINE 10% IH/PO 4 ML VIAL IH SCH (21:17)
--- NOTE | 2017-04-25 08:43 | NEUROPROG ---
Assessment: I reviewed the MRI studies and there are some similar lesions in the C-Spine to what was seen in prior Brain MRI but unremarkable thoracic MRI. I called the patient's and informed him. Continue the steroids at 60mg daily. Labs pending from . Objective: Vital Signs Temp Pulse Resp BP Pulse Ox 36.4 C 57 L 15 125/67 H 94 04/25/17 06:25 04/25/17 06:25 04/25/17 06:25 04/25/17 06:25 04/25/17 06:25 Laboratory Results 04/14/17 06:10 04/14/17 06:10 04/24/17 04/25/17 04/26/17 05:59 05:59 05:59 Intake Total 798 790 Output Total 1500 1250 Balance -944 -393 Allergies/Adverse Reactions: Sulfa (Sulfonamide Antibiotics) Allergy (Intermediate, Verified 04/05/17 11:01) Other-Enter Comments
[2017-04-25] MEDS: CARBIDOPA/LEVODOPA 25 MG/100 MG TAB PO SCH ×3 (09:08→20:52)
[2017-04-25] MEDS: MECLIZINE HCL 25 MG TAB PO SCH ×2 (09:09→20:52)
[2017-04-25] MEDS: predniSONE 20 MG TAB PO SCH (09:09)
[2017-04-25] MEDS: RIVAROXABAN 20 MG TAB PO SCH (09:09)
[2017-04-25] MEDS: CYANO/VITAMIN B12 1000 MCG TAB PO SCH (09:09)
--- NOTE | 2017-04-25 09:27 | SOAPPROG ---
SOAP Progress Note Assessment/Plan: 72-year-old woman with reported CLIPPERS syndrome, workup in progress with Neurology. Impairments in mobility, self-care Today's update: MRI with and without gadolinium of the thoracic spine and C- spine showed no lesions in the thoracic spine but mild degenerative disc disease , however in the cervical spine she had multiple abnormal punctate areas of contrast enhancement within the brain stem and cerebellum and the cervical spine. She also had degenerative disc disease in the cervical spine. No neural impingement in either area as result of the disc issues. Neurology following and noted that they had reviewed the studies. Appreciate additional assistance from Neurology. Patient has not been working with therapy yet today so unclear if she is responding to Sinemet. She also denies any further dizziness, currently on meclizine. We discussed the option of decreasing the meclizine over time, but elected to not start that process today given the recent changes in her Sinemet dosing. Plan for reduction of meclizine in the coming days. This is the 1st time I am evaluating this patient, a total of 35 min was spent on the floor in the care of the patient, the majority of which was spent on counseling coordination of care regarding function and dizziness. 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 Neurology initiated methylprednisolone 1 g IV q.day on 04/18/2017. Trans distant to 60 mg of prednisone q.day starting 04/23/2017. * Initial FIM 70 on 04/17/2017; improved to 78 as of 04/24/2017. Standby assist for bed mobility. Contact guard assist to min assist for transfers with a front wheeled walker ambulated 90 ft with a front wheeled walker and minimal assist. Parkinsonian gait noted by therapy staff. Dresses lower body with SBA. Continue PT and OT. * Imaging reviewed, appreciate help from Neurology. 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 * Trial of Sinemet starting 04/24/2017, no clear response per the patient as of morning of 04/25 * Dysphagia * Continue WHARFINGER CHIEF. Swallowing downgraded; on honey thick liquids 1 tsp at a time, with one-to-one supervision, and water protocol. * She is likely not keeping up adequately with hydration. Repeat hydration with IV normal saline 1000 cc overnight starting 04/24/2017. * Depression, with likely overly of adjustment disorder with depressed mood. * Agrees to increasing sertraline from 100 mg QD to 150 mg q.day, to begin 2017. * Continue supportive environment; counseling per ENTERPRISE PROJECT MANAGER. * Consider psychiatry consult. * Diplopia. Continue OT and alternate taping of eyeglasses. * Dizziness. Continue meclizine 25 mg b.i.d. For now with plan to decrease in the coming days as she states that the dizziness has resolved. She would benefit from working with therapies to acclimated to central dizziness as the likely cause. Meclizine may potentially impair this adjustment process. Okay to keep it for severe symptom management however. * Nausea. Continue Zofran 8 mg p.o. b.i.d. p.r.n. * GERD. Continue Protonix. * Asthma. Continue Proventil inhaler 1 to 2 puffs daily p.r.n. shortness of breath. Had trial of N-acetylcysteine inhaler over the weekend for thickened secretions and she wishes to continue this. Anticipate discharge home with family. They have a long-term care insurance policy. She will need a front wheeled walker, wheelchair, shower seat, grab bars. She will have home PT OT and WHARFINGER CHIEF. Tentative discharge date of 05/08/2017. Next follow up with Neuroimmunology, Dr. Reyes, at the [facility], on 05/12/2017. Brain MRI prior to followup. 04/25/17 09:25 04/25/17 09:35 04/25/17 09:41 Subjective: Chief complaint: Response to Sinemet and dizziness No acute events overnight. Patient endorsed that she has not noticed any difference on the Sinemet so far. She declines that she has had any dizziness lately and feels that this is improved. Okay with making changes to the meclizine over the next few days. Patient denies any new shortness of breath or chest pain, no new numbness, tingling, or weakness. She feels relatively hydrated this morning and denies that she has had orthostasis. Objective: Vital Signs Temp Pulse Resp BP Pulse Ox 36.4 C 57 L 15 125/67 H 94 04/25/17 06:25 04/25/17 06:25 04/25/17 06:25 04/25/17 06:25 04/25/17 06:25 Laboratory Results 04/14/17 06:10 03/09/18 06:10 04/24/17 04/25/17 04/26/17 05:59 05:59 05:59 Intake Total 798 790 Output Total 1500 1250 Balance -702 -984 Physical Exam - Physical Exam General Appearance: WD/WN, alert, no apparent distress Respiratory: normal breath sounds, No respiratory distress, No accessory muscle use Cardiac/Chest: normal peripheral pulses, regular rate, rhythm, No edema Skin: normal color, warm/dry, No cyanosis, No diaphoresis Extremities: No pedal edema, No calf tenderness, No swelling Neuro/Psych: alert, normal mood/affect, other (Slightly slow finger to nose, sustained clonus at the ankles, no other spasticity appreciated. Nystagmus at rest), No oriented x 3 (Off by 1 day and thought that she had [facility]) ICD10 Worksheet Patient Problems: Problems Problem Status Onset Dehydration Acute Dysphagia Acute Failure to thrive in adult Acute Nausea Acute Nausea with vomiting Acute Pulmonary embolus Acute Vomiting Acute
[2017-04-25] MEDS: PANTOPRAZOLE SODIUM 40 MG TAB PO SCH (13:54)
[2017-04-25] MEDS: SERTRALINE HCL 100 MG TAB PO SCH (13:54)
[2017-04-25] MEDS: clonazePAM 0.5 MG TAB PO PRN (20:51)
[2017-04-25] MEDS: SENNOSIDES/DOCUSATE SODIUM TAB PO PRN (20:53)
[2017-04-25] MEDS: ACETYLCYSTEINE 10% IH/PO 4 ML VIAL IH SCH (20:53)
[2017-04-25] MEDS ORDERED: NS 1,000 ML IV ONE (22:00)
[2017-04-26] MEDS: MECLIZINE HCL 25 MG TAB PO SCH (08:44)
[2017-04-26] MEDS: predniSONE 20 MG TAB PO SCH (08:44)
[2017-04-26] MEDS: CYANO/VITAMIN B12 1000 MCG TAB PO SCH (08:44)
[2017-04-26] MEDS: CARBIDOPA/LEVODOPA 25 MG/100 MG TAB PO SCH ×3 (08:44→21:41)
[2017-04-26] MEDS: RIVAROXABAN 20 MG TAB PO SCH (08:44)
--- NOTE | 2017-04-26 09:35 | SOAPPROG ---
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 Neurology initiated methylprednisolone 1 g IV q.day on 04/18/2017. Trans distant to 60 mg of prednisone q.day starting 04/23/2017. * Initial FIM 70 on 04/17/2017; improved to 78 as of 04/24/2017. Standby assist for bed mobility. Contact guard assist to min assist for transfers with a front wheeled walker ambulated 90 ft with a front wheeled walker and minimal assist. Parkinsonian gait noted by therapy staff. Dresses lower body with SBA. Continue PT and OT. * Ambulation improved with Sinemet per PT. * MRI C-spine and T-spine 04/24/2017, per orders of Neuroimmunology at [facility]: unchanged lesios in brainstem; C- spine DJD; T-spine w/out lesions. 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 * Trial of Sinemet starting 04/24/2017.with improvement in voice and ambulation. Will continue. * Dysphagia * Continue PERSONAL BANKER. Swallowing downgraded; on honey thick liquids 1 tsp at a time, with one-to-one supervision, and water protocol. * She is likely not keeping up adequately with hydration. Repeat hydration with IV normal saline 1000 cc overnight 04/24/2017 & 04/25/2017. Consider PICC line if she continues to need hydration every night and prospect for advancing liquid texture is poor.. * Depression, with likely overly of adjustment disorder with depressed mood. * Agrees to increasing sertraline from 100 mg QD to 150 mg q.day, to begin 2017. * Continue supportive environment; counseling per LINOLEUM LAYER HELPER. * Consider psychiatry consult. * Diplopia. Continue OT and alternate taping of eyeglasses. * Dizziness, resolved? Change meclizine 25 mg b.i.d. to p.r.n. and discontinue if she has no need for it. * Nausea. Continue Zofran 8 mg p.o. b.i.d. p.r.n. * GERD. Continue Protonix. * Asthma. Continue Proventil inhaler 1 to 2 puffs daily p.r.n. shortness of breath. Had trial of N-acetylcysteine inhaler over the weekend for thickened secretions and she wishes to continue this. Anticipate discharge home with family. They have a long-term care insurance policy. She will need a front wheeled walker, wheelchair, shower seat, grab bars. She will have home PT OT and PERSONAL BANKER. Tentative discharge date of 05/08/2017. Next follow up with Neuroimmunology, Dr. Reyes, at the [facility], on 05/12/2017. Brain MRI prior to followup. 04/26/17 09:36 Subjective: Slept well. Mood is better this morning. She thinks the Sinemet is helping her with her voice. Not in pain. No cough or dyspnea, no fevers or chills. No dizziness. Objective: Vital Signs Temp Pulse Resp BP Pulse Ox 36.8 C 62 18 121/70 H 95 04/26/17 07:00 04/26/17 07:00 04/26/17 07:00 04/26/17 07:00 04/26/17 07:00 Laboratory Results 04/14/17 06:10 04/14/17 06:10 04/25/17 04/26/17 04/27/17 05:59 05:59 05:59 Intake Total 1790 1240 Output Total 1350 200 Balance 440 1040 Physical Exam - Physical Exam General Appearance: WD/WN, alert, no apparent distress Respiratory: normal breath sounds, No crackles, No rhonchi, No wheezing Cardiac/Chest: regular rate, rhythm, No edema, No diastolic murmur, No systolic murmur Skin: normal color, warm/dry Neuro/Psych: alert, normal mood/affect, oriented x 3, other (Sitting in chair, hypophonia improved. Flexed posture.) ICD10 Worksheet Patient Problems: Problems Problem Status Onset Dehydration Acute Dysphagia Acute Failure to thrive in adult Acute Nausea Acute Nausea with vomiting Acute Pulmonary embolus Acute Vomiting Acute
[2017-04-26] MEDS ORDERED: MECLIZINE HCL 25 MG TAB PO PRN (09:41)
[2017-04-26] MEDS: SERTRALINE HCL 100 MG TAB PO SCH (14:43)
[2017-04-26] MEDS: PANTOPRAZOLE SODIUM 40 MG TAB PO SCH (14:43)
[2017-04-26] MEDS: ACETYLCYSTEINE 10% IH/PO 4 ML VIAL IH SCH (19:59)
[2017-04-26] MEDS: clonazePAM 0.5 MG TAB PO PRN (21:41)
[2017-04-27] MEDS: predniSONE 20 MG TAB PO SCH (07:52)
[2017-04-27] MEDS: CYANO/VITAMIN B12 1000 MCG TAB PO SCH (07:52)
[2017-04-27] MEDS: RIVAROXABAN 20 MG TAB PO SCH (07:52)
[2017-04-27] MEDS: CARBIDOPA/LEVODOPA 25 MG/100 MG TAB PO SCH ×3 (07:52→21:43)
[2017-04-27] MEDS: SENNOSIDES/DOCUSATE SODIUM TAB PO PRN (08:00)
--- NOTE | 2017-04-27 09:53 | SOAPPROG ---
SOAP Progress Note Assessment/Plan: 72-year-old woman with reported CLIPPERS syndrome, workup in progress with Neurology. Impairments in mobility, self-care Today's update: She notes continued improvement with carbidopa/levodopa, okay with decreasing meclizine as she denies any ongoing dizziness, which we are doing today. Plan to continue some IV fluids at night to ensure good hydration until she is swallowing thinner consistency liquids. She notes ongoing phlegm which is unchanged, clinical picture does not seem consistent with pneumonia at this time. Continue to monitor. 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 Neurology initiated methylprednisolone 1 g IV q.day on 04/18/2017. Transitioned to 60 mg of prednisone q.day starting 04/23/2017. * Initial FIM 70 on 04/17/2017; improved to 78 as of 04/24/2017. Standby assist for bed mobility. Contact guard assist to min assist for transfers with a front wheeled walker ambulated 90 ft with a front wheeled walker and minimal assist. Parkinsonian gait noted by therapy staff. Dresses lower body with SBA. Continue PT and OT. * Ambulation improved with Sinemet per PT. * MRI C-spine and T-spine 04/24/2017, per orders of Neuroimmunology at [facility]: unchanged lesions in brainstem; C -spine DJD; T-spine w/out lesions. 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 * Trial of Sinemet starting 04/24/2017.with improvement in voice and ambulation. Will continue. * Dysphagia: Related to brain injury. Continue rehabilitation plan and monitor for respiratory symptoms that she endorses some increased but stable level of phlegm. * Continue MORNING SHOW PRODUCER. nectar thick now, with one-to-one supervision, and water protocol. * She is likely not keeping up adequately with hydration. Repeat hydration with IV normal saline 1000 cc overnight 04/24/2017 & 04/25/2017. Consider PICC line if she continues to need hydration every night and prospect for advancing liquid texture is poor.. * Depression, with likely overly of adjustment disorder with depressed mood. * Agrees to increasing sertraline from 100 mg QD to 150 mg q.day, to begin 2017. * Continue supportive environment; counseling per BLADE CHANGER. * Consider psychiatry consult. * Diplopia. Continue OT and alternate taping of eyeglasses. * Dizziness, central: Appears to be improved and she is not complaining of symptoms. Decreased meclizine to 12 mg p.o. Twice daily from 25 mg p.o. Twice daily, monitor * Nausea. Continue Zofran 8 mg p.o. b.i.d. p.r.n. * GERD. Continue Protonix. * Asthma. Continue Proventil inhaler 1 to 2 puffs daily p.r.n. shortness of breath. Had trial of N-acetylcysteine inhaler over the weekend for thickened secretions and she wishes to continue this. Anticipate discharge home with family. They have a long-term care insurance policy. She will need a front wheeled walker, wheelchair, shower seat, grab bars. She will have home PT OT and MORNING SHOW PRODUCER. Tentative discharge date of 05/08/2017. Next follow up with Neuroimmunology, Dr. Reyes, at the [facility], on 05/12/2017. Brain MRI prior to followup. 04/25/17 09:25 04/25/17 09:35 04/25/17 09:41 04/27/17 09:48 Subjective: Chief complaint: Medication effect and dizziness No acute events overnight. Patient denies that dizziness has been a problem lately and is okay with decreasing meclizine. Feels that carbidopa levodopa has been helpful, also IV fluids have been helpful for maintaining hydration as she does not feel she is taking as much fluid as she needs to be. She in endorses some ongoing low level phlegm, no shortness of breath or chest pain, no new numbness, tingling, or weakness. She denies any cough, denies any aspiration, denies any congestion or other symptoms of a cold such as any fevers or chills. Therapy reportedly going well. Plan to discharge home with family Objective: Vital Signs Temp Pulse Resp BP Pulse Ox 36.9 C 64 14 123/72 H 92 04/27/17 07:52 04/27/17 07:52 04/27/17 07:52 04/27/17 07:52 04/27/17 07:52 Laboratory Results 04/14/17 06:10 04/14/17 06:10 04/26/17 04/27/17 04/28/17 05:59 05:59 05:59 Intake Total 1240 656 118 Output Total 200 8988 700 Balance 4690 -225 -700 Physical Exam - Physical Exam General Appearance: WD/WN, alert, no apparent distress EENT: No scleral icterus (R), No scleral icterus (L) Neck: No tender lateral Respiratory: lungs clear, normal breath sounds, No respiratory distress, No accessory muscle use, No decreased breath sounds, No rales, No rhonchi, No wheezing, No pleural rub Cardiac/Chest: normal peripheral pulses, regular rate, rhythm, No edema, No diastolic murmur, No systolic murmur, No extra beats Skin: normal color, warm/dry, No cyanosis, No diaphoresis Extremities: non-tender, No pedal edema, No calf tenderness, No swelling Neuro/Psych: alert, normal mood/affect, other (Nystagmus at rest, denies dizziness. Weak cough) ICD10 Worksheet Patient Problems: Problems Problem Status Onset Dehydration Acute Dysphagia Acute Failure to thrive in adult Acute Nausea Acute Nausea with vomiting Acute Pulmonary embolus Acute Vomiting Acute
[2017-04-27] MEDS: SERTRALINE HCL 100 MG TAB PO SCH (14:49)
[2017-04-27] MEDS: PANTOPRAZOLE SODIUM 40 MG TAB PO SCH (14:49)
[2017-04-27] MEDS: ACETYLCYSTEINE 10% IH/PO 4 ML VIAL IH SCH (21:43)
[2017-04-27] MEDS: clonazePAM 0.5 MG TAB PO PRN (21:43)
[2017-04-27] MEDS ORDERED: NS 1,000 ML IV SCH (22:00)
[2017-04-28] MEDS: RIVAROXABAN 20 MG TAB PO SCH (08:47)
[2017-04-28] MEDS: predniSONE 20 MG TAB PO SCH (08:48)
[2017-04-28] MEDS: CYANO/VITAMIN B12 1000 MCG TAB PO SCH (08:48)
[2017-04-28] MEDS: CARBIDOPA/LEVODOPA 25 MG/100 MG TAB PO SCH ×3 (08:48→21:11)
--- NOTE | 2017-04-28 12:24 | SOAPPROG ---
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 Neurology initiated methylprednisolone 1 g IV q.day on 04/18/2017. Changed to 60 mg of prednisone q.day starting 04/23/2017. * Initial FIM 70 on 04/17/2017; improved to 78 as of 04/24/2017. Standby assist for bed mobility. Contact guard assist to min assist for transfers with a front wheeled walker ambulated 90 ft with a front wheeled walker and minimal assist. Parkinsonian gait noted by therapy staff. Dresses lower body with SBA. Continue PT and OT. * Ambulation improved with Sinemet per PT. * MRI C-spine and T-spine 04/24/2017, per orders of Neuroimmunology at [facility]: unchanged lesions in brainstem; C -spine DJD; T-spine w/out lesions. 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 * Trial of Sinemet starting 04/24/2017.with improvement in voice and ambulation. Will continue. * Dysphagia * Continue LOADING MANAGER. Swallowing upgraded from honey thick liquids 1 tsp at a time, to nectar thick liquids. * Feels she is taking adequate hydration. Will discontinue IV 04/28/2017. * Depression, with likely overly of adjustment disorder with depressed mood. * Agrees to increasing sertraline from 100 mg QD to 150 mg q.day, to begin 2017. * Continue supportive environment; counseling per CHECKER DUMP GROUNDS. * Consider psychiatry consult. * Diplopia. Resolved. * Dizziness, resolved. Not using meclizine; discontinued 04/28/2017. * Nausea. Continue Zofran 8 mg p.o. b.i.d. p.r.n.; not using. * GERD. Continue Protonix. * Asthma. Continue Proventil inhaler 1 to 2 puffs daily p.r.n. shortness of breath. * Sensation of phlegm in throat. Otherwise normal exam. Mucomyst no longer helping. Discontinue Mucomyst 04/28/2017, and initiate trial of guaifenesin 600 mg p.o.BID. Anticipate discharge home with family. They have a long-term care insurance policy. She will need a front wheeled walker, wheelchair, shower seat, grab bars. She will have home PT OT and LOADING MANAGER. Tentative discharge date of 05/08/2017. Next follow up with Neuroimmunology, Dr. Reyes, at the [facility], on 05/12/2017. Brain MRI prior to followup. 04/28/17 12:20 Subjective: Doing much better overall. Would like to have Klonopin dosed earlier at night to keep ahead of restless legs symptom. Has sensation of phlegm in her throat. Denies cough or dyspnea, denies head congestion or postnasal drip. Objective: Vital Signs Temp Pulse Resp BP Pulse Ox 37.1 C 59 L 16 120/69 93 04/28/17 05:55 04/28/17 05:55 04/28/17 05:55 04/28/17 05:55 04/28/17 05:55 Laboratory Results 04/14/17 06:10 04/14/17 06:10 04/27/17 04/28/17 04/29/17 05:59 05:59 05:59 Intake Total 656 1438 Output Total 1450 1250 Balance -794 188 Physical Exam - Physical Exam General Appearance: WD/WN, alert, no apparent distress EENT: pharynx normal, No purulent nasal drainage, No rhinorrhea, No pharyngeal erythema, No tonsillar exudate Neck: non-tender, supple, No lymphadenopathy (R), No lymphadenopathy (L) Respiratory: normal breath sounds, No crackles, No rhonchi, No wheezing Cardiac/Chest: regular rate, rhythm, No edema, No JVD, No diastolic murmur, No systolic murmur Skin: normal color, warm/dry Neuro/Psych: alert, normal mood/affect, oriented x 3 ICD10 Worksheet Patient Problems: Problems Problem Status Onset Dehydration Acute Dysphagia Acute Failure to thrive in adult Acute Nausea Acute Nausea with vomiting Acute Pulmonary embolus Acute Vomiting Acute
[2017-04-28] MEDS: PANTOPRAZOLE SODIUM 40 MG TAB PO SCH (14:03)
[2017-04-28] MEDS: SERTRALINE HCL 100 MG TAB PO SCH (14:04)
[2017-04-28] MEDS: guaiFENesin 600 MG TAB.ER PO SCH (21:11)
[2017-04-28] MEDS: clonazePAM 0.5 MG TAB PO PRN (21:13)
[2017-04-29] MEDS: guaiFENesin 600 MG TAB.ER PO SCH ×2 (08:43→21:10)
[2017-04-29] MEDS: CYANO/VITAMIN B12 1000 MCG TAB PO SCH (08:44)
[2017-04-29] MEDS: RIVAROXABAN 20 MG TAB PO SCH (08:44)
[2017-04-29] MEDS: CARBIDOPA/LEVODOPA 25 MG/100 MG TAB PO SCH ×3 (08:44→21:10)
[2017-04-29] MEDS: predniSONE 20 MG TAB PO SCH (08:44)
--- NOTE | 2017-04-29 12:43 | HOSPPROG ---
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 Neurology initiated methylprednisolone 1 g IV q.day on 04/18/2017. Changed to 60 mg of prednisone q.day starting 04/23/2017, continues - Ambulation improved with Sinemet per PT. - MRI C-spine and T-spine 04/24/2017, per orders of Neuroimmunology at [facility]: unchanged lesions in brainstem; C -spine DJD; T-spine w/out lesions. - Cont PT/OT * Parkinsonism. Likely due to lesions in basal ganglia. - Trial of Sinemet starting 04/24/2017 with improvement in voice and ambulation, continue * Dysphagia. Likely 2/2 above - [place] tolerated, cont DECK MOLDER - Cont off IVF * Depression, with likely overly of adjustment disorder with depressed mood. - Agrees to increasing sertraline from 100 mg QD to 150 mg q.day, to begin 2017. - Continue supportive environment; counseling per ASSEMBLER FLEXIBLE LEADS. - Consider psychiatry consult 05/01 * Diplopia. Resolved. * Dizziness, resolved. Not using meclizine; discontinued 04/28/2017. * Nausea. Continue Zofran 8 mg p.o. b.i.d. p.r.n.; not using. * GERD. Continue Protonix. * Asthma. Continue Proventil inhaler 1 to 2 puffs daily p.r.n. shortness of breath. * Sensation of phlegm in throat. Either post-nasal drip vs. globus sensation vs. 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 [place], ongoing DECK MOLDER Code. DNR PPx. High risk, on Xarelto Dispo. Anticipate discharge home with family. They have a long-term care insurance policy. She will need a front wheeled walker, wheelchair, shower seat , grab bars. She will have home PT OT and DECK MOLDER. Tentative discharge date of 05/08. Next follow up with Neuroimmunology, Dr. Reyes, at the [facility], on 05/12/2017. Brain MRI prior to followup. Subjective: patient reports ongoing sensation of mucous in throat, particularly if she lies supine at night Objective: Vital Signs Temp Pulse Resp BP Pulse Ox 36.7 C 69 18 110/66 94 04/29/17 08:00 04/29/17 08:00 04/29/17 08:00 04/29/17 08:00 04/29/17 08:00 Laboratory Results 04/14/17 06:10 04/14/17 06:10 04/28/17 04/29/17 04/30/17 05:59 05:59 05:59 Intake Total 1438 340 178 Output Total 1250 750 Balance 188 -410 178 - Physical Exam Constitutional: no apparent distress, not in pain, chronically ill appearing, No uncomfortable Ears, Nose, Mouth, Throat: other (tacky mucous membranes) Cardiovascular: regular rate and rhythym, no murmur, rub, or gallop, No edema Respiratory: no respiratory distress, no rales or rhonchi, clear to auscultation , other (no upper airway abnormal sounds) Gastrointestinal: normoactive bowel sounds, soft, non-tender abdomen, no palpable masses, No distension Neurologic: AAOx3, sensation intact bilaterally, No weakness Psychiatric: not anxious, not encephalopathic, flat affect, No agitated ICD10 Worksheet Patient Problems: Problems Problem Status Onset Nausea Acute Vomiting Acute Nausea with vomiting Acute Dehydration Acute Pulmonary embolus Acute Failure to thrive in adult Acute Dysphagia Acute
[2017-04-29] MEDS: CEPACOL LOZENGE PO PRN (13:12)
[2017-04-29] MEDS: SERTRALINE HCL 100 MG TAB PO SCH (13:12)
[2017-04-29] MEDS: PANTOPRAZOLE SODIUM 40 MG TAB PO SCH (13:12)
[2017-04-29] MEDS: clonazePAM 0.5 MG TAB PO PRN (21:10)
[2017-04-29] MEDS: CETIRIZINE 10 MG TAB PO SCH (21:10)
[2017-04-30] MEDS: guaiFENesin 600 MG TAB.ER PO SCH ×2 (08:16→20:31)
[2017-04-30] MEDS: CARBIDOPA/LEVODOPA 25 MG/100 MG TAB PO SCH ×3 (08:17→20:31)
[2017-04-30] MEDS: CYANO/VITAMIN B12 1000 MCG TAB PO SCH (08:17)
[2017-04-30] MEDS: predniSONE 20 MG TAB PO SCH (08:17)
[2017-04-30] MEDS: RIVAROXABAN 20 MG TAB PO SCH (08:17)
[2017-04-30] MEDS: SENNOSIDES/DOCUSATE SODIUM TAB PO PRN (08:34)
--- NOTE | 2017-04-30 13:19 | HOSPPROG ---
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 Neurology initiated methylprednisolone 1 g IV q.day on 04/18/2017. Changed to 60 mg of prednisone q.day starting 04/23/2017, continues - Ambulation improved with Sinemet per PT. - MRI C-spine and T-spine 04/24/2017, per orders of Neuroimmunology at [facility]: unchanged lesions in brainstem; C -spine DJD; T-spine w/out lesions. - Cont PT/OT * Parkinsonism. Likely due to lesions in basal ganglia. - Trial of Sinemet starting 04/24/2017 with improvement in voice and ambulation, continue * Dysphagia. Likely 2/2 above, Pre-Alb wnl indicating effective nourishment - [place] tolerated, cont RED MUD THICKENER OPERATOR * Metabolic Alkalosis. Unclear etiology, present on 04/14 and slightly worsened , possibly contraction alkalosis if she is not taking in adequate PO liquids - monitor strict I/O - recommend repeating labs in 48-72hrs depending on clinical course * Depression, with likely adjustment disorder with depressed mood. - Cont sertraline 150 mg q.day - Continue supportive environment; counseling per CLINICAL ATHLETIC INSTRUCTOR. - Consider psychiatry consult 05/01 * Diplopia. Resolved. * Dizziness, resolved. Not using meclizine; discontinued 04/28/2017. * Nausea. Continue Zofran 8 mg p.o. b.i.d. p.r.n.; not using. * GERD. Continue Protonix. * Asthma. Continue Proventil inhaler 1 to 2 puffs daily p.r.n. shortness of breath. * Sensation of phlegm in throat. Either post-nasal drip vs. globus sensation vs. dry mucous from swallow/dietary restrictions - Ongoing despite adding guaifensin, noted symptomatic improvement with HS cetirizine, suggesting PND component - Cont cetirizine, use PRN lozenges for temp relief during day as her mouth appears dry * Hx of PE. Cont on Xarelto Diet. [place], ongoing RED MUD THICKENER OPERATOR Code. DNR PPx. High risk, on Xarelto Dispo. Anticipate discharge home with family. They have a long-term care insurance policy. She will need a front wheeled walker, wheelchair, shower seat , grab bars. She will have home PT OT and RED MUD THICKENER OPERATOR. Tentative discharge date of 05/08. Next follow up with Neuroimmunology, Dr. Reyes, at the [facility], on 05/12/2017. Brain MRI prior to followup. Subjective: patient reports mobility improving today, throat sensation improved temporarily yesterday w/ lozenge, improved this AM s/p cetirizine Objective: Vital Signs Temp Pulse Resp BP Pulse Ox 36.7 C 64 16 118/61 96 04/30/17 06:38 04/30/17 06:38 04/30/17 06:38 04/30/17 06:38 04/30/17 06:38 Laboratory Results 04/14/17 06:10 04/30/17 06:25 04/29/17 04/30/17 05/01/17 05:59 05:59 05:59 Intake Total 340 654 420 Output Total 750 250 Balance -410 404 420 - Physical Exam Constitutional: no apparent distress, not in pain, chronically ill appearing, No uncomfortable Cardiovascular: regular rate and rhythym, no murmur, rub, or gallop, No edema Respiratory: no respiratory distress, no rales or rhonchi, clear to auscultation Gastrointestinal: normoactive bowel sounds, soft, non-tender abdomen, no palpable masses, No distension Neurologic: AAOx3, sensation intact bilaterally, No weakness (motor 5/5 bilat UE /LE), No facial droop Psychiatric: interacting appropriately, not anxious, not encephalopathic, thought process linear, flat affect ICD10 Worksheet Patient Problems: Problems Problem Status Onset Dehydration Acute Dysphagia Acute Failure to thrive in adult Acute Nausea Acute Nausea with vomiting Acute Pulmonary embolus Acute Vomiting Acute
[2017-04-30] MEDS: SERTRALINE HCL 100 MG TAB PO SCH (13:27)
[2017-04-30] MEDS: PANTOPRAZOLE SODIUM 40 MG TAB PO SCH (13:27)
[2017-04-30] MEDS: clonazePAM 0.5 MG TAB PO PRN (20:31)
[2017-04-30] MEDS: CETIRIZINE 10 MG TAB PO SCH (20:31)
[2017-05-01] MEDS: CARBIDOPA/LEVODOPA 25 MG/100 MG TAB PO SCH ×3 (08:27→20:33)
[2017-05-01] MEDS: CYANO/VITAMIN B12 1000 MCG TAB PO SCH (08:27)
[2017-05-01] MEDS: RIVAROXABAN 20 MG TAB PO SCH (08:27)
[2017-05-01] MEDS: predniSONE 20 MG TAB PO SCH (08:28)
[2017-05-01] MEDS: guaiFENesin 600 MG TAB.ER PO SCH ×2 (08:28→20:33)
--- NOTE | 2017-05-01 09:58 | SOAPPROG ---
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 Neurology initiated methylprednisolone 1 g IV q.day on 04/18/2017. Changed to 60 mg of prednisone q.day starting 04/23/2017. * Initial FIM 70 on 04/17/2017; improved to 78 as of 04/24/2017, and 291 as of . Independent with bed mobility and squat pivot transfer. Standby assist for sit to stand. Ambulated 150 ft standby assist/contact guard assist. Standby assist for ADLs. * Continue PT and OT. * Ambulation improved with Sinemet per PT. * MRI C-spine and T-spine 04/24/2017, per orders of Neuroimmunology at [facility]: unchanged lesions in brainstem; C -spine DJD; T-spine w/out lesions. 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 * Trial of Sinemet starting 04/24/2017.with improvement in voice and ambulation. Will continue. * Dysphagia * Continue ASSEMBLY PRESS OPERATOR. Swallowing upgraded from honey thick liquids 1 tsp at a time, to nectar thick liquids. * Trial of regular textures tomorrow, 05/02/2017. * Feels she is taking adequate hydration. Discontinued IV 04/28/2017. * Depression, with likely overlay of adjustment disorder with depressed mood. * Agrees to increasing sertraline from 100 mg QD to 150 mg q.day, to begin 2017. * Continue supportive environment; counseling per IDENTIFICATION PRINTING MACHINE SETTER. * Consider psychiatry consult. * Diplopia. Resolved. * Dizziness, resolved. Not using meclizine; discontinued 04/28/2017. * Nausea. Continue Zofran 8 mg p.o. b.i.d. p.r.n.; not using. * GERD. Continue Protonix. * Asthma. Continue Proventil inhaler 1 to 2 puffs daily p.r.n. shortness of breath. * Sensation of phlegm in throat. Improved with cetirizine. Likely postnasal drainage. Attended staffing, 15 min. Discussed with case management, nursing, dietitian, PT, OT, ASSEMBLY PRESS OPERATOR. Anticipate discharge home with family. They have a long-term care insurance policy. She will need a front wheeled walker, wheelchair, shower seat, grab bars. She will have home PT OT and ASSEMBLY PRESS OPERATOR. Tentative discharge date of 05/05/2017. Next follow up with Neuroimmunology, Dr. Reyes, at the [facility], on 05/12/2017. Brain MRI prior to followup. 05/01/17 12:25 Subjective: No complaints. Feels like she is doing better every day. Not ready to go home yet but asks about it discharge date. Objective: Vital Signs Temp Pulse Resp BP Pulse Ox 36.6 C 72 16 95/44 L 94 05/01/17 08:00 05/01/17 08:00 05/01/17 08:00 05/01/17 08:00 05/01/17 08:00 Laboratory Results 04/14/17 06:10 04/30/17 06:25 04/30/17 05/01/17 05/02/17 05:59 05:59 05:59 Intake Total 654 660 280 Output Total 250 200 Balance 404 460 280 - Time Spent With Patient Time Spent With Patient: Greater than 35 min floor time today, including more than 50% of time in coordination of care during staffing meeting, and counseling patient. Physical Exam - Physical Exam General Appearance: WD/WN, alert, no apparent distress Respiratory: normal breath sounds, No crackles, No rhonchi, No wheezing Cardiac/Chest: regular rate, rhythm, No diastolic murmur, No systolic murmur Skin: normal color, warm/dry Neuro/Psych: alert, normal mood/affect, oriented x 3 ICD10 Worksheet Patient Problems: Problems Problem Status Onset Dehydration Acute Dysphagia Acute Failure to thrive in adult Acute Nausea Acute Nausea with vomiting Acute Pulmonary embolus Acute Vomiting Acute
[2017-05-01] MEDS: PANTOPRAZOLE SODIUM 40 MG TAB PO SCH (13:41)
[2017-05-01] MEDS: SERTRALINE HCL 100 MG TAB PO SCH (13:41)
[2017-05-01] MEDS: FLUTICASONE NASAL 120 SPRAYS/16 GM MDI EACHNARE SCH (19:15)
[2017-05-01] MEDS: CETIRIZINE 10 MG TAB PO SCH (20:33)
[2017-05-01] MEDS: clonazePAM 0.5 MG TAB PO PRN (20:33)
[2017-05-02] MEDS: CHOLECALCIFEROL VIT D3 2,000 UNITS TAB/CAP PO SCH (09:44)
[2017-05-02] MEDS: CARBIDOPA/LEVODOPA 25 MG/100 MG TAB PO SCH ×3 (09:44→21:18)
[2017-05-02] MEDS: guaiFENesin 600 MG TAB.ER PO SCH ×2 (09:44→21:18)
[2017-05-02] MEDS: predniSONE 20 MG TAB PO SCH (09:44)
[2017-05-02] MEDS: RIVAROXABAN 20 MG TAB PO SCH (09:45)
[2017-05-02] MEDS: CYANO/VITAMIN B12 1000 MCG TAB PO SCH (09:46)
[2017-05-02] MEDS: FLUTICASONE NASAL 120 SPRAYS/16 GM MDI EACHNARE SCH ×2 (10:11→21:25)
--- NOTE | 2017-05-02 11:13 | SOAPPROG ---
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 Neurology initiated methylprednisolone 1 g IV q.day on 04/18/2017. Changed to 60 mg of prednisone q.day starting 04/23/2017. * Initial FIM 70 on 04/17/2017; improved to 78 as of 04/24/2017, and to 91 as of . Independent with bed mobility and squat pivot transfer. Standby assist for sit to stand. Ambulated 150 ft standby assist/contact guard assist. Standby assist for ADLs. * Continue PT and OT. * Ambulation improved with Sinemet per PT. * MRI C-spine and T-spine 04/24/2017, per orders of Neuroimmunology at [facility]: unchanged lesions in brainstem; C -spine DJD; T-spine w/out lesions. 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 * Trial of Sinemet starting 04/24/2017 with improvement in voice and ambulation. Will continue. * Dysphagia * Continue FEDERAL JUDGE. Swallowing upgraded from honey thick liquids 1 tsp at a time, to nectar thick liquids. * Trial of regular textures 05/02/2017. * Taking adequate hydration. Discontinued IV 04/28/2017. * Depression, with likely overlay of adjustment disorder with depressed mood. * Agrees to increasing sertraline from 100 mg QD to 150 mg q.day, to begin 2017. * Continue supportive environment; counseling per HOP WORKER. * Vitamin D deficiency. Initiated replacement 05/02/2017. * Diplopia. Resolved. * Dizziness, resolved. Not using meclizine; discontinued 04/28/2017. * Nausea. Continue Zofran 8 mg p.o. b.i.d. p.r.n.; not using. * GERD. Continue Protonix. * Asthma. Continue Proventil inhaler 1 to 2 puffs daily p.r.n. shortness of breath. * Sensation of phlegm in throat. Likely postnasal drainage. Continue cetirizine, fluticasone nasal spray, guaifenesin. Low threshold to discontinue guaifenesin once she shows improvement. Anticipate discharge home with family. They have a long-term care insurance policy. She will need a front wheeled walker, wheelchair, shower seat, grab bars. She will have home PT OT and FEDERAL JUDGE. Tentative discharge date of 05/05/2017. Next follow up with Neuroimmunology, Dr. Reyes, at the [facility], on 05/12/2017. Brain MRI prior to followup. 05/02/17 11:08 Subjective: Continues to be bothered by mucus in her throat. Other feeling stronger and doing better day by day. Asks about likely duration of prednisone treatment. Objective: Vital Signs Temp Pulse Resp BP Pulse Ox 36.8 C 74 18 97/55 L 92 05/02/17 08:00 05/02/17 08:00 05/02/17 08:00 05/02/17 08:00 05/02/17 08:00 Laboratory Results 04/14/17 06:10 04/30/17 06:25 05/01/17 05/02/17 05/03/17 05:59 05:59 05:59 Intake Total 660 980 530 Output Total 200 1060 600 Balance 460 -80 -70 Physical Exam - Physical Exam General Appearance: WD/WN, alert, no apparent distress EENT: other (Scant posterior oropharyngeal mucous visible) Respiratory: No respiratory distress, No accessory muscle use Skin: normal color, warm/dry Neuro/Psych: alert, normal mood/affect, oriented x 3 ICD10 Worksheet Patient Problems: Problems Problem Status Onset Dehydration Acute Dysphagia Acute Failure to thrive in adult Acute Nausea Acute Nausea with vomiting Acute Pulmonary embolus Acute Vomiting Acute
[2017-05-02] MEDS ORDERED: ALBUTEROL 60 PUFFS/8 GM MDI IH PRN (11:30)
[2017-05-02] MEDS ORDERED: DIAZEPAM 5 MG TAB PO ONE (11:52)
[2017-05-02] MEDS: CEPHALEXIN 500 MG CAP PO SCH ×3 (12:56→23:36)
[2017-05-02] MEDS: PANTOPRAZOLE SODIUM 40 MG TAB PO SCH (14:36)
[2017-05-02] MEDS: SERTRALINE HCL 100 MG TAB PO SCH (14:36)
[2017-05-02] MEDS: CEPACOL LOZENGE PO PRN (19:11)
[2017-05-02] MEDS: CETIRIZINE 10 MG TAB PO SCH (21:18)
[2017-05-02] MEDS: clonazePAM 0.5 MG TAB PO PRN (21:30)
[2017-05-03] MEDS: CEPHALEXIN 500 MG CAP PO SCH ×4 (05:19→23:53)
[2017-05-03] MEDS: predniSONE 20 MG TAB PO SCH (08:36)
[2017-05-03] MEDS: guaiFENesin 600 MG TAB.ER PO SCH (08:36)
[2017-05-03] MEDS: CARBIDOPA/LEVODOPA 25 MG/100 MG TAB PO SCH ×3 (08:37→21:19)
[2017-05-03] MEDS: RIVAROXABAN 20 MG TAB PO SCH (08:38)
[2017-05-03] MEDS: CYANO/VITAMIN B12 1000 MCG TAB PO SCH (08:39)
[2017-05-03] MEDS: CHOLECALCIFEROL VIT D3 2,000 UNITS TAB/CAP PO SCH (08:39)
[2017-05-03] MEDS: SENNOSIDES/DOCUSATE SODIUM TAB PO PRN (12:26)
[2017-05-03] MEDS: PANTOPRAZOLE SODIUM 40 MG TAB PO SCH (13:59)
[2017-05-03] MEDS: SERTRALINE HCL 100 MG TAB PO SCH (13:59)
[2017-05-03] MEDS ORDERED: CETIRIZINE 10 MG TAB PO PRN (14:13)
--- NOTE | 2017-05-03 14:21 | SOAPPROG ---
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 Neurology initiated methylprednisolone 1 g IV q.day on 04/18/2017. Changed to 60 mg of prednisone q.day starting 04/23/2017. * Initial FIM 70 on 04/17/2017; improved to 78 as of 04/24/2017, and to 91 as of . Independent with bed mobility and squat pivot transfer. Standby assist for sit to stand. Ambulated 150 ft standby assist/contact guard assist. Standby assist for ADLs. * Advanced to independent in room today 05/03/2017. * Continue PT and OT. * Ambulation improved with Sinemet per PT. * MRI C-spine and T-spine 04/24/2017, per orders of Neuroimmunology at [facility]: unchanged lesions in brainstem; C -spine DJD; T-spine w/out lesions. 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 * Trial of Sinemet starting 04/24/2017 with improvement in voice and ambulation. Will continue. * Dysphagia * Continue GOLD STAMPER. Swallowing upgraded from honey thick liquids 1 tsp at a time, to nectar thick liquids. * Taking adequate hydration. Discontinued IV 04/28/2017. * Depression, with likely overlay of adjustment disorder with depressed mood. * Agrees to increasing sertraline from 100 mg QD to 150 mg q.day, to begin 2017. * Continue supportive environment; counseling per FRONT COUNTER ATTENDANT. * Vitamin D deficiency. Initiated replacement 05/02/2017. * Diplopia. Resolved. * Dizziness, resolved. Not using meclizine; discontinued 04/28/2017. * Nausea. Continue Zofran 8 mg p.o. b.i.d. p.r.n.; not using. * GERD. Continue Protonix. * Asthma. Continue Proventil inhaler 1 to 2 puffs daily p.r.n. shortness of breath. * Sensation of phlegm in throat. Likely postnasal drainage. * Continue fluticasone nasal spray. * Change cetirizine to HS p.r.n. starting 05/03/2017. Discontinued guaifenesin . Attended family meeting, 30 min. Patient and present. Discussed with case management, nursing, PT, OT, GOLD STAMPER. Plan for discharge home with family on . She will need a front wheeled walker, wheelchair, shower seat, grab bars. She will have home PT OT and GOLD STAMPER. Next follow up with Neuroimmunology, Dr. Reyes, at the [facility], on 05/12/2017. Brain MRI prior to followup. 05/03/17 14:18 Subjective: Sensation of mucus Synthroid is somewhat improved with fluticasone. She is not sure of the cetirizine helped and the guaifenesin did not help at all. Discussed timing of medications, currently 7 different times per day. Agrees to changing Protonix to morning dosing. Will change sertraline from [id number] to be dosed together with the midday dose of carbidopa/levodopa. Objective: Vital Signs Temp Pulse Resp BP Pulse Ox 36.4 C 62 15 86/51 L 96 05/03/17 08:00 05/03/17 08:00 05/03/17 08:00 05/03/17 08:00 05/03/17 08:00 Laboratory Results 04/14/17 06:10 04/30/17 06:25 05/02/17 05/03/17 05/04/17 05:59 05:59 05:59 Intake Total 980 2570 600 Output Total 1060 1600 Balance -80 970 600 - Time Spent With Patient Time Spent With Patient: Greater than 35 min floor time today, including more than 50% of time in coordination of care and counseling during family meeting. Physical Exam - Physical Exam General Appearance: WD/WN, alert, no apparent distress Respiratory: No respiratory distress, No accessory muscle use Cardiac/Chest: No edema Skin: normal color, warm/dry, other (Brain biopsy incision from vertex of scalp reports occiput continues to have swelling and erythema approximately.) Neuro/Psych: alert, normal mood/affect, oriented x 3 ICD10 Worksheet Patient Problems: Problems Problem Status Onset Dehydration Acute Dysphagia Acute Failure to thrive in adult Acute Nausea Acute Nausea with vomiting Acute Pulmonary embolus Acute Vomiting Acute
[2017-05-03] MEDS: clonazePAM 0.5 MG TAB PO PRN (21:19)
[2017-05-03] MEDS: FLUTICASONE NASAL 120 SPRAYS/16 GM MDI EACHNARE SCH (21:20)
[2017-05-04] MEDS: CEPHALEXIN 500 MG CAP PO SCH (06:22)
[2017-05-04] MEDS: PANTOPRAZOLE SODIUM 40 MG TAB PO SCH (08:38)
[2017-05-04] MEDS: CYANO/VITAMIN B12 1000 MCG TAB PO SCH (08:38)
[2017-05-04] MEDS: CHOLECALCIFEROL VIT D3 2,000 UNITS TAB/CAP PO SCH (08:39)
[2017-05-04] MEDS: CARBIDOPA/LEVODOPA 25 MG/100 MG TAB PO SCH ×3 (08:40→21:06)
[2017-05-04] MEDS: RIVAROXABAN 20 MG TAB PO SCH (08:40)
[2017-05-04] MEDS: predniSONE 20 MG TAB PO SCH (08:42)
--- NOTE | 2017-05-04 11:16 | SOAPPROG ---
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 Neurology initiated methylprednisolone 1 g IV q.day on 04/18/2017. Changed to 60 mg of prednisone q.day starting 04/23/2017. * Initial FIM 70 on 04/17/2017; improved to 78 as of 04/24/2017, and to 91 as of . Independent with bed mobility and squat pivot transfer. Standby assist for sit to stand. Ambulated 150 ft standby assist/contact guard assist. Standby assist for ADLs. * Advanced to independent in room today 05/03/2017. * Continue PT and OT. * Ambulation improved with Sinemet per PT. * MRI C-spine and T-spine 04/24/2017, per orders of Neuroimmunology at [facility]: unchanged lesions in brainstem; C -spine DJD; T-spine w/out lesions. 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 * Trial of Sinemet starting 04/24/2017 with improvement in voice and ambulation. Will continue. * Dysphagia * Continue COSMETICS SUPERVISOR. Swallowing upgraded from honey thick liquids 1 tsp at a time, to nectar thick liquids. * Taking adequate hydration. Discontinued IV 04/28/2017. * S/P brain biopsy. * Swelling proximal end of incision scalp no longer hears consistent with infection. Enlarging. Query seroma or CSF leak. * Will discontinue antibiotics, 05/04/2017. * D/W Shruthi Valencia, Neurosurgery PA. Advises head CT. Will arrange for this afternoon 05/04/2017. * Sensation of phlegm in throat. Likely postnasal drainage. * Improved. Continue fluticasone nasal spray. * Change cetirizine to HS p.r.n. starting 05/03/2017. Discontinued guaifenesin . * Depression, with likely overlay of adjustment disorder with depressed mood. * Agrees to increasing sertraline from 100 mg QD to 150 mg q.day, to begin 2017. * Continue supportive environment; counseling per SECURITY TECH. * Vitamin D deficiency. Initiated replacement 05/02/2017. * Diplopia. Resolved. * Dizziness, resolved. Not using meclizine; discontinued 04/28/2017. * Nausea. Continue Zofran 8 mg p.o. b.i.d. p.r.n.; not using. * GERD. Continue Protonix. * Asthma. Continue Proventil inhaler 1 to 2 puffs daily p.r.n. shortness of breath. Plan for discharge home with family on 05/05/2017. She will need a front wheeled walker, wheelchair, shower seat, grab bars. She will have home PT OT and COSMETICS SUPERVISOR. Next follow up with Neuroimmunology, Dr. Reyes, at the [facility], on 05/12/2017. Brain MRI prior to followup. 05/04/17 11:24 Subjective: Considered swelling is increased at her scalp incision. It feels uncomfortable when she lays on it, otherwise it is not painful. Sensation of mucus in the throat is improved; she was able to get to sleep more easily last night. Otherwise no complaints looking for to going home tomorrow. Objective: Vital Signs Temp Pulse Resp BP Pulse Ox 36.8 C 67 16 107/59 L 95 05/04/17 06:16 05/04/17 06:16 05/04/17 06:16 05/04/17 06:16 05/04/17 06:16 Laboratory Results 04/14/17 06:10 04/30/17 06:25 05/03/17 05/04/17 05/05/17 05:59 05:59 05:59 Intake Total 2570 960 236 Output Total 1600 700 Balance 970 260 236 Physical Exam - Physical Exam General Appearance: WD/WN, alert, no apparent distress Respiratory: No respiratory distress, No accessory muscle use Skin: normal color, warm/dry, other (Proximal end of scalp incision with increased swelling, approximately 1.5 cm. Erythema largely resolved. Nontender to light palpation.) Neuro/Psych: alert, normal mood/affect, oriented x 3 ICD10 Worksheet Patient Problems: Problems Problem Status Onset Dehydration Acute Dysphagia Acute Failure to thrive in adult Acute Nausea Acute Nausea with vomiting Acute Pulmonary embolus Acute Vomiting Acute
[2017-05-04] MEDS ORDERED: SERTRALINE HCL 100 MG TAB PO SCH (16:00)
[2017-05-04 16:44] LABS: PLATELET COUNT 208 10^3/uL (150-400)
[2017-05-04 18:30] VITALS: RESP 15
[2017-05-04] MEDS: DOXYCYCLINE HYCLATE 100 MG CAP/TAB PO SCH (21:01)
[2017-05-04] MEDS: clonazePAM 0.5 MG TAB PO PRN (21:01)
[2017-05-04] MEDS: FLUTICASONE NASAL 120 SPRAYS/16 GM MDI EACHNARE SCH (21:09)
[2017-05-05] MEDS: CARBIDOPA/LEVODOPA 25 MG/100 MG TAB PO SCH (09:38)
[2017-05-05] MEDS: CHOLECALCIFEROL VIT D3 2,000 UNITS TAB/CAP PO SCH (09:40)
[2017-05-05] MEDS: predniSONE 20 MG TAB PO SCH (09:41)
[2017-05-05] MEDS: PANTOPRAZOLE SODIUM 40 MG TAB PO SCH (09:41)
[2017-05-05] MEDS: DOXYCYCLINE HYCLATE 100 MG CAP/TAB PO SCH (09:41)
[2017-05-05] MEDS: CYANO/VITAMIN B12 1000 MCG TAB PO SCH (09:41)
[2017-05-05] MEDS: RIVAROXABAN 20 MG TAB PO SCH (09:42)
[2017-05-05 14:09] VITALS: BP 92/62; PULSE 78; TEMP 97; O2SAT 97
--- NOTE | 2017-05-05 15:32 | GDS ---
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 2. Parkinsonism, likely due to lesions in the basal ganglia. 3. Dysphagia. 4. Depression. 5. Vitamin D deficiency. 6. Nodule, likely seroma, at scalp incision site from brain biopsy. CONSULTATIONS: She was seen in consultation by neurologist, Dr. Ochoa, and she had followup consultation with the Neurologic Immunology Clinic at the [facility]. PROCEDURES: There were none. COMPLICATIONS: There were none. HISTORY AND HOSPITAL COURSE: This patient came to [facility] inpatient rehabilitation from [facility]. She had presented there with worsening difficulties with speech, ataxia, dysphagia, diplopia and impaired memory. A brain biopsy was obtained which was interpreted at the [facility] Neuroimmunology Clinic where her care was managed by Dr. Reyes. She was diagnosed with CLIPPERS syndrome which is similar to multiple sclerosis, but responsive to steroids. Her biopsy showed nonspecific inflammation and not completely specific to CLIPPERS syndrome. However, she was placed on high-dose corticosteroids with methylprednisolone 1 g IV daily for several days and subsequent transition to prednisone 60 mg p.o. daily. She had improvement in her condition. She also appeared to be parkinsonian with bradykinesia and hypophonia and shuffling gait. Sinemet was begun and she had significant improvement in her gait, her voice and her ability to swallow. Her initial functional independence measure was 70 on 04/17/2017, which is consistent with snf level of function. She had considerable improvement during her stay and by 05/01/2017 her functional independence measure had improved to 91, which is consistent with assisted living level of function. She was independent with bed mobility and with a squat-pivot transfer. She required standby assist for sit to stand. She had ambulated 150 feet with standby assist to contact guard assist using her front-wheeled walker and she required standby assist for activities of daily living. She was made independent in her room on 05/03/2017. Regarding dysphagia, swallowing was upgraded from honey-thick liquids 1 teaspoon at a time to nectar thick liquids. There were issues with hydration while she was on the honey-thick liquids and she received IV hydration overnight x2, but subsequently on nectar thick liquids was able to hydrate adequately. On the day of discharge, she was cleared for a water protocol. She had some cognitive impairment. The Severiano Cognitive Assessment was administered on 05/05/2017. She scored 24 out of 30, losing points for delayed recall and verbal fluency. She had significant depressed mood when she was first admitted. She was already taking sertraline 100 mg daily for a history of depression. This was increased to 150 mg daily. Either due to the increase in the sertraline or to her steady functional improvement, she no longer had depressed mood. Given that she is on chronic high-dose steroids, vitamin D was tested and she was found to be deficient. Vitamin D replacement was begun 05/02/2017. The diplopia that she had when she was first admitted, which was likely due to pontine effects of CLIPPERS syndrome, resolved during her stay. She had a persistent sensation of phlegm in her throat which eventually was found to be consistent with likely postnasal drainage. This improved with scheduled fluticasone after unsuccessful trials of cetirizine and guaifenesin. Several days before discharge, she was noted to have an area of swelling, erythema, and tenderness at the proximal end of her scalp incision. She was treated with cephalexin for several days and the erythema resolved and tenderness improved. However, the area of swelling increased. Neurosurgery recommended a CT scan which showed nonspecific fluid outside of the skull. CBC was obtained to evaluate for possible infection. Her white count was elevated at 10.36 on discharge. On the day before discharge, cephalexin was changed to doxycycline for ease of twice daily administration rather than four times daily. Otherwise, her CBC was overall within normal limits. There was a predominance of absolute neutrophils at 9.82. Serum chemistry on 04/14 revealed normal renal function and electrolytes, on 04/30 showed elevated carbon dioxide at 32. Liver function tests were normal but for a low albumin at 31 and on 05/01/2017, her vitamin D level was found to be 18.2. Neuro-immunology recommended MRI of the T-spine and C-spine. These were obtained on 04/24/2017. There was no change from prior findings. T-spine was overall normal but for mild thoracic scoliosis and degenerative disk disease with no neural impingement. Cervical spine MRI showed multiple abnormal punctate areas of contrast enhancement within the brainstem and cerebellum and a few scattered lesions within the cervical spine which were unchanged from her prior MRI, and she had features of degenerative disk disease throughout the cervical spine. DISCHARGE PLAN: 1. Condition upon discharge is good. 2. Activity is ad akira. 3. Diet is regular but to continue nectar thick liquids. 4. Date of next appointment, she has followup with the Neuroimmunology Clinic at the [facility] with Dr. Marion Reyes on 05/12/2017. She will have an MRI of the brain done at [facility] prior to this appointment. 5. She has followup with her primary care provider, Dr. Radha Chen on 2017. 6. She will follow up with neurologist, Dr. Ochoa at [facility] in [place], who will be managing her together with Dr. Reyes at the Neuroimmunology Clinic. MEDICATIONS ON DISCHARGE: 1. Cepacol lozenges p.r.n. 2. Carbidopa/levodopa 25/100, 1 p.o. three times daily. 3. Cholecalciferol 5000 units p.o. daily. 4. Clonazepam 0.5 mg p.o. at bedtime. 5. Cyanocobalamin 1000 mcg p.o. daily. 6. Doxycycline 100 mg p.o. twice daily. 7. Fluticasone 2 sprays each nares at bedtime. 8. Pantoprazole 40 mg p.o. daily. 9. Prednisone 60 mg p.o. daily. 10. Rivaroxaban 20 mg p.o. daily. 11. Senna/docusate 1 to 2 tables p.o. twice daily. 12. Sertraline 150 mg p.o. daily. ISSUES TO BE ADDRESSED AT FOLLOWUP: 1. Functional status. Continue home PT, OT, and SHOE CUTTER, and she can follow up with her primary care provider as well as the neurologists regarding how she is doing. 2. Fluid-filled nodule under her scalp. Continue doxycycline and she was instructed to have followup with [facility] regarding management of the nodule. 3. History of pulmonary embolus. Continue rivaroxaban. 4. Restless leg syndrome. Continue clonazepam. 5. Parkinsonian syndrome. Continue carbidopa/levodopa and follow up with Neurology as well as Neuroimmunology. 6. Depression. Unclear whether or not she needs to continue 150 mg of sertraline versus her prior dose of 100 mg. This can be decided in consultation with her primary care provider, Dr. Chen. 7. Vitamin D deficiency. Advised continuing vitamin D replacement as well as calcium supplementation, especially while she remains on high-dose oral corticosteroids. TIME SPENT: Greater than 30 minutes was spent on this discharge including coordination of care, medication reconciliation and counseling patient. Copy requested to: Marion Reyes MD [facility] /[id number]/MODL MTDD
== END 2017-05-05 15:11 | disposition home or self-care (01) | DRG 98 ==
LOC: BREH 14:34
PROVIDERS: ADMIT Physical Medicine & Rehabilitation; ATTEND Physical Medicine & Rehabilitation
PROC: F08Z7ZZ Vocational Activities and Functional Community or Work Reintegration Skills Treatment (ICD-10-PCS; principal; 2017-04-13)
PROC: F07M3ZZ Motor Function Treatment of Musculoskeletal System - Whole Body (ICD-10-PCS; principal; 2017-04-13)
PROC: F0636ZZ Communicative/Cognitive Integration Skills Treatment of Neurological System - Whole Body (ICD-10-PCS; principal; 2017-04-13)
DX: G04.81 Other encephalitis and encephalomyelitis (principal); H53.2 Diplopia; R13.10 Dysphagia, unspecified; K21.9 Gastro-esophageal reflux disease without esophagitis; J45.909 Unspecified asthma, uncomplicated; F32.9 Major depressive disorder, single episode, unspecified; R27.0 Ataxia, unspecified; Z86.711 Personal history of pulmonary embolism; G25.81 Restless legs syndrome; G20 Parkinson's disease; E55.9 Vitamin D deficiency, unspecified; L76.34 Postprocedural seroma of skin and subcutaneous tissue following other procedure
CPT/HCPCS: 84134-90; 92507-GN; 92522-GN; 92526-GN; 92610-GN; 92611-GN; 97110-GO; 97110-GP; 97112-GP; 97116-GP; 97162-GP; 97166-GO; 97530-GO; 97530-GP; 97535-GO; 97542-GP; 99366-GO; A9585; G0515-GO; J2930; J7512; J7608

== ENCOUNTER → 2017-05-12 | Outpatient (CLI) | payer OTHER ==
[~2017-05-12] MED LIST changes: +GADOBUTROL 10 ML VIAL IVP ONE; -LIDOCAINE 1% 300 MG/30 ML SDV ONE
== END ==
LOC: FIMAGING 06:45
PROVIDERS: ATTEND Psychiatry & Neurology Neurology
DX: G93.89 Other specified disorders of brain (principal)
CPT/HCPCS: 70553; A9585

== ENCOUNTER 2017-06-15 10:04 | Observation (INO) | payer OTHER ==
--- NOTE | 2017-06-15 10:15 | CPEKG ---
Heart Rate: 69 RR Interval: 870 P-R Interval: 116 QRSD Interval: 78 QT Interval: 372 QTC Interval: 399 P [place]: 47 QRS [place]: 51 T Wave [place]: 44 EKG Severity - NORMAL ECG - EKG Impression: SINUS RHYTHM Electronically Signed By: Tami Hall 15-Jun-2017 16:27:31
--- NOTE | 2017-06-15 10:51 | EDPHY ---
HPI/HX/ROS/PE/MDM Narrative: CHIEF COMPLAINT: Chest pain HISTORY OF PRESENT ILLNESS: This patient is an anticoagulated (Xarelto) 72 year old female arriving via EMS complaining of chest pain. This morning, she was in the kitchen baking when she had sudden onset midsternal chest pressure which made her need to sit. Discomfort felt like someone pressing on her. She denies nausea, diaphoresis, vomiting. Took ASA 81mg and called a friend for assistance. Currently, her chest discomfort is completely resolved but she feels quite shaky and weak. She had a similar episode last week but did not seek care. Patient has history of PE in October 2016 and has been anticoagulated since that time. In December, she had difficulty with speech, memory, and balance. Lesions on brain diagnosed by MRI in January, and following a biopsy in April she has undergone steroid treatments which have resolved her symptoms considerably. Patient denies history of hypertension, hyperlipidemia, diabetes, or cardiac disease. No personal history of cancer. No fever, chills, shortness of breath, palpitations, vomiting, diarrhea, urinary complaints, headache, lightheadedness. REVIEW OF SYSTEMS: Aside from elements discussed in the HPI, a comprehensive 10-point review of systems was reviewed and is negative. PAST MEDICAL HISTORY: Pulmonary embolism. "Brain lesions". Cholecystectomy. SOCIAL HISTORY: . at bedside. Nonsmoker. No alcohol use. VITAL SIGNS: Reviewed by me GENERAL: Uncomfortable appearing. HEENT: Atraumatic. Eyes: No icterus, no injection. Mouth: moist mucous membranes. No erythema or lesions. Neck: supple with no adenopathy. LUNGS: Clear to auscultation bilaterally, no wheezes, rhonchi or rales. CARDIAC: Regular rate and rhythm, no rubs, murmurs or gallops. ABDOMEN: Soft, nontender, nondistended, bowel sounds normal. BACK: No CVA tenderness. EXTREMITIES: No trauma. No edema. Range of motion is normal throughout. NEURO: Alert and oriented, grossly nonfocal. SKIN: Warm and dry, no rash. PSYCHIATRIC: Normal mentation, no agitation. Portions of this note were transcribed by a medical technologist prn. I personally performed a history, physical exam, medical decision making, and confirmed accuracy of information the transcribed note. ED Course: 72 y/o female presents following an episode of chest pain this morning. Patient remains weak and shaky. Plan for EKG, chest x-ray, labs including CBC, chemistries, troponin, d-dimer, lipase, BNP. 12-LEAD EKG: Please see the full report in [facility]. My interpretation: Normal sinus rhythm Reviewed chest x-ray. Negative for acute processes. D-dimer and troponin negative. 11:46 Spoke with hospitalist service. Dr. Stauffer accepts admission for chest pain, r/o ACS. MDM: After history and physical examination, the differential for chest pain was considered, including but not limited to, myocardial ischemia, acute coronary syndrome, pulmonary embolus, chest wall pain, pleural inflammation and pulmonary infectious causes. - Data Points Imaging Results: CXR: Impression: No acute pulmonary disease. Dictated By: Claudy Londono MD Imaging: I viewed and interpreted images myself Laboratory Results: Laboratory Results 06/15/17 10:00 06/15/17 10:00 Medications Given: Discontinued Medications Clonazepam (Klonopin) 0.5 mg PO HS [facility] Stop: 12/12/17 20:59 Last Admin: 06/15/17 20:39 Dose: 0.5 mg Docusate Sodium (Colace) 100 mg PO DAILY [facility] Stop: 12/13/17 08:59 Last Admin: 06/16/17 09:35 Dose: 100 mg Mycophenolate Mofetil (Cellcept) 250 mg PO 0500,2200 [facility] Stop: 12/12/17 21:59 Last Admin: 06/16/17 04:57 Dose: 250 mg Pantoprazole Sodium (Protonix) 40 mg PO DAILY@13 [facility] Stop: 12/12/17 16:17 Last Admin: 06/15/17 17:11 Dose: 40 mg Prednisone (Prednisone) 50 mg PO DAILY [facility] Stop: 12/13/17 08:59 Last Admin: 06/16/17 09:34 Dose: 50 mg Rivaroxaban (Xarelto) 20 mg PO DAILY16 [facility] Stop: 12/12/17 16:29 Last Admin: 06/15/17 17:11 Dose: 20 mg Sertraline HCl (Zoloft) 150 mg PO DAILY@13 [facility] Stop: 12/12/17 16:18 Last Admin: 06/15/17 17:11 Dose: 150 mg Trimethoprim/Sulfamethoxazole (Bactrim Ds) 2 ea PO MWF [facility] PRN Reason: Protocol Stop: 07/16/17 07:59 Last Admin: 06/16/17 09:37 Dose: 1 ea General Time Seen by Provider: 06/15/17 10:27 Initial Vital Signs: Initial Vital Signs Temperature (C) 36.6 C 06/15/17 10:04 Heart Rate 69 06/15/17 10:04 Respiratory Rate 18 06/15/17 10:04 Blood Pressure 101/75 06/15/17 10:04 O2 Sat (%) 100 06/15/17 10:04 O2 Delivery Mode Room Air Allergies/Adverse Reactions: No Known Allergies Allergy (Unverified 06/15/17 13:43) Home Medications: Medication Instructions Recorded Cholecalciferol Vit D3 [Vitamin D3 5,000 units PO DAILY16 06/15/17 2000 units tab (OTC)] Cyanocobalamin [Vitamin B12 (*)] 1,000 mcg PO DAILY16 06/15/17 Docusate Sodium [Colace 100 MG (*)] 100 mg PO DAILY 06/15/17 Mycophenolate Mofetil [Cellcept] 250 mg PO BID 06/15/17 Pantoprazole Sodium [Protonix 40mg 40 mg PO DAILY@13 06/15/17 (*)] Polyethylene Glycol 3350 [Miralax 17 gm PO DAILY PRN 06/15/17 17 gm (*)] Rivaroxaban [Xarelto] 20 mg PO DAILY16 06/15/17 Sertraline HCl [Zoloft 100mg (*)] 150 mg PO DAILY@13 06/15/17 Sulfamethox/Tmp 800/160 mg 2 tab PO F 06/15/17 [Bactrim DS] clonazePAM [Klonopin (*)] 0.5 mg PO HS 06/15/17 predniSONE [Prednisone] 50 mg PO DAILY 06/15/17 Departure - Departure Disposition: [facility] Acute Clinical Impression: Chest pain, rule out acute myocardial infarction Chest pain Qualifiers: Chest pain type: unspecified Qualified Code(s): R07.9 - Chest pain, unspecified Condition: Good Report Scribed for: Tami Hall Report Scribed by: Madisyn Castaneda Date of Report: 06/15/17 Time of Report: 10:51
[2017-06-15 11:04] LABS: PLATELET COUNT 153 10^3/uL (150-400)
[2017-06-15 11:19] LABS: PROTIME(PATIENT) 19.2 SEC (12.0-15.0)
[2017-06-15] MEDS ORDERED: ACETAMINOPHEN 325 MG TAB PO PRN (12:59)
[2017-06-15] MEDS ORDERED: ONDANSETRON 4 MG/2 ML VIAL IVP PRN (12:59)
[2017-06-15] MEDS ORDERED: ONDANSETRON DISINTEGRATING 4 MG TAB PO PRN (12:59)
[2017-06-15] MEDS ORDERED: HYOSCYAMINE SULFATE 0.125 MG TAB PO PRN (13:02)
[2017-06-15] MEDS ORDERED: MAG HYDROX/AL HYDROX/SIMETH 30 ML UDCUP PO PRN (13:02)
[2017-06-15] MEDS ORDERED: LIDOCAINE 2% VISCOUS 15 ML UDCUP PO PRN (13:02)
[2017-06-15] MEDS ORDERED: POLYETHYLENE GLYCOL 3350 17 GM PKT PO PRN (16:17)
[2017-06-15] MEDS ORDERED: PANTOPRAZOLE SODIUM 40 MG TAB PO SCH (16:18)
[2017-06-15] MEDS ORDERED: SERTRALINE HCL 100 MG TAB PO SCH (16:19)
[2017-06-15] MEDS ORDERED: RIVAROXABAN 20 MG TAB PO SCH (16:30)
--- NOTE | 2017-06-15 16:57 | PDGENHP ---
History and Physical - Chief Complaint chest pain - History of Present Illness 72 yo female with h/o PE and recent diagnosis of CLIPPERS (inflammatory HAIR COLORIST disorder) presented to ED with chest pressure. She was baking a cake in her kitchen when she suddenly developed sub-sternal chest pressure. There was no associated SOB, diaphoresis or nausea. The pain did radiate a bit into her neck. She has a h/o nausea and vomiting, at some point thought possibly secondary to acid reflux and she is on Protonix. She denies a burning sensation or epigastric pain. She took a full dose aspirin. By the time she arrived to the ED, she was chest pain free and remains chest pain free. She is a lifetime non-smoker. No h/o diabetes, hypertension, hyperlipidemia or family history of premature CAD. Regarding the CLIPPERS, she had a prolonged course of confusion, aphasia and gait instability. She ultimately underwent an open brain biopsy, which showed abnormal T cell inflammation in the leptomeninges. She was diagnosed with CLIPPERS at the [facility] and has been initiated on Prednisone and Cellcept. Her symptoms have since improved and her repeat brain MRI showed near resolution of the abnormalities. History Information - Allergies/Home Medication List Allergies/Adverse Reactions: No Known Allergies Allergy (Unverified 06/15/17 13:43) Home Medications: Cholecalciferol Vit D3 [Vitamin D3 2000 units tab (OTC)] 5,000 units PO DAILY16 06/15/17 [Last Taken 06/14/17] Cyanocobalamin [Vitamin B12 (*)] 1,000 mcg PO DAILY16 06/15/17 [Last Taken 06/14] Docusate Sodium [Colace 100 MG (*)] 100 mg PO DAILY 06/15/17 [Last Taken ] Mycophenolate Mofetil [Cellcept 250 mg (RX)] 250 mg PO BID 06/15/17 [Last Taken 06/15/17 04:30] Pantoprazole Sodium [Protonix 40mg (*)] 40 mg PO DAILY@13 06/15/17 [Last Taken 06/14/17] Polyethylene Glycol 3350 [Miralax 17 gm (*)] 17 gm PO DAILY PRN 06/15/17 [Last Taken Unknown] Rivaroxaban [Xarelto] 20 mg PO DAILY16 06/15/17 [Last Taken 06/14/17] Sertraline HCl [Zoloft 100mg (*)] 150 mg PO DAILY@13 06/15/17 [Last Taken ] Sulfamethox/Tmp 800/160 mg [Bactrim Ds] 2 tab PO MWF 06/15/17 [Last Taken ] clonazePAM [Klonopin (*)] 0.5 mg PO HS 06/15/17 [Last Taken 06/14/17] predniSONE [Prednisone] 50 mg PO DAILY 06/15/17 [Last Taken 06/15/17] I have personally reviewed and updated: family history, medical history, social history, surgical history - Past Medical History Additional medical history: Chronic nausea and vomiting. CLIPPERS ( inflammatory HAIR COLORIST disorder) - on prednisone and cellcept. H/O PE 2017 - on Xarelto. Depression. Asthma - Surgical History Additional surgical history: CCY by Dr. Mesa on 09/26/16. R shoulder surgery. 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 Just finished a month in rehab after prolonged course of gait instability due to inflammatory HAIR COLORIST disorder. Living at home independently now Review of Systems Review of Systems: ROS: 10pt was reviewed & negative except for what was stated in HPI & below Physical Exam Physical Exam: Temp Pulse Resp BP Pulse Ox 36.8 C 70 18 109/53 L 95 06/15/17 15:12 06/15/17 15:12 06/15/17 15:12 06/15/17 15:12 06/15/17 15:12 Constitutional: no apparent distress Eyes: PERRL Ears, Nose, Mouth, Throat: moist mucous membranes Cardiovascular: regular rate and rhythym Respiratory: no respiratory distress, clear to auscultation Gastrointestinal: normoactive bowel sounds, soft, non-tender abdomen Skin: warm Musculoskeletal: full muscle strength Neurologic: AAOx3 Psychiatric: interacting appropriately Lab Data & Imaging Review 06/15/17 10:00 06/15/17 10:00 WBC 7.53 10^3/uL (3.80-9.50) 06/15/17 10:00 RBC 4.33 10^6/uL (4.18-5.33) 06/15/17 10:00 Hgb 13.4 g/dL (12.6-16.3) 06/15/17 10:00 Hct 41.6 % (38.0-47.0) 06/15/17 10:00 MCV 96.1 fL (81.5-99.8) 06/15/17 10:00 MCH 30.9 pg (27.9-34.1) 06/15/17 10:00 MCHC 32.2 g/dL (32.4-36.7) L 06/15/17 10:00 RDW 15.8 % (11.5-15.2) H 06/15/17 10:00 Plt Count 153 10^3/uL (150-400) 06/15/17 10:00 MPV 9.8 fL (8.7-11.7) 06/15/17 10:00 Neut % (Auto) 81.6 % (39.3-74.2) H 06/15/17 10:00 Lymph % (Auto) 12.9 % (15.0-45.0) L 06/15/17 10:00 Evans % (Auto) 4.2 % (4.5-13.0) L 06/15/17 10:00 Eos % (Auto) 0.4 % (0.6-7.6) L 06/15/17 10:00 Baso % (Auto) 0.0 % (0.3-1.7) L 06/15/17 10:00 Nucleat RBC Rel Count 0.0 % (0.0-0.2) 06/15/17 10:00 Absolute Neuts (auto) 6.14 10^3/uL (1.70-6.50) 06/15/17 10:00 Absolute Lymphs (auto) 0.97 10^3/uL (1.00-3.00) L 06/15/17 10:00 Absolute Monos (auto) 0.32 10^3/uL (0.30-0.80) 06/15/17 10:00 Absolute Eos (auto) 0.03 10^3/uL (0.03-0.40) 06/15/17 10:00 Absolute Basos (auto) 0.00 10^3/uL (0.02-0.10) L 06/15/17 10:00 Absolute Nucleated RBC 0.00 10^3/uL (0-0.01) 06/15/17 10:00 Immature Gran % 0.9 % (0.0-1.1) 06/15/17 10:00 Immature Gran # 0.07 10^3/uL (0.00-0.10) 06/15/17 10:00 PT 19.2 SEC (12.0-15.0) H 06/15/17 10:00 INR 1.60 (0.83-1.16) H 06/15/17 10:00 APTT 26.4 SEC (23.0-38.0) 06/15/17 10:00 D-Dimer < 0.27 ug/mLFEU (0.00-0.50) 06/15/17 10:00 Sodium 142 mEq/L (135-145) 06/15/17 10:00 Potassium 4.2 mEq/L (3.5-5.2) 06/15/17 10:00 Chloride 105 mEq/L (97-110) 06/15/17 10:00 Carbon Dioxide 27 mEq/l (22-31) 06/15/17 10:00 Anion Gap 10 mEq/L (8-16) 06/15/17 10:00 BUN 18 mg/dL (7-23) 06/15/17 10:00 Creatinine 1.0 mg/dL (0.6-1.0) 06/15/17 10:00 Estimated GFR 55 06/15/17 10:00 Glucose 90 mg/dL (70-100) 06/15/17 10:00 Calcium 8.7 mg/dL (8.5-10.4) 06/15/17 10:00 Troponin I < 0.012 ng/mL (0.000-0.034) 06/15/17 10:00 NT-Pro-B Natriuret Pep 333 pg/mL (0-125) H 06/15/17 10:00 Lipase 102 IU/L (23-300) 06/15/17 10:00 Visualized and Interpreted Chest x-ray results: Yes Chest X-Ray results: no infiltrate Visualized and Interpreted EKG results: Yes EKG Interpretation: Positive for: normal sinsus rhythm Assessment & Plan Assessment: Chest pain - EKG non-ischemic, trop negative. No significant cardiac risk factors. Chest pain free since arrival to ED. Heart score 2, low risk. -admit to tele -trend trop -trial GI cocktail -check lipids in am -given low risk, if trops neg and no recurrent CP, can likely d/c home with outpt risk stratification H/O PE - cont xarelto CLIPPERS - inflammatory HAIR COLORIST disorder, on cellcept and prednisone which will be continued Full code Dispo - obs
[2017-06-15] MEDS: MYCOPHENOLATE MOFETIL 250 MG CAP PO SCH (20:39)
[2017-06-15] MEDS ORDERED: clonazePAM 0.5 MG TAB PO SCH (21:00)
[2017-06-16] MEDS: MYCOPHENOLATE MOFETIL 250 MG CAP PO SCH (04:57)
[2017-06-16] MEDS ORDERED: SULFAMETHOX/TMP 800/160 MG 1 TAB PO SCH (08:00)
[2017-06-16 08:17] VITALS: BP 108/66
[2017-06-16] MEDS ORDERED: DOCUSATE SODIUM 100 MG CAP PO SCH (09:00)
[2017-06-16] MEDS ORDERED: predniSONE 10 MG TAB PO SCH (09:00)
[2017-06-16] MEDS ORDERED: CHOLECALCIFEROL VIT D3 2,000 UNITS TAB/CAP PO SCH (16:00)
[2017-06-16] MEDS ORDERED: CYANO/VITAMIN B12 1000 MCG TAB PO SCH (16:00)
--- NOTE | 2017-06-18 05:12 | GDS ---
[f rep st] DISCHARGE SUMMARY DISCHARGE DIAGNOSES: 1. Chest pain, likely noncardiac. 2. History of pulmonary embolism. 3. Chronic anticoagulation. 4. CLIPPERS syndrome. HISTORY OF DETAILS: Please see history and physical dated June 15, 2017. In brief, the patient is a 72-year-old female with a history of pulmonary embolism, recent diagnosis of CLIPPERS syndrome which is inflammatory central nervous system disorder, who presented to the emergency department with chest pressure. She is admitted to the hospital for further management. HOSPITAL COURSE: The patient was admitted to the progressive care unit. She has no significant card iac risk factors with no history of diabetes, hypertension, hyperlipidemia and no family history of p remature heart disease. In addition, she is a lifetime nonsmoker. Her initial EKG is nonischemic. She had a negative troponin. She was admitted to telemetry and her troponins were trended, which were all negative. She had no re currence of her chest pain, as a matter of fact is chest pain-free upon arrival to the emergency depa rtment. Her heart score is 2, which is a low risk; therefore, I think she is able to have outpatient risk stratification and is referred back to her primary care physician for outpatient cardiac stress testing. She was continued on her Xarelto for her history of pulmonary embolism, as well as her Tete lCept and prednisone as previously prescribed. DISPOSITION: The patient is discharged home in stable condition. FOLLOWUP: Primary care physician in 3-5 days for outpatient cardiac stress test. DISCHARGE MEDICATIONS: Please see AMS VariCode for completed outpatient medication list. She will veda nue all her outpatient medications as previously prescribed. There have been no changes to her medic ations. /[id number]/MODL
== END 2017-06-16 10:45 | disposition home or self-care (01) ==
LOC: EDUNIT# → UNDOADMOB 12:13 → F2W 14:57
PROVIDERS: ADMIT Internal Medicine; ATTEND Hospitalist
DX: R07.9 Chest pain, unspecified (principal); G96.9 Disorder of central nervous system, unspecified; F32.9 Major depressive disorder, single episode, unspecified; J45.909 Unspecified asthma, uncomplicated; Z79.01 Long term (current) use of anticoagulants; Z79.52 Long term (current) use of systemic steroids; Z79.899 Other long term (current) drug therapy; Z86.711 Personal history of pulmonary embolism
CPT/HCPCS: 71046; 93005; 97165; 99285; G0378; G8987; G8988; G8989; J7512

== ENCOUNTER 2017-07-22 15:01 | Emergency (ER) | payer OTHER ==
[2017-07-22 15:10] VITALS: BP 112/59
== END 2017-07-22 16:46 | disposition left against medical advice (07) ==
DX: Z53.21 Procedure and treatment not carried out due to patient leaving prior to being seen by health care provider (principal)

== ENCOUNTER 2017-07-23 14:45 | Emergency (ER) | payer OTHER ==
--- NOTE | 2017-07-23 16:24 | EDPHY ---
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 The pain was in several locations in both hips but yesterday it centralized to the lateral region of the left hip, and left sacrum. Yesterday, the pain became a 10 out of 10. When the pain is worst, it extends down the leg into the thigh and calf and also across the thigh into the groin. She has been using Tylenol to control pain. She tried tramadol but had no improvement in symptoms. A bone scan last week showed osteoporosis. She denies numbness or tingling, or any other associated symptoms. She denies history of back injury. She began using her walker again due to instability caused by pain. No fever, chills, chest pain, shortness of breath, palpitations, vomiting, diarrhea, urinary complaints, headache, lightheadedness. REVIEW OF SYSTEMS: Aside from elements discussed in the HPI, a comprehensive 10-point review of systems was reviewed and is negative. PAST MEDICAL HISTORY: CLIPPERS disease with high dose steroids SOCIAL HISTORY: Lives in [place], , retired VITAL SIGNS: Reviewed by me GENERAL: Slightly thin, well-developed, appears in no acute distress. HEENT: Atraumatic. Eyes: No icterus, no injection. Mouth: moist mucous membranes. No erythema or lesions. Neck: supple with no adenopathy. LUNGS: Clear to auscultation bilaterally, no wheezes, rhonchi or rales. CARDIAC: Regular rate and rhythm, no rubs, murmurs or gallops. ABDOMEN: Soft, nontender, nondistended, bowel sounds normal. BACK: No CVA tenderness. No lumbar spine tenderness to palpation. Tenderness along left posterior iliac crest and posterior sacrum. No tenderness over greater trochanteric bursa. Patient indicates pain on the lateral hip and down the femur but no tenderness is noted there. Lipoma anterior to pelvic rim on left side. EXTREMITIES: Pain with active flexion and passive external rotation of left hip. No trauma. No edema. Range of motion is normal throughout. NEURO: Alert and oriented, grossly nonfocal. SKIN: Warm and dry, no rash. PSYCHIATRIC: Normal mentation, no agitation. ED Course: X-ray: Left hip x-ray was obtained. I viewed the images myself on the PACS system. My interpretation of the images is: negative for acute findings. The radiologist interpretation is negative for acute findings. I discussed the x- ray findings with the patient. CT: Pelvis was obtained. I viewed the images myself on the PACS system. The radiologist interpretation is sacral insufficiency fracture. I discussed the x- ray findings with the patient. The patient presents with left hip pain, and low sided left back pain, acutely worse yesterday. She was recently diagnosed wit osteoporosis from high dose steroids for CLIPPERS disease. Hip X-ray is negative for fracture. Plan for CT. CT shows sacral insufficiency fracture. She will follow up outpatient with orthopedics. The patient agrees to this course of action. She was discharged with prescription for oxycodone as well as a prescription for tramadol. She reports that she cannot take ibuprofen secondary to Xarelto use. She and her understand the importance of close follow up at Orthopedic surgery and potentially Neurosurgery to ensure that her insufficiency fractures as well as the osteoarthritis in her hip are treated appropriately. MDM: Differential diagnoses for the patient's symptom complex was considered including but not limited to osteoarthritis, chronic hip pain, muscle tear, ligamentous injury, insufficiency fractures, steroid induced fractures, osteoporosis, avascular necrosis of the femoral head. - Data Points Imaging Results: Imaging Impressions Hip X-Ray 07/23/17 16:21 Impression: Negative for fracture with degenerative changes noted. Pelvis CT 07/23/17 17:14 Impression: 1. Left hip negative for fracture with degenerative changes noted. 2. Suspect sacral insufficiency fractures bilaterally, as well as a linear undisplaced fracture of the left sacral ala. Results called and discussed with Dr. Tami Hall on July 23, 2017 at 1802 hours. Imaging: Discussed imaging studies w/ company controller Radiologist Medications Given: Discontinued Medications Oxycodone/Acetaminophen (Percocet 5/325) 1 tab PO EDNOW ONE Stop: 07/23/17 17:14 Last Admin: 07/23/17 17:21 Dose: 1 tab General Time Seen by Provider: 07/23/17 16:09 Initial Vital Signs: Initial Vital Signs Temperature (C) 36.8 C 07/23/17 14:50 Heart Rate 86 07/23/17 14:50 Respiratory Rate 16 07/23/17 14:50 Blood Pressure 112/61 07/23/17 14:50 O2 Sat (%) 96 07/23/17 14:50 O2 Delivery Mode Room Air Allergies/Adverse Reactions: No Known Allergies Allergy (Unverified 07/23/17 14:49) Home Medications: Medication Instructions Recorded Cholecalciferol Vit D3 [Vitamin D3 5,000 units PO DAILY16 06/15/17 2000 units tab (OTC)] Cyanocobalamin [Vitamin B12 (*)] 1,000 mcg PO DAILY16 06/15/17 Docusate Sodium [Colace 100 MG (*)] 100 mg PO DAILY 06/15/17 Mycophenolate Mofetil [Cellcept] 250 mg PO BID 06/15/17 Pantoprazole Sodium [Protonix 40mg 40 mg PO DAILY@13 06/15/17 (*)] Polyethylene Glycol 3350 [Miralax 17 gm PO DAILY PRN 06/15/17 17 gm (*)] Rivaroxaban [Xarelto] 20 mg PO DAILY16 06/15/17 Sertraline HCl [Zoloft 100mg (*)] 150 mg PO DAILY@13 06/15/17 Sulfamethox/Tmp 800/160 mg 2 tab PO MWF 06/15/17 [Bactrim DS] clonazePAM [Klonopin (*)] 0.5 mg PO HS 06/15/17 predniSONE [Prednisone] 50 mg PO DAILY 06/15/17 oxyCODONE/APAP 5/325 [Percocet 1 tab PO QID PRN #20 tab 07/23/17 5/325 (*)] traMADol [Ultram 50 mg (*)] 50 mg PO Q6 #20 tab 07/23/17 Departure - Departure Disposition: Home, Routine, Self-Care Clinical Impression: Hip pain, left Sacral insufficiency fracture Qualifiers: Encounter type: initial encounter Qualified Code(s): M84.48XA - Pathological fracture, other site, initial encounter for fracture Condition: Good Instructions: Arthralgia (ED), Hip Pain (ED) Additional Instructions: Please follow up with orthopedic surgeon as directed. Please take ibuprofen as directed. 400 mg every 6-8 hours with food for pain relief as well as for anti-inflammatory effects. You been given a prescription for oxycodone. You may use this as needed for severe pain. Referrals: Radha Chen MD [Primary Care Provider] - As per Instructions Claudy Mckeon MD [Medical Doctor] - As per Instructions (Please follow up at [facility] for Orthopedics for re-evaluation of your hip pain.) Jani Saenz MD [Medical Doctor] - As per Instructions (Dr. Cesario Delgado is a neurosurgeon. Please follow up with him regarding the sacral insufficiency fractures if you desire.) Prescriptions: oxyCODONE/APAP 5/325 [Percocet 5/325 (*)] 1 tab PO QID PRN #20 tab PRN Reason: Pain traMADol [Ultram 50 mg (*)] 50 mg PO Q6 #20 tab Report Scribed for: Tami Hall Report Scribed by: Corinna Armendariz Date of Report: 07/23/17 Time of Report: 16:27 Physician Review and Approval Statement: Portions of this note were transcribed by a front office medical assistant. I personally performed a history, physical exam, medical decision making, and confirmed accuracy of information the transcribed note.
[2017-07-23] MEDS ORDERED: OXYCODONE/APAP 5/325 TAB PO ONE (17:13)
[2017-07-23 18:33] VITALS: BP 105/71
== END 2017-07-23 18:33 | disposition home or self-care (01) ==
DX: M84.48XA Pathological fracture, other site, initial encounter for fracture (principal)

== ENCOUNTER 2017-08-02 09:26 | Emergency (ER) | payer OTHER ==
--- NOTE | 2017-08-02 09:47 | CPEKG ---
Heart Rate: 79 RR Interval: 759 P-R Interval: 120 QRSD Interval: 82 QT Interval: 368 QTC Interval: 422 P Hitchcock: 58 QRS Hitchcock: 73 T Wave Hitchcock: 42 EKG Severity - NORMAL ECG - EKG Impression: SINUS RHYTHM Electronically Signed By: Willam Edwards 02-Aug-2017 10:03:22
--- NOTE | 2017-08-02 10:01 | EDPHY ---
H & P Stated Complaint: r sided cp/stopped xarelto th Time Seen by Provider: 08/02/17 09:38 HPI/ROS: CHIEF COMPLAINT: Chest pain and anxiety HISTORY OF PRESENT ILLNESS: The patient presents to the ED after she developed acute right-sided chest pain at 9 o'clock today. She described 2 episodes of sharp pain adjacent to her sternum. Each episode lasted approximately 15 min then resolved. The patient was scheduled to get an MRI of her pelvis for further evaluation of osteopenia and chronic pelvic pain. The patient has had a very complicated and stressful medical history. 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 The patient was hospitalized for chest pain in June of this year and ruled out by serial enzymes. She did not undergo stress testing at that point time. The patient salt Cardiology last week who also felt that stress testing was not indicated. The patient does have a prior history of cholecystectomy for symptoms of abdominal pain and chest pain. 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 The patient did stop taking Xarelto last week as she required the use of NSAIDs for management of her musculoskeletal pain. REVIEW OF SYSTEMS: A comprehensive 10 point review of systems is otherwise negative aside from elements mentioned in the history of present illness. Source: Patient Exam Limitations: No limitations - Personal History Current Tetanus Diphtheria and Acellular Pertussis (TDAP): Yes Tetanus Vaccine Date: < 10 YEARS - Medical/Surgical History Hx Asthma: Yes Hx Chronic Respiratory Disease: No Hx Diabetes: No Hx Cardiac Disease: No Hx Renal Disease: No Hx Cirrhosis: No Hx Alcoholism: No Hx HIV/AIDS: No Hx Splenectomy or Spleen Trauma: No Other PMH: 'Clippers' dx (brain lesion, brain biopsy). Cholecystectomy. Asthma. PE., oseoporosis - Social History Smoking Status: Never smoked - Physical Exam Exam: General Appearance: Alert, tearful, anxious Eyes: Pupils equal and round no pallor or injection ENT, Mouth: Mucous membranes moist Respiratory: There are no retractions, lungs are clear to auscultation Cardiovascular: Regular rate and rhythm Gastrointestinal: Abdomen is soft and nontender, no masses, bowel sounds normal Neurological: 5/5 strength all 4 extremities Skin: Warm and dry, no rashes Musculoskeletal: Neck is supple nontender Extremities: symmetrical, full range of motion Psychiatric: Patient is oriented X 3, there is no agitation Constitutional: Initial Vital Signs Temperature (C) 36.4 C 08/02/17 09:34 Heart Rate 83 08/02/17 09:34 Respiratory Rate 20 08/02/17 09:34 Blood Pressure 109/70 08/02/17 09:34 O2 Sat (%) 99 08/02/17 09:34 O2 Delivery Mode Room Air Allergies/Adverse Reactions: No Known Allergies Allergy (Verified 08/02/17 09:32) Home Medications: Medication Instructions Recorded Cholecalciferol Vit D3 [Vitamin D3 5,000 units PO DAILY16 06/15/17 2000 units tab (OTC)] Cyanocobalamin [Vitamin B12 (*)] 1,000 mcg PO DAILY16 06/15/17 Docusate Sodium [Colace 100 MG (*)] 100 mg PO DAILY 06/15/17 Mycophenolate Mofetil [Cellcept] 250 mg PO BID 06/15/17 Pantoprazole Sodium [Protonix 40mg 40 mg PO DAILY@13 06/15/17 (*)] Polyethylene Glycol 3350 [Miralax 17 gm PO DAILY PRN 06/15/17 17 gm (*)] Sertraline HCl [Zoloft 100mg (*)] 150 mg PO DAILY@13 06/15/17 Sulfamethox/Tmp 800/160 mg 2 tab PO MWF 06/15/17 [Bactrim DS] clonazePAM [Klonopin (*)] 0.5 mg PO HS 06/15/17 predniSONE [Prednisone] 50 mg PO DAILY 06/15/17 Cellcept 08/02/17 Fosamax 35 MG 08/02/17 Medical Decision Making - Diagnostics EKG Interpretation: EKG: Complete interpretation has been separately recorded in the [email or web address] archive. Summary impression: Sinus rhythm, rate 79, no ischemic changes noted ED Course/Re-evaluation: I reviewed the patient's past medical records including her hospitalizations earlier this year. The patient presents to the ED with likely recurrent noncardiac chest pain. Her EKG demonstrates no evidence of ischemia. The patient's D-dimer is negative which I feel adequately excludes pulmonary embolism. The patient had troponins x2 in the ED which are negative. The patient was re-evaluated serially in the ED. At 11:30 a.m. she has had no recurrent chest pain. I do feel that she can be discharged home with customary aftercare instructions and return precautions. Differential Diagnosis: Differential diagnosis considered includes esophageal spasm, acute coronary syndrome, pericarditis, myocarditis - Data Points Laboratory Results: Laboratory Results 08/02/17 09:45 08/02/17 09:45 08/02/17 08/02/17 08/02/17 11:26 09:49 09:45 WBC RBC Hgb Hct MCV MCH MCHC RDW Plt Count MPV Neut % (Auto) Lymph % (Auto) Edgar % (Auto) Eos % (Auto) Baso % (Auto) Nucleat RBC Rel Count Absolute Neuts (auto) Absolute Lymphs (auto) Absolute Monos (auto) Absolute Eos (auto) Absolute Basos (auto) Absolute Nucleated RBC Immature Gran % Immature Gran # D-Dimer < 0.27 ug/mLFEU ug/mLFEU (0.00-0.50) Sodium Potassium Chloride Carbon Dioxide Anion Gap BUN Creatinine Estimated GFR Glucose Calcium POC Troponin I 0.00 ng/mL ng/mL 0.00 ng/mL ng/mL (0.00-0.08) (0.00-0.08) 08/02/17 08/02/17 09:45 09:45 WBC 7.23 10^3/uL 10^3/uL (3.80-9.50) RBC 4.41 10^6/uL 10^6/uL (4.18-5.33) Hgb 13.8 g/dL g/dL (12.6-16.3) Hct 42.9 % % (38.0-47.0) MCV 97.3 fL fL (81.5-99.8) MCH 31.3 pg pg (27.9-34.1) MCHC 32.2 g/dL L g/dL (32.4-36.7) RDW 15.4 % H % (11.5-15.2) Plt Count 194 10^3/uL 10^3/uL (150-400) MPV 8.9 fL fL (8.7-11.7) Neut % (Auto) 63.2 % % (39.3-74.2) Lymph % (Auto) 28.1 % % (15.0-45.0) Edgar % (Auto) 7.2 % % (4.5-13.0) Eos % (Auto) 0.7 % % (0.6-7.6) Baso % (Auto) 0.1 % L % (0.3-1.7) Nucleat RBC Rel Count 0.0 % % (0.0-0.2) Absolute Neuts (auto) 4.57 10^3/uL 10^3/uL (1.70-6.50) Absolute Lymphs (auto) 2.03 10^3/uL 10^3/uL (1.00-3.00) Absolute Monos (auto) 0.52 10^3/uL 10^3/uL (0.30-0.80) Absolute Eos (auto) 0.05 10^3/uL 10^3/uL (0.03-0.40) Absolute Basos (auto) 0.01 10^3/uL L 10^3/uL (0.02-0.10) Absolute Nucleated RBC 0.00 10^3/uL 10^3/uL (0-0.01) Immature Gran % 0.7 % % (0.0-1.1) Immature Gran # 0.05 10^3/uL 10^3/uL (0.00-0.10) D-Dimer Sodium 145 mEq/L mEq/L (135-145) Potassium 3.8 mEq/L mEq/L (3.3-5.0) Chloride 106 mEq/L mEq/L (97-110) Carbon Dioxide 28 mEq/l mEq/l (22-31) Anion Gap 11 mEq/L mEq/L (8-16) BUN 18 mg/dL mg/dL (7-23) Creatinine 0.9 mg/dL mg/dL (0.6-1.0) Estimated GFR > 60 Glucose 72 mg/dL mg/dL (70-100) Calcium 9.2 mg/dL mg/dL (8.5-10.4) POC Troponin I Point of Care Test Results: Chemistry 08/02/17 08/02/17 11:26 09:49 POC Troponin I 0.00 ng/mL ng/mL 0.00 ng/mL ng/mL (0.00-0.08) (0.00-0.08) Departure - Departure Disposition: Home, Routine, Self-Care Clinical Impression: Chest pain Condition: Good Instructions: Chest Pain (ED) Additional Instructions: 1. The testing done in the emergency department today demonstrates no cardiac abnormalities. There is no laboratory evidence of recurrent blood clot. 2. Please follow up with your regular physician and operations supervisor as scheduled. 3. Please return to the ED for markedly worsening symptoms or other concerns. Referrals: Radha Chen MD [Primary Care Provider] - As per Instructions
[2017-08-02 10:06] LABS: PLATELET COUNT 194 10^3/uL (150-400)
[2017-08-02 11:58] VITALS: BP 104/59
== END 2017-08-02 12:00 | disposition home or self-care (01) ==
DX: R07.9 Chest pain, unspecified (principal); J45.909 Unspecified asthma, uncomplicated
CPT/HCPCS: 84484-PO

== ENCOUNTER → 2017-08-08 | Outpatient (CLI) | payer OTHER | DX: R07.9 Chest pain, unspecified (principal); G25.81 Restless legs syndrome ==

== ENCOUNTER → 2017-08-18 | Outpatient (CLI) | payer OTHER | LOC: BHFA 13:00 | PROVIDERS: ATTEND Internal Medicine Interventional Cardiology | DX: R07.9 Chest pain, unspecified (principal); G25.81 Restless legs syndrome | CPT/HCPCS: 78452; 93017; A9500; J2785 ==

== ENCOUNTER → 2017-08-31 | Outpatient (CLI) | payer OTHER | LOC: FIMAGING 07:57 | DX: Z09 Encounter for follow-up examination after completed treatment for conditions other than malignant neoplasm (principal); Z98.890 Other specified postprocedural states | CPT/HCPCS: 70553; A9585; 82565-PO ==

== ENCOUNTER → 2017-10-30 | Outpatient (CLI) | payer OTHER | LOC: FIMAGING 12:03 | PROVIDERS: ATTEND Family Medicine | DX: Z12.31 Encounter for screening mammogram for malignant neoplasm of breast (principal) ==

== ENCOUNTER → 2017-11-22 | Outpatient (CLI) | payer OTHER | LOC: FIMAGING 09:57 | DX: G04.90 Encephalitis and encephalomyelitis, unspecified (principal); I67.9 Cerebrovascular disease, unspecified | CPT/HCPCS: 70553; A9585; 82565-PO ==

== ENCOUNTER 2018-02-05 11:51 | Emergency (ER) | payer OTHER ==
--- NOTE | 2018-02-05 12:43 | EDPHY ---
HPI/HX/ROS/PE/MDM - Data Points Imaging: I viewed and interpreted images myself Narrative: CHIEF COMPLAINT: Body aches, unsteady. HPI: This patient is a 72 year old female with history of CLIPPERS disease. She controls her symptoms with steroids, 15mg daily. She also takes Rituxan as directed by her providers. In November, she was on a course of 1000mg Solu- Medrol weekly. She generally fatigues easily due to her CLIPPERS. Yesterday, felt relatively well, many activities. Last night, she developed pain in her right hand. This radiated up to her elbow and then to both shoulders. Now, her primary complaint is a severe ache in right jaw. She felt very unwell upon waking this morning. She felt imbalanced while walking. Additionally, patient has had a cough ongoing for three weeks. This seems to be exacerbated by swallowing pills. She denies fever, difficulty breathing, nausea, vomiting, or other associated symptoms. REVIEW OF SYSTEMS: A comprehensive 10 system review of systems is otherwise negative aside from elements mentioned in the history of present illness and medical decision making. PMH: CLIPPERS disease. Asthma. History of PE. Osteoporosis. Cholecystectomy. SOCIAL HISTORY: at bedside. Lives in [place]. Retired. PHYSICAL EXAM: General:Patient is alert, in no acute distress. ENT:Eyes are normal to inspection. ENT inspection normal. Neck: Normal inspection. Full range of motion. Respiratory:No respiratory distress. Breath sounds normal bilaterally. Cardiovascular: Regular rate and rhythm. Strong peripheral pulses. Normal cap refill. Abdomen:The abdomen is nontender to palpation. There are no peritoneal signs. There are normal bowel sounds. Back: Normal to inspection. No tenderness to palpation. Skin: Normal color. No rash. Warm and dry. Extremities: Normal appearance. Full range of motion. Neuro: Oriented x3. Normal motor function. Normal sensory function. (Ajith Chapman) ED Course: 73 year old female presents with generalized body aches and a sensation of imbalance as well as several week history of cough. Plan for EKG, chest x-ray, labs including CBC, chemistries, flu swab. EKG was ordered and interpreted by myself. Please see [employer] system for official reading. Chest x-ray negative for acute processes. Flu swab negative. Plan for additional labs including troponin, respiratory pathogen panel. Workup today is largely unremarkable. Plan to discharge home in good condition. Follow up and return precautions discussed. The patient is comfortable with this plan. Temperature elevated at discharge. We will hold discharge at this time. Plan for UA for further evaluation. 15:00 Care of this patient signed out to Dr. Kearns at shift change pending UA result. (Ajith Chapman) I assumed care of this patient at 3:[address] Ajith Chapman. She was resting comfortably at that time. Urinalysis and respiratory pathogen panel pending. Urine sample was rejected. At 4:30 p.m. She has not produced another urine sample. I evaluated her at that time. She is complaining of right ear pain. She states that she has had the pain all day long and that it is worsening. She also describes some right jaw pain, no toothache. No left ear pain or left jaw pain. She denies chest pain. Temperature was 37.9 degrees on arrival. I was told that she spiked a temperature after arrival. I note that she has not received any antipyretics and a repeat temperature is 37.5 degrees. She was given a dose of 650 mg oral Tylenol at approximately 4:40 p.m.. On examination her left tympanic membrane and external auditory canal are normal. Right tympanic membrane is erythematous and mildly bulging. External auditory canal appears normal. She has trouble swallowing pills. She was given amoxicillin suspension 500 mg orally. The initial plan for her, when I assumed her care, was for her to provide a urine sample to assess for urinary tract infection. She urinated once but the sample was inadequate. She was unable to urinate again. Bladder scan showed 200 mL in her bladder. Catheterization was offered to obtain urine, but she refuses this test. She has no urinary symptoms. She would like to return home. I have also learned that the respiratory pathogen panel will not be performed. Nursing staff informs me that the lab will not perform both influenza testing and a respiratory pathogen panel on a patient that is being discharged home. She has not been coughing in the emergency department. Her influenza testing is negative. As above, she would like to return home and feels well enough to do so. She lives with her . I have agreed to discharge her home. A prescription for amoxicillin has been provided along with another dose for the morning. Danger signs have been reviewed with her. She will follow up with her primary care physician. (Lesia Kearns) - Data Points Imaging Results: Imaging Impressions Chest X-Ray 02/05/18 12:44 Impression: Clear lungs. No pneumonia, edema or effusion. Laboratory Results: Laboratory Results 02/05/18 12:25 02/05/18 12:25 02/05/18 02/05/18 02/05/18 15:15 13:42 13:00 WBC RBC Hgb Hct MCV MCH MCHC RDW Plt Count MPV Neut % (Auto) Lymph % (Auto) [place] % (Auto) Eos % (Auto) Baso % (Auto) Nucleat RBC Rel Count Absolute Neuts (auto) Absolute Lymphs (auto) Absolute Monos (auto) Absolute Eos (auto) Absolute Basos (auto) Absolute Nucleated RBC Immature Gran % Seg Neutrophils % Band Neutrophils % Lymphocytes % Monocytes % Eosinophils % Basophils % Metamyelocytes % Myelocytes % Promyelocytes % Blast Cells % Immature Gran # Absolute Seg Neuts Absolute Band Neuts Absolute Lymphocytes Absolute Monocytes Absolute Eosinophils Absolute Basophils Absolute Metamyelocyte Absolute Myelocytes Absolute Promyelocytes Absolute Plasma Cells Nucleated RBCs Absolute Blast Cells Plasma Cells % Platelet Estimate Sodium Potassium Chloride Carbon Dioxide Anion Gap BUN Creatinine Estimated GFR Glucose Calcium POC Troponin I 0.01 ng/mL ng/mL (0.00-0.08) Urine Color REJ Urine Appearance REJ Urine pH REJ Ur Specific [place] REJ Urine Protein REJ Urine Ketones REJ Urine Blood REJ Urine Nitrate REJ Urine Bilirubin REJ Urine Urobilinogen REJ Ur Leukocyte Esterase REJ Urine Glucose REJ Nasal Influenza A PCR NEGATIVE FOR FLU A (NEGATIVE) Nasal Influenza B PCR NEGATIVE FOR FLU B (NEGATIVE) 02/05/18 02/05/18 12:25 12:25 WBC 13.68 10^3/uL H 10^3/uL (3.80-9.50) RBC 4.20 10^6/uL 10^6/uL (4.18-5.33) Hgb 12.9 g/dL g/dL (12.6-16.3) Hct 37.7 % L % (38.0-47.0) MCV 89.8 fL fL (81.5-99.8) MCH 30.7 pg pg (27.9-34.1) MCHC 34.2 g/dL g/dL (32.4-36.7) RDW 14.6 % % (11.5-15.2) Plt Count 132 10^3/uL L 10^3/uL (150-400) MPV 9.7 fL fL (8.7-11.7) Neut % (Auto) Not Reported Lymph % (Auto) Not Reported [place] % (Auto) Not Reported Eos % (Auto) Not Reported Baso % (Auto) Not Reported Nucleat RBC Rel Count Not Reported Absolute Neuts (auto) Not Reported Absolute Lymphs (auto) Not Reported Absolute Monos (auto) Not Reported Absolute Eos (auto) Not Reported Absolute Basos (auto) Not Reported Absolute Nucleated RBC Not Reported Immature Gran % Not Reported Seg Neutrophils % 94.0 % % Band Neutrophils % 0.0 % % Lymphocytes % 1.0 % % Monocytes % 4.0 % % Eosinophils % 0.0 % % Basophils % 0.0 % % Metamyelocytes % 1.0 % % Myelocytes % 0.0 % % Promyelocytes % 0.0 % % Blast Cells % 0.0 % % Immature Gran # Not Reported Absolute Seg Neuts 12.86 10^3/uL H 10^3/uL (1.70-6.50) Absolute Band Neuts 0.00 10^3/uL 10^3/uL (0.00-0.70) Absolute Lymphocytes 0.14 10^3/uL L 10^3/uL (1.00-3.00) Absolute Monocytes 0.55 10^3/uL 10^3/uL (0.30-0.80) Absolute Eosinophils 0.00 10^3/uL L 10^3/uL (0.03-0.40) Absolute Basophils 0.00 10^3/uL L 10^3/uL (0.02-0.10) Absolute Metamyelocyte 0.14 10^3/mL H 10^3/mL (0.00-0.00) Absolute Myelocytes 0.00 10^3/mL 10^3/mL (0.00-0.00) Absolute Promyelocytes 0.00 10^3/uL 10^3/uL (0.00-0.00) Absolute Plasma Cells 0.00 10^3/uL 10^3/uL (0.00-0.00) Nucleated RBCs 0 /100 WBC /100 WBC (0-0) Absolute Blast Cells 0.00 10^3/uL 10^3/uL (0.00-0.00) Plasma Cells % 0.0 % % Platelet Estimate DECREASED L (ADEQ) Sodium 134 mEq/L L mEq/L (135-145) Potassium 3.9 mEq/L mEq/L (3.5-5.2) Chloride 104 mEq/L mEq/L (97-110) Carbon Dioxide 24 mEq/l mEq/l (22-31) Anion Gap 6 mEq/L mEq/L (6-14) BUN 19 mg/dL mg/dL (7-23) Creatinine 0.8 mg/dL mg/dL (0.6-1.0) Estimated GFR > 60 Glucose 106 mg/dL H mg/dL (70-100) Calcium 8.7 mg/dL mg/dL (8.5-10.4) POC Troponin I Urine Color Urine Appearance Urine pH Ur Specific [place] Urine Protein Urine Ketones Urine Blood Urine Nitrate Urine Bilirubin Urine Urobilinogen Ur Leukocyte Esterase Urine Glucose Nasal Influenza A PCR Nasal Influenza B PCR Medications Given: Acetaminophen (Tylenol 650/20.3ml Oral Liquid) 650 mg PO Q4HRS PRN PRN Reason: Pain, Mild/Fever, Can Take PO Stop: 08/04/18 16:41 Last Admin: 02/05/18 16:43 Dose: 650 mg Discontinued Medications Amoxicillin (Amoxil 250mg/5ml) 500 mg PO EDNOW ONE PRN Reason: Protocol Stop: 02/05/18 16:59 Last Admin: 02/05/18 18:11 Dose: 10 ml Sodium Chloride (Ns) 500 mls @ 0 mls/hr IV EDNOW ONE; Wide Open PRN Reason: Protocol Stop: 02/05/18 12:45 Last Admin: 02/05/18 13:04 Dose: 500 mls Sodium Chloride (Ns) 1,000 mls @ 0 mls/hr IV ONCE ONE PRN Reason: Wide Open Stop: 02/05/18 16:29 Last Admin: 02/05/18 16:43 Dose: 1,000 mls Point of Care Test Results: Chemistry 02/05/18 13:42 POC Troponin I 0.01 ng/mL ng/mL (0.00-0.08) General Time Seen by Provider: 02/05/18 12:26 Initial Vital Signs: Initial Vital Signs Temperature (C) 37.9 C 02/05/18 12:00 Heart Rate 107 H 02/05/18 12:00 Respiratory Rate 16 02/05/18 12:00 Blood Pressure 95/45 L 02/05/18 12:00 O2 Sat (%) 98 02/05/18 12:00 O2 Delivery Mode Room Air Allergies/Adverse Reactions: Sulfa (Sulfonamide Antibiotics) Allergy (Unknown, Unverified 02/05/18 11:58) Other-Enter Comments Home Medications: Medication Instructions Recorded Pantoprazole Sodium [Protonix 40mg 40 mg PO DAILY 06/15/17 (*)] Sertraline HCl [Zoloft 100mg (*)] 150 mg PO DAILY 06/15/17 Alendronate Sodium [Fosamax 70 MG 70 mg PO TH@0700 12/24/17 (*)] Calcium Citrate 1,000 mg PO DAILY 12/24/17 Cholecalciferol Vit D3 [Vitamin D3 5,000 units PO DAILY 12/24/17 (*)] Cyanocobalamin [Vitamin B12 (*)] 1,000 mcg PO DAILY 12/24/17 clonazePAM [Klonopin (*)] 0.25 mg PO HS PRN 12/24/17 rOPINIRole HCL [Requip 1mg (*)] 1 mg PO DAILY 12/24/17 predniSONE 60 mg PO DAILY #40 tablet 12/27/17 Amoxicillin [Amoxicillin Susp] 500 mg PO BID 10 Days ml 02/05/18 Rituxan 02/05/18 SOLU-MEDROL 02/05/18 Departure - Departure Disposition: Home, Routine, Self-Care Clinical Impression: CLIPPER disease, Generalized body aches Fever Qualifiers: Fever type: unspecified Qualified Code(s): R50.9 - Fever, unspecified Otitis media Qualifiers: Otitis media type: other nonsuppurative Chronicity: acute Condition: Good Instructions: Pain Management (ED), Ear Infection (ED) Additional Instructions: Follow up with your primary care provider for further evaluation. Return to the emergency department for persistent fever, chest pain, shortness of breath, or other worsening of condition. Referrals: Radha Chen MD [Primary Care Provider] - As per Instructions Prescriptions: Amoxicillin [Amoxicillin Susp] 500 mg PO BID 10 Days ml Report Scribed for: Ajith Chapman Report Scribed by: aMdisyn Castaneda Date of Report: 02/05/18 Time of Report: 15:20 Physician Review and Approval Statement: Portions of this note were transcribed by an ED scribe. I personally performed the history, physical exam, and medical decision making; and confirm the accuracy of the information in the transcribed note.
[2018-02-05] MEDS ORDERED: NS 500 ML IV ONE (12:44)
[2018-02-05 12:54] LABS: PLATELET COUNT 132 10^3/uL (150-400)
--- NOTE | 2018-02-05 15:06 | CPEKG ---
Test Reason : OPEN Blood Pressure : / mmHG Vent. Rate : 090 BPM Atrial Rate : 090 BPM P-R Int : 112 ms QRS Dur : 082 ms QT Int : 354 ms P-R-T Axes : 038 035 051 degrees QTc Int : 433 ms Sinus rhythm Confirmed by Ajith Chapman ([id number]) on 02/05/2018 3:06:04 PM Referred By: Confirmed By:Ajith Chapman
[2018-02-05] MEDS ORDERED: NS 1,000 ML IV ONE (16:28)
[2018-02-05] MEDS ORDERED: ACETAMINOPHEN 650 MG/20.3 ML UDCUP ONE (16:40)
[2018-02-05] MEDS ORDERED: ACETAMINOPHEN 650 MG/20.3 ML UDCUP PO PRN (16:42)
[2018-02-05] MEDS ORDERED: AMOXICILLIN SUSP 250 MG/5 ML BTL PO ONE (16:58)
[2018-02-05 19:39] VITALS: BP 94/67
== END 2018-02-05 19:50 | disposition home or self-care (01) ==
DX: G96.8 Other specified disorders of central nervous system (principal); H65.191 Other acute nonsuppurative otitis media, right ear; M79.10 Myalgia, unspecified site; E86.9 Volume depletion, unspecified; Z79.52 Long term (current) use of systemic steroids; Z88.2 Allergy status to sulfonamides
CPT/HCPCS: 84484-PO

== ENCOUNTER 2018-02-08 12:24 | Emergency (ER) | payer OTHER ==
--- NOTE | 2018-02-08 13:23 | EDPHY ---
H & P Time Seen by Provider: 02/08/18 13:07 HPI/ROS: CHIEF COMPLAINT: Possible allergic reaction HISTORY OF PRESENT ILLNESS: Patient has "CLIPPERS" syndrome diagnosed for at least the past year and has been getting Rituxan, the 1st dose 2 weeks ago. Today she was about 1 hr into her infusion which started getting lower back pain radiating around to the anterior abdomen and up toward her chest also feeling shortness of breath. Infusion was stopped and she got IV Benadryl and Solu-Medrol is transported here for evaluation. Now she says all symptoms have completely resolved and besides being a little bit sleepy from the Benadryl feels back to normal. No skin rash, no throat swelling, no wheezing. No weakness or numbness in legs, no abdominal pain, no urinary symptoms. REVIEW OF SYSTEMS: Eye: no change in vision ENT: no sore throat Cardiac: no chest pain or syncope Pulmonary: no cough or SOB Abdomen: no vomiting, diarrhea, abdominal pain Musculoskeletal: HPI Skin: no rash Neuro: Chronically has some unsteadiness and a"fuzzy head"from her illness Constitutional: no fever : no urinary symptoms A comprehensive 10 point review of systems is otherwise negative aside from elements mentioned in the history of present illness. PAST MEDICAL HISTORY: Includes as in HPI also cholecystectomy, asthma, PE, osteoporosis Social history: [facility] physician is Dr. Willem Fairchild General Appearance: Alert and conversant, cooperative. Eyes: No scleral icterus. ENT, Mouth: Normal mucous membranes. Respiratory: Normal respiratory effort, breath sounds equal, lungs are clear to auscultation. No wheezing. Cardiovascular: Regular rate and rhythm. Gastrointestinal: Abdomen is soft and non tender. Neurological: Alert, face symmetric, normal motor and sensory in extremities. Skin: No petechiae or purpura, no hives or urticaria. Musculoskeletal: No peripheral edema. Psychiatric: Not agitated. Frustrated. Emergency Department course/MDM: 1323: Discussed with Gurinder, apparently this is a reaction that is typically seen with adverse reaction to Rituxan. Symptoms are much more likely to be adverse drug reaction than another medical condition. Advised by Gurinder to go back to her normal medications including prednisone 15 mg a day, no extra steroids. Patient feels back to normal except for her feeling a little sleepy because of the Benadryl, her symptoms have resolved and she is at baseline. I think it is unlikely that she has acute surgical abdominal process or ACS or dysrhythmia or pulmonary embolism or pneumonia. Smoking Status: Never smoked Constitutional: Initial Vital Signs Temperature (C) 36.7 C 02/08/18 12:30 Heart Rate 70 02/08/18 12:30 Respiratory Rate 18 02/08/18 12:30 Blood Pressure 113/73 02/08/18 12:30 O2 Sat (%) 100 02/08/18 12:30 O2 Delivery Mode Room Air Allergies/Adverse Reactions: Sulfa (Sulfonamide Antibiotics) Allergy (Unknown, Unverified 02/05/18 11:58) Other-Enter Comments Home Medications: Medication Instructions Recorded Pantoprazole Sodium [Protonix 40mg 40 mg PO DAILY 06/15/17 (*)] Sertraline HCl [Zoloft 100mg (*)] 150 mg PO DAILY 06/15/17 Alendronate Sodium [Fosamax 70 MG 70 mg PO TH@0700 12/24/17 (*)] Calcium Citrate 1,000 mg PO DAILY 12/24/17 Cholecalciferol Vit D3 [Vitamin D3 5,000 units PO DAILY 12/24/17 (*)] Cyanocobalamin [Vitamin B12 (*)] 1,000 mcg PO DAILY 12/24/17 clonazePAM [Klonopin (*)] 0.25 mg PO HS PRN 12/24/17 rOPINIRole HCL [Requip 1mg (*)] 1 mg PO DAILY 12/24/17 predniSONE 60 mg PO DAILY #40 tablet 12/27/17 Amoxicillin [Amoxicillin Susp] 500 mg PO BID 10 Days ml 02/05/18 Rituxan 02/05/18 SOLU-MEDROL 02/05/18 Departure - Departure Disposition: Home, Routine, Self-Care Clinical Impression: Drug reaction Qualifiers: Encounter type: initial encounter Qualified Code(s): T50.905A - Adverse effect of unspecified drugs, medicaments and biological substances, initial encounter Condition: Good Instructions: Adverse Drug Reaction (ED) Additional Instructions: Dr. Fairchild advises to just go back to your usual dose of 15 mg oral prednisone per day. Referrals: Willem Fairchild MD [Medical Doctor] - 5-7 days, call for appt.
[2018-02-08 13:38] VITALS: BP 109/60
== END 2018-02-08 13:53 | disposition home or self-care (01) ==
LOC: EDUNIT#
DX: T50.905A Adverse effect of unspecified drugs, medicaments and biological substances, initial encounter (principal); M54.5 Low back pain; R06.02 Shortness of breath; M35.9 Systemic involvement of connective tissue, unspecified; J45.909 Unspecified asthma, uncomplicated; Z86.711 Personal history of pulmonary embolism; Z88.2 Allergy status to sulfonamides

== ENCOUNTER → 2018-04-17 | Outpatient (CLI) | payer OTHER | LOC: GIMAGING 12:29 | PROVIDERS: ATTEND Nurse Practitioner | DX: J45.909 Unspecified asthma, uncomplicated (principal) | CPT/HCPCS: 71046-PO ==

== ENCOUNTER 2018-04-21 06:55 | Emergency (ER) | payer OTHER ==
[2018-04-21] MEDS ORDERED: ACETAMINOPHEN 325 MG TAB PO ONE (07:05)
--- NOTE | 2018-04-21 07:13 | EDPHY ---
H & P Time Seen by Provider: 04/21/18 07:12 HPI/ROS: Chief complaint. Possible reaction to Tamiflu HPI. 73-year-old female presents emergency department with neck back hip pain for 1 day. She was diagnosed with flu 4 days ago and started on Tamiflu. She had already been sick for several days. She had a negative chest x-ray. She has been coughing. Again last night developed neck back hip pain. She has no shortness of breath with her cough. No fever. No anterior chest discomfort. No abdominal pain or nausea vomiting or diarrhea. She has think she has may be having a reaction to Tamiflu. 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 ENT, pharynx without injection. Mucous membranes are moist Respiratory: There are no retractions, lungs are clear to auscultation. Cardiovascular: Regular rate and rhythm. Gastrointestinal: Abdomen is soft and nontender, no masses, bowel sounds normal. Neurological: Awake and alert, sensory and motor exams grossly normal. Skin: Warm and dry, no rashes. Musculoskeletal: Neck is supple nontender. Diffuse tenderness across the shoulders, through the thoracic spine lumbar spine into the hips. No surface findings Extremities symmetrical, full range of motion. Psychiatric: Patient is oriented X 3, there is no agitation. Constitutional: Initial Vital Signs Temperature (C) 37.1 C 04/21/18 06:58 Heart Rate 82 04/21/18 06:58 Respiratory Rate 18 04/21/18 06:58 O2 Sat (%) 97 04/21/18 06:58 O2 Delivery Mode Room Air Allergies/Adverse Reactions: Sulfa (Sulfonamide Antibiotics) Allergy (Unknown, Unverified 04/21/18 07:00) Other-Enter Comments Home Medications: Medication Instructions Recorded Pantoprazole Sodium [Protonix 40mg 40 mg PO DAILY 06/15/17 (*)] Sertraline HCl [Zoloft 100mg (*)] 150 mg PO DAILY 06/15/17 Alendronate Sodium [Fosamax 70 MG 70 mg PO @0700 12/24/17 (*)] Calcium Citrate 1,000 mg PO DAILY 12/24/17 Cholecalciferol Vit D3 [Vitamin D3 5,000 units PO DAILY 12/24/17 (*)] Cyanocobalamin [Vitamin B12 (*)] 1,000 mcg PO DAILY 12/24/17 clonazePAM [Klonopin (*)] 0.25 mg PO HS PRN 12/24/17 rOPINIRole HCL [Requip 1mg (*)] 1 mg PO DAILY 12/24/17 predniSONE 60 mg PO DAILY #40 tablet 12/27/17 Amoxicillin [Amoxicillin Susp] 500 mg PO BID 10 Days ml 02/05/18 Rituxan 02/05/18 SOLU-MEDROL 02/05/18 Oseltamivir Phosphate [Tamiflu 75 75 mg PO BID 04/21/18 mg (*)] Medical Decision Making - Diagnostics EKG Interpretation: EKG interpreted by me shows sinus tachycardia. Normal interval and axis. QRS is normal no significant ST elevation or depression. PVC noted. Rate 102. No significant change from previous EKG January 2018 Imaging Results: CT angiogram chest shows no evidence of PE. Consistent with chronic bronchitis. Reviewed by me and discussed with Dr. Hastings Procedures: Tylenol in the ED. Patient tells me she has been told not to take ibuprofen IV normal saline D-dimer is elevated. Patient has a history of pulmonary embolus. CT angio was ordered ED Course/Re-evaluation: Re-evaluation 9:45 a.m.. Patient is stable. Patient, , and I discussed imaging and lab results. We discussed treatment plan including criteria for return importance of follow-up and further evaluation. She expresses understanding and agree Differential Diagnosis: I considered acute coronary syndrome, pulmonary embolus, pneumonia. Patient has flu and I think these are myalgias related to flu. - Data Points Laboratory Results: Laboratory Results 04/21/18 07:40 04/21/18 07:40 04/21/18 04/21/18 04/21/18 07:42 07:40 07:40 WBC RBC Hgb Hct MCV MCH MCHC RDW Plt Count MPV Neut % (Auto) Lymph % (Auto) [place] % (Auto) Eos % (Auto) Baso % (Auto) Nucleat RBC Rel Count Absolute Neuts (auto) Absolute Lymphs (auto) Absolute Monos (auto) Absolute Eos (auto) Absolute Basos (auto) Absolute Nucleated RBC Immature Gran % Immature Gran # RBC/WBC/PLT Morphology Platelet Estimate PT 13.6 SEC SEC (12.0-15.0) INR 1.08 (0.83-1.16) APTT 24.3 SEC SEC (23.0-38.0) D-Dimer 0.81 ug/mLFEU H ug/mLFEU (0.00-0.50) Sodium 139 mEq/L mEq/L (135-145) Potassium 3.7 mEq/L mEq/L (3.5-5.2) Chloride 106 mEq/L mEq/L (97-110) Carbon Dioxide 22 mEq/l mEq/l (22-31) Anion Gap 11 mEq/L mEq/L (6-14) BUN 22 mg/dL mg/dL (7-23) Creatinine 0.9 mg/dL mg/dL (0.6-1.0) Estimated GFR > 60 Glucose 158 mg/dL H mg/dL (70-100) Calcium 8.6 mg/dL mg/dL (8.5-10.4) POC Troponin I 0.00 ng/mL ng/mL (0.00-0.08) 04/21/18 07:40 WBC 7.25 10^3/uL 10^3/uL (3.80-9.50) RBC 4.58 10^6/uL 10^6/uL (4.18-5.33) Hgb 13.7 g/dL g/dL (12.6-16.3) Hct 41.0 % % (38.0-47.0) MCV 89.5 fL fL (81.5-99.8) MCH 29.9 pg pg (27.9-34.1) MCHC 33.4 g/dL g/dL (32.4-36.7) RDW 13.2 % % (11.5-15.2) Plt Count 136 10^3/uL L 10^3/uL (150-400) MPV 9.2 fL fL (8.7-11.7) Neut % (Auto) 88.0 % H % (39.3-74.2) Lymph % (Auto) 7.0 % L % (15.0-45.0) [place] % (Auto) 2.9 % L % (4.5-13.0) Eos % (Auto) 0.6 % % (0.6-7.6) Baso % (Auto) 0.3 % % (0.3-1.7) Nucleat RBC Rel Count 0.0 % % (0.0-0.2) Absolute Neuts (auto) 6.38 10^3/uL 10^3/uL (1.70-6.50) Absolute Lymphs (auto) 0.51 10^3/uL L 10^3/uL (1.00-3.00) Absolute Monos (auto) 0.21 10^3/uL L 10^3/uL (0.30-0.80) Absolute Eos (auto) 0.04 10^3/uL 10^3/uL (0.03-0.40) Absolute Basos (auto) 0.02 10^3/uL 10^3/uL (0.02-0.10) Absolute Nucleated RBC 0.00 10^3/uL 10^3/uL (0-0.01) Immature Gran % 1.2 % H % (0.0-1.1) Immature Gran # 0.09 10^3/uL 10^3/uL (0.00-0.10) RBC/WBC/PLT Morphology TNP Platelet Estimate DECREASED L (ADEQ) PT INR APTT D-Dimer Sodium Potassium Chloride Carbon Dioxide Anion Gap BUN Creatinine Estimated GFR Glucose Calcium POC Troponin I Medications Given: Discontinued Medications Acetaminophen (Tylenol) 650 mg PO EDNOW ONE Stop: 04/21/18 07:06 Last Admin: 04/21/18 07:16 Dose: 650 mg Sodium Chloride (Ns) 1,000 mls @ 0 mls/hr IV EDNOW ONE; Wide Open PRN Reason: Protocol Stop: 04/21/18 07:31 Last Admin: 04/21/18 07:44 Dose: 1,000 mls Point of Care Test Results: Chemistry 04/21/18 07:42 POC Troponin I 0.00 ng/mL ng/mL (0.00-0.08) Departure - Departure Disposition: Home, Routine, Self-Care Clinical Impression: Influenza Condition: Good Instructions: Influenza (ED) Additional Instructions: Drink plenty of fluids and stay hydrated. Tylenol 650 mg every 4-6 hours for fever and achiness. Return for worsening symptoms Recheck in 2 days if not improving Referrals: Radha Chen MD [Primary Care Provider] - 2-3 days, if not improved
[2018-04-21] MEDS ORDERED: NS 1,000 ML IV ONE (07:30)
--- NOTE | 2018-04-21 07:44 | CPEKG ---
Test Reason : OPEN Blood Pressure : / mmHG Vent. Rate : 102 BPM Atrial Rate : 087 BPM P-R Int : 110 ms QRS Dur : 089 ms QT Int : 372 ms P-R-T Axes : 036 037 031 degrees QTc Int : 485 ms Sinus tachycardia Paired ventricular premature complexes Confirmed by Yohan Ch ([id number]) on 04/21/2018 7:43:13 AM Referred By: YOHAN CH Confirmed By:Yohan Ch
[2018-04-21 07:51] LABS: PLATELET COUNT 136 10^3/uL (150-400)
[2018-04-21 08:05] LABS: INR 1.08 (0.83-1.16); PROTIME(PATIENT) 13.6 SEC (12.0-15.0)
[2018-04-21] MEDS ORDERED: IOPAMIDOL (ISOVUE 370) 100 ML BTL IV ONE (08:49)
[2018-04-21 09:58] VITALS: BP 100/67
== END 2018-04-21 10:13 | disposition home or self-care (01) ==
DX: J11.1 Influenza due to unidentified influenza virus with other respiratory manifestations (principal); E86.9 Volume depletion, unspecified
CPT/HCPCS: 71275; 93005; 96360; 99285; Q9967; 84484-ER

== ENCOUNTER → 2018-05-07 | Outpatient (CLI) | payer OTHER | LOC: FIMAGING 09:48 | PROVIDERS: ATTEND Student in an Organized Health Care Education/Training Program | DX: G93.89 Other specified disorders of brain (principal) | CPT/HCPCS: 70553; A9585 ==